=== PATIENT | male | born 1960 ===

== ENCOUNTER 2016-12-19 12:17 | Emergency (ER) | payer SELFPAY ==
[2016-12-19 12:17] VITALS: BMI 22.4
--- NOTE | 2016-12-19 13:30 | C.PDOC ---
History Of Present Illness Patient is a 55 year old male with a PMHx of HTN and DM, who presents to the ER with a complaint of leg swelling for the past 2 weeks. Patient denies fever or other complaints. Time Seen by Provider: 12/19/16 13:23 Chief Complaint (Nursing): Lower Extremity Problem/Injury History Per: Patient History/Exam Limitations: no limitations Onset/Duration Of Symptoms: Days (2 weeks) Current Symptoms Are (Timing): Still Present Recent travel outside of the [place]: No Past Medical History Reviewed: Historical Data, Nursing Documentation, Vital Signs Vital Signs: Last Vital Signs Temp 98.2 F 12/19/16 13:12 Pulse 64 12/19/16 13:12 Resp 20 12/19/16 13:12 BP 161/92 H 12/19/16 13:12 Pulse Ox 99 12/19/16 15:30 - Medical History PMH: Back Problems, Diabetes, HTN Surgical History: No Surg Hx - [facility] Procedures INFLUENZA VACCINATION (08/18/13) VACCINATION NEC (08/18/13) Family History: States: Unknown Family Hx - Social History Hx Tobacco Use: Yes Hx Alcohol Use: No Hx Substance Use: No - Immunization History Hx Tetanus Toxoid Vaccination: No Hx Influenza Vaccination: Yes Hx Pneumococcal Vaccination: No Review Of Systems Except As Marked, All Systems Reviewed And Found Negative. Constitutional: Negative for: Fever Gastrointestinal: Negative for: Nausea, Vomiting Musculoskeletal: Positive for: Other (Bilateral leg swelling) Physical Exam - Physical Exam Appears: Well, Non-toxic Skin: Normal Color, Warm, Dry Head: Atraumatic, Normacephalic Oral Mucosa: Moist Chest: Symmetrical, No Tenderness Cardiovascular: Rhythm Regular, No Murmur Respiratory: Normal Breath Sounds, No Rales, No Rhonchi, No Wheezing Gastrointestinal/Abdominal: Soft, No Tenderness Extremity: No Tenderness, Swelling (Legs, bilateral) Neurological/Psych: Oriented x3, Normal Speech, Normal Cognition ED Course And Treatment - Laboratory Results Result Diagrams: 12/19/16 14:04 12/19/16 14:04 ECG: Interpreted By Me, Viewed By Me ECG Rhythm: Sinus Bradycardia, R BBB Rate From EC O2 Sat by Pulse Oximetry: 99 (Room air) Pulse Ox Interpretation: Normal Medical Decision Making Medical Decision Making: r/o renal failure, chf, dvt Plan: * Blood work 300: dvt study neg as per tech. pt offered admission as new onset of chf. cxr shows mild vasc congestion as read by me. pt refuses, states wishes to go home. understands risks. signs AMA Disposition - Disposition Referrals: [facility] [Outside] [facility] [Outside] Barrie Live MD [Staff Provider] - Disposition: AGAINST MEDICAL ADVICE Disposition Time: 15:01 Condition: UNKNOWN Additional Instructions: please follow up in clinic and with specialist. return to er with worsening symptoms or concerns. Prescriptions: Furosemide [Lasix] 20 mg PO DAILY #7 tablet Instructions: Leg Edema (ED) - Clinical Impression Clinical Impression: CHF (congestive heart failure), Leg edema - Scribe Statement The provider has reviewed the documentation as recorded by the Scribe Toby Valdez All medical record entries made by the Scribe were at my direction and personally dictated by me. I have reviewed the chart and agree that the record accurately reflects my personal performance of the history, physical exam, medical decision making, and the department course for this patient. I have also personally directed, reviewed, and agree with the discharge instructions and disposition.
[2016-12-19 14:17] LABS: BASO % 0.5 % (0.0-2.0); EOS # 0.6 K/uL (0.0-0.7); EOS % 5.9 % (0.0-4.0); HEMATOCRIT 31.2 % (35.0-51.0); LYMPH # 1.5 K/uL (1.0-4.3); LYMPH % 15.7 % (20.0-40.0); MEAN CELL VOLUME 89.8 fL (80.0-94.0); MEAN CORPUSCULAR HEMOGLOBIN 30.4 pg (27.0-31.0); MEAN CORPUSCULAR HGB CONC 33.9 g/dL (33.0-37.0); MONO # 0.6 K/uL (0.0-0.8); MONO % 5.7 % (0.0-10.0); RED CELL DISTRIBUTION WIDTH 14.3 % (11.5-14.5); WHITE BLOOD COUNT 9.8 K/uL (4.8-10.8)
[2016-12-19 14:19] LABS: CHLORIDE 104 mmol/L (98-107); POTASSIUM 3.2 mmol/L (3.6-5.2); SODIUM 137 mmol/L (132-148)
[2016-12-19 14:21] LABS: BILIRUBIN,TOTAL < 0.1 mg/dL (0.2-1.3); CARBON DIOXIDE 28 mmol/L (22-30); GFR AFRICAN-AMERICAN > 60
[2016-12-19 14:22] LABS: ALB/GLOB RATIO 0.9 (1.0-2.1); ALKALINE PHOSPHATASE 65 U/L (38-126); ALT/SGPT 51 U/L (21-72); AST/SGOT 36 U/L (17-59); BLOOD UREA NITROGEN 15 mg/dL (9-20); GLUCOSE,RANDOM 125 mg/dL (75-110); TOTAL PROTEIN 5.9 g/dL (6.3-8.3)
[2016-12-19] MEDS ORDERED: Potassium Chloride 20 mEq ER Tab PO STA (14:22)
[2016-12-19 14:27] LABS: INR 0.9
[2016-12-19] MEDS ORDERED: Potassium Chloride 20 mEq ER Tab PO ONE (15:14)
[2016-12-19 15:48] VITALS: BP 170/82; PULSE 59; RESP 18; TEMP 97.7; O2SAT 100
--- NOTE | 2016-12-19 16:04 | RAD ---
HISTORY: swelling r/o chf COMPARISON: 10/08/2014 FINDINGS: LUNGS: Multiple scattered ill-defined areas of consolidation and or opacification throughout both lungs most prominent in the right upper to mid lung zone and left upper to mid lung zone. More focal consolidative areas seen at the lateral aspect of the right midlung zone and lateral aspect of the left upper to mid lung zone. Diffuse increased interstitial lung markings. This may represent underlying fibrotic changes with possible superimposed acute infectious and or inflammatory components. Clinical correlation. PLEURA: As above. CARDIOVASCULAR: Tortuous aorta. Mild cardiomegaly. OSSEOUS STRUCTURES: Degenerative changes in the spine and shoulders. VISUALIZED UPPER ABDOMEN: Normal. OTHER FINDINGS: None. IMPRESSION: Multiple scattered ill-defined areas of consolidation and or opacification throughout both lungs most prominent in the right upper to mid lung zone and left upper to mid lung zone. More focal consolidative areas seen at the lateral aspect of the right midlung zone and lateral aspect of the left upper to mid lung zone. Diffuse increased interstitial lung markings. This may represent underlying fibrotic changes with possible superimposed acute infectious and or inflammatory components. Clinical correlation.
--- NOTE | 2016-12-19 21:28 | VASCLAB ---
PROCEDURE: Lower Extremity Venous Duplex Exam. HISTORY: leg swelling r/o dvt PRIORS: None. TECHNIQUE: Bilateral common femoral, femoral, popliteal and posterior tibial, peroneal and great saphenous veins were evaluated. Flow was assessed with color Doppler, compressibility, assessment of phasic flow and augmentation response. Report prepared by RANJIT Langston, RVT FINDINGS: RIGHT: 1. Common Femoral Vein: 1.1. Compressibility - Fully compressible: Thrombus - None : Flow - Phasic: Augmentation -Normal: Reflux - None. 2. Femoral Vein: 2.1. Compressibility - Fully compressible: Thrombus - None : Flow - Phasic: Augmentation -Normal: Reflux - None. 3. Popliteal Vein: 3.1. Compressibility - Fully compressible: Thrombus - None : Flow - Phasic: Augmentation -Normal: Reflux - Severe. 4. Posterior Tibial Vein: 4.1. Compressibility - Fully compressible: Thrombus - None: Flow - Phasic: Augmentation -Normal: Reflux - None. 5. Peroneal Vein: 5.1. Compressibility - Fully compressible: Thrombus - None: Flow - Phasic: Augmentation -Normal: Reflux - None. 6. Great Saphenous Vein: 6.1. Compressibility - Fully compressible: Thrombus - None: Flow - Phasic: Augmentation - Normal: Reflux - Severe. LEFT: 1. Common Femoral Vein: 1.1. Compressibility - Fully compressible: Thrombus - None: Flow - Phasic: Augmentation -Normal: Reflux - None. 2. Femoral Vein: 2.1. Compressibility - Fully compressible: Thrombus - None: Flow - Phasic: Augmentation -Normal: Reflux - None. 3. Popliteal Vein: 3.1. Compressibility - Fully compressible: Thrombus - None : Flow - Phasic: Augmentation -Normal: Reflux - None. 4. Posterior Tibial Vein: 4.1. Compressibility - Fully compressible: Thrombus - None: Flow - Phasic: Augmentation -Normal: Reflux - None. 5. Peroneal Vein: 5.1. Compressibility - Fully compressible: Thrombus - None: Flow - Phasic: Augmentation -Normal: Reflux - None. 6. Great Saphenous Vein: 6.1. Compressibility - Fully compressible: Thrombus - None: Flow - Phasic: Augmentation - Normal: Reflux - Severe. OTHER FINDINGS: Right: Severe valvular incompetence of the right popliteal and greater saphenous veins. Soft tissue edema. Left: Severe valvular incompetence of the left greater saphenous vein. Soft tissue edema. IMPRESSION: Right: No evidence of deep or superficial vein thrombosis of the right lower extremity. Left: No evidence of deep or superficial vein thrombosis of the left lower extremity.
--- NOTE | 2016-12-20 10:19 | CARD ---
APPROVED REPORT EKG Measurement Heart [id number] DE 116P-4 [id number] <Conclusion> Sinus bradycardia Right bundle branch block Left anterior fascicular block Bifascicular block Abnormal ECG
== END 2016-12-19 15:47 | disposition left against medical advice (07) ==
LOC: C.ER 12:17
DX: I11.0 Hypertensive heart disease with heart failure (principal); R60.0 Localized edema; Z72.0 Tobacco use
CPT/HCPCS: 71010; 80053; 83880; 84484; 85025; 85610; 85730; 93005; 93970; 96374; 99285; J1940

== ENCOUNTER 2017-02-27 07:19 | Inpatient (IN) | payer SELFPAY ==
[2017-02-27 07:20] VITALS: BMI 22.4
--- NOTE | 2017-02-27 07:53 | C.PDOC ---
History Of Present Illness Patient is a 56 y/o M with DM, presenting with lower extremity swelling. He was seen in December for the same and was recommended for admission for new onset chf , but signed out AMA. Patient presents today with worsening pain and swelling and reports that he cannot ambulate due to the swelling. Denies chest pain or shortness of breath. Time Seen by Provider: 02/27/17 07:41 Chief Complaint (Nursing): Lower Extremity Problem/Injury Past Medical History Vital Signs: Last Vital Signs Temp 98.3 F 02/27/17 10:32 Pulse 61 02/27/17 12:40 Resp 20 02/27/17 12:40 BP 171/90 H 02/27/17 12:40 Pulse Ox 100 02/27/17 12:40 - Medical History PMH: Back Problems, Diabetes, HTN - [facility] Procedures INFLUENZA VACCINATION (08/18/13) VACCINATION NEC (08/18/13) Family History: States: Unknown Family Hx - Social History Hx Tobacco Use: Yes Hx Alcohol Use: No Hx Substance Use: No - Immunization History Hx Tetanus Toxoid Vaccination: No Hx Influenza Vaccination: Yes Hx Pneumococcal Vaccination: No Review Of Systems Except As Marked, All Systems Reviewed And Found Negative. Constitutional: Negative for: Fever, Chills Cardiovascular: Positive for: Edema. Negative for: Chest Pain, Palpitations, Orthopnea, Paroxysmal Noc. Dyspnea, Light Headedness Respiratory: Negative for: Cough, Shortness of Breath, SOB with Excertion, Wheezing Gastrointestinal: Negative for: Nausea, Vomiting, Abdominal Pain, Diarrhea, Constipation Genitourinary: Negative for: Dysuria Neurological: Negative for: Weakness Psych: Negative for: Anxiety Physical Exam - Physical Exam Appears: Well, Non-toxic, No Acute Distress Head: Atraumatic, Normacephalic Eye(s): bilateral: Normal Inspection, PERRL, EOMI Neck: Supple Chest: Symmetrical Cardiovascular: Rhythm Regular Respiratory: Normal Breath Sounds, No Rales, No Rhonchi, No Wheezing Gastrointestinal/Abdominal: Soft, No Tenderness, No Mass, No Distention Back: Normal Inspection, No CVA Tenderness Extremity: Normal ROM, Pedal Edema ED Course And Treatment - Laboratory Results Result Diagrams: 02/27/17 08:06 02/27/17 08:06 O2 Sat by Pulse Oximetry: 100 Medical Decision Making Medical Decision Making: chf vs renal vs liver dysfunction. r/o dvt EKG shows sinus bradycardia at 58bpm with RBBB and L anterior fasicular block, unchanged from prior on 12/19/16. Duplex negative for dvt b/l Cxray read as "Previously noted areas of nodular opacities, peribronchial thickening, cystic bronchiectasis and cavitary lesions in the upper and to a lesser degree lower lobes bilaterally are less well seen on this study as compared to high-resolution CT scan chest. . Rule out chronic inflammatory process/ fungal infection." Spoke to Dr. Bonilla and will transfer to tele observation for new onset chf and lower extremity edema. Lasix ordered. He is aware of abnormal xray result. Disposition - Disposition Disposition: HOSPITALIZED Disposition Time: 07:56 Condition: FAIR - Clinical Impression Clinical Impression: Lower extremity edema
[2017-02-27 08:25] LABS: BASO # 0.1 K/uL (0.0-0.2); BASO % 1.1 % (0.0-2.0); EOS # 0.7 K/uL (0.0-0.7); EOS % 6.9 % (0.0-4.0); HEMATOCRIT 31.7 % (35.0-51.0); LYMPH # 1.8 K/uL (1.0-4.3); LYMPH % 17.3 % (20.0-40.0); MEAN CELL VOLUME 89.2 fL (80.0-94.0); MEAN CORPUSCULAR HEMOGLOBIN 29.6 pg (27.0-31.0); MEAN CORPUSCULAR HGB CONC 33.2 g/dL (33.0-37.0); MEAN PLATELET VOLUME 9.1 fL (7.2-11.7); MONO # 0.5 K/uL (0.0-0.8); RED CELL DISTRIBUTION WIDTH 14.5 % (11.5-14.5); WHITE BLOOD COUNT 10.2 K/uL (4.8-10.8)
[2017-02-27 08:46] LABS: CHLORIDE 104 mmol/L (98-107); POTASSIUM 3.9 mmol/L (3.6-5.2); SODIUM 137 mmol/L (132-148)
[2017-02-27 08:48] LABS: BILIRUBIN,TOTAL 0.4 mg/dL (0.2-1.3); GFR AFRICAN-AMERICAN > 60
[2017-02-27 08:49] LABS: ALB/GLOB RATIO 0.8 (1.0-2.1); ALKALINE PHOSPHATASE 90 U/L (38-126); ALT/SGPT 44 U/L (21-72); AST/SGOT 27 U/L (17-59); BLOOD UREA NITROGEN 14 mg/dL (9-20); CALCIUM 7.7 mg/dl (8.6-10.4); CARBON DIOXIDE 24 mmol/L (22-30); GLUCOSE,RANDOM 266 mg/dL (75-110); TOTAL PROTEIN 5.6 g/dL (6.3-8.3)
[2017-02-27] MEDS ORDERED: Propofol 10 mg/ml 0 MG/0 ML VIAL ONE (09:11)
[2017-02-27] MEDS ORDERED: Piperacillin/Tazobact 3.375 gm 0 ML IVPB ONE (11:13)
--- NOTE | 2017-02-27 12:40 | RAD ---
HISTORY: leg swelling COMPARISON: Comparison made with chest radiograph and CT scan chest dated 12/29/2016 and 08 19 2013 respectively. FINDINGS: LUNGS: Previously noted areas of nodular opacities, peribronchial thickening, cystic bronchiectasis and cavitary lesions in the upper and to a lesser degree lower lobes bilaterally are less well seen on this study as compared to high-resolution CT scan chest. . Rule out chronic inflammatory process/ fungal infection. Is there history of immunocompromised state in this patient? . PLEURA: No significant pleural effusion identified, no pneumothorax apparent. CARDIOVASCULAR: Heart appears mildly enlarged. . . OSSEOUS STRUCTURES: No significant abnormalities. VISUALIZED UPPER ABDOMEN: Normal. OTHER FINDINGS: None. IMPRESSION: Previously noted areas of nodular opacities, peribronchial thickening, cystic bronchiectasis and cavitary lesions in the upper and to a lesser degree lower lobes bilaterally are less well seen on this study as compared to high-resolution CT scan chest. . Rule out chronic inflammatory process/ fungal infection. Is there history of immunocompromised state in this patient? These findings discussed with Dr. Mariscal at approximately 12:35 p.m. with written down and read back verification.
--- NOTE | 2017-02-27 13:25 | VASCLAB ---
PROCEDURE: Lower Extremity Venous Duplex Exam. HISTORY: lower extremity swelling, eval for dvt PRIORS: None. TECHNIQUE: Bilateral common femoral, femoral, popliteal and posterior tibial, peroneal and great saphenous veins were evaluated. Flow was assessed with color Doppler, compressibility, assessment of phasic flow and augmentation response. Report prepared by Toby Porter, RANJIT, RVT FINDINGS: RIGHT: 1. Common Femoral Vein: 1.1. Compressibility - Fully compressible: Thrombus - None : Flow - Phasic: Augmentation -Normal: Reflux - None. 2. Femoral Vein: 2.1. Compressibility - Fully compressible: Thrombus - None : Flow - Phasic: Augmentation -Normal: Reflux - None. 3. Popliteal Vein: 3.1. Compressibility - Fully compressible: Thrombus - None : Flow - Phasic: Augmentation -Normal: Reflux - Severe. 4. Posterior Tibial Vein: 4.1. Compressibility - Fully compressible: Thrombus - None: Flow - Phasic: Augmentation -Normal: Reflux - None. 5. Peroneal Vein: 5.1. Compressibility - Fully compressible: Thrombus - None: Flow - Phasic: Augmentation -Normal: Reflux - Severe. 6. Great Saphenous Vein: 6.1. Compressibility - Fully compressible: Thrombus - None: Flow - Phasic: Augmentation - Normal: Reflux - None. LEFT: 1. Common Femoral Vein: 1.1. Compressibility - Fully compressible: Thrombus - None: Flow - Phasic: Augmentation -Normal: Reflux - None. 2. Femoral Vein: 2.1. Compressibility - Fully compressible: Thrombus - None: Flow - Phasic: Augmentation -Normal: Reflux - None. 3. Popliteal Vein: 3.1. Compressibility - Fully compressible: Thrombus - None : Flow - Phasic: Augmentation -Normal: Reflux - None. 4. Posterior Tibial Vein: 4.1. Compressibility - Fully compressible: Thrombus - None: Flow - Phasic: Augmentation -Normal: Reflux - None. 5. Peroneal Vein: 5.1. Compressibility - Fully compressible: Thrombus - None: Flow - Phasic: Augmentation -Normal: Reflux - None. 6. Great Saphenous Vein: 6.1. Compressibility - Fully compressible: Thrombus - None: Flow - Phasic: Augmentation - Normal: Reflux - None. OTHER FINDINGS: Right: Severe valvular incompetence of the right popliteal vein. Left: Severe valvular incompetence of the left greater saphenous vein. IMPRESSION: Right: No evidence of deep or superficial vein thrombosis of the right lower extremity. Left: No evidence of deep or superficial vein thrombosis of the left lower extremity.
--- NOTE | 2017-02-27 13:43 | CP.PCM.HP ---
<Rayne FangEzequiel - Last Filed: 02/27/17 19:51> History of Present Illness - History of Present Illness History of Present Illness: CC- bilateral leg pain and swelling Patient is a 56 M with PMH of diabetes who presents to the emergency room for worsening bilateral leg pain. Patient has had about 3 months of leg swelling and one month of leg pain. Patient says in the past week he has not been able to go to work because his leg pain has been bothering him so much. Patient states the pain is worse with walking and walking up stairs. Patient describes the pain as a throbbing pain that is 7/10 at its worse and currently 3/10. Patient says the pain moves from his knee to his feet to the back of his legs. Patient also has weakness from his feet up to his hips and feels he has to use the handrails to help him get up stairs. Patient feels numbness in the soles of his feet and toes for 3-4 months. Pain is present but mild at rest. Patient also complains of hand numbness which he feels mostly at night and sometimes during the day which he describes as discomfort and tingling but not pain which has been happening for 3 years. Patient has been to doctors before for these complaints who told him it was caused by his diabetes. Patient does not check his blood sugars at home. Patient sleeps on two pillows and denies shortness of breath. Patient is able to sleep in any position without trouble breathing. Patient denies shortness of breath at rest or with walking, but admits to shortness of breath with exercise. Patient feels he can tolerate less exercise than he could before he was diagnosed with diabetes. Patient feels bloated and has a lot of flatulence, but is having normal bowel movement with no constipation or diarrhea. Patient denies headache, dizziness, changes in hearing , congestion, shortness of breath, chest pain, palpitations, fevers, or sweats. PMD: [facility] PMHx: Diabetes Psurg: none Famhx: none known to pateint Socialhx: tobacco: 5/6 cigarettes per day for 15 years alcohol: 6 beers per week drugs: none patient says he eats unhealthy and drinks one cup of coffee per day patient lives alone and works for a [employer] company Home Medications: Levamir 25 U daily Janumet 50 mg po BID Glimepiride 4 mg Daily Gabapentin 600 mg BID Present on Admission - Present on Admission Any Indicators Present on Admission: Yes History of DVT/PE: No History of Uncontrolled Diabetes: Yes Urinary Catheter: No Decubitus Ulcer Present: No Review of Systems - Constitutional Constitutional: Weakness. absent: Chills, Fatigue, Fever, Night Sweats - EENT Eyes: absent: Blurred Vision, Change in Vision Nose/Mouth/Throat: absent: Nasal Congestion, Sinus Pressure, Dry Mouth, Sore Throat Additional comments: patient has bilateral cataracts - Cardiovascular Cardiovascular: Claudication, Edema, Leg Edema, Pedal Edema. absent: Chest Pain at Rest, Leg Ulcers, Orthopnea, Palpitations, Paroxysmal Nocturnal Dyspnea - Respiratory Respiratory: absent: Cough, Wheezing, Stridor - Gastrointestinal Gastrointestinal: Bloating, Excessive Flatus. absent: Abdominal Pain, Constipation, Diarrhea, Loose Stools, Vomiting - Genitourinary Genitourinary: Nocturia. absent: Change in Urinary Stream, Urinary Incontinence Additional comments: wakes up to urinate 2 times per night - Musculoskeletal Musculoskeletal: Muscle Cramps, Muscle Weakness, Numbness, Tingling - Integumentary Integumentary: Dry Skin, Erythema - Neurological Neurological: Tingling. absent: Dizziness, Headaches, Loss of Vision - Psychiatric Psychiatric: Abnormal Sleep Pattern. absent: Confusion, Depression - Endocrine Endocrine: Palpitations. absent: Fatigue - Hematologic/Lymphatic Hematologic: absent: Easy Bleeding, Easy Bruising Past Patient History - Past Medical History & Family History Past Medical History?: Yes - Past Social History Smoking Status: Light Smoker < 10 Cigarettes Daily - CARDIAC Hx Hypertension: Yes - PULMONARY Hx Respiratory Disorders: No - NEUROLOGICAL Hx Neurological Disorder: No - HEENT Hx HEENT Problems: No - ENDOCRINE/METABOLIC Hx Diabetes Mellitus Type 1: Yes Other/Comment: per patient only medical history is DM - HEMATOLOGICAL/ONCOLOGICAL Hx Blood Disorders: No - INTEGUMENTARY Hx Dermatological Problems: No - MUSCULOSKELETAL/RHEUMATOLOGICAL Hx Falls: No - GASTROINTESTINAL Hx Gastrointestinal Disorders: No - GENITOURINARY/GYNECOLOGICAL Hx Genitourinary Disorders: No - PSYCHIATRIC Hx Substance Use: No - SURGICAL HISTORY Hx Surgeries: No - ANESTHESIA Hx Anesthesia: No Hx Anesthesia Reactions: No Meds Allergies/Adverse Reactions: Allergies Allergy/AdvReac Type Severity Reaction Status Date / Time No Known Allergies Allergy Verified 02/27/17 07:47 Physical Exam - Constitutional Appears: Well, Non-toxic, No Acute Distress - Head Exam Head Exam: ATRAUMATIC, NORMAL INSPECTION, NORMOCEPHALIC - Eye Exam Eye Exam: EOMI, Normal appearance, PERRL - ENT Exam ENT Exam: Mucous Membranes Moist, Normal Exam - Neck Exam Neck exam: Positive for: Full Rom - Respiratory Exam Respiratory Exam: Clear to Auscultation Bilateral, NORMAL BREATHING PATTERN. absent: Rales, Rhonchi, Wheezes, Respiratory Distress, Stridor - Cardiovascular Exam Cardiovascular Exam: REGULAR RHYTHM, JVD, RRR, +S1, +S2. absent: Rubs, Systolic Murmur Additional comments: positive hepatojugular reflex - GI/Abdominal Exam GI & Abdominal Exam: Normal Bowel Sounds, Soft. absent: Distended, Firm, Guarding, Tenderness - Extremities Exam Extremities exam: Positive for: pedal edema, tenderness - Back Exam Back exam: NORMAL INSPECTION. absent: rash noted - Neurological Exam Neurological exam: Alert, CN II-XII Intact, Oriented x3 - Psychiatric Exam Psychiatric exam: Normal Affect, Normal Mood - Skin Skin Exam: Erythema, Intact, Warm Additional comments: 2+ pitting edema erythematous lower extremity bilaterally b/l erythema of feet Results - Vital Signs Recent Vital Signs: Last Vital Signs Temp 98.3 F 02/27/17 10:32 Pulse 61 02/27/17 12:40 Resp 20 02/27/17 12:40 BP 171/90 H 02/27/17 12:40 Pulse Ox 100 02/27/17 12:49 - Labs Result Diagrams: 02/27/17 08:06 02/27/17 08:06 Assessment & Plan - Assessment and Plan (Free Text) Assessment: 1. Lower Extremity Edema secondary to CHF, peripheral vascular disease venous doppler negative f/u arterial doppler f/u echo f/u lipid panel ekg showed right bundle branch block - no change since EKG in 12/2016 cardiology consulted, Dr. Ho, help appreciated vascular surgery, Dr. Ying, help appreciated Lasix 40 mg IVP daily Coreg 3.125 mg PO BID Aspirin 81 mg PO daily Lisinopril 10 mg PO daily Crestor 2.5 mg PO HS Spironolactone 25 mg PO Daily 2. Lower Extremity Pain Tylenol 650 mg PO Q6 prn for moderate leg pain Gabapentin 600 mg PO BID 3. Uncontrolled Diabetes Mellitus continue home medications: Levemir 25 U daily Januvia 50 mg BID Metformin 500 mg PO BID Glimepiride 4 mg PO daily Accuchecks ISS (low) HgA1C 4. Uncontrolled Hypertension Lisinopril 10 mg PO daily Coreg 3.125 mg PO daily 5. Tobacco Use Disorder Nicotine patch 14 mg/ 24 hr smoking cessation discussed 6. Prophylactic Measures Pepcid 20 mg PO BID Heparin 5000 u sc q8h <Rubio Nava - Last Filed: 04/11/17 15:10> Results - Vital Signs Recent Vital Signs: Last Vital Signs Temp 98.0 F 03/09/17 07:10 Pulse 76 03/09/17 07:10 Resp 18 03/09/17 07:10 BP 133/70 03/09/17 09:34 Pulse Ox 100 03/09/17 07:10 - Labs Result Diagrams: 03/09/17 06:07 03/09/17 06:07 Attending/Attestation - Attestation I have personally seen and examined this patient.: Yes I have fully participated in the care of the patient.: Yes I have reviewed all pertinent clinical information: Yes Notes (Text): 1. Lower Extremity Edema secondary to CHF, peripheral vascular disease venous doppler negative 2. Lower Extremity Pain Tylenol 650 mg PO Q6 prn for moderate leg pain Gabapentin 600 mg PO BID 3. Uncontrolled Diabetes Mellitus continue home medications: Levemir 25 U daily Januvia 50 mg BID Metformin 500 mg PO BID Glimepiride 4 mg PO daily 4. Uncontrolled Hypertension Lisinopril 10 mg PO daily Coreg 3.125 mg PO daily
--- NOTE | 2017-02-27 15:52 | CP.PCM.CON ---
History of Present Illness - History of Present Illness History of Present Illness: Surgery: Dr. Ying CC: bilateral leg swelling Reason for consult: PVD HPI: Patient is a 56 y/o male, pmh of DM who presents complaining of bilateral leg pain and swelling for the past 2-3 months. Patient denies having problems with his heart or legs in the past. He states the pain is worsened w/ movement and walking and gets better with rest. He denies chest pain or shortness of breath. PMHx: Diabetes PShx: none Social: reports tobacco use, 6-7 cigarettes/day for 15 years, denies ETOH or drug abuse Review of Systems - Review of Systems All systems: reviewed and no additional remarkable complaints except Review of Systems: unless stated in HPI Past Patient History - Past Medical History & Family History Past Medical History?: Yes - Past Social History Smoking Status: Light Smoker < 10 Cigarettes Daily - CARDIAC Hx Hypertension: Yes - PULMONARY Hx Respiratory Disorders: No - NEUROLOGICAL Hx Neurological Disorder: No - HEENT Hx HEENT Problems: No - ENDOCRINE/METABOLIC Hx Diabetes Mellitus Type 1: Yes Other/Comment: per patient only medical history is DM - HEMATOLOGICAL/ONCOLOGICAL Hx Blood Disorders: No - INTEGUMENTARY Hx Dermatological Problems: No - MUSCULOSKELETAL/RHEUMATOLOGICAL Hx Falls: No - GASTROINTESTINAL Hx Gastrointestinal Disorders: No - GENITOURINARY/GYNECOLOGICAL Hx Genitourinary Disorders: No - PSYCHIATRIC Hx Substance Use: No - SURGICAL HISTORY Hx Surgeries: No - ANESTHESIA Hx Anesthesia: No Hx Anesthesia Reactions: No Meds Allergies/Adverse Reactions: Allergies Allergy/AdvReac Type Severity Reaction Status Date / Time No Known Allergies Allergy Verified 02/27/17 07:47 - Medications Medications: Current Medications Acetaminophen (Tylenol 325mg Tab) 650 mg PO Q6 PRN PRN Reason: Pain, moderate (4-7) Aspirin (Aspirin Chewable) 81 mg PO DAILY [facility] Carvedilol (Coreg) 3.125 mg PO BID [facility] Furosemide (Lasix) 40 mg IVP DAILY [facility] Glimepiride (Amaryl) 4 mg PO DAILY [facility] Insulin Detemir (Levemir) 25 unit SC DAILY [facility] Insulin Human Regular (Novolin R) 0 unit SC ACHS [facility] PRN Reason: Protocol Lisinopril (Zestril) 10 mg PO DAILY [facility] Metformin HCl (Glucophage) 500 mg PO BIDBS [facility] Nicotine (Nicoderm Cq) 1 patch TD DAILY [facility] Rosuvastatin Calcium (Crestor) 2.5 mg PO HS [facility] Sitagliptin Phosphate (Januvia) 50 mg PO DAILY [facility] Spironolactone (Aldactone) 25 mg PO DAILY [facility] Physical Exam - Constitutional Appears: Non-toxic, No Acute Distress - Head Exam Head Exam: ATRAUMATIC, NORMOCEPHALIC - Eye Exam Eye Exam: EOMI, Normal appearance - ENT Exam ENT Exam: Mucous Membranes Moist - Respiratory Exam Respiratory Exam: NORMAL BREATHING PATTERN. absent: Respiratory Distress - Cardiovascular Exam Cardiovascular Exam: REGULAR RHYTHM. absent: Tachycardia - Extremities Exam Extremities exam: Positive for: pedal edema, pedal pulses present. Negative for : calf tenderness Additional comments: some mild overlying chronic skin changes and 2+ edema extending from knee to foot. - Neurological Exam Neurological exam: Alert, Oriented x3 - Psychiatric Exam Psychiatric exam: Normal Affect, Normal Mood - Skin Skin Exam: Dry, Warm Results - Vital Signs Recent Vital Signs: Last Vital Signs Temp 97.4 F L 02/27/17 15:00 Pulse 60 02/27/17 15:00 Resp 20 02/27/17 15:00 BP 166/74 H 02/27/17 15:00 Pulse Ox 100 02/27/17 15:00 - Labs Result Diagrams: 02/27/17 08:06 02/27/17 08:06 Assessment & Plan - Assessment and Plan (Free Text) Assessment: 56 y/o male w/ leg swelling bilaterally Plan: -patient pulses are palpable -will order arterial duplex -check for DVT -most likely heart related considering BNP elevation -pending arterial duplex determines further recommendations -smoking cessation -physical therapy -leg elevation -d/w Dr. Terry Rothman PGY3
[2017-02-27] MEDS: (Novolin R) Insulin Human Regular 100 units/ml vial SC SCH ×2 (18:13→21:54)
[2017-02-27 21:10] LABS: CHOLESTEROL 190 mg/dL (0-199)
[2017-02-27] MEDS: Rosuvastatin Calcium 2.5 mg Tab PO SCH (21:53)
[2017-02-28 06:26] LABS: CHLORIDE 106 mmol/L (98-107)
[2017-02-28 06:27] LABS: POTASSIUM 3.5 mmol/L (3.6-5.2); SODIUM 137 mmol/L (132-148)
[2017-02-28 06:29] LABS: GFR AFRICAN-AMERICAN > 60
[2017-02-28 06:30] LABS: ALB/GLOB RATIO 0.8 (1.0-2.1); ALKALINE PHOSPHATASE 74 U/L (38-126); ALT/SGPT 42 U/L (21-72); AST/SGOT 25 U/L (17-59); BILIRUBIN,TOTAL 0.3 mg/dL (0.2-1.3); BLOOD UREA NITROGEN 13 mg/dL (9-20); CALCIUM 7.6 mg/dl (8.6-10.4); CARBON DIOXIDE 25 mmol/L (22-30); GLUCOSE,RANDOM 74 mg/dL (75-110)
[2017-02-28 06:31] LABS: MAGNESIUM 1.9 mg/dL (1.6-2.3)
[2017-02-28 06:48] LABS: BASO # 0.1 K/uL (0.0-0.2); BASO % 1.1 % (0.0-2.0); EOS # 0.6 K/uL (0.0-0.7); EOS % 6.8 % (0.0-4.0); HEMATOCRIT 29.7 % (35.0-51.0); LYMPH # 1.8 K/uL (1.0-4.3); LYMPH % 20.4 % (20.0-40.0); MEAN CELL VOLUME 88.6 fL (80.0-94.0); MEAN CORPUSCULAR HEMOGLOBIN 29.6 pg (27.0-31.0); MEAN CORPUSCULAR HGB CONC 33.4 g/dL (33.0-37.0); MEAN PLATELET VOLUME 8.8 fL (7.2-11.7); MONO # 0.4 K/uL (0.0-0.8); MONO % 4.8 % (0.0-10.0); RED CELL DISTRIBUTION WIDTH 14.3 % (11.5-14.5)
--- NOTE | 2017-02-28 08:04 | CP.PCM.CON ---
History of Present Illness - History of Present Illness History of Present Illness: patient seen/exmined. Full consult to follow. Patient will require echo to evaluate LV function Past Patient History - Past Medical History & Family History Past Medical History?: Yes - Past Social History Smoking Status: Light Smoker < 10 Cigarettes Daily - CARDIAC Hx Hypertension: Yes - PULMONARY Hx Respiratory Disorders: No - NEUROLOGICAL Hx Neurological Disorder: No - HEENT Hx HEENT Problems: No - ENDOCRINE/METABOLIC Hx Diabetes Mellitus Type 1: Yes Other/Comment: per patient only medical history is DM - HEMATOLOGICAL/ONCOLOGICAL Hx Blood Disorders: No - INTEGUMENTARY Hx Dermatological Problems: No - MUSCULOSKELETAL/RHEUMATOLOGICAL Hx Falls: No - GASTROINTESTINAL Hx Gastrointestinal Disorders: No - GENITOURINARY/GYNECOLOGICAL Hx Genitourinary Disorders: No - PSYCHIATRIC Hx Substance Use: No - SURGICAL HISTORY Hx Surgeries: No - ANESTHESIA Hx Anesthesia: No Hx Anesthesia Reactions: No Meds Allergies/Adverse Reactions: Allergies Allergy/AdvReac Type Severity Reaction Status Date / Time No Known Allergies Allergy Verified 02/27/17 07:47 - Medications Medications: Current Medications Acetaminophen (Tylenol 325mg Tab) 650 mg PO Q6 PRN PRN Reason: Pain, moderate (4-7) Aspirin (Aspirin Chewable) 81 mg PO DAILY [facility] Carvedilol (Coreg) 3.125 mg PO BID [facility] Last Admin: 02/27/17 18:12 Dose: 3.125 mg Famotidine (Pepcid) 20 mg PO BID [facility] Last Admin: 02/27/17 18:12 Dose: 20 mg Furosemide (Lasix) 40 mg IVP DAILY [facility] Gabapentin (Neurontin) 600 mg PO BID [facility] Last Admin: 02/27/17 18:12 Dose: 600 mg Glimepiride (Amaryl) 4 mg PO DAILY [facility] Heparin Sodium (Porcine) (Heparin) 5,000 units SC Q8 [facility] Last Admin: 02/28/17 05:35 Dose: 5,000 units Insulin Detemir (Levemir) 25 unit SC DAILY [facility] Insulin Human Regular (Novolin R) 0 unit SC ACHS [facility] PRN Reason: Protocol Last Admin: 02/27/17 21:54 Dose: Not Given Lisinopril (Zestril) 10 mg PO DAILY [facility] Metformin HCl (Glucophage) 500 mg PO BID [facility] Last Admin: 02/27/17 18:12 Dose: 500 mg Nicotine (Nicoderm Cq) 1 patch TD DAILY [facility] Potassium Chloride (K-Dur 20 Meq Er Tab) 20 meq PO DAILY [facility] Rosuvastatin Calcium (Crestor) 2.5 mg PO HS [facility] Last Admin: 02/27/17 21:53 Dose: 2.5 mg Sitagliptin Phosphate (Januvia) 50 mg PO DAILY [facility] Spironolactone (Aldactone) 25 mg PO DAILY [facility] Results - Vital Signs Recent Vital Signs: Last Vital Signs Temp 97.7 F 02/28/17 05:33 Pulse 57 L 02/28/17 05:33 Resp 20 02/28/17 05:33 BP 149/75 02/28/17 05:33 Pulse Ox 97 02/28/17 05:33 - Labs Result Diagrams: 02/28/17 06:06 02/28/17 06:06 Labs: Laboratory Results - last 24 hr 02/27/17 02/27/17 02/27/17 16:46 20:40 21:07 WBC RBC Hgb Hct MCV MCH MCHC RDW Plt Count MPV Neut % (Auto) Lymph % (Auto) [place] % (Auto) Eos % (Auto) Baso % (Auto) Neut # Lymph # [place] # Eos # Baso # Sodium Potassium Chloride Carbon Dioxide Anion Gap BUN Creatinine Est GFR ( Amer) Est GFR (Non-Af Amer) POC Glucose (mg/dL) 275 H 112 H Random Glucose Calcium Phosphorus Magnesium Total Bilirubin AST ALT Alkaline Phosphatase Total Protein Albumin Globulin Albumin/Globulin Ratio Triglycerides 174 H D Cholesterol 190 LDL Cholesterol Direct 118 HDL Cholesterol 31 02/28/17 02/28/17 02/28/17 06:06 06:06 06:22 WBC 9.0 RBC 3.35 L Hgb 9.9 L Hct 29.7 L MCV 88.6 MCH 29.6 MCHC 33.4 RDW 14.3 Plt Count 242 MPV 8.8 Neut % (Auto) 66.9 Lymph % (Auto) 20.4 [place] % (Auto) 4.8 Eos % (Auto) 6.8 H Baso % (Auto) 1.1 Neut # 6.0 Lymph # 1.8 [place] # 0.4 Eos # 0.6 Baso # 0.1 Sodium 137 Potassium 3.5 L Chloride 106 Carbon Dioxide 25 Anion Gap 10 BUN 13 Creatinine 1.3 Est GFR ( Amer) > 60 Est GFR (Non-Af Amer) 57 POC Glucose (mg/dL) 83 Random Glucose 74 L Calcium 7.6 L Phosphorus 4.0 Magnesium 1.9 Total Bilirubin 0.3 AST 25 ALT 42 Alkaline Phosphatase 74 Total Protein 5.0 L Albumin 2.2 L Globulin 2.9 Albumin/Globulin Ratio 0.8 L Triglycerides Cholesterol LDL Cholesterol Direct HDL Cholesterol
--- NOTE | 2017-02-28 08:05 | CP.PCM.CON ---
History of Present Illness - History of Present Illness History of Present Illness: I was asked to see patient due to edema. Patient is a 56 year old male with a PMH HTN, hypercholesterolemia who presents with edema. The patient states he was noted to have edema for the last few days. He denied chest pain or palpitiatons Review of Systems - Constitutional Constitutional: absent: As Per HPI, Anorexia, Chills, Daytime Sleepiness, Excessive Sweating, Fatigue, Fever, Frequent Falls, Headache, Increased Appetite , Lethargy, Malaise, Night Sweats, Snoring, Sleep Apnea, Weight Gain, Weight Loss, Weakness, Other - EENT Eyes: absent: As Per HPI, Blind Spots, Blurred Vision, Change in Vision, Decreased Night Vision, Diplopia, Discharge, Dry Eye, Exophthalmos, Floaters, Irritation, Itchy Eyes, Loss of Peripheral Vision, Pain, Photophobia, Requires Corrective Lenses, Sees Flashes, Spots in Vision, Tunnel Vision, Other Visual Disturbances, Loss of Vision, Other Ears: absent: As Per HPI, Decreased Hearing, Ear Discharge, Ear Pain, Tinnitus, Abnormal Hearing, Disequilibrium, Dizziness, Other Nose/Mouth/Throat: absent: As Per HPI, Epistaxis, Nasal Congestion, Nasal Discharge, Nasal Obstruction, Nasal Trauma, Nose Pain, Post Nasal Drip, Sinus Pain, Sinus Pressure, Bleeding Gums, Change in Voice, Dental Pain, Dry Mouth, Dysphagia, Halitosis, Hoarsness, Lip Swelling, Mouth Lesions, Mouth Pain, Odynophagia, Sore Throat, Throat Swelling, Tongue Swelling, Facial Pain, Neck Pain, Neck Mass, Other - Cardiovascular Cardiovascular: Pedal Edema - Respiratory Respiratory: absent: As Per HPI, Cough, Dyspnea, Hemoptysis, Dyspnea on Exertion , Wheezing, Snoring, Stridor, Pain on Inspiration, Chest Congestion, Excessive Mucous Production, Change in Mucous Color, Pain with Coughing, Other - Gastrointestinal Gastrointestinal: absent: As Per HPI, Abdominal Pain, Belching, Bloating, Change in Bowel Habits, Change in Stool Character, Coffee Ground Emesis, Constipation, Cramping, Diarrhea, Dyspepsia, Dysphagia, Early Satiety, Excessive Flatus, Fecal Incontinence, Heartburn, Hematemesis, Hematochezia, Loose Stools, Melena, Nausea, Odynophagia, Temesmus, Vomiting, Other - Musculoskeletal Musculoskeletal: absent: As Per HPI, Abnormal Gait, Arthralgias, Atrophy, Back Pain, Deformity, Joint Swelling, Limited Range of Motion, Loss of Height, Muscle Cramps, Muscle Weakness, Myalgias, Neck Pain, Numbness, Radiating Pain into Limb, Stiffness, Tingling, Other - Integumentary Integumentary: absent: As Per HPI, Acne, Alopecia, Bleeding Lesions, Change in Hair, Change in Nails, Change in Pigmentation, Changing Lesions, Dry Skin, Erythema, Furuncle, Hirsutism, Lesions, New Lesions, Non-Healing Lesions, Photosensitivity, Pruritus, Rash, Skin Pain, Skin Ulcer, Sores, Striae, Swelling , Unusual Bruising, Wounds, Jaundice, Other - Neurological Neurological: absent: As Per HPI, Abnormal Gait, Abnormal Hearing, Abnormal Movements, Abnormal Speech, Behavioral Changes, Burning Sensations, Confusion, Convulsions, Disequilibrium, Dizziness, Numbness, Focal Weakness, Frequent Falls , Headaches, Lack of Coordination, Loss of Vision, Memory Loss, Paresthesias, Radicular Pain, Restless Legs, Sensory Deficit, Syncope, Tingling, Tremor, Vertigo, Weakness, Other Visual Disturbances, Other - Psychiatric Psychiatric: absent: As Per HPI, Abnormal Sleep Pattern, Anhedonia, Anxiety, Auditory Hallucinations, Behavioral Changes, Change in Appetite, Change in Libido, Confusion, Depression, Difficulty Concentrating, Hallucinations, Homicidal Ideation, Hopelessness, Irritability, Memory Loss, Mood Swings, Panic Attacks, Paranoia, Suicidal Ideation, Visual Hallucinations, Tactile Hallucinations, Other - Endocrine Endocrine: absent: As Per HPI, Change in Body Appearance, Change in Libido, Cold Intolorance, Deepening of Voice, Excessive Sweating, Fatigue, Flushing, Heat Intolorance, Increase in Ring/Shoe/Hat Size, Palpitations, Polydipsia, Polyphagia, Polyuria, Other - Hematologic/Lymphatic Hematologic: absent: As Per HPI, Easy Bleeding, Easy Bruising, Lymphadenopathy, Other Past Patient History - Past Medical History & Family History Past Medical History?: Yes - Past Social History Smoking Status: Light Smoker < 10 Cigarettes Daily - CARDIAC Hx Hypertension: Yes - PULMONARY Hx Respiratory Disorders: No - NEUROLOGICAL Hx Neurological Disorder: No - HEENT Hx HEENT Problems: No - ENDOCRINE/METABOLIC Hx Diabetes Mellitus Type 1: Yes Other/Comment: per patient only medical history is DM - HEMATOLOGICAL/ONCOLOGICAL Hx Blood Disorders: No - INTEGUMENTARY Hx Dermatological Problems: No - MUSCULOSKELETAL/RHEUMATOLOGICAL Hx Falls: No - GASTROINTESTINAL Hx Gastrointestinal Disorders: No - GENITOURINARY/GYNECOLOGICAL Hx Genitourinary Disorders: No - PSYCHIATRIC Hx Substance Use: No - SURGICAL HISTORY Hx Surgeries: No - ANESTHESIA Hx Anesthesia: No Hx Anesthesia Reactions: No Meds Allergies/Adverse Reactions: Allergies Allergy/AdvReac Type Severity Reaction Status Date / Time No Known Allergies Allergy Verified 02/27/17 07:47 - Medications Medications: Current Medications Acetaminophen (Tylenol 325mg Tab) 650 mg PO Q6 PRN PRN Reason: Pain, moderate (4-7) Aspirin (Aspirin Chewable) 81 mg PO DAILY [facility] Carvedilol (Coreg) 3.125 mg PO BID [facility] Last Admin: 02/27/17 18:12 Dose: 3.125 mg Famotidine (Pepcid) 20 mg PO BID [facility] Last Admin: 02/27/17 18:12 Dose: 20 mg Furosemide (Lasix) 40 mg IVP DAILY [facility] Gabapentin (Neurontin) 600 mg PO BID [facility] Last Admin: 02/27/17 18:12 Dose: 600 mg Glimepiride (Amaryl) 4 mg PO DAILY [facility] Heparin Sodium (Porcine) (Heparin) 5,000 units SC Q8 [facility] Last Admin: 02/28/17 05:35 Dose: 5,000 units Insulin Detemir (Levemir) 25 unit SC DAILY [facility] Insulin Human Regular (Novolin R) 0 unit SC ACHS [facility] PRN Reason: Protocol Last Admin: 02/27/17 21:54 Dose: Not Given Lisinopril (Zestril) 10 mg PO DAILY [facility] Metformin HCl (Glucophage) 500 mg PO BID [facility] Last Admin: 02/27/17 18:12 Dose: 500 mg Nicotine (Nicoderm Cq) 1 patch TD DAILY [facility] Potassium Chloride (K-Dur 20 Meq Er Tab) 20 meq PO DAILY [facility] Rosuvastatin Calcium (Crestor) 2.5 mg PO HS [facility] Last Admin: 02/27/17 21:53 Dose: 2.5 mg Sitagliptin Phosphate (Januvia) 50 mg PO DAILY [facility] Spironolactone (Aldactone) 25 mg PO DAILY [facility] Physical Exam - Constitutional Appears: Non-toxic - Eye Exam Eye Exam: Normal appearance - ENT Exam ENT Exam: Mucous Membranes Moist - Neck Exam Neck exam: Positive for: Full Rom - Respiratory Exam Respiratory Exam: Decreased Breath Sounds - Cardiovascular Exam Cardiovascular Exam: REGULAR RHYTHM - GI/Abdominal Exam GI & Abdominal Exam: Normal Bowel Sounds - Rectal Exam Rectal Exam: Deferred - Extremities Exam Extremities exam: Positive for: pedal edema - Back Exam Back exam: NORMAL INSPECTION - Neurological Exam Neurological exam: Alert, Oriented x3 - Psychiatric Exam Psychiatric exam: Normal Affect - Skin Skin Exam: Normal Color Results - Vital Signs Recent Vital Signs: Last Vital Signs Temp 97.7 F 02/28/17 05:33 Pulse 57 L 02/28/17 05:33 Resp 20 02/28/17 05:33 BP 149/75 02/28/17 05:33 Pulse Ox 97 02/28/17 05:33 - Labs Result Diagrams: 03/02/17 08:25 03/02/17 08:25 Labs: Laboratory Results - last 24 hr 02/27/17 02/27/17 02/27/17 16:46 20:40 21:07 WBC RBC Hgb Hct MCV MCH MCHC RDW Plt Count MPV Neut % (Auto) Lymph % (Auto) [place] % (Auto) Eos % (Auto) Baso % (Auto) Neut # Lymph # [place] # Eos # Baso # Sodium Potassium Chloride Carbon Dioxide Anion Gap BUN Creatinine Est GFR ( Amer) Est GFR (Non-Af Amer) POC Glucose (mg/dL) 275 H 112 H Random Glucose Calcium Phosphorus Magnesium Total Bilirubin AST ALT Alkaline Phosphatase Total Protein Albumin Globulin Albumin/Globulin Ratio Triglycerides 174 H D Cholesterol 190 LDL Cholesterol Direct 118 HDL Cholesterol 31 02/28/17 02/28/17 02/28/17 06:06 06:06 06:22 WBC 9.0 RBC 3.35 L Hgb 9.9 L Hct 29.7 L MCV 88.6 MCH 29.6 MCHC 33.4 RDW 14.3 Plt Count 242 MPV 8.8 Neut % (Auto) 66.9 Lymph % (Auto) 20.4 [place] % (Auto) 4.8 Eos % (Auto) 6.8 H Baso % (Auto) 1.1 Neut # 6.0 Lymph # 1.8 [place] # 0.4 Eos # 0.6 Baso # 0.1 Sodium 137 Potassium 3.5 L Chloride 106 Carbon Dioxide 25 Anion Gap 10 BUN 13 Creatinine 1.3 Est GFR ( Amer) > 60 Est GFR (Non-Af Amer) 57 POC Glucose (mg/dL) 83 Random Glucose 74 L Calcium 7.6 L Phosphorus 4.0 Magnesium 1.9 Total Bilirubin 0.3 AST 25 ALT 42 Alkaline Phosphatase 74 Total Protein 5.0 L Albumin 2.2 L Globulin 2.9 Albumin/Globulin Ratio 0.8 L Triglycerides Cholesterol LDL Cholesterol Direct HDL Cholesterol - EKG Data EKG Interpreted by: Myself Assessment & Plan (1) Diastolic dysfunction Assessment and Plan: recommend echocardiogram to assess ventricular function . will also assess diastolic function. can continue diuresis. Status: Acute (2) HTN (hypertension) Assessment and Plan: blood pressure control Status: Acute (3) Lower extremity edema Assessment and Plan: check venous doppler Status: Acute
[2017-02-28] MEDS: (Novolin R) Insulin Human Regular 100 units/ml vial SC SCH ×4 (08:30→21:45)
--- NOTE | 2017-02-28 09:07 | CP.PCM.PN ---
Subjective - Date & Time of Evaluation Date of Evaluation: 02/28/17 Time of Evaluation: 09:03 - Subjective Subjective: Surgery: Dr. Ying Patient doing better today. Report decrease in amount of leg swelling today. Denies chest pain or SOB. Objective - Vital Signs/Intake and Output Vital Signs (last 24 hours): Temp Pulse Resp BP Pulse Ox 97.7 F 54 L 17 160/84 H 99 02/28/17 08:08 02/28/17 08:08 02/28/17 08:08 02/28/17 08:08 02/28/17 08:08 Intake and Output: 02/28/17 02/28/17 06:59 18:59 Intake Total 300 Balance 300 - Medications Medications: Current Medications Acetaminophen (Tylenol 325mg Tab) 650 mg PO Q6 PRN PRN Reason: Pain, moderate (4-7) Aspirin (Aspirin Chewable) 81 mg PO DAILY [facility] Carvedilol (Coreg) 3.125 mg PO BID [facility] Last Admin: 02/27/17 18:12 Dose: 3.125 mg Famotidine (Pepcid) 20 mg PO BID [facility] Last Admin: 02/27/17 18:12 Dose: 20 mg Furosemide (Lasix) 40 mg IVP DAILY [facility] Gabapentin (Neurontin) 600 mg PO BID [facility] Last Admin: 02/27/17 18:12 Dose: 600 mg Glimepiride (Amaryl) 4 mg PO DAILY [facility] Heparin Sodium (Porcine) (Heparin) 5,000 units SC Q8 [facility] Last Admin: 02/28/17 05:35 Dose: 5,000 units Insulin Detemir (Levemir) 25 unit SC DAILY [facility] Insulin Human Regular (Novolin R) 0 unit SC ACHS [facility] PRN Reason: Protocol Last Admin: 02/27/17 21:54 Dose: Not Given Lisinopril (Zestril) 10 mg PO DAILY [facility] Metformin HCl (Glucophage) 500 mg PO BID [facility] Last Admin: 02/27/17 18:12 Dose: 500 mg Nicotine (Nicoderm Cq) 1 patch TD DAILY [facility] Potassium Chloride (K-Dur 20 Meq Er Tab) 20 meq PO DAILY [facility] Rosuvastatin Calcium (Crestor) 2.5 mg PO HS [facility] Last Admin: 02/27/17 21:53 Dose: 2.5 mg Sitagliptin Phosphate (Januvia) 50 mg PO DAILY [facility] Spironolactone (Aldactone) 25 mg PO DAILY [facility] - Labs Labs: 02/28/17 06:06 02/28/17 06:06 - Constitutional Appears: Non-toxic, No Acute Distress - Head Exam Head Exam: ATRAUMATIC, NORMOCEPHALIC - Eye Exam Eye Exam: EOMI, Normal appearance - ENT Exam ENT Exam: Mucous Membranes Moist - Respiratory Exam Respiratory Exam: NORMAL BREATHING PATTERN. absent: Respiratory Distress - Cardiovascular Exam Cardiovascular Exam: REGULAR RHYTHM. absent: Tachycardia - Extremities Exam Additional comments: 1+ edema extremities bilaterally - Skin Skin Exam: Dry, Normal Color, Warm Assessment and Plan - Assessment and Plan (Free Text) Assessment: 56 y/o male w/ B/L leg swelling, improved Plan: -patient has palpable pulses -will f/u ABIs, arterial duplex -pending results determine further recs -most likely heart related, no acute surgical intervention at this time -recommend smoking cessation and exercise -further recs per Dr. Ying [facility] PGY3
[2017-02-28] MEDS: Potassium Chloride 20 mEq ER Tab PO SCH (09:40)
[2017-02-28] MEDS ORDERED: Insulin Detemir 100 units/ml Vial (Levemir) SC SCH (10:00)
--- NOTE | 2017-02-28 12:23 | CARD ---
APPROVED REPORT EXAM: Two-dimensional and M-mode echocardiogram with Doppler and color Doppler. Other Information Quality : GoodRhythm : Bradycardia INDICATION Peripheral Edema Congestive Heart Failure RISK FACTORS Diabetes M-Mode DIMENSIONS RVDd1.52 (2.1-3.2cm)Left Atrium (MM)3.07 (2.5-4.0cm) IVSd1.25 (0.7-1.1cm)Aortic Root3.37 (2.2-3.7cm) LVDd5.50 (4.0-5.6cm)Aortic Cusp Exc.2.13 (1.5-2.0cm) PWd1.00 (0.7-1.1cm)FS (%) 28 % LVDs3.98 (2.0-3.8cm)LVEF (%)53 (>50%) Aortic Valve AI P 1/2 [id number] Mitral Valve MV E Gydurckl42.5cm/sMV A Slrvmwpp97.9cm/sE/A ratio1.0 TDI E/Lateral E'0.0E/Medial E'0.0 Tricuspid Valve TR Peak [id number]/sTR Peak [id number] LEFT VENTRICLE The left ventricle is normal size. There is borderline concentric left ventricular hypertrophy. The left ventricular function is normal. The left ventricular ejection fraction is within the normal range. There is normal LV segmental wall motion. Tissue Doppler imaging reveals mild left ventricular diastolic dysfunction. No left ventricle thrombus noted on this study. There is no ventricular septal defect visualized. There is no left ventricular aneurysm. There is no mass noted in the left ventricle. RIGHT VENTRICLE The right ventricle is normal size. There is normal right ventricular wall thickness. The right ventricular systolic function is normal. ATRIA The left atrium size is normal. The right atrium size is normal. AORTIC VALVE The aortic valve is normal in structure. There is mild aortic regurgitation. There is no aortic valvular stenosis. There is no aortic valvular vegetation. MITRAL VALVE The mitral valve is normal in structure. There is no mitral valve stenosis. Mitral regurgitation is trace. TRICUSPID VALVE The tricuspid valve is normal in structure. There is no tricuspid valve regurgitation noted. PULMONIC VALVE The pulmonary valve is normal in structure. There is trace pulmonic valvular regurgitation. GREAT VESSELS The aortic root is normal in size. The ascending aorta is normal in size. The pulmonary artery is normal. The IVC is normal in size and collapses >50% with inspiration. PERICARDIAL EFFUSION There is no pericardial effusion. <Conclusion> There is borderline concentric left ventricular hypertrophy. Tissue Doppler imaging reveals mild left ventricular diastolic dysfunction. There is mild aortic regurgitation. LV EF IS 50%.
--- NOTE | 2017-02-28 13:04 | CARD ---
APPROVED REPORT EKG Measurement Heart [id number] <Conclusion> Sinus bradycardia Right bundle branch block Left anterior fascicular block Bifascicular block Abnormal ECG
--- NOTE | 2017-02-28 13:35 | CP.PCM.PN ---
<Rayne Fang - Last Filed: 02/28/17 19:59> Subjective - Date & Time of Evaluation Date of Evaluation: 02/28/17 Time of Evaluation: 07:00 - Subjective Subjective: PGY1- Medicine Note- Dr. Nava's Service Patient seen and examined at bedside and in no acute distress. Patient says his legs are hurting him a little less and the swelling has decreased. Patient complains of sore throat which started yesterday. He describes the pain as a burning and 5/10. He has a dry cough as well. Patient denies shortness of breath , chest pain abdominal pain, nausea, vomiting, constipation or diarrhea. Objective - Vital Signs/Intake and Output Vital Signs (last 24 hours): Temp Pulse Resp BP Pulse Ox 97.7 F 54 L 17 160/84 H 99 02/28/17 08:08 02/28/17 08:08 02/28/17 08:08 02/28/17 09:40 02/28/17 08:08 Intake and Output: 02/28/17 02/28/17 06:59 18:59 Intake Total 300 Balance 300 - Medications Medications: Current Medications Acetaminophen (Tylenol 325mg Tab) 650 mg PO Q6 PRN PRN Reason: Pain, moderate (4-7) Aspirin (Aspirin Chewable) 81 mg PO DAILY [facility] Last Admin: 02/28/17 09:40 Dose: 81 mg Carvedilol (Coreg) 3.125 mg PO BID [facility] Last Admin: 02/28/17 09:40 Dose: 3.125 mg Clotrimazole (Lotrimin 1%) 60 gm TOP BID [facility] Famotidine (Pepcid) 20 mg PO BID [facility] Last Admin: 02/28/17 10:41 Dose: 20 mg Furosemide (Lasix) 40 mg IVP DAILY [facility] Last Admin: 02/28/17 09:40 Dose: 40 mg Gabapentin (Neurontin) 600 mg PO BID [facility] Last Admin: 02/28/17 09:41 Dose: 600 mg Glimepiride (Amaryl) 4 mg PO DAILY [facility] Last Admin: 02/28/17 09:40 Dose: 4 mg Heparin Sodium (Porcine) (Heparin) 5,000 units SC Q8 [facility] Last Admin: 02/28/17 13:12 Dose: 5,000 units Insulin Detemir (Levemir) 25 unit SC DAILY [facility] Last Admin: 02/28/17 09:46 Dose: 25 unit Insulin Human Regular (Novolin R) 0 unit SC [facility] PRN Reason: Protocol Last Admin: 02/28/17 12:20 Dose: 2 unit Lisinopril (Zestril) 10 mg PO DAILY [facility] Last Admin: 02/28/17 09:41 Dose: 10 mg Metformin HCl (Glucophage) 500 mg PO BID [facility] Last Admin: 02/28/17 09:40 Dose: 500 mg Nicotine (Nicoderm Cq) 1 patch TD DAILY [facility] Last Admin: 02/28/17 09:41 Dose: 1 patch Potassium Chloride (K-Dur 20 Meq Er Tab) 20 meq PO DAILY [facility] Last Admin: 02/28/17 09:40 Dose: 20 meq Rosuvastatin Calcium (Crestor) 2.5 mg PO HS [facility] Last Admin: 02/27/17 21:53 Dose: 2.5 mg Sitagliptin Phosphate (Januvia) 50 mg PO DAILY [facility] Last Admin: 02/28/17 09:41 Dose: 50 mg Spironolactone (Aldactone) 25 mg PO DAILY [facility] Last Admin: 02/28/17 09:41 Dose: 25 mg - Labs Labs: 02/28/17 06:06 02/28/17 06:06 - Constitutional Appears: Well, Non-toxic, No Acute Distress - Head Exam Head Exam: ATRAUMATIC, NORMAL INSPECTION, NORMOCEPHALIC - Eye Exam Eye Exam: EOMI, Normal appearance, PERRL - ENT Exam ENT Exam: Mucous Membranes Moist, Normal Oropharynx - Neck Exam Neck Exam: Full ROM, Normal Inspection. absent: Lymphadenopathy - Respiratory Exam Respiratory Exam: Clear to Ausculation Bilateral, NORMAL BREATHING PATTERN. absent: Rales, Rhonchi, Wheezes, Respiratory Distress, Stridor - Cardiovascular Exam Cardiovascular Exam: REGULAR RHYTHM, RRR. absent: Gallop, Rubs, Murmur - GI/Abdominal Exam GI & Abdominal Exam: Soft, Normal Bowel Sounds. absent: Distended, Firm, Guarding, Rigid, Tenderness - Extremities Exam Extremities Exam: Normal Inspection, Pedal Edema Additional comments: decreasing pitting edema in legs bilaterally - Back Exam Back Exam: NORMAL INSPECTION. absent: rash noted - Neurological Exam Neurological Exam: Alert, Awake, Oriented x3 - Psychiatric Exam Psychiatric exam: Normal Affect, Normal Mood - Skin Skin Exam: Intact, Normal Color, Warm Assessment and Plan - Assessment and Plan (Free Text) Assessment: 1. Lower Extremity Edema secondary to CHF, peripheral vascular disease venous doppler negative arterial doppler- negative, ankle/brachial index 1.22 echo: borderline concentric left ventricular hypertrophy. Tissue doppler imaging reveals mild left ventricular diastolic dysfunction. Mild aortic regurg. LV EF 50% lipid panel: Triglycerides 174, Cholesterol 190, LDL 118, HDL 31 ekg showed right bundle branch block - no change since EKG in 12/2016 cardiology consulted, Dr. Ho, help appreciated vascular surgery, Dr. Ying, help appreciated Lasix 40 mg IVP daily Coreg 3.125 mg PO BID Aspirin 81 mg PO daily Lisinopril 10 mg PO daily Crestor 2.5 mg PO HS Spironolactone 25 mg PO Daily Clotrimazole cream BID 2. Respiratory Tract Infection Cxray 02/27: Previously noted areas of nodular opacities, peribronchial thickening, cystic bronchiectasis and cavitary lesions in the upper and to a lesser degree lower lobes bilaterally are less well seen on this study. Rule out chronic inflammatory process/ fungal infection. f/u rapid strep and strep culture zithromax 500 mg daily started on 02/28 ceftriaxone 1 g daily started on 02/28 robitussin PRN 3. Lower Extremity Pain Tylenol 650 mg PO Q6 prn for moderate leg pain Gabapentin 600 mg PO BID 4. Uncontrolled Diabetes Mellitus continue home medications: Levemir 25 U daily Januvia 50 mg BID Metformin 500 mg PO BID Glimepiride 4 mg PO daily Accuchecks ISS (low) HgA1C: 10.4 5. Uncontrolled Hypertension Lisinopril 10 mg PO daily Coreg 3.125 mg PO daily 6. Tobacco Use Disorder Nicotine patch 14 mg/ 24 hr smoking cessation discussed 7. Prophylactic Measures Pepcid 20 mg PO BID Heparin 5000 u sc q8h <Rubio Nava - Last Filed: 04/11/17 15:12> Objective - Vital Signs/Intake and Output Vital Signs (last 24 hours): Temp Pulse Resp BP Pulse Ox 98.0 F 76 18 133/70 100 03/09/17 07:10 03/09/17 07:10 03/09/17 07:10 03/09/17 09:34 03/09/17 07:10 - Labs Labs: 03/09/17 06:07 03/09/17 06:07 Attending/Attestation - Attestation I have personally seen and examined this patient.: Yes I have fully participated in the care of the patient.: Yes I have reviewed all pertinent clinical information, including history, physical exam and plan: Yes Notes (Text): 1. Lower Extremity Edema Diastolic acute on Chronic CHF 2. Respiratory Tract Infection suspected pneumonia 3. Lower Extremity Pain 4. Uncontrolled Diabetes Mellitus
[2017-02-28] MEDS ORDERED: guaiFENesin 100 mg/5 ml Syrup UD PO PRN (13:39)
[2017-02-28] MEDS: Azithromycin 500 MG in Sodium Chloride 0.9% 250 ML IVPB SCH (14:44)
[2017-02-28] MEDS: Clotrimazole 1% Cream(30 gm) TOP SCH (18:57)
[2017-02-28] MEDS: Rosuvastatin Calcium 2.5 mg Tab PO SCH (21:50)
[2017-03-01 07:13] LABS: BASO # 0.1 K/uL (0.0-0.2); BASO % 0.7 % (0.0-2.0); EOS # 0.4 K/uL (0.0-0.7); EOS % 3.1 % (0.0-4.0); HEMATOCRIT 30.6 % (35.0-51.0); LYMPH # 1.8 K/uL (1.0-4.3); LYMPH % 14.9 % (20.0-40.0); MEAN CELL VOLUME 88.1 fL (80.0-94.0); MEAN CORPUSCULAR HEMOGLOBIN 28.9 pg (27.0-31.0); MEAN CORPUSCULAR HGB CONC 32.8 g/dL (33.0-37.0); MEAN PLATELET VOLUME 9.4 fL (7.2-11.7); MONO # 0.7 K/uL (0.0-0.8); MONO % 5.8 % (0.0-10.0); RED CELL DISTRIBUTION WIDTH 14.2 % (11.5-14.5); WHITE BLOOD COUNT 12.2 K/uL (4.8-10.8)
[2017-03-01 07:14] LABS: CHLORIDE 104 mmol/L (98-107)
[2017-03-01 07:15] LABS: POTASSIUM 3.7 mmol/L (3.6-5.2); SODIUM 139 mmol/L (132-148)
[2017-03-01 07:17] LABS: ALB/GLOB RATIO 0.8 (1.0-2.1); ALKALINE PHOSPHATASE 82 U/L (38-126); AST/SGOT 26 U/L (17-59); BILIRUBIN,TOTAL 0.3 mg/dL (0.2-1.3); BLOOD UREA NITROGEN 14 mg/dL (9-20); CARBON DIOXIDE 27 mmol/L (22-30); GFR AFRICAN-AMERICAN > 60; TOTAL PROTEIN 5.4 g/dL (6.3-8.3)
[2017-03-01 07:18] LABS: ALT/SGPT 48 U/L (21-72); CALCIUM 7.7 mg/dl (8.6-10.4); PHOSPHOROUS 3.6 mg/dL (2.5-4.5)
[2017-03-01 07:47] LABS: GLUCOSE,RANDOM 36 mg/dL (75-110)
[2017-03-01] MEDS: (Novolin R) Insulin Human Regular 100 units/ml vial SC SCH ×4 (07:49→22:47)
[2017-03-01] MEDS: Potassium Chloride 20 mEq ER Tab PO SCH (09:34)
[2017-03-01] MEDS: Clotrimazole 1% Cream(30 gm) TOP SCH ×2 (09:36→18:06)
--- NOTE | 2017-03-01 09:50 | CP.PCM.PN ---
<Rayne Fang - Last Filed: 03/01/17 17:34> Subjective - Date & Time of Evaluation Date of Evaluation: 03/01/17 Time of Evaluation: 07:00 - Subjective Subjective: PGY1- Medicine Note- Dr. Peterson's Service Patient seen and examined an in no acute distress. Patient says he is still having some cough and throat pain. He has minimal yellow phlegm. Patient is happy with how much less swollen his legs are, but he still has some leg pain bilaterally. Patient had an episode of hypoglycemia this morning. Glucose was 36 , patient had juice and ate breakfast and glucose came up to 180. Patient requests cream for his legs which are dry bilaterally. Patient did not have a bowel movement yesterday, but does not feel constipated and does not want any medication to help him have a bowel movement. Patient denies shortness of breath , chest pain, abdominal pain, nausea, vomiting, diarrhea. Objective - Vital Signs/Intake and Output Vital Signs (last 24 hours): Temp Pulse Resp BP Pulse Ox 98.3 F 75 20 136/90 99 03/01/17 08:00 03/01/17 08:00 03/01/17 08:00 03/01/17 09:39 03/01/17 08:00 - Medications Medications: Current Medications Acetaminophen (Tylenol 325mg Tab) 650 mg PO Q6 PRN PRN Reason: Pain, moderate (4-7) Aspirin (Aspirin Chewable) 81 mg PO DAILY [facility] Last Admin: 03/01/17 09:36 Dose: 81 mg Carvedilol (Coreg) 3.125 mg PO BID [facility] Last Admin: 03/01/17 09:36 Dose: 3.125 mg Clotrimazole (Lotrimin 1%) 60 gm TOP BID [facility] Last Admin: 03/01/17 09:36 Dose: 1 applic Famotidine (Pepcid) 20 mg PO BID [facility] Last Admin: 03/01/17 09:36 Dose: 20 mg Furosemide (Lasix) 40 mg IVP DAILY [facility] Last Admin: 03/01/17 09:39 Dose: 40 mg Gabapentin (Neurontin) 600 mg PO BID [facility] Last Admin: 03/01/17 09:36 Dose: 600 mg Guaifenesin (Robitussin) 100 mg PO Q4H PRN PRN Reason: Cough Last Admin: 03/01/17 09:34 Dose: 100 mg Heparin Sodium (Porcine) (Heparin) 5,000 units SC Q8 [facility] Last Admin: 03/01/17 07:30 Dose: 5,000 units Azithromycin 500 mg/ Sodium (Chloride) 250 mls @ 250 mls/hr IVPB DAILY@1430 [facility] Last Admin: 02/28/17 14:44 Dose: 250 mls/hr Ceftriaxone Sodium 1 gm/ (Sodium Chloride) 100 mls @ 100 mls/hr IVPB DAILY@ 1630 [facility] Last Admin: 02/28/17 18:09 Dose: 100 mls/hr Insulin Detemir (Levemir) 10 unit SC Q12 [facility] Last Admin: 03/01/17 09:37 Dose: 10 unit Insulin Human Regular (Novolin R) 0 unit SC ACHS [facility] PRN Reason: Protocol Last Admin: 03/01/17 07:49 Dose: Not Given Lisinopril (Zestril) 10 mg PO DAILY [facility] Last Admin: 03/01/17 09:35 Dose: 10 mg Metformin HCl (Glucophage) 500 mg PO BID [facility] Last Admin: 03/01/17 09:35 Dose: 500 mg Nicotine (Nicoderm Cq) 1 patch TD DAILY [facility] Last Admin: 03/01/17 09:37 Dose: 1 patch Potassium Chloride (K-Dur 20 Meq Er Tab) 20 meq PO DAILY [facility] Last Admin: 03/01/17 09:34 Dose: 20 meq Rosuvastatin Calcium (Crestor) 2.5 mg PO HS [facility] Last Admin: 02/28/17 21:50 Dose: 2.5 mg Sitagliptin Phosphate (Januvia) 50 mg PO DAILY [facility] Last Admin: 03/01/17 09:36 Dose: 50 mg Spironolactone (Aldactone) 25 mg PO DAILY [facility] Last Admin: 03/01/17 09:35 Dose: 25 mg - Labs Labs: 03/01/17 06:39 03/01/17 06:39 - Constitutional Appears: Well, Non-toxic, No Acute Distress - Head Exam Head Exam: ATRAUMATIC, NORMAL INSPECTION, NORMOCEPHALIC - Eye Exam Eye Exam: EOMI, Normal appearance, PERRL - ENT Exam ENT Exam: Mucous Membranes Moist Additional comments: mildly erythematous oropharynx - Neck Exam Neck Exam: Full ROM, Normal Inspection - Respiratory Exam Respiratory Exam: Clear to Ausculation Bilateral, NORMAL BREATHING PATTERN. absent: Rhonchi, Wheezes, Stridor - Cardiovascular Exam Cardiovascular Exam: REGULAR RHYTHM, RRR - GI/Abdominal Exam GI & Abdominal Exam: Soft, Normal Bowel Sounds. absent: Distended, Firm, Guarding, Rigid, Tenderness - Extremities Exam Extremities Exam: Full ROM, Pedal Edema, Tenderness Additional comments: lower extremity edema significantly decreased - Back Exam Back Exam: NORMAL INSPECTION. absent: rash noted - Neurological Exam Neurological Exam: Alert, Awake, Oriented x3 - Psychiatric Exam Psychiatric exam: Normal Affect Assessment and Plan - Assessment and Plan (Free Text) Assessment: 1. Lower Extremity Edema secondary to CHF, peripheral vascular disease venous doppler negative arterial doppler- negative, ankle/brachial index 1.22 echo: borderline concentric left ventricular hypertrophy. Tissue doppler imaging reveals mild left ventricular diastolic dysfunction. Mild aortic regurg. LV EF 50% lipid panel: Triglycerides 174, Cholesterol 190, LDL 118, HDL 31 ekg showed right bundle branch block - no change since EKG in 12/2016 cardiology consulted, Dr. Ho, help appreciated vascular surgery, Dr. Ying, help appreciated Lasix 40 mg IVP daily Coreg 3.125 mg PO BID Aspirin 81 mg PO daily Lisinopril 10 mg PO daily Crestor 2.5 mg PO HS Spironolactone 25 mg PO Daily Clotrimazole cream BID 2. Respiratory Tract Infection Cxray 02/27: Previously noted areas of nodular opacities, peribronchial thickening, cystic bronchiectasis and cavitary lesions in the upper and to a lesser degree lower lobes bilaterally are less well seen on this study. Rule out chronic inflammatory process/ fungal infection. Group A Beta Strep culture (-) zithromax 500 mg daily started on 02/28 ceftriaxone 1 g daily started on 02/28 Phenergin with codeine f/u strep pneumoniae, m pneumoniae, legionella f/u chest xray 3. Lower Extremity Pain Tylenol 650 mg PO Q6 prn for moderate leg pain Gabapentin 600 mg PO BID 4. Uncontrolled Diabetes Mellitus Januvia 50 mg BID Metformin 1000 mg PO BID Accuchecks ISS (low) HgA1C: 10.4 levemir and glimepiride stopped on 03/01 5. Uncontrolled Hypertension Lisinopril 10 mg PO daily Coreg 3.125 mg PO daily 6. Tobacco Use Disorder Nicotine patch 14 mg/ 24 hr smoking cessation discussed 7. Prophylactic Measures Pepcid 20 mg PO BID Heparin 5000 u sc q8h <Joan Peterson V - Last Filed: 03/01/17 22:37> Objective - Vital Signs/Intake and Output Vital Signs (last 24 hours): Temp Pulse Resp BP Pulse Ox 97.3 F L 63 18 150/78 97 03/01/17 15:18 03/01/17 17:30 03/01/17 15:18 03/01/17 15:18 03/01/17 15:18 - Medications Medications: Current Medications Acetaminophen (Tylenol 325mg Tab) 650 mg PO Q6 PRN PRN Reason: Pain, moderate (4-7) Aspirin (Aspirin Chewable) 81 mg PO DAILY [facility] Last Admin: 03/01/17 09:36 Dose: 81 mg Carvedilol (Coreg) 3.125 mg PO BID [facility] Last Admin: 03/01/17 18:07 Dose: 3.125 mg Clotrimazole (Lotrimin 1%) 60 gm TOP BID [facility] Last Admin: 03/01/17 18:06 Dose: 1 applic Famotidine (Pepcid) 20 mg PO BID [facility] Last Admin: 03/01/17 18:05 Dose: 20 mg Furosemide (Lasix) 40 mg IVP DAILY [facility] Last Admin: 03/01/17 09:39 Dose: 40 mg Gabapentin (Neurontin) 600 mg PO BID [facility] Last Admin: 03/01/17 18:05 Dose: 600 mg Heparin Sodium (Porcine) (Heparin) 5,000 units SC Q8 [facility] Last Admin: 03/01/17 13:31 Dose: 5,000 units Azithromycin 500 mg/ Sodium (Chloride) 250 mls @ 250 mls/hr IVPB DAILY@1430 [facility] Last Admin: 03/01/17 13:31 Dose: 250 mls/hr Ceftriaxone Sodium 1 gm/ (Sodium Chloride) 100 mls @ 100 mls/hr IVPB DAILY@ 1630 [facility] Last Admin: 03/01/17 18:04 Dose: 100 mls/hr Insulin Human Regular (Novolin R) 0 unit SC ACHS [facility] PRN Reason: Protocol Last Admin: 03/01/17 18:03 Dose: 3 unit Lisinopril (Zestril) 10 mg PO DAILY [facility] Last Admin: 03/01/17 09:35 Dose: 10 mg [facility] Admin: 03/01/17 18:06 Dose: 1,000 mg Nicotine (Nicoderm Cq) 1 patch TD DAILY [facility] Last Admin: 03/01/17 09:37 Dose: 1 patch Potassium Chloride (K-Dur 20 Meq Er Tab) 20 meq PO DAILY [facility] Last Admin: 03/01/17 09:34 Dose: 20 meq Promethazine HCl/Codeine (Phenergan/Codeine Oral Syrup) 5 ml PO Q4 PRN PRN Reason: Cough Last Admin: 03/01/17 13:40 Dose: 5 ml Rosuvastatin Calcium (Crestor) 2.5 mg PO HS [facility] Last Admin: 02/28/17 21:50 Dose: 2.5 mg Sitagliptin Phosphate (Januvia) 50 mg PO DAILY [facility] Last Admin: 03/01/17 09:36 Dose: 50 mg Spironolactone (Aldactone) 25 mg PO DAILY [facility] Last Admin: 03/01/17 09:35 Dose: 25 mg Attending/Attestation - Attestation I have personally seen and examined this patient.: Yes I have fully participated in the care of the patient.: Yes I have reviewed all pertinent clinical information, including history, physical exam and plan: Yes Notes (Text): Patient seen, examined, and case discussed with day-time resident. Patient reporting lower extremity edema is much improved. patient reports irritation at the throat today. patient noted to have hypoglycemic 37 this morning improved upon juice. Patient' s sulfonylurea discontinued. Patient's medications in regards to diabetes were altered. Patient switched to carb consistent diet, food service manager referral placed. Patient's weight improved since admission; lost about 10lbs per EMR record. Assessment/Plan 1. Acute diastolic congestive heart failure * cardiology consulted, Dr. Ho, help appreciated * echo: borderline concentric left ventricular hypertrophy. Tissue doppler imaging reveals mild left ventricular diastolic dysfunction. Mild aortic regurg. LV EF 50% * Lipid panel: Triglycerides 174, Cholesterol 190, LDL 118, HDL 31 * ekg showed right bundle branch block - no change since EKG in 12/2016 * Lasix 40 mg IVP daily * Coreg 3.125 mg PO BID * Aspirin 81 mg PO daily * Lisinopril 10 mg PO daily * Crestor 2.5 mg PO HS * Spironolactone 25 mg PO Daily 2. Lower extremity edema * vascular surgery, Dr. Ying, help appreciated * venous doppler negative * arterial doppler- negative, ankle/brachial index 1.22 3. Respiratory Tract Infection * Cxray 02/27: Previously noted areas of nodular opacities, peribronchial thickening, cystic bronchiectasis and cavitary lesions in the upper and to a lesser degree lower lobes bilaterally are less well seen on this study. Rule out chronic inflammatory process/ fungal infection. * Chest xray 02/28: persistent ill defined consolidative and mass like opacities seen within right upper and mid lung zone * Group A Beta Strep culture (-) * zithromax 500 mg IV daily started on 02/28 * ceftriaxone 1 g IV daily started on 02/28 * Phenergan with codeine 5ml PO Q 4hour PRN cough * f/u strep pneumoniae, m pneumoniae, legionella 4. Lower Extremity Pain * Tylenol 650 mg PO Q6 prn for moderate leg pain * Gabapentin 600 mg PO BID 4. Uncontrolled Diabetes Mellitus * Januvia 50 mg BID * Increased Metformin 1000 mg PO BID * Accuchecks QAC and HS * ISS (low) * HgA1C: 10.4 * levemir and glimepiride stopped on 03/01 secondary to sugar: 34 this morning 5. Uncontrolled Hypertension * Lisinopril 10 mg PO daily * Coreg 3.125 mg PO daily * monitor vital signs * Lasix 40 mg IVP daily 6. Tobacco Use Disorder * Nicotine patch 14 mg/ 24 hr * smoking cessation discussed 7. Prophylactic Measures * Pepcid 20 mg PO BID * Heparin 5000 u sc q8h
[2017-03-01] MEDS ORDERED: Insulin Detemir 100 units/ml Vial (Levemir) SC SCH ×2 (10:00)
--- NOTE | 2017-03-01 12:02 | RAD ---
Chest x-ray single frontal view History: Cough. Increased white count. Comparison: 02/27/2017 Findings: Persistent ill-defined consolidative and masslike opacities seen within the right upper to mid lung zone as well as within the left upper to mid lung zone. This may represent underlying infectious versus inflammatory versus neoplastic versus post granulomatous changes. Clinical correlation. Correlation with chest CT may be helpful if clinically indicated. Additional scattered nodular densities throughout both lungs. Cardiomegaly. Degenerative changes in the spine and shoulders. Impression: Persistent ill-defined consolidative and masslike opacities seen within the right upper to mid lung zone as well as within the left upper to mid lung zone. This may represent underlying infectious versus inflammatory versus neoplastic versus post granulomatous changes. Clinical correlation. Correlation with chest CT may be helpful if clinically indicated. Additional scattered nodular densities throughout both lungs. Cardiomegaly.
[2017-03-01] MEDS: Azithromycin 500 MG in Sodium Chloride 0.9% 250 ML IVPB SCH (13:31)
[2017-03-01] MEDS: Promethazine/Cod 6.25mg-10mg/5ml Syr UD PO PRN ×2 (13:40→22:47)
--- NOTE | 2017-03-01 14:53 | VASCLAB ---
STUDY DESCRIPTION: HISTORY: peripheral arterial disease, leg edema PRIORS: None. TECHNIQUE: Pulse volume recording waveforms and segmental pressures of bilateral lower extremities at multiple levels were obtained. Ankle Brachial Indices (ABIs) were calculated. Report prepared by RANJIT Langston, RVT RIGHT LOWER EXTREMITY: * Brachial artery: Pressure - 179 mmHg. * High thigh: Pressure - 204 mmHg: Ratio - 1.14: PVR waveform - Pulsatile * Low thigh: Pressure - 202 mmHg: Ratio - 1.13 PVR waveform: Pulsatile * Calf: Pressure - 220 mmHg: Ratio - NC PVR waveform: Pulsatile * Posterior tibial Artery: Pressure - 219 mmHg: Ratio - 1.22 PVR waveform: Pulsatile * Dorsalis pedis Artery: Pressure - 218 mmHg: Ratio - 1.22 PVR waveform: Pulsatile * Great toe: Pressure - mmHg: Ratio - PVR waveform: Ankle brachial index (TRACY): 1.22 LEFT LOWER EXTREMITY: * Brachial artery: Pressure - 172 mmHg. * High thigh: Pressure - 206 mmHg: Ratio - 1.15: PVR waveform - Pulsatile * Low thigh: Pressure - 200 mmHg: Ratio - 1.12 PVR waveform: Pulsatile * Calf: Pressure - 220 mmHg: Ratio - NC PVR waveform: Pulsatile * Posterior tibial Artery: Pressure - 218 mmHg: Ratio - 1.22 PVR waveform: Pulsatile * Dorsalis pedis Artery: Pressure - 216 mmHg: Ratio - 1.21 PVR waveform: Pulsatile * Great toe: Pressure - mmHg: Ratio - PVR waveform: Ankle brachial index (TRACY): 1.22 OTHER FINDINGS: Right: Left: IMPRESSION: Right: There was no evidence of hemodynamically significant arterial insufficiency in the right lower extremity. Left: There was no evidence of hemodynamically significant arterial insufficiency in the left lower extremity.
[2017-03-01 17:02] LABS: H INFLUENZAE B DNR (NEGATIVE); N MENINGITIS ACY/W135 DNR (NEGATIVE); N MENINGITIS B/ECOLI K1 DNR (NEGATIVE)
--- NOTE | 2017-03-01 17:14 | CP.PCM.PN ---
Subjective - Date & Time of Evaluation Date of Evaluation: 03/01/17 Time of Evaluation: 17:15 - Subjective Subjective: Patient has no new complaints. Blood pressure is controlled. Objective - Vital Signs/Intake and Output Vital Signs (last 24 hours): Temp Pulse Resp BP Pulse Ox 97.3 F L 67 18 150/78 97 03/01/17 15:18 03/01/17 15:18 03/01/17 15:18 03/01/17 15:18 03/01/17 15:18 Intake and Output: 03/01/17 03/01/17 06:59 18:59 Intake Total 400 Balance 400 - Medications Medications: Current Medications Acetaminophen (Tylenol 325mg Tab) 650 mg PO Q6 PRN PRN Reason: Pain, moderate (4-7) Aspirin (Aspirin Chewable) 81 mg PO DAILY [facility] Last Admin: 03/01/17 09:36 Dose: 81 mg Carvedilol (Coreg) 3.125 mg PO BID [facility] Last Admin: 03/01/17 09:36 Dose: 3.125 mg Clotrimazole (Lotrimin 1%) 60 gm TOP BID [facility] Last Admin: 03/01/17 09:36 Dose: 1 applic Famotidine (Pepcid) 20 mg PO BID [facility] Last Admin: 03/01/17 09:36 Dose: 20 mg Furosemide (Lasix) 40 mg IVP DAILY [facility] Last Admin: 03/01/17 09:39 Dose: 40 mg Gabapentin (Neurontin) 600 mg PO BID [facility] Last Admin: 03/01/17 09:36 Dose: 600 mg Heparin Sodium (Porcine) (Heparin) 5,000 units SC Q8 [facility] Last Admin: 03/01/17 13:31 Dose: 5,000 units Azithromycin 500 mg/ Sodium (Chloride) 250 mls @ 250 mls/hr IVPB DAILY@1430 [facility] Last Admin: 03/01/17 13:31 Dose: 250 mls/hr Ceftriaxone Sodium 1 gm/ (Sodium Chloride) 100 mls @ 100 mls/hr IVPB DAILY@ 1630 [facility] Last Admin: 02/28/17 18:09 Dose: 100 mls/hr Insulin Human Regular (Novolin R) 0 unit SC ACHS [facility] PRN Reason: Protocol Last Admin: 03/01/17 12:25 Dose: 3 unit Lisinopril (Zestril) 10 mg PO DAILY [facility] Last Admin: 03/01/17 09:35 Dose: 10 mg Metformin HCl (Glucophage) 1,000 mg PO BIDCC [facility] Nicotine (Nicoderm Cq) 1 patch TD DAILY [facility] Last Admin: 03/01/17 09:37 Dose: 1 patch Potassium Chloride (K-Dur 20 Meq Er Tab) 20 meq PO DAILY [facility] Last Admin: 03/01/17 09:34 Dose: 20 meq Promethazine HCl/Codeine (Phenergan/Codeine Oral Syrup) 5 ml PO Q4 PRN PRN Reason: Cough Last Admin: 03/01/17 13:40 Dose: 5 ml Rosuvastatin Calcium (Crestor) 2.5 mg PO HS [facility] Last Admin: 02/28/17 21:50 Dose: 2.5 mg Sitagliptin Phosphate (Januvia) 50 mg PO DAILY [facility] Last Admin: 03/01/17 09:36 Dose: 50 mg Spironolactone (Aldactone) 25 mg PO DAILY [facility] Last Admin: 03/01/17 09:35 Dose: 25 mg - Labs Labs: 03/01/17 06:39 03/01/17 06:39 - Constitutional Appears: Non-toxic - Head Exam Head Exam: NORMAL INSPECTION - Eye Exam Eye Exam: Normal appearance - ENT Exam ENT Exam: Mucous Membranes Moist - Neck Exam Neck Exam: Full ROM - Respiratory Exam Respiratory Exam: NORMAL BREATHING PATTERN - Cardiovascular Exam Cardiovascular Exam: REGULAR RHYTHM - GI/Abdominal Exam GI & Abdominal Exam: Normal Bowel Sounds - Rectal Exam Rectal Exam: Deferred - Extremities Exam Extremities Exam: Pedal Edema - Back Exam Back Exam: NORMAL INSPECTION - Neurological Exam Neurological Exam: Alert - Psychiatric Exam Psychiatric exam: Normal Affect - Skin Skin Exam: Normal Color Assessment and Plan (1) HTN (hypertension) Assessment & Plan: will need continued therapy for blood pressure control. continue current medications. Status: Acute (2) Diastolic dysfunction Assessment & Plan: reviewed echocardiogram. Normal left ventriculr function with diastolic dysfunction. continue current medications. Status: Acute (3) Type II diabetes mellitus - poor control Assessment & Plan: risk factor. needs improved control Status: Acute
[2017-03-01] MEDS: Rosuvastatin Calcium 2.5 mg Tab PO SCH (22:46)
[2017-03-02 08:36] LABS: BASO # 0.1 K/uL (0.0-0.2); BASO % 0.8 % (0.0-2.0); EOS # 0.6 K/uL (0.0-0.7); HEMATOCRIT 31.2 % (35.0-51.0); LYMPH # 1.6 K/uL (1.0-4.3); LYMPH % 22.3 % (20.0-40.0); MEAN CORPUSCULAR HEMOGLOBIN 29.6 pg (27.0-31.0); MEAN CORPUSCULAR HGB CONC 33.2 g/dL (33.0-37.0); MEAN PLATELET VOLUME 9.3 fL (7.2-11.7); MONO # 0.7 K/uL (0.0-0.8); MONO % 9.5 % (0.0-10.0); RED CELL DISTRIBUTION WIDTH 14.2 % (11.5-14.5); WHITE BLOOD COUNT 7.1 K/uL (4.8-10.8)
[2017-03-02] MEDS: (Novolin R) Insulin Human Regular 100 units/ml vial SC SCH ×3 (08:36→16:46)
[2017-03-02] MEDS: Promethazine/Cod 6.25mg-10mg/5ml Syr UD PO PRN ×3 (08:41→22:30)
[2017-03-02 08:52] LABS: CHLORIDE 103 mmol/L (98-107); SODIUM 139 mmol/L (132-148)
[2017-03-02 08:53] LABS: POTASSIUM 4.6 mmol/L (3.6-5.2)
[2017-03-02 08:54] LABS: GFR AFRICAN-AMERICAN > 60
[2017-03-02 08:55] LABS: ALB/GLOB RATIO 0.9 (1.0-2.1); ALKALINE PHOSPHATASE 80 U/L (38-126); ALT/SGPT 51 U/L (21-72); AST/SGOT 33 U/L (17-59); BILIRUBIN,TOTAL 0.3 mg/dL (0.2-1.3); BLOOD UREA NITROGEN 19 mg/dL (9-20); CARBON DIOXIDE 28 mmol/L (22-30); GLUCOSE,RANDOM 146 mg/dL (75-110); PHOSPHOROUS 4.2 mg/dL (2.5-4.5); TOTAL PROTEIN 5.5 g/dL (6.3-8.3)
[2017-03-02 08:56] LABS: MAGNESIUM 2.2 mg/dL (1.6-2.3)
[2017-03-02] MEDS: Potassium Chloride 20 mEq ER Tab PO SCH (10:48)
--- NOTE | 2017-03-02 14:00 | CT ---
CT chest without IV contrast Indication: cough, crackles in lungs Technique: Contiguous axial images were obtained through the chest without intravenous contrast enhancement. Sagittal and coronal reconstructions were generated and reviewed. This CT exam was performed using 1 or more of the falling dose reduction techniques: Automated exposure control, adjustment of the MAA and/or kV according to patient size, and/or use of iterative reconstruction technique. Radiation dose (DLP): 215.93 MGy-cm. Comparison: Chest x-ray performed 03/01/17, CT chest without contrast performed 08/19/13 Findings: Visualized portions of the inferior thyroid gland appear unremarkable. The unenhanced mediastinal and hilar vascular structures appear grossly unremarkable. Cardiomegaly. Dense coronary artery calcifications. Evaluation for adenopathy is limited due to absence of IV contrast, in particular hilar adenopathy. No bulky mediastinal lymph nodes appreciated. Innumerable pulmonary nodules with mid to upper lobe predominance. Largest node resides within the right upper lobe measuring approximately 2.4 x 1.6 cm. No definite cavitary nodules appreciated at this time. Peribronchial thickening. Bronchiectasis. Patchy upper lobe infiltrates or atelectasis. No pleural effusion. No pneumothorax. Limited visualization of the noncontrast upper abdomen demonstrates coarse pancreatic calcifications; correlate for history of chronic pancreatitis. Partially imaged moderate to severe constipation. Mild bilateral adrenal gland hypertrophy. Partially imaged moderate to severe constipation. No acute osseous abnormality is detected. Impression: Innumerable pulmonary nodules with mid to upper lobe predominance. Largest node resides within the right upper lobe measuring approximately 2.4 x 1.6 cm. No definite cavitary nodules appreciated at this time. Peribronchial thickening. Bronchiectasis. Patchy upper lobe infiltrates or atelectasis. Correlate clinically for chronic inflammatory process or fungal infection. Underlying malignancy cannot be excluded. Correlate with relevant medical history and follow-up as indicated. Limited visualization of the noncontrast upper abdomen demonstrates coarse pancreatic calcifications; correlate for history of chronic pancreatitis. Partially imaged moderate to severe constipation. Mild bilateral adrenal gland hypertrophy. Additional findings as above.
[2017-03-02] MEDS: Clotrimazole 1% Cream(30 gm) TOP SCH ×2 (14:11→18:00)
[2017-03-02] MEDS: Azithromycin 500 MG in Sodium Chloride 0.9% 250 ML IVPB SCH (14:22)
--- NOTE | 2017-03-02 14:29 | CP.PCM.PN ---
<Rayne Fang - Last Filed: 03/02/17 15:35> Subjective - Date & Time of Evaluation Date of Evaluation: 03/02/17 Time of Evaluation: 07:30 - Subjective Subjective: PGY1- Medicine Note- Dr. Peterson's Service Patient seen and examined at bedside and in no acute distress. Patient feels his cough is getting worse and he is having more yellow phlegm with it. Patient still has throat pain. Patient says his leg pain is less but it still is bothering him. Patient denies shortness of breath, chest pain, palpitations, abdominal pain, nausea, vomiting, constipation or diarrhea. Objective - Vital Signs/Intake and Output Vital Signs (last 24 hours): Temp Pulse Resp BP Pulse Ox 98.3 F 51 L 19 168/83 H 99 03/02/17 08:11 03/02/17 08:11 03/02/17 08:11 03/02/17 10:48 03/02/17 08:11 - Medications Medications: Current Medications Acetaminophen (Tylenol 325mg Tab) 650 mg PO Q6 PRN PRN Reason: Pain, moderate (4-7) Aspirin (Aspirin Chewable) 81 mg PO DAILY [facility] Last Admin: 03/02/17 10:48 Dose: 81 mg Carvedilol (Coreg) 3.125 mg PO BID [facility] Last Admin: 03/02/17 10:48 Dose: 3.125 mg Clotrimazole (Lotrimin 1%) 0 gm TOP BID [facility] Last Admin: 03/02/17 14:11 Dose: 1 lot Famotidine (Pepcid) 20 mg PO BID [facility] Last Admin: 03/02/17 10:48 Dose: 20 mg Furosemide (Lasix) 40 mg IVP DAILY [facility] Last Admin: 03/02/17 10:48 Dose: 40 mg Gabapentin (Neurontin) 600 mg PO BID [facility] Last Admin: 03/02/17 10:48 Dose: 600 mg Heparin Sodium (Porcine) (Heparin) 5,000 units SC Q8 [facility] Last Admin: 03/02/17 13:07 Dose: 5,000 units Azithromycin 500 mg/ Sodium (Chloride) 250 mls @ 250 mls/hr IVPB DAILY@1430 [facility] Last Admin: 03/02/17 14:22 Dose: 250 mls/hr Ceftriaxone Sodium 1 gm/ (Sodium Chloride) 100 mls @ 100 mls/hr IVPB DAILY@ 1630 [facility] Last Admin: 03/01/17 18:04 Dose: 100 mls/hr Insulin Human Regular (Novolin R) 0 unit SC ACHS [facility] PRN Reason: Protocol Last Admin: 03/02/17 12:34 Dose: 4 unit Lisinopril (Zestril) 10 mg PO DAILY [facility] Last Admin: 03/02/17 10:48 Dose: 10 mg Metformin HCl (Glucophage) 1,000 mg PO BIDCC [facility] Last Admin: 03/02/17 08:36 Dose: 1,000 mg Nicotine (Nicoderm Cq) 1 patch TD DAILY [facility] Last Admin: 03/02/17 10:45 Dose: 1 patch Potassium Chloride (K-Dur 20 Meq Er Tab) 20 meq PO DAILY [facility] Last Admin: 03/02/17 10:48 Dose: 20 meq Promethazine HCl/Codeine (Phenergan/Codeine Oral Syrup) 5 ml PO Q4 PRN PRN Reason: Cough Last Admin: 03/02/17 08:41 Dose: 5 ml Rosuvastatin Calcium (Crestor) 2.5 mg PO HS [facility] Last Admin: 03/01/17 22:46 Dose: 2.5 mg Sitagliptin Phosphate (Januvia) 50 mg PO DAILY [facility] Last Admin: 03/02/17 10:48 Dose: 50 mg Spironolactone (Aldactone) 25 mg PO DAILY [facility] Last Admin: 03/02/17 10:48 Dose: 25 mg - Labs Labs: 03/02/17 08:25 03/02/17 08:25 - Constitutional Appears: Well, Non-toxic, No Acute Distress - Head Exam Head Exam: ATRAUMATIC, NORMAL INSPECTION, NORMOCEPHALIC - Eye Exam Eye Exam: EOMI, Normal appearance, PERRL - ENT Exam ENT Exam: Mucous Membranes Moist Additional comments: mildly erythematous oropharynx, no exudates - Neck Exam Neck Exam: Full ROM, Tenderness Additional comments: mild cervical lymph node tenderness - Respiratory Exam Respiratory Exam: Rhonchi, NORMAL BREATHING PATTERN. absent: Wheezes - Cardiovascular Exam Cardiovascular Exam: REGULAR RHYTHM, RRR. absent: Gallop, Rubs, Murmur - GI/Abdominal Exam GI & Abdominal Exam: Soft, Normal Bowel Sounds. absent: Distended, Firm, Guarding, Rigid, Tenderness - Extremities Exam Extremities Exam: Full ROM, Pedal Edema, Tenderness Additional comments: edema significantly decreased - Back Exam Back Exam: NORMAL INSPECTION. absent: rash noted - Neurological Exam Neurological Exam: Alert, Awake, Oriented x3 - Psychiatric Exam Psychiatric exam: Normal Affect, Normal Mood - Skin Skin Exam: Intact, Normal Color, Warm Additional comments: dry skin is flaking less on legs, mild edema b/l Assessment and Plan - Assessment and Plan (Free Text) Assessment: 1. Acute diastolic congestive heart failure * cardiology consulted, Dr. Ho, help appreciated * echo: borderline concentric left ventricular hypertrophy. Tissue doppler imaging reveals mild left ventricular diastolic dysfunction. Mild aortic regurg. LV EF 50% * Lipid panel: Triglycerides 174, Cholesterol 190, LDL 118, HDL 31 * ekg showed right bundle branch block - no change since EKG in 12/2016 * Lasix 40 mg IVP daily * Coreg 3.125 mg PO BID * Aspirin 81 mg PO daily * Lisinopril 10 mg PO daily * Crestor 2.5 mg PO HS * Spironolactone 25 mg PO Daily 2. Lower extremity edema * vascular surgery, Dr. Ying, help appreciated * venous doppler negative * arterial doppler- negative, ankle/brachial index 1.22 3. Respiratory Tract Infection * 03/02 CT chest: innumerable pulmonary nodules with mid to upper lobe predominance. Largest node resides within right upper lobe measuring approx 2.4 X 1.6cm. No Definite cavitary nodules appreciated at this time. Peribronchial thickening. Bronchiectasis. Patchy upper lobe infiltrates or atelectasis. Correlate clinically for chronic inflammatory process or fungal infection. * pulmonary consulted, Dr. Girard, help appreciated * Cxray 02/27: Previously noted areas of nodular opacities, peribronchial thickening, cystic bronchiectasis and cavitary lesions in the upper and to a lesser degree lower lobes bilaterally are less well seen on this study. Rule out chronic inflammatory process/ fungal infection. * Chest xray 02/28: persistent ill defined consolidative and mass like opacities seen within right upper and mid lung zone * Group A Beta Strep culture (-) * zithromax 500 mg IV daily started on 02/28 * ceftriaxone 1 g IV daily started on 02/28 * Phenergan with codeine 5ml PO Q 4hour PRN cough * strep pneumoniae: negative * f/u m pneumoniae, legionella 4. Lower Extremity Pain * Tylenol 650 mg PO Q6 prn for moderate leg pain * Gabapentin 600 mg PO BID 4. Uncontrolled Diabetes Mellitus * Januvia 50 mg BID * Increased Metformin 1000 mg PO BID * Accuchecks QAC and HS * ISS (low) * HgA1C: 10.4 * levemir and glimepiride stopped on 03/01 secondary to sugar: 34 this morning 5. Uncontrolled Hypertension * Lisinopril increased to 20 mg PO daily (03/02/17) * Coreg 3.125 mg PO daily * monitor vital signs * Lasix 40 mg IVP daily 6. Tobacco Use Disorder * Nicotine patch 14 mg/ 24 hr * smoking cessation discussed 7. Prophylactic Measures * Pepcid 20 mg PO BID * Heparin 5000 u sc q8h <Joan Peterson V - Last Filed: 03/03/17 00:20> Objective - Vital Signs/Intake and Output Vital Signs (last 24 hours): Temp Pulse Resp BP Pulse Ox 97.6 F 60 20 154/80 H 98 03/02/17 15:30 03/02/17 15:30 03/02/17 15:30 03/02/17 15:30 03/02/17 15:30 - Medications Medications: Current Medications Acetaminophen (Tylenol 325mg Tab) 650 mg PO Q6 PRN PRN Reason: Pain, moderate (4-7) Aspirin (Aspirin Chewable) 81 mg PO DAILY [facility] Last Admin: 03/02/17 10:48 Dose: 81 mg Carvedilol (Coreg) 3.125 mg PO BID [facility] Last Admin: 03/02/17 18:00 Dose: 3.125 mg Clotrimazole (Lotrimin 1%) 0 gm TOP BID [facility] Last Admin: 03/02/17 18:00 Dose: 1 lot Famotidine (Pepcid) 20 mg PO BID [facility] Last Admin: 03/02/17 18:00 Dose: 20 mg Furosemide (Lasix) 40 mg IVP DAILY [facility] Last Admin: 03/02/17 10:48 Dose: 40 mg Gabapentin (Neurontin) 600 mg PO BID [facility] Last Admin: 03/02/17 18:00 Dose: 600 mg Azithromycin 500 mg/ Sodium (Chloride) 250 mls @ 250 mls/hr IVPB DAILY@1430 [facility] Last Admin: 03/02/17 14:22 Dose: 250 mls/hr Ceftriaxone Sodium 1 gm/ (Sodium Chloride) 100 mls @ 100 mls/hr IVPB DAILY@ 1630 [facility] Last Admin: 03/02/17 18:00 Dose: 100 mls/hr Insulin Glargine (Lantus) 10 unit SC HS [facility] Insulin Human Regular (Novolin R) 0 unit SC ACHS [facility] PRN Reason: Protocol Last Admin: 03/02/17 16:46 Dose: 6 unit Lisinopril (Zestril) 20 mg PO DAILY [facility] Metformin HCl (Glucophage) 1,000 mg PO BIDCC [facility] Last Admin: 03/02/17 16:47 Dose: 1,000 mg Nicotine (Nicoderm Cq) 1 patch TD DAILY [facility] Last Admin: 03/02/17 10:45 Dose: 1 patch Polyethylene Glycol (Miralax) 17 gm PO DAILY [facility] Potassium Chloride (K-Dur 20 Meq Er Tab) 20 meq PO DAILY [facility] Last Admin: 03/02/17 10:48 Dose: 20 meq Promethazine HCl/Codeine (Phenergan/Codeine Oral Syrup) 5 ml PO Q4 PRN PRN Reason: Cough Last Admin: 03/02/17 22:30 Dose: 5 ml Rosuvastatin Calcium (Crestor) 2.5 mg PO HS [facility] Last Admin: 03/02/17 22:20 Dose: 2.5 mg Sitagliptin Phosphate (Januvia) 50 mg PO DAILY [facility] Last Admin: 03/02/17 10:48 Dose: 50 mg Spironolactone (Aldactone) 25 mg PO DAILY [facility] Last Admin: 03/02/17 10:48 Dose: 25 mg - Labs Labs: 03/02/17 08:25 03/02/17 08:25 Attending/Attestation - Attestation I have personally seen and examined this patient.: Yes I have fully participated in the care of the patient.: Yes I have reviewed all pertinent clinical information, including history, physical exam and plan: Yes Notes (Text): This is late computer entry for 03/02/17. Patient seen, examined, and case discussed with day-time resident. Patient's legs are visually improving. Discussed with cardiology, diastolic related. Patient's blood pressure uncontrolled later in the day; given additional dose of Lisinopril 10mg and to start 20mg Po daily tomorrow. Patient ordered for CT Chest today; given abnormal chest xray; and called for a pulmonary consult. Patient started on Levemir 10 units tonight; patient's sugar in AM in 300s. Assessment/Plan 1. Acute diastolic congestive heart failure * cardiology consulted, Dr. Ho, help appreciated * echo: borderline concentric left ventricular hypertrophy. Tissue doppler imaging reveals mild left ventricular diastolic dysfunction. Mild aortic regurg. LV EF 50% * Lipid panel: Triglycerides 174, Cholesterol 190, LDL 118, HDL 31 * ekg showed right bundle branch block - no change since EKG in 12/2016 * Lasix 40 mg IVP daily * Coreg 3.125 mg PO BID * Aspirin 81 mg PO daily * increase Lisinopril 20 mg PO daily * Crestor 2.5 mg PO HS * Spironolactone 25 mg PO Daily 2. Lower extremity edema * vascular surgery, Dr. Ying, help appreciated * venous doppler negative * arterial doppler- negative, ankle/brachial index 1.22 3. Respiratory Tract Infection * Cxray 02/27: Previously noted areas of nodular opacities, peribronchial thickening, cystic bronchiectasis and cavitary lesions in the upper and to a lesser degree lower lobes bilaterally are less well seen on this study. Rule out chronic inflammatory process/ fungal infection. * Chest xray 02/28: persistent ill defined consolidative and mass like opacities seen within right upper and mid lung zone * Group A Beta Strep culture (-) * zithromax 500 mg IV daily started on 02/28 * ceftriaxone 1 g IV daily started on 02/28 * Phenergan with codeine 5ml PO Q 4hour PRN cough * f/u strep pneumoniae, m pneumoniae, legionella 4. Lower Extremity Pain * Tylenol 650 mg PO Q6 prn for moderate leg pain * Gabapentin 600 mg PO BID 4. Uncontrolled Diabetes Mellitus * Januvia 50 mg BID * Increased Metformin 1000 mg PO BID * Accuchecks QAC and HS * ISS (low) * HgA1C: 10.4 * Start Lantus 10 units subqHS * glimepiride stopped on 03/01 secondary to sugar: 34 AM 5. Uncontrolled Hypertension * increase to Lisinopril 20 mg PO daily * Coreg 3.125 mg PO bid * monitor vital signs * Lasix 40 mg IVP daily 6. Tobacco Use Disorder * Nicotine patch 14 mg/ 24 hr * smoking cessation discussed 7. Prophylactic Measures * Pepcid 20 mg PO BID * Heparin 5000 u sc q8h
[2017-03-02 17:30] LABS: LEGIONELLA AG URINE NEGATIVE (NEGATIVE)
[2017-03-02] MEDS: Rosuvastatin Calcium 2.5 mg Tab PO SCH (22:20)
[2017-03-03 06:39] LABS: BASO # 0.1 K/uL (0.0-0.2); EOS # 0.7 K/uL (0.0-0.7); EOS % 9.8 % (0.0-4.0); HEMATOCRIT 28.6 % (35.0-51.0); LYMPH # 2.1 K/uL (1.0-4.3); LYMPH % 29.1 % (20.0-40.0); MEAN CELL VOLUME 88.9 fL (80.0-94.0); MEAN CORPUSCULAR HEMOGLOBIN 29.6 pg (27.0-31.0); MEAN CORPUSCULAR HGB CONC 33.3 g/dL (33.0-37.0); MONO # 0.6 K/uL (0.0-0.8); MONO % 7.8 % (0.0-10.0); WHITE BLOOD COUNT 7.2 K/uL (4.8-10.8)
--- NOTE | 2017-03-03 07:06 | CP.PCM.PN ---
<Adrien George - Last Filed: 03/03/17 16:11> Subjective - Date & Time of Evaluation Date of Evaluation: 03/03/17 Time of Evaluation: 07:06 - Subjective Subjective: PGY-[address] Peterson's service: Patient seen and examined at bedside today. Patient complains of leg pain with skin discoloration, right leg weakness and cough. Patient complains of bilateral 3/10 burning leg pain that extends from the knees to the feet. Exacerbating factor include touching the legs. Patient states current medical treatment is improving the pain. Patient complains of skin discoloration on bilateral lower extremities. He has noticed discoloration for two weeks and denies pruritis. Patient complains of intermodal customer service constant right lower extremity weakness extending from the right hip to his right foot. Experiences trouble walking up the stairs and denies falls, exacerbating and remitting factors. Complains of cough that began two days ago that productive with yellow phlegm. Patient states he was coughing through out the night and was unable to sleep well while laying flat. Complains of intermittent numbness at fingers and toes. Denies chest pain, shortness of breath, headache, dizziness, changes in vision and hearing, tinnitus, fever, chills, nausea, vomiting, diarrhea, constipation, dysuria. . Objective - Vital Signs/Intake and Output Vital Signs (last 24 hours): Temp Pulse Resp BP Pulse Ox 98.1 F 56 L 20 154/81 H 100 03/02/17 23:40 03/03/17 03:30 03/02/17 23:40 03/02/17 23:40 03/02/17 23:40 - Medications Medications: Current Medications Acetaminophen (Tylenol 325mg Tab) 650 mg PO Q6 PRN PRN Reason: Pain, moderate (4-7) Aspirin (Aspirin Chewable) 81 mg PO DAILY [facility] Last Admin: 03/02/17 10:48 Dose: 81 mg Carvedilol (Coreg) 3.125 mg PO BID [facility] Last Admin: 03/02/17 18:00 Dose: 3.125 mg Clotrimazole (Lotrimin 1%) 0 gm TOP BID [facility] Last Admin: 03/02/17 18:00 Dose: 1 lot Famotidine (Pepcid) 20 mg PO BID [facility] Last Admin: 07/20/17 18:00 Dose: 20 mg Furosemide (Lasix) 40 mg IVP DAILY [facility] Last Admin: 03/02/17 10:48 Dose: 40 mg Gabapentin (Neurontin) 600 mg PO BID [facility] Last Admin: 03/02/17 18:00 Dose: 600 mg Azithromycin 500 mg/ Sodium (Chloride) 250 mls @ 250 mls/hr IVPB DAILY@1430 [facility] Last Admin: 03/02/17 14:22 Dose: 250 mls/hr Ceftriaxone Sodium 1 gm/ (Sodium Chloride) 100 mls @ 100 mls/hr IVPB DAILY@ 1630 [facility] Last Admin: 03/02/17 18:00 Dose: 100 mls/hr Insulin Glargine (Lantus) 10 unit SC [facility] Last Admin: 03/03/17 00:00 Dose: Not Given Insulin Human Regular (Novolin R) 0 unit SC [facility] PRN Reason: Protocol Last Admin: 03/02/17 16:46 Dose: 6 unit Lisinopril (Zestril) 20 mg PO DAILY [facility] Last Admin: 03/02/17 16:47 Dose: 1,000 mg Nicotine (Nicoderm Cq) 1 patch TD DAILY [facility] Last Admin: 03/02/17 10:45 Dose: 1 patch Polyethylene Glycol (Miralax) 17 gm PO DAILY [facility] Potassium Chloride (K-Dur 20 Meq Er Tab) 20 meq PO DAILY [facility] Last Admin: 03/02/17 10:48 Dose: 20 meq Promethazine HCl/Codeine (Phenergan/Codeine Oral Syrup) 5 ml PO Q4 PRN PRN Reason: Cough Last Admin: 03/02/17 22:30 Dose: 5 ml Rosuvastatin Calcium (Crestor) 2.5 mg PO [facility] Last Admin: 03/02/17 22:20 Dose: 2.5 mg Sitagliptin Phosphate (Januvia) 50 mg PO DAILY [facility] Last Admin: 03/02/17 10:48 Dose: 50 mg Spironolactone (Aldactone) 25 mg PO DAILY [facility] Last Admin: 03/02/17 10:48 Dose: 25 mg - Labs Labs: 03/02/17 08:25 03/02/17 08:25 - Additional Findings Additional findings: - Constitutional Appears: Well, Non-toxic, No Acute Distress - Head Exam Head Exam: ATRAUMATIC, NORMAL INSPECTION, NORMOCEPHALIC - Eye Exam Eye Exam: EOMI, Normal appearance, PERRL - ENT Exam ENT Exam: Mucous Membranes Moist Additional comments: mildly erythematous oropharynx, no exudates - Neck Exam Neck Exam: Full ROM, Tenderness Additional comments: mild cervical lymph node tenderness - Respiratory Exam Respiratory Exam: Rhonchi, NORMAL BREATHING PATTERN. absent: Wheezes - Cardiovascular Exam Cardiovascular Exam: REGULAR RHYTHM, RRR. absent: Gallop, Rubs, Murmur - GI/Abdominal Exam GI & Abdominal Exam: Soft, Normal Bowel Sounds. absent: Distended, Firm, Guarding, Rigid, Tenderness - Extremities Exam Extremities Exam: Full ROM, Pedal Edema, Tenderness Additional comments: edema improved - Back Exam Back Exam: NORMAL INSPECTION. absent: rash noted - Neurological Exam Neurological Exam: Alert, Awake, Oriented x3 - Psychiatric Exam Psychiatric exam: Normal Affect, Normal Mood - Skin Skin Exam: Intact, Normal Color, Warm Additional comments: dry skin is flaking less on legs, mild edema b/l Assessment and Plan - Assessment and Plan (Free Text) Plan: 1. Acute diastolic congestive heart failure * cardiology consulted, Dr. Ho, help appreciated * echo: borderline concentric left ventricular hypertrophy. Tissue doppler imaging reveals mild left ventricular diastolic dysfunction. Mild aortic regurg. LV EF 50% * Lipid panel: Triglycerides 174, Cholesterol 190, LDL 118, HDL 31 * ekg showed right bundle branch block - no change since EKG in 12/2016 * Lisinopril increased to 20 mg PO daily * Lasix 40mg IV Daily * Coreg 3.125 mg PO BID * Aspirin 81 mg PO daily * Crestor 2.5 mg PO HS * Spironolactone 25 mg PO Daily 2. Lower extremity edema * vascular surgery, Dr. Ying, help appreciated * venous doppler negative * arterial doppler- negative, ankle/brachial index 1.22 3. Respiratory Tract Infection * 03/02 CT chest: innumerable pulmonary nodules with mid to upper lobe predominance. Largest node resides within right upper lobe measuring approx 2.4 X 1.6cm. No Definite cavitary nodules appreciated at this time. Peribronchial thickening. Bronchiectasis. Patchy upper lobe infiltrates or atelectasis. Correlate clinically for chronic inflammatory process or fungal infection. * pulmonary consulted, Dr. Girard, help appreciated * Cxray 02/27: Previously noted areas of nodular opacities, peribronchial thickening, cystic bronchiectasis and cavitary lesions in the upper and to a lesser degree lower lobes bilaterally are less well seen on this study. Rule out chronic inflammatory process/ fungal infection. * Chest xray 02/28: persistent ill defined consolidative and mass like opacities seen within right upper and mid lung zone * Group A Beta Strep culture (-) * zithromax 500 mg IV daily started on 02/28 * ceftriaxone 1 g IV daily started on 02/28 * Phenergan with codeine 5ml PO Q 4hour PRN cough * strep pneumoniae, Mycoplasma pneumoniae, legionella: all negative 4. Lower Extremity Pain * Tylenol 650 mg PO Q6 prn for moderate leg pain * Gabapentin 600 mg PO BID 5. Uncontrolled Diabetes Mellitus * Sugars improving since regimen change yesterday 03/02 * Januvia 50 mg BID * Lantus 10 unit SC HS * Novolin Sliding scale * Increased Metformin 1000 mg PO BID * Accuchecks QAC and HS * ISS (low) * HgA1C: 10.4 6. Uncontrolled Hypertension * Lisinopril increased to 20 mg PO daily (03/02/17) * Coreg 3.125 mg PO daily * Lasix 40mg IV Daily * Start HCTZ 12.5 mg PO Daily * Start hydralazine 10mg IV Q6H PRN for SBP > 160 7. Tobacco Use Disorder * Nicotine patch 14 mg/ 24 hr * smoking cessation discussed 8. Constipation Miralax 17gm PO daily 9. Prophylactic Measures * Pepcid 20 mg PO BID * Heparin 5000 u sc q8h Discussed with Dr. Nicholas George PGY-1 <Joan Peterson V - Last Filed: 03/05/17 10:41> Objective - Vital Signs/Intake and Output Vital Signs (last 24 hours): Temp Pulse Resp BP Pulse Ox 98.2 F 61 20 161/70 H 99 03/05/17 09:00 03/05/17 09:00 03/05/17 09:00 03/05/17 09:41 03/05/17 09:00 Intake and Output: 03/05/17 03/05/17 06:59 18:59 Intake Total 240 Balance 240 - Medications Medications: Current Medications Acetaminophen (Tylenol 325mg Tab) 650 mg PO Q6 PRN PRN Reason: Pain, moderate (4-7) Aspirin (Aspirin Chewable) 81 mg PO DAILY [facility] Last Admin: 03/05/17 09:39 Dose: 81 mg Carvedilol (Coreg) 3.125 mg PO BID [facility] Last Admin: 03/05/17 09:39 Dose: 3.125 mg Clotrimazole (Lotrimin 1%) 0 gm TOP BID [facility] Last Admin: 03/05/17 09:40 Dose: 1 lot Famotidine (Pepcid) 20 mg PO BID [facility] Last Admin: 03/05/17 09:39 Dose: 20 mg Furosemide (Lasix) 40 mg IVP DAILY [facility] Last Admin: 03/05/17 09:41 Dose: 40 mg Gabapentin (Neurontin) 600 mg PO BID [facility] Last Admin: 03/05/17 09:39 Dose: 600 mg Azithromycin 500 mg/ Sodium (Chloride) 250 mls @ 250 mls/hr IVPB DAILY@1430 [facility] Last Admin: 03/04/17 13:59 Dose: 250 mls/hr Ceftriaxone Sodium 1 gm/ (Sodium Chloride) 100 mls @ 100 mls/hr IVPB DAILY@ 1630 [facility] Last Admin: 03/04/17 17:30 Dose: 100 mls/hr Insulin Glargine (Lantus) 20 unit SC [facility] Insulin Human Regular (Novolin R) 0 unit SC [facility] PRN Reason: Protocol Last Admin: 03/05/17 08:30 Dose: 1 unit Lisinopril (Zestril) 20 mg PO DAILY [facility] Last Admin: 03/05/17 09:39 Dose: 20 mg Metformin HCl (Glucophage) 1,000 mg PO BIDCC [facility] Last Admin: 03/05/17 08:30 Dose: 1,000 mg Nicotine (Nicoderm Cq) 1 patch TD DAILY [facility] Last Admin: 03/05/17 09:39 Dose: 1 patch Promethazine HCl/Codeine (Phenergan/Codeine Oral Syrup) 5 ml PO Q4 PRN PRN Reason: Cough Last Admin: 03/05/17 09:39 Dose: 5 ml Rosuvastatin Calcium (Crestor) 2.5 mg PO HS [facility] Last Admin: 03/04/17 21:49 Dose: 2.5 mg Sitagliptin Phosphate (Januvia) 50 mg PO DAILY [facility] Last Admin: 03/05/17 09:39 Dose: 50 mg - Labs Labs: 03/05/17 07:40 03/05/17 07:40 Attending/Attestation - Attestation Notes (Text): This is late computer entry for 03/03/17. Patient seen, examined, and case discussed with day-time resident. Patient's legs are visually improving. Patient's blood pressure uncontrolled start on HCTZ and hydralazine PRN for SBP> 160. Ordered for pulm consult-->Awaiting recommendations Patient ordered for CT Chest today; given abnormal chest xray; and called for a pulmonary consult. Assessment/Plan 1. Acute diastolic congestive heart failure * cardiology consulted, Dr. Ho, help appreciated * echo: borderline concentric left ventricular hypertrophy. Tissue doppler imaging reveals mild left ventricular diastolic dysfunction. Mild aortic regurg. LV EF 50% * Lipid panel: Triglycerides 174, Cholesterol 190, LDL 118, HDL 31 * ekg showed right bundle branch block - no change since EKG in 12/2016 * Lasix 40 mg IVP daily * Coreg 3.125 mg PO BID * Aspirin 81 mg PO daily * Lisinopril 20 mg PO daily * Crestor 2.5 mg PO HS * Spironolactone 25 mg PO Daily 2. Lower extremity edema * vascular surgery, Dr. Ying, help appreciated * venous doppler negative * arterial doppler- negative, ankle/brachial index 1.22 3. Cavitary Lesions and Bronchiectasis * Pulmonary (Dr. Fuller)--f/u recommendations * Cxray 02/27: Previously noted areas of nodular opacities, peribronchial thickening, cystic bronchiectasis and cavitary lesions in the upper and to a lesser degree lower lobes bilaterally are less well seen on this study. Rule out chronic inflammatory process/ fungal infection. * Chest xray 02/28: persistent ill defined consolidative and mass like opacities seen within right upper and mid lung zone * Group A Beta Strep culture (-) * zithromax 500 mg IV daily started on 02/28 * ceftriaxone 1 g IV daily started on 02/28 * Phenergan with codeine 5ml PO Q 4hour PRN cough * strep pneumoniae, m pneumoniae, legionella: negative 4. Lower Extremity Pain * Tylenol 650 mg PO Q6 prn for moderate leg pain * Gabapentin 600 mg PO BID 4. Uncontrolled Diabetes Mellitus * Januvia 50 mg BID * Increased Metformin 1000 mg PO BID * Accuchecks QAC and HS * ISS (low) * HgA1C: 10.4 * Start Lantus 10 units subqHS 5. Uncontrolled Hypertension * increase to Lisinopril 20 mg PO daily * Coreg 3.125 mg PO bid * monitor vital signs * Lasix 40 mg IVP daily * Start HCTZ today 6. Tobacco Use Disorder * Nicotine patch 14 mg/ 24 hr * smoking cessation discussed 7. Prophylactic Measures * Pepcid 20 mg PO BID * Heparin 5000 u sc q8h
[2017-03-03 07:20] LABS: POTASSIUM 5.3 mmol/L (3.6-5.2)
[2017-03-03 07:23] LABS: ALB/GLOB RATIO 0.8 (1.0-2.1); BILIRUBIN,TOTAL 0.3 mg/dL (0.2-1.3); TOTAL PROTEIN 5.1 g/dL (6.3-8.3)
[2017-03-03 07:24] LABS: CALCIUM 7.7 mg/dl (8.6-10.4); MAGNESIUM 1.9 mg/dL (1.6-2.3); PHOSPHOROUS 4.6 mg/dL (2.5-4.5)
[2017-03-03] MEDS: (Novolin R) Insulin Human Regular 100 units/ml vial SC SCH ×4 (08:14→22:04)
[2017-03-03] MEDS: Clotrimazole 1% Cream(30 gm) TOP SCH ×2 (09:09→18:00)
[2017-03-03] MEDS: Promethazine/Cod 6.25mg-10mg/5ml Syr UD PO PRN ×3 (09:09→22:11)
[2017-03-03] MEDS: Potassium Chloride 20 mEq ER Tab PO SCH (09:10)
[2017-03-03] MEDS: POLYETHYLENE GLYCOL 3350 17 GM/Dose PACKET PO SCH (09:11)
[2017-03-03] MEDS: Azithromycin 500 MG in Sodium Chloride 0.9% 250 ML IVPB SCH (14:04)
[2017-03-03] MEDS: (Lantus) Insulin Glargine, Recombinant SC SCH ×2 (22:04)
[2017-03-03] MEDS: Rosuvastatin Calcium 2.5 mg Tab PO SCH (22:04)
[2017-03-03] MEDS ORDERED: (Lantus) Insulin Glargine, Recombinant SC SCH (22:07)
--- NOTE | 2017-03-04 00:30 | CP.PCM.PN ---
Addendum entered and electronically signed by Adrien George DO 03/04/17 18:49: Nursing called reporting Hep C positive result -EMR shows positive result in 2013. Pt refusing treatment at this time. Addendum entered and electronically signed by Rayne Fang 03/04/17 04:06 : HCTZ and Aldactone discontinued on 03/04 Lantus increased from 10 to 15 units f/u Urinalysis f/u total protein Original Note: <Rayne Fang - Last Filed: 03/04/17 00:27> Subjective - Date & Time of Evaluation Date of Evaluation: 03/04/17 Time of Evaluation: 07:00 - Subjective Subjective: PGY1-Medicine Note-Dr. George Service Patient seen and examined at bedside and is in no acute distress. Patient still has some leg pain and edema but he feels it is getting better. He still complains of a cough with phlegm. Patient says the phlegm is getting more clear but sometimes is still yellow. He says his throat pain is much improved. Patient denies headache, shortness of breath, chest pain, abdominal pain, nausea , vomiting, constipation, or diarrhea. Objective - Vital Signs/Intake and Output Vital Signs (last 24 hours): Temp Pulse Resp BP Pulse Ox 97.4 F L 64 20 152/80 H 96 03/04/17 00:22 03/04/17 00:22 03/04/17 00:22 03/04/17 00:22 03/04/17 00:22 Intake and Output: 03/03/17 03/04/17 18:59 06:59 Intake Total 500 800 Balance 500 800 - Medications Medications: Current Medications Acetaminophen (Tylenol 325mg Tab) 650 mg PO Q6 PRN PRN Reason: Pain, moderate (4-7) Aspirin (Aspirin Chewable) 81 mg PO DAILY [facility] Last Admin: 03/03/17 09:10 Dose: 81 mg Carvedilol (Coreg) 3.125 mg PO BID [facility] Last Admin: 03/03/17 17:59 Dose: 3.125 mg Clotrimazole (Lotrimin 1%) 0 gm TOP BID [facility] Last Admin: 03/03/17 18:00 Dose: 1 lot Famotidine (Pepcid) 20 mg PO BID [facility] Last Admin: 03/03/17 17:46 Dose: 20 mg Furosemide (Lasix) 40 mg IVP DAILY [facility] Last Admin: 03/03/17 09:13 Dose: 40 mg Gabapentin (Neurontin) 600 mg PO BID [facility] Last Admin: 03/03/17 17:46 Dose: 600 mg Azithromycin 500 mg/ Sodium (Chloride) 250 mls @ 250 mls/hr IVPB DAILY@1430 [facility] Last Admin: 03/03/17 14:04 Dose: 250 mls/hr Ceftriaxone Sodium 1 gm/ (Sodium Chloride) 100 mls @ 100 mls/hr IVPB DAILY@ 1630 [facility] Last Admin: 03/03/17 17:30 Dose: 100 mls/hr Insulin Glargine (Lantus) 15 unit SC [facility] Insulin Human Regular (Novolin R) 0 unit SC [facility] PRN Reason: Protocol Last Admin: 03/03/17 22:04 Dose: Not Given Lisinopril (Zestril) 20 mg PO DAILY [facility] Last Admin: 03/03/17 09:11 Dose: 20 mg [facility] Last Admin: 03/03/17 17:46 Dose: 1,000 mg Nicotine (Nicoderm Cq) 1 patch TD DAILY [facility] Last Admin: 03/03/17 09:13 Dose: 1 patch Polyethylene Glycol (Miralax) 17 gm PO DAILY [facility] Last Admin: 03/03/17 09:11 Dose: Not Given Promethazine HCl/Codeine (Phenergan/Codeine Oral Syrup) 5 ml PO Q4 PRN PRN Reason: Cough Last Admin: 03/03/17 22:11 Dose: 5 ml Rosuvastatin Calcium (Crestor) 2.5 mg PO [facility] Last Admin: 03/03/17 22:04 Dose: 2.5 mg Sitagliptin Phosphate (Januvia) 50 mg PO DAILY [facility] Last Admin: 03/03/17 09:11 Dose: 50 mg - Labs Labs: 03/03/17 06:29 03/03/17 06:29 - Constitutional Appears: Well, Non-toxic - Head Exam Head Exam: ATRAUMATIC, NORMAL INSPECTION, NORMOCEPHALIC - Eye Exam Eye Exam: EOMI, Normal appearance, PERRL - ENT Exam ENT Exam: Mucous Membranes Moist, Normal Exam - Neck Exam Neck Exam: Full ROM, Normal Inspection. absent: Lymphadenopathy - Respiratory Exam Respiratory Exam: Rhonchi, NORMAL BREATHING PATTERN - Cardiovascular Exam Cardiovascular Exam: REGULAR RHYTHM, +S1, +S2. absent: Murmur - GI/Abdominal Exam GI & Abdominal Exam: Soft, Normal Bowel Sounds. absent: Tenderness - Extremities Exam Extremities Exam: Full ROM, Normal Capillary Refill, Normal Inspection, Pedal Edema. absent: Joint Swelling Additional comments: decreasing le edema - Back Exam Back Exam: NORMAL INSPECTION. absent: rash noted - Neurological Exam Neurological Exam: Alert, Awake, Oriented x3 - Psychiatric Exam Psychiatric exam: Normal Affect, Normal Mood - Skin Skin Exam: Intact, Normal Color, Warm Additional comments: decreased dry skin, decreased lower extremity edema Assessment and Plan - Assessment and Plan (Free Text) Assessment: 1. Acute diastolic congestive heart failure * cardiology consulted, Dr. Ho, help appreciated * echo: borderline concentric left ventricular hypertrophy. Tissue doppler imaging reveals mild left ventricular diastolic dysfunction. Mild aortic regurg. LV EF 50% * Lipid panel: Triglycerides 174, Cholesterol 190, LDL 118, HDL 31 * ekg showed right bundle branch block - no change since EKG in 12/2016 * Lisinopril increased to 20 mg PO daily * Lasix 40mg IV Daily * Coreg 3.125 mg PO BID * Aspirin 81 mg PO daily * Crestor 2.5 mg PO HS * Spironolactone 25 mg PO Daily 2. Lower extremity edema * vascular surgery, Dr. Ying, help appreciated * venous doppler negative * arterial doppler- negative, ankle/brachial index 1.22 3. Respiratory Tract Infection * 03/02 CT chest: innumerable pulmonary nodules with mid to upper lobe predominance. Largest node resides within right upper lobe measuring approx 2.4 X 1.6cm. No Definite cavitary nodules appreciated at this time. Peribronchial thickening. Bronchiectasis. Patchy upper lobe infiltrates or atelectasis. Correlate clinically for chronic inflammatory process or fungal infection. * pulmonary consulted, Dr. Girard, help appreciated * Cxray 02/27: Previously noted areas of nodular opacities, peribronchial thickening, cystic bronchiectasis and cavitary lesions in the upper and to a lesser degree lower lobes bilaterally are less well seen on this study. Rule out chronic inflammatory process/ fungal infection. * Chest xray 02/28: persistent ill defined consolidative and mass like opacities seen within right upper and mid lung zone * Group A Beta Strep culture (-) * zithromax 500 mg IV daily started on 02/28 * ceftriaxone 1 g IV daily started on 02/28 * Phenergan with codeine 5ml PO Q 4hour PRN cough * strep pneumoniae, Mycoplasma pneumoniae, legionella: all negative 4. Lower Extremity Pain * Tylenol 650 mg PO Q6 prn for moderate leg pain * Gabapentin 600 mg PO BID 5. Uncontrolled Diabetes Mellitus * Sugars improving since regimen change yesterday 03/02 * Januvia 50 mg BID * Lantus 10 unit SC HS * Novolin Sliding scale * Increased Metformin 1000 mg PO BID * Accuchecks QAC and HS * ISS (low) * HgA1C: 10.4 6. Uncontrolled Hypertension * Lisinopril increased to 20 mg PO daily (03/02/17) * Coreg 3.125 mg PO daily * Lasix 40mg IV Daily * Start HCTZ 12.5 mg PO Daily * Start hydralazine 10mg IV Q6H PRN for SBP > 160 7. Tobacco Use Disorder * Nicotine patch 14 mg/ 24 hr * smoking cessation discussed 8. Constipation Miralax 17gm PO daily 9. Prophylactic Measures * Pepcid 20 mg PO BID * Heparin 5000 u sc q8h <Cody Kenyon P - Last Filed: 03/04/17 11:26> Objective - Vital Signs/Intake and Output Vital Signs (last 24 hours): Temp Pulse Resp BP Pulse Ox 98.2 F 58 L 20 169/78 H 98 03/04/17 07:00 03/04/17 07:00 03/04/17 07:00 03/04/17 09:05 03/04/17 07:00 Intake and Output: 03/04/17 03/04/17 06:59 18:59 Intake Total 800 Balance 800 - Medications Medications: Current Medications Acetaminophen (Tylenol 325mg Tab) 650 mg PO Q6 PRN PRN Reason: Pain, moderate (4-7) Aspirin (Aspirin Chewable) 81 mg PO DAILY [facility] Last Admin: 03/04/17 09:05 Dose: 81 mg Carvedilol (Coreg) 3.125 mg PO BID [facility] Last Admin: 03/04/17 09:06 Dose: 3.125 mg Clotrimazole (Lotrimin 1%) 0 gm TOP BID [facility] Last Admin: 03/04/17 09:06 Dose: 1 lot Famotidine (Pepcid) 20 mg PO BID [facility] Last Admin: 03/04/17 09:06 Dose: 20 mg Furosemide (Lasix) 40 mg IVP DAILY [facility] Last Admin: 03/04/17 09:05 Dose: 40 mg Gabapentin (Neurontin) 600 mg PO BID [facility] Last Admin: 03/04/17 09:05 Dose: 600 mg Azithromycin 500 mg/ Sodium (Chloride) 250 mls @ 250 mls/hr IVPB DAILY@1430 [facility] Last Admin: 03/03/17 14:04 Dose: 250 mls/hr Ceftriaxone Sodium 1 gm/ (Sodium Chloride) 100 mls @ 100 mls/hr IVPB DAILY@ 1630 [facility] Last Admin: 03/03/17 17:30 Dose: 100 mls/hr Insulin Glargine (Lantus) 15 unit SC [facility] Insulin Human Regular (Novolin R) 0 unit SC [facility] PRN Reason: Protocol Last Admin: 03/04/17 08:30 Dose: 2 unit Lisinopril (Zestril) 20 mg PO DAILY [facility] Last Admin: 03/04/17 09:05 Dose: 20 mg Metformin [facility] ([facility]) [facility] Last Admin: 03/04/17 08:34 Dose: 1,000 mg Nicotine (Nicoderm Cq) 1 patch TD DAILY [facility] Last Admin: 03/04/17 09:05 Dose: 1 patch Polyethylene Glycol (Miralax) 17 gm PO DAILY [facility] Last Admin: 03/04/17 09:56 Dose: Not Given Promethazine HCl/Codeine (Phenergan/Codeine Oral Syrup) 5 ml PO Q4 PRN PRN Reason: Cough Last Admin: 03/04/17 09:05 Dose: 5 ml Rosuvastatin Calcium (Crestor) 2.5 mg PO [facility] Last Admin: 03/03/17 22:04 Dose: 2.5 mg Sitagliptin Phosphate (Januvia) 50 mg PO DAILY [facility] Last Admin: 03/04/17 09:06 Dose: 50 mg - Labs Labs: 03/04/17 06:57 03/04/17 06:57 Attending/Attestation - Attestation I have personally seen and examined this patient.: Yes I have fully participated in the care of the patient.: Yes I have reviewed all pertinent clinical information, including history, physical exam and plan: Yes Notes (Text): 03/04/17 11:17 Agreed with resident except as below * Patient's leg edema has improved significantly, low albumin, noticed ordered spot protein and creatinine ratio suggested 10g/d of proteinuria, edema restricted mainly to lower legs. * chest ct shows multiple nodular areas, which could be the cause of his some sob, currently not sob on at rest, on empiric abx * Diastolic dysfunction HF ef of 50% clinically stable. * HTN * type 2 dm * Worsening renal function on tripple diursis with hyperkalemia Plan * Continue lasix, hold spirnolactone, hctz, continue acei for now * w/u for nephrotic range proteinuria hepatitis, esr, CRP, presley, complement levels, lipid panel, pt/ptt, nephrology consult * Will discuss about broncoscopy for nodular lung disease with pulmonary * See orders for detail.
[2017-03-04 02:01] LABS: RBC URINE 4 /hpf (0-3); URINE BILIRUBIN NEGATIVE (NEGATIVE); URINE BLOOD 1+ (NEGATIVE); URINE COLOR Yellow (YELLOW); URINE GLUCOSE (UA) 2+ mg/dL (Normal); URINE HYALINE CAST 0-2 /lpf (0-2); URINE KETONE NEGATIVE (NEGATIVE); URINE LEUKOCYTE ESTERASE NEG Leu/uL (Negative); URINE PROTEIN 3+ mg/dL (NEGATIVE); URINE UROBILINOGEN NORMAL mg/dL (0.2-1.0); WBC URINE 1 /hpf (0-5)
[2017-03-04 02:25] LABS: CREATININE, RANDOM URINE 62.3 mg/dL
[2017-03-04 07:16] LABS: BASO % 0.6 % (0.0-2.0); EOS # 0.6 K/uL (0.0-0.7); EOS % 8.9 % (0.0-4.0); HEMATOCRIT 30.2 % (35.0-51.0); LYMPH # 1.7 K/uL (1.0-4.3); LYMPH % 23.8 % (20.0-40.0); MEAN CELL VOLUME 88.2 fL (80.0-94.0); MEAN CORPUSCULAR HEMOGLOBIN 29.4 pg (27.0-31.0); MEAN CORPUSCULAR HGB CONC 33.3 g/dL (33.0-37.0); MEAN PLATELET VOLUME 9.2 fL (7.2-11.7); MONO # 0.4 K/uL (0.0-0.8); MONO % 6.2 % (0.0-10.0); RED CELL DISTRIBUTION WIDTH 13.7 % (11.5-14.5); WHITE BLOOD COUNT 7.1 K/uL (4.8-10.8)
[2017-03-04 07:28] LABS: ALB/GLOB RATIO 0.8 (1.0-2.1); ALKALINE PHOSPHATASE 83 U/L (38-126); ALT/SGPT 44 U/L (21-72); AST/SGOT 25 U/L (17-59); BILIRUBIN,TOTAL 0.4 mg/dL (0.2-1.3); BLOOD UREA NITROGEN 21 mg/dL (9-20); CALCIUM 7.9 mg/dl (8.6-10.4); CARBON DIOXIDE 28 mmol/L (22-30); CHLORIDE 101 mmol/L (98-107); GFR AFRICAN-AMERICAN > 60; GLUCOSE,RANDOM 211 mg/dL (75-110); MAGNESIUM 2.1 mg/dL (1.6-2.3); PHOSPHOROUS 4.4 mg/dL (2.5-4.5); POTASSIUM 4.6 mmol/L (3.6-5.2); SODIUM 135 mmol/L (132-148); TOTAL PROTEIN 5.5 g/dL (6.3-8.3)
[2017-03-04] MEDS: (Novolin R) Insulin Human Regular 100 units/ml vial SC SCH ×5 (08:30→21:51)
[2017-03-04] MEDS: Promethazine/Cod 6.25mg-10mg/5ml Syr UD PO PRN ×3 (09:05→21:56)
[2017-03-04] MEDS: Clotrimazole 1% Cream(30 gm) TOP SCH ×2 (09:06→17:31)
[2017-03-04] MEDS: POLYETHYLENE GLYCOL 3350 17 GM/Dose PACKET PO SCH (09:56)
[2017-03-04] MEDS: Azithromycin 500 MG in Sodium Chloride 0.9% 250 ML IVPB SCH (13:59)
[2017-03-04 14:13] LABS: THYROID STIMULATING HORMONE 4.46 mIU/L (0.46-4.68)
[2017-03-04] MEDS: Rosuvastatin Calcium 2.5 mg Tab PO SCH (21:49)
--- NOTE | 2017-03-05 02:33 | CP.PCM.PN ---
<Rayne Fang - Last Filed: 03/05/17 02:41> Subjective - Date & Time of Evaluation Date of Evaluation: 03/05/17 Time of Evaluation: 07:00 - Subjective Subjective: PGY1-Medicine Note-Dr. George Service Patient seen and examined at bedside and is in no acute distress. Patient still has some leg pain and edema but he feels it is getting better. Patient has been using cream on his legs which is helping the dryness. Patient says his cough is improving. He says his throat pain is much improved. Patient denies headache, shortness of breath, chest pain, abdominal pain, nausea, vomiting, constipation , or diarrhea. Objective - Vital Signs/Intake and Output Vital Signs (last 24 hours): Temp Pulse Resp BP Pulse Ox 97.3 F L 64 20 152/79 H 97 03/04/17 23:35 03/05/17 00:00 03/04/17 23:35 03/04/17 23:35 03/04/17 23:35 Intake and Output: 03/04/17 03/05/17 18:59 06:59 Intake Total 875 Output Total 600 Balance 275 - Medications Medications: Current Medications Acetaminophen (Tylenol 325mg Tab) 650 mg PO Q6 PRN PRN Reason: Pain, moderate (4-7) Aspirin (Aspirin Chewable) 81 mg PO DAILY [facility] Last Admin: 03/04/17 09:05 Dose: 81 mg Carvedilol (Coreg) 3.125 mg PO BID [facility] Last Admin: 03/04/17 17:31 Dose: 3.125 mg Clotrimazole (Lotrimin 1%) 0 gm TOP BID [facility] Last Admin: 03/04/17 17:31 Dose: 1 lot Famotidine (Pepcid) 20 mg PO BID [facility] Last Admin: 03/04/17 17:31 Dose: 20 mg Furosemide (Lasix) 40 mg IVP DAILY [facility] Last Admin: 03/04/17 09:05 Dose: 40 mg Gabapentin (Neurontin) 600 mg PO BID [facility] Last Admin: 03/04/17 17:31 Dose: 600 mg Azithromycin 500 mg/ Sodium (Chloride) 250 mls @ 250 mls/hr IVPB DAILY@1430 [facility] Last Admin: 03/04/17 13:59 Dose: 250 mls/hr Ceftriaxone Sodium 1 gm/ (Sodium Chloride) 100 mls @ 100 mls/hr IVPB DAILY@ 1630 [facility] Last Admin: 03/04/17 17:30 Dose: 100 mls/hr Insulin Glargine (Lantus) 15 unit SC HS [facility] Last Admin: 03/04/17 21:48 Dose: 15 unit Insulin Human Regular (Novolin R) 0 unit SC ACHS [facility] PRN Reason: Protocol Last Admin: 03/04/17 21:51 Dose: 3 unit Lisinopril (Zestril) 20 mg PO DAILY [facility] Last Admin: 03/04/17 09:05 Dose: 20 mg Metformin HCl (Glucophage) 1,000 mg PO BIDCC [facility] Last Admin: 03/04/17 17:31 Dose: 1,000 mg Nicotine (Nicoderm Cq) 1 patch TD DAILY [facility] Last Admin: 03/04/17 09:05 Dose: 1 patch Polyethylene Glycol (Miralax) 17 gm PO DAILY [facility] Last Admin: 03/04/17 09:56 Dose: Not Given Promethazine HCl/Codeine (Phenergan/Codeine Oral Syrup) 5 ml PO Q4 PRN PRN Reason: Cough Last Admin: 03/04/17 21:56 Dose: 5 ml Rosuvastatin Calcium (Crestor) 2.5 mg PO [facility] Last Admin: 03/04/17 21:49 Dose: 2.5 mg Sitagliptin Phosphate (Januvia) 50 mg PO DAILY [facility] Last Admin: 03/04/17 09:06 Dose: 50 mg - Labs Labs: 03/04/17 06:57 03/04/17 06:57 - Constitutional Appears: Well, Non-toxic, No Acute Distress - Head Exam Head Exam: ATRAUMATIC, NORMAL INSPECTION, NORMOCEPHALIC - Eye Exam Eye Exam: EOMI, Normal appearance, PERRL - ENT Exam ENT Exam: Mucous Membranes Moist, Normal Exam - Neck Exam Neck Exam: Full ROM, Normal Inspection. absent: Lymphadenopathy - Respiratory Exam Respiratory Exam: Clear to Ausculation Bilateral, NORMAL BREATHING PATTERN - Cardiovascular Exam Cardiovascular Exam: REGULAR RHYTHM, RRR - GI/Abdominal Exam GI & Abdominal Exam: Soft, Normal Bowel Sounds. absent: Tenderness - Extremities Exam Extremities Exam: Full ROM, Normal Capillary Refill, Pedal Edema. absent: Joint Swelling Additional comments: mild edema b/l LE some erythema and dryness b/l LE - Back Exam Back Exam: NORMAL INSPECTION. absent: rash noted - Neurological Exam Neurological Exam: Alert, Awake, Oriented x3 - Psychiatric Exam Psychiatric exam: Normal Affect, Normal Mood - Skin Skin Exam: Intact, Warm Additional comments: mild edema b/l LE some erythema and dryness b/l LE Assessment and Plan - Assessment and Plan (Free Text) Assessment: 1. Acute diastolic congestive heart failure * cardiology consulted, Dr. Ho, help appreciated * echo: borderline concentric left ventricular hypertrophy. Tissue doppler imaging reveals mild left ventricular diastolic dysfunction. Mild aortic regurg. LV EF 50% * Lipid panel: Triglycerides 174, Cholesterol 190, LDL 118, HDL 31 * ekg showed right bundle branch block - no change since EKG in 12/2016 * Lisinopril increased to 20 mg PO daily * Lasix 40mg IV Daily * Coreg 3.125 mg PO BID * Aspirin 81 mg PO daily * Crestor 2.5 mg PO HS 2. Lower extremity edema * vascular surgery, Dr. Ying, help appreciated * venous doppler negative * arterial doppler- negative, ankle/brachial index 1.22 3. Respiratory Tract Infection * 03/02 CT chest: innumerable pulmonary nodules with mid to upper lobe predominance. Largest node resides within right upper lobe measuring approx 2.4 X 1.6cm. No Definite cavitary nodules appreciated at this time. Peribronchial thickening. Bronchiectasis. Patchy upper lobe infiltrates or atelectasis. Correlate clinically for chronic inflammatory process or fungal infection. * pulmonary consulted, Dr. Girard, help appreciated * Cxray 02/27: Previously noted areas of nodular opacities, peribronchial thickening, cystic bronchiectasis and cavitary lesions in the upper and to a lesser degree lower lobes bilaterally are less well seen on this study. Rule out chronic inflammatory process/ fungal infection. * Chest xray 02/28: persistent ill defined consolidative and mass like opacities seen within right upper and mid lung zone * Group A Beta Strep culture (-) * zithromax 500 mg IV daily started on 02/28 * ceftriaxone 1 g IV daily started on 02/28 * Phenergan with codeine 5ml PO Q 4hour PRN cough * strep pneumoniae, Mycoplasma pneumoniae, legionella: all negative * f/u YEIMI, CRP, total compliment * urine eosinophils 4. Lower Extremity Pain * Tylenol 650 mg PO Q6 prn for moderate leg pain * Gabapentin 600 mg PO BID 5. Uncontrolled Diabetes Mellitus * Sugars improving since regimen change yesterday 03/02 * Januvia 50 mg BID * Lantus 20 unit SC HS (increased 03/05) * Novolin Sliding scale * Increased Metformin 1000 mg PO BID * Accuchecks QAC and HS * ISS (low) * HgA1C: 10.4 6. Uncontrolled Hypertension * Lisinopril increased to 20 mg PO daily (03/02/17) * Coreg 3.125 mg PO daily * Lasix 40mg IV Daily * Start hydralazine 10mg IV Q6H PRN for SBP > 160 7. Tobacco Use Disorder * Nicotine patch 14 mg/ 24 hr * smoking cessation discussed 8. Constipation Miralax 17gm PO daily 9. Proteinuria Urine random total protein: 614 Nephro consult, Dr. Lopez, help appreciated 10. Hep C patient would like to discuss options for treatment 11. Prophylactic Measures * Pepcid 20 mg PO BID * Heparin 5000 u sc q8h <Joan Peterson V - Last Filed: 03/05/17 10:48> Objective - Vital Signs/Intake and Output Vital Signs (last 24 hours): Temp Pulse Resp BP Pulse Ox 98.2 F 61 20 161/70 H 99 03/05/17 09:00 03/05/17 09:00 03/05/17 09:00 03/05/17 09:41 03/05/17 09:00 Intake and Output: 03/05/17 03/05/17 06:59 18:59 Intake Total 240 Balance 240 - Medications Medications: Current Medications Acetaminophen (Tylenol 325mg Tab) 650 mg PO Q6 PRN PRN Reason: Pain, moderate (4-7) Aspirin (Aspirin Chewable) 81 mg PO DAILY [facility] Last Admin: 03/05/17 09:39 Dose: 81 mg Carvedilol (Coreg) 3.125 mg PO BID [facility] Last Admin: 03/05/17 09:39 Dose: 3.125 mg Clotrimazole (Lotrimin 1%) 0 gm TOP BID [facility] Last Admin: 03/05/17 09:40 Dose: 1 lot Famotidine (Pepcid) 20 mg PO BID [facility] Last Admin: 03/05/17 09:39 Dose: 20 mg Furosemide (Lasix) 40 mg IVP DAILY [facility] Last Admin: 03/05/17 09:41 Dose: 40 mg Gabapentin (Neurontin) 600 mg PO BID [facility] Last Admin: 03/05/17 09:39 Dose: 600 mg Azithromycin 500 mg/ Sodium (Chloride) 250 mls @ 250 mls/hr IVPB DAILY@1430 [facility] Last Admin: 03/04/17 13:59 Dose: 250 mls/hr Ceftriaxone Sodium 1 gm/ (Sodium Chloride) 100 mls @ 100 mls/hr IVPB DAILY@ 1630 [facility] Last Admin: 03/04/17 17:30 Dose: 100 mls/hr Insulin Glargine (Lantus) 20 unit SC [facility] Insulin Human Regular (Novolin R) 0 unit SC ACHS [facility] PRN Reason: Protocol Last Admin: 03/05/17 08:30 Dose: 1 unit Lisinopril (Zestril) 20 mg PO DAILY [facility] Last Admin: 03/05/17 09:39 Dose: 20 mg Metformin HCl (Glucophage) 1,000 mg PO BIDCC [facility] Last Admin: 03/05/17 08:30 Dose: 1,000 mg Nicotine (Nicoderm Cq) 1 patch TD DAILY [facility] Last Admin: 03/05/17 09:39 Dose: 1 patch Promethazine HCl/Codeine (Phenergan/Codeine Oral Syrup) 5 ml PO Q4 PRN PRN Reason: Cough Last Admin: 03/05/17 09:39 Dose: 5 ml Rosuvastatin Calcium (Crestor) 2.5 mg PO HS [facility] Last Admin: 03/04/17 21:49 Dose: 2.5 mg Sitagliptin Phosphate (Januvia) 50 mg PO DAILY [facility] Last Admin: 03/05/17 09:39 Dose: 50 mg - Labs Labs: 03/05/17 07:40 03/05/17 07:40 Attending/Attestation - Attestation I have personally seen and examined this patient.: Yes I have fully participated in the care of the patient.: Yes I have reviewed all pertinent clinical information, including history, physical exam and plan: Yes Notes (Text): Patient seen, examined, and case discussed with day-time resident. Patient's legs mildly edematous compared to prior visits. Patient is undergoing 24 hour urine collection seen at bedside. Awaiting nephrology and pulmonary recommendations Morning sugar better controlled with Lantus 20 units daily. Patient is hepatitis C positive; had refused treatment in the past. Patient is amenable to treatment options. Patient is ordered for abdominal US to check the liver given hepatitis C. GI acquisition lead (Dr. Rojas)--f/u recommendations Assessment/Plan 1. Acute diastolic congestive heart failure * cardiology consulted, Dr. Ho, help appreciated * echo: borderline concentric left ventricular hypertrophy. Tissue doppler imaging reveals mild left ventricular diastolic dysfunction. Mild aortic regurg. LV EF 50% * Lipid panel: Triglycerides 174, Cholesterol 190, LDL 118, HDL 31 * ekg showed right bundle branch block - no change since EKG in 12/2016 * Lasix 40 mg IVP daily * Coreg 3.125 mg PO BID * Aspirin 81 mg PO daily * Lisinopril 20 mg PO daily * Crestor 2.5 mg PO HS * Spironolactone 25 mg PO Daily 2. Lower extremity edema * vascular surgery, Dr. Ying, help appreciated * venous doppler negative * arterial doppler- negative, ankle/brachial index 1.22 3. Cavitary Lesions and Bronchiectasis * Pulmonary (Dr. Fuller)--f/u recommendations * Cxray 02/27: Previously noted areas of nodular opacities, peribronchial thickening, cystic bronchiectasis and cavitary lesions in the upper and to a lesser degree lower lobes bilaterally are less well seen on this study. Rule out chronic inflammatory process/ fungal infection. * Chest xray 02/28: persistent ill defined consolidative and mass like opacities seen within right upper and mid lung zone * Group A Beta Strep culture (-) * zithromax 500 mg IV daily started on 02/28/17 * ceftriaxone 1 g IV daily started on 02/28/17 * Phenergan with codeine 5ml PO Q 4hour PRN cough * strep pneumoniae, m pneumoniae, legionella: negative 4. Lower Extremity Pain * Tylenol 650 mg PO Q6 prn for moderate leg pain * Gabapentin 600 mg PO BID 5. Uncontrolled Diabetes Mellitus * Januvia 50 mg BID * Metformin 1000 mg PO BID * Accuchecks QAC and HS * ISS (low) * HgA1C: 10.4 * Lantus 20 units subqHS 5. Uncontrolled Hypertension * Lisinopril 20 mg PO daily * Coreg 3.125 mg PO bid * monitor vital signs * Lasix 40 mg IVP daily * d/c hctz secondary to proteinuria 6. Tobacco Use Disorder * Nicotine patch 14 mg/ 24 hr * smoking cessation discussed 7. Proteinuria * Nephrology (Dr. Lopez) on case * Patient in 24 hours urine collection * Held HCTZ; currently on wilber-inhibitor and loop diuretic 8. Hepatitis C Positive Serology * Abdominal US ordered * GI acquisition lead ()-->f/u * Patient amenable to treatment and would like to go over options * HIV ordered 9. Prophylactic Measures * Pepcid 20 mg PO BID * Heparin 5000 u sc q8h
[2017-03-05] MEDS ORDERED: (Lantus) Insulin Glargine, Recombinant SC SCH (02:41)
[2017-03-05 08:04] LABS: POTASSIUM 4.8 mmol/L (3.6-5.2)
[2017-03-05 08:05] LABS: BASO # 0.1 K/uL (0.0-0.2); BASO % 0.8 % (0.0-2.0); EOS # 0.6 K/uL (0.0-0.7); EOS % 8.8 % (0.0-4.0); HEMATOCRIT 28.1 % (35.0-51.0); LYMPH # 1.8 K/uL (1.0-4.3); LYMPH % 26.9 % (20.0-40.0); MEAN CELL VOLUME 88.6 fL (80.0-94.0); MEAN CORPUSCULAR HEMOGLOBIN 29.3 pg (27.0-31.0); MEAN PLATELET VOLUME 9.3 fL (7.2-11.7); MONO # 0.5 K/uL (0.0-0.8); RED CELL DISTRIBUTION WIDTH 13.9 % (11.5-14.5); WHITE BLOOD COUNT 6.7 K/uL (4.8-10.8)
[2017-03-05 08:07] LABS: ALB/GLOB RATIO 0.8 (1.0-2.1); BILIRUBIN,TOTAL 0.2 mg/dL (0.2-1.3); CALCIUM 7.9 mg/dl (8.6-10.4); TOTAL PROTEIN 5.2 g/dL (6.3-8.3)
[2017-03-05] MEDS: (Novolin R) Insulin Human Regular 100 units/ml vial SC SCH ×4 (08:30→21:22)
[2017-03-05] MEDS: Promethazine/Cod 6.25mg-10mg/5ml Syr UD PO PRN ×2 (09:39→21:50)
[2017-03-05] MEDS: Clotrimazole 1% Cream(30 gm) TOP SCH ×2 (09:40→18:50)
[2017-03-05] MEDS: POLYETHYLENE GLYCOL 3350 17 GM/Dose PACKET PO SCH (09:47)
[2017-03-05] MEDS: Azithromycin 500 MG in Sodium Chloride 0.9% 250 ML IVPB SCH (14:10)
--- NOTE | 2017-03-05 14:51 | CP.PCM.CON ---
History of Present Illness - History of Present Illness History of Present Illness: Patient is a 56 y/o male, pmh of DM for 8 yrs, no known history of retinoapthy , who was admitted for leg swelling. he was initially treated fo rheart failure with lasix, aldactone and lisinopril, hovever on ECHO - EF 50 % with some diastolic dysfunction. had 24 hr urine collection- showed 10 gm proteinuria for which renal consult requested. Pts cr 1.0 on admission, however after being put on lasix, and jose carlos I, has gone up to 1.4-1.6 mg/dL. Aldactone was stopped. also on work up, found to have serology positive for hepatitis C denies any SOB, NO CP, no fevers, chills, dysuria, no nausea or vomiting , no headaches, no dizziness PMHx: Diabetes, HTN PShx: none Social: reports tobacco use, 6-7 cigarettes/day for 15 years, denies ETOH or drug abuse Family - no family history of kidney disease Review of Systems - Review of Systems Review of Systems: as per HPI, other that that 10 point ROS negative Past Patient History - Past Medical History & Family History Past Medical History?: Yes - Past Social History Smoking Status: Light Smoker < 10 Cigarettes Daily - CARDIAC Hx Hypertension: Yes - PULMONARY Hx Respiratory Disorders: No - NEUROLOGICAL Hx Neurological Disorder: No - HEENT Hx HEENT Problems: No - ENDOCRINE/METABOLIC Hx Diabetes Mellitus Type 1: Yes Other/Comment: per patient only medical history is DM - HEMATOLOGICAL/ONCOLOGICAL Hx Blood Disorders: No - INTEGUMENTARY Hx Dermatological Problems: No - MUSCULOSKELETAL/RHEUMATOLOGICAL Hx Falls: No - GASTROINTESTINAL Hx Gastrointestinal Disorders: No - GENITOURINARY/GYNECOLOGICAL Hx Genitourinary Disorders: No - PSYCHIATRIC Hx Substance Use: No - SURGICAL HISTORY Hx Surgeries: No - ANESTHESIA Hx Anesthesia: No Hx Anesthesia Reactions: No Meds Allergies/Adverse Reactions: Allergies Allergy/AdvReac Type Severity Reaction Status Date / Time No Known Allergies Allergy Verified 02/27/17 07:47 - Medications Medications: Current Medications Acetaminophen (Tylenol 325mg Tab) 650 mg PO Q6 PRN PRN Reason: Pain, moderate (4-7) Aspirin (Aspirin Chewable) 81 mg PO DAILY [facility] Last Admin: 03/05/17 09:39 Dose: 81 mg Carvedilol (Coreg) 3.125 mg PO BID [facility] Last Admin: 03/05/17 09:39 Dose: 3.125 mg Clotrimazole (Lotrimin 1%) 0 gm TOP BID [facility] Last Admin: 03/05/17 09:40 Dose: 1 lot Famotidine (Pepcid) 20 mg PO BID [facility] Last Admin: 03/05/17 09:39 Dose: 20 mg Furosemide (Lasix) 40 mg IVP DAILY [facility] Last Admin: 03/05/17 09:41 Dose: 40 mg Gabapentin (Neurontin) 600 mg PO BID [facility] Last Admin: 03/05/17 09:39 Dose: 600 mg Azithromycin 500 mg/ Sodium (Chloride) 250 mls @ 250 mls/hr IVPB DAILY@1430 [facility] Last Admin: 03/05/17 14:10 Dose: 250 mls/hr Ceftriaxone Sodium 1 gm/ (Sodium Chloride) 100 mls @ 100 mls/hr IVPB DAILY@ 1630 [facility] Last Admin: 03/04/17 17:30 Dose: 100 mls/hr Insulin Glargine (Lantus) 20 unit SC [facility] Insulin Human Regular (Novolin R) 0 unit SC [facility] PRN Reason: Protocol Last Admin: 03/05/17 11:57 Dose: Not Given Lisinopril (Zestril) 20 mg PO DAILY [facility] Last Admin: 03/05/17 09:39 Dose: 20 mg [facility] Last Admin: 03/05/17 08:30 Dose: 1,000 mg Nicotine (Nicoderm Cq) 1 patch TD DAILY [facility] Last Admin: 03/05/17 09:39 Dose: 1 patch Promethazine HCl/Codeine (Phenergan/Codeine Oral Syrup) 5 ml PO Q4 PRN PRN Reason: Cough Last Admin: 03/05/17 09:39 Dose: 5 ml Rosuvastatin Calcium (Crestor) 2.5 mg PO [facility] Last Admin: 03/04/17 21:49 Dose: 2.5 mg Sitagliptin Phosphate (Januvia) 50 mg PO DAILY [facility] Last Admin: 03/05/17 09:39 Dose: 50 mg Physical Exam - Constitutional Appears: Well, Non-toxic - Head Exam Head Exam: ATRAUMATIC, NORMOCEPHALIC - Eye Exam Eye Exam: EOMI, PERRL - ENT Exam ENT Exam: Mucous Membranes Moist - Neck Exam Neck exam: Negative for: Lymphadenopathy - Respiratory Exam Respiratory Exam: Clear to Auscultation Bilateral. absent: Rhonchi, Wheezes - Cardiovascular Exam Cardiovascular Exam: REGULAR RHYTHM, +S1, +S2 - GI/Abdominal Exam GI & Abdominal Exam: Normal Bowel Sounds, Soft. absent: Tenderness - Extremities Exam Extremities exam: Positive for: full ROM, pedal edema Additional comments: 1-2 + edema - Neurological Exam Neurological exam: Alert, Oriented x3 - Psychiatric Exam Psychiatric exam: Normal Affect, Normal Mood - Skin Skin Exam: Dry, Warm Results - Vital Signs Recent Vital Signs: Last Vital Signs Temp 98.2 F 03/05/17 09:00 Pulse 67 03/05/17 12:08 Resp 20 03/05/17 09:00 BP 161/70 H 03/05/17 09:41 Pulse Ox 99 03/05/17 09:00 - Labs Result Diagrams: 03/05/17 07:40 03/05/17 07:40 Labs: Laboratory Results - last 24 hr 03/04/17 03/04/17 03/04/17 13:25 16:55 21:09 WBC RBC Hgb Hct MCV MCH MCHC RDW Plt Count MPV Neut % (Auto) Lymph % (Auto) Schleicher % (Auto) Eos % (Auto) Baso % (Auto) Neut # Lymph # Schleicher # Eos # Baso # Sodium Potassium Chloride Carbon Dioxide Anion Gap BUN Creatinine Est GFR ( Amer) Est GFR (Non-Af Amer) POC Glucose (mg/dL) 329 H 425 H* Random Glucose Calcium Phosphorus Magnesium Total Bilirubin AST ALT Alkaline Phosphatase Total Protein Albumin Globulin Albumin/Globulin Ratio Urine Collection Time Urine Total Volume Ur Protein 24 Hr Calc Hepatitis C Antibody Reactive H 03/05/17 03/05/17 03/05/17 02:10 06:32 07:40 WBC 6.7 RBC 3.17 L Hgb 9.3 L Hct 28.1 L MCV 88.6 MCH 29.3 MCHC 33.0 RDW 13.9 Plt Count 228 MPV 9.3 Neut % (Auto) 56.5 Lymph % (Auto) 26.9 Schleicher % (Auto) 7.0 Eos % (Auto) 8.8 H Baso % (Auto) 0.8 Neut # 3.8 Lymph # 1.8 Schleicher # 0.5 Eos # 0.6 Baso # 0.1 Sodium Potassium Chloride Carbon Dioxide Anion Gap BUN Creatinine Est GFR ( Amer) Est GFR (Non-Af Amer) POC Glucose (mg/dL) 257 H 153 H Random Glucose Calcium Phosphorus Magnesium Total Bilirubin AST ALT Alkaline Phosphatase Total Protein Albumin Globulin Albumin/Globulin Ratio Urine Collection Time Urine Total Volume Ur Protein 24 Hr Calc Hepatitis C Antibody 03/05/17 03/05/17 03/05/17 07:40 11:54 12:05 WBC RBC Hgb Hct MCV MCH MCHC RDW Plt Count MPV Neut % (Auto) Lymph % (Auto) Schleicher % (Auto) Eos % (Auto) Baso % (Auto) Neut # Lymph # Schleicher # Eos # Baso # Sodium 139 Potassium 4.8 Chloride 103 Carbon Dioxide 28 Anion Gap 13 BUN 23 H Creatinine 1.6 H Est GFR ( Amer) 54 Est GFR (Non-Af Amer) 45 POC Glucose (mg/dL) 193 H Random Glucose 132 H Calcium 7.9 L Phosphorus 5.0 H Magnesium 2.0 Total Bilirubin 0.2 AST 24 ALT 44 Alkaline Phosphatase 72 Total Protein 5.2 L Albumin 2.3 L Globulin 2.9 Albumin/Globulin Ratio 0.8 L Urine Collection Time 24 Urine Total Volume 3200 Ur Protein 24 Hr Calc 59710.0 H Hepatitis C Antibody Assessment & Plan (1) Acute renal failure Status: Acute (2) Nephrotic range proteinuria Status: Acute (3) HTN (hypertension) Status: Acute (4) Lower extremity edema Status: Acute (5) Diabetic neuropathy Status: Acute (6) Type II diabetes mellitus - poor control Status: Acute - Assessment and Plan (Free Text) Plan: EJ- secondary to diuretics and use of JOSE CARLOS I rec to hold lisinopril while actively diuresing check serologies- YEIMI,ANCA<,complements, check for Hep C ab quantitative proteinuira- likely secondary to Diabetic nephropathy, but differential also includes GN ( membranous/ MPGN) renal USG further recs based on the results of above test ordered will followup
--- NOTE | 2017-03-05 16:39 | US ---
HISTORY: Positive hepatitis-C COMPARISON: Comparison made with prior abdominal ultrasound dated 03/21/14. TECHNIQUE: Sonographic evaluation of the abdomen. FINDINGS: LIVER: Measures approximately 14 cm in CC dimension. Liver demonstrates smooth contour however increased echotexture. This could be due to fatty infiltration however other infiltrative hepatocellular disease process not excluded. No obvious hepatic mass or collection. No evidence of abdominal ascites. GALLBLADDER: Unremarkable. No gallstones. No sonographic Turpin sign COMMON BILE DUCT: Measures approximately 2.9 mm mm. No stones. No dilatation. PANCREAS: Pancreas is poorly visualized due to body habitus and bowel gas. RIGHT KIDNEY: Measures approximately 11.8 x 6.1 x 6.1 Cmcm. Kidneys exhibit echogenic parenchyma consistent with medical renal disease. Clinical correlation recommended. . 6 mm nonobstructing calculus upper pole right kidney. There are at least 2 renal cysts, one measuring 2.65 and the other measuring approximately 3 cm in greatest dimension. LEFT KIDNEY: Measures approximately 11.2 x 5.2 x 5.0 cmcm. Left kidney exhibits echogenic parenchyma consistent with medical renal disease. No evidence of shadowing calculi or hydronephrosis. SPLEEN: Normal in size and contour. No mass. AORTA: No aneurysmal dilatation. IVC: Unremarkable. OTHER FINDINGS: None. IMPRESSION: Liver exhibits increased echotexture suggesting distinct fatty infiltration however other infiltrative hepatocellular disease process not excluded. Echogenic kidneys consistent with medical renal disease. Small nonobstructing 6 mm calculus upper pole right kidney and another 4 mm calcification midpole left kidney. There are least 2 right renal cysts.
[2017-03-05] MEDS: Rosuvastatin Calcium 2.5 mg Tab PO SCH (21:50)
[2017-03-05] MEDS: (Lantus) Insulin Glargine, Recombinant SC SCH (21:50)
[2017-03-06 07:45] LABS: POTASSIUM 4.6 mmol/L (3.6-5.2)
[2017-03-06 07:47] LABS: ALB/GLOB RATIO 0.8 (1.0-2.1); BILIRUBIN,TOTAL 0.3 mg/dL (0.2-1.3); TOTAL PROTEIN 5.1 g/dL (6.3-8.3)
[2017-03-06 07:48] LABS: CALCIUM 7.5 mg/dl (8.6-10.4); MAGNESIUM 1.9 mg/dL (1.6-2.3)
[2017-03-06 07:52] LABS: BASO # 0.1 K/uL (0.0-0.2); BASO % 0.8 % (0.0-2.0); EOS # 0.7 K/uL (0.0-0.7); EOS % 9.9 % (0.0-4.0); HEMATOCRIT 28.8 % (35.0-51.0); LYMPH # 1.8 K/uL (1.0-4.3); LYMPH % 27.5 % (20.0-40.0); MEAN CELL VOLUME 88.8 fL (80.0-94.0); MEAN CORPUSCULAR HEMOGLOBIN 29.5 pg (27.0-31.0); MEAN CORPUSCULAR HGB CONC 33.2 g/dL (33.0-37.0); MEAN PLATELET VOLUME 9.2 fL (7.2-11.7); MONO # 0.5 K/uL (0.0-0.8); MONO % 7.2 % (0.0-10.0); NRBC % 0.1 % (0.0-2.0); RED CELL DISTRIBUTION WIDTH 13.9 % (11.5-14.5); WHITE BLOOD COUNT 6.7 K/uL (4.8-10.8)
--- NOTE | 2017-03-06 08:12 | CP.PCM.CON ---
History of Present Illness - History of Present Illness History of Present Illness: admitted for leg pain and swelling and found to have abn cxr; mild cough, scanty sputum, no sob, no fever, no sweats, appetite ok CT [facility] works in [employer] smoker < 1 ppd x 15 yrs Review of Systems - Cardiovascular Cardiovascular: Pedal Edema - Respiratory Respiratory: Cough Past Patient History - Past Medical History & Family History Past Medical History?: Yes - Past Social History Smoking Status: Light Smoker < 10 Cigarettes Daily - CARDIAC Hx Hypertension: Yes - PULMONARY Hx Respiratory Disorders: No - NEUROLOGICAL Hx Neurological Disorder: No - HEENT Hx HEENT Problems: No - ENDOCRINE/METABOLIC Hx Diabetes Mellitus Type 1: Yes Other/Comment: per patient only medical history is DM - HEMATOLOGICAL/ONCOLOGICAL Hx Blood Disorders: No - INTEGUMENTARY Hx Dermatological Problems: No - MUSCULOSKELETAL/RHEUMATOLOGICAL Hx Falls: No - GASTROINTESTINAL Hx Gastrointestinal Disorders: No - GENITOURINARY/GYNECOLOGICAL Hx Genitourinary Disorders: No - PSYCHIATRIC Hx Substance Use: No - SURGICAL HISTORY Hx Surgeries: No - ANESTHESIA Hx Anesthesia: No Hx Anesthesia Reactions: No Meds Allergies/Adverse Reactions: Allergies Allergy/AdvReac Type Severity Reaction Status Date / Time No Known Allergies Allergy Verified 02/27/17 07:47 - Medications Medications: Current Medications Acetaminophen (Tylenol 325mg Tab) 650 mg PO Q6 PRN PRN Reason: Pain, moderate (4-7) Aspirin (Aspirin Chewable) 81 mg PO DAILY [facility] Last Admin: 03/05/17 09:39 Dose: 81 mg Carvedilol (Coreg) 3.125 mg PO BID [facility] Last Admin: 03/05/17 17:28 Dose: 3.125 mg Clotrimazole (Lotrimin 1%) 0 gm TOP BID [facility] Last Admin: 03/05/17 18:50 Dose: 1 lot Famotidine (Pepcid) 20 mg PO BID [facility] Last Admin: 03/05/17 17:28 Dose: 20 mg Furosemide (Lasix) 40 mg IVP DAILY [facility] Last Admin: 03/05/17 09:41 Dose: 40 mg Gabapentin (Neurontin) 600 mg PO BID [facility] Last Admin: 03/05/17 17:28 Dose: 600 mg Azithromycin 500 mg/ Sodium (Chloride) 250 mls @ 250 mls/hr IVPB DAILY@1430 [facility] Last Admin: 03/05/17 14:10 Dose: 250 mls/hr Ceftriaxone Sodium 1 gm/ (Sodium Chloride) 100 mls @ 100 mls/hr IVPB DAILY@ 1630 [facility] Last Admin: 03/05/17 17:28 Dose: 100 mls/hr Insulin Glargine (Lantus) 20 unit SC [facility] Last Admin: 03/05/17 21:50 Dose: 20 units Insulin Human Regular (Novolin R) 0 unit SC [facility] PRN Reason: Protocol Last Admin: 03/05/17 21:22 Dose: Not Given Metformin HCl (Glucophage) 1,000 mg PO BIDCC [facility] Last Admin: 03/05/17 17:28 Dose: 1,000 mg Nicotine (Nicoderm Cq) 1 patch TD DAILY [facility] Last Admin: 03/05/17 09:39 Dose: 1 patch Promethazine HCl/Codeine (Phenergan/Codeine Oral Syrup) 5 ml PO Q4 PRN PRN Reason: Cough Last Admin: 03/05/17 21:50 Dose: 5 ml Rosuvastatin Calcium (Crestor) 2.5 mg PO [facility] Last Admin: 03/05/17 21:50 Dose: 2.5 mg Sitagliptin Phosphate (Januvia) 50 mg PO DAILY [facility] Last Admin: 03/05/17 09:39 Dose: 50 mg Physical Exam - Constitutional Appears: No Acute Distress - Head Exam Head Exam: ATRAUMATIC, NORMOCEPHALIC - Eye Exam Eye Exam: Normal appearance - ENT Exam ENT Exam: Mucous Membranes Moist - Respiratory Exam Respiratory Exam: Decreased Breath Sounds - Cardiovascular Exam Cardiovascular Exam: +S1, +S2 - GI/Abdominal Exam GI & Abdominal Exam: Normal Bowel Sounds - Rectal Exam Rectal Exam: Deferred - Neurological Exam Neurological exam: Alert, Oriented x3 - Psychiatric Exam Psychiatric exam: Normal Affect, Normal Mood - Skin Skin Exam: Intact Results - Vital Signs Recent Vital Signs: Last Vital Signs Temp 98.4 F 03/06/17 07:20 Pulse 60 03/06/17 07:20 Resp 18 03/06/17 07:20 BP 160/82 H 03/06/17 07:20 Pulse Ox 95 03/06/17 07:20 - Labs Result Diagrams: 03/06/17 07:03 03/06/17 07:03 Labs: Laboratory Results - last 24 hr 0703/05/17 03/05/17 07:40 07:40 11:54 WBC 6.7 RBC 3.17 L Hgb 9.3 L Hct 28.1 L MCV 88.6 MCH 29.3 MCHC 33.0 RDW 13.9 Plt Count 228 MPV 9.3 Neut % (Auto) 56.5 Lymph % (Auto) 26.9 [place] % (Auto) 7.0 Eos % (Auto) 8.8 H Baso % (Auto) 0.8 Neut # 3.8 Lymph # 1.8 [place] # 0.5 Eos # 0.6 Baso # 0.1 Sodium 139 Potassium 4.8 Chloride 103 Carbon Dioxide 28 Anion Gap 13 BUN 23 H Creatinine 1.6 H Est GFR ( Amer) 54 Est GFR (Non-Af Amer) 45 POC Glucose (mg/dL) Random Glucose 132 H Calcium 7.9 L Phosphorus 5.0 H Magnesium 2.0 Total Bilirubin 0.2 AST 24 ALT 44 Alkaline Phosphatase 72 Total Protein 5.2 L Albumin 2.3 L Globulin 2.9 Albumin/Globulin Ratio 0.8 L Urine Collection Time 24 Urine Total Volume 3200 Ur Protein 24 Hr Calc 86787.0 H 03/05/17 03/05/17 03/05/17 12:05 16:39 21:15 WBC RBC Hgb Hct MCV MCH MCHC RDW Plt Count MPV Neut % (Auto) Lymph % (Auto) [place] % (Auto) Eos % (Auto) Baso % (Auto) Neut # Lymph # [place] # Eos # Baso # Sodium Potassium Chloride Carbon Dioxide Anion Gap BUN Creatinine Est GFR ( Amer) Est GFR (Non-Af Amer) POC Glucose (mg/dL) 193 H 325 H 334 H Random Glucose Calcium Phosphorus Magnesium Total Bilirubin AST ALT Alkaline Phosphatase Total Protein Albumin Globulin Albumin/Globulin Ratio Urine Collection Time Urine Total Volume Ur Protein 24 Hr Calc 03/06/17 03/06/17 03/06/17 06:50 07:03 07:03 WBC 6.7 RBC 3.24 L Hgb 9.5 L Hct 28.8 L MCV 88.8 MCH 29.5 MCHC 33.2 RDW 13.9 Plt Count 227 MPV 9.2 Neut % (Auto) 54.6 Lymph % (Auto) 27.5 [place] % (Auto) 7.2 Eos % (Auto) 9.9 H Baso % (Auto) 0.8 Neut # 3.6 Lymph # 1.8 [place] # 0.5 Eos # 0.7 Baso # 0.1 Sodium 139 Potassium 4.6 Chloride 103 Carbon Dioxide 28 Anion Gap 13 BUN 21 H Creatinine 1.6 H Est GFR ( Amer) 54 Est GFR (Non-Af Amer) 45 POC Glucose (mg/dL) 200 H Random Glucose 186 H Calcium 7.5 L Phosphorus Magnesium 1.9 Total Bilirubin 0.3 AST 24 ALT 45 Alkaline Phosphatase 68 Total Protein 5.1 L Albumin 2.3 L Globulin 2.8 Albumin/Globulin Ratio 0.8 L Urine Collection Time Urine Total Volume Ur Protein 24 Hr Calc Assessment & Plan (1) Bronchiectasis Status: Acute Comment: due to old infection which pt does not remember. agree with sputums x3 for [employer]. quant gold for tb. denies family h/o tb (2) COPD (chronic obstructive pulmonary disease) Status: Acute Comment: smoking cessation. nebs
[2017-03-06] MEDS: (Novolin R) Insulin Human Regular 100 units/ml vial SC SCH ×5 (08:30→21:14)
[2017-03-06] MEDS: Clotrimazole 1% Cream(30 gm) TOP SCH ×2 (09:48→17:25)
--- NOTE | 2017-03-06 12:50 | CP.PCM.PN ---
Subjective - Date & Time of Evaluation Date of Evaluation: 03/06/17 Time of Evaluation: 12:47 - Subjective Subjective: LEs less swollen spills nephrotic range proteinuria- likely from DM; possib ly from hep C renal US- shows echogenic kidneys feels ok not dyspneic no c/o n, v, CP, f, c, diarrhea Objective - Vital Signs/Intake and Output Vital Signs (last 24 hours): Temp Pulse Resp BP Pulse Ox 98.4 F 60 18 160/82 H 95 03/06/17 07:20 03/06/17 07:20 03/06/17 07:20 03/06/17 09:33 03/06/17 07:20 Intake and Output: 03/06/17 03/06/17 06:59 18:59 Intake Total 750 Balance 750 - Medications Medications: Current Medications Acetaminophen (Tylenol 325mg Tab) 650 mg PO Q6 PRN PRN Reason: Pain, moderate (4-7) Albuterol/Ipratropium (Duoneb 3 Mg/0.5 Mg (3 Ml) Ud) 3 ml INH RQ6 [facility] Amlodipine Besylate (Norvasc) 5 mg PO DAILY [facility] Aspirin (Aspirin Chewable) 81 mg PO DAILY [facility] Last Admin: 03/06/17 09:34 Dose: 81 mg Carvedilol (Coreg) 3.125 mg PO BID [facility] Last Admin: 03/06/17 09:34 Dose: 3.125 mg Clotrimazole (Lotrimin 1%) 0 gm TOP BID [facility] Last Admin: 03/06/17 09:48 Dose: 1 lot Famotidine (Pepcid) 20 mg PO BID [facility] Last Admin: 03/06/17 09:34 Dose: 20 mg Furosemide (Lasix) 40 mg IVP DAILY [facility] Last Admin: 03/06/17 09:33 Dose: 40 mg Gabapentin (Neurontin) 600 mg PO BID [facility] Last Admin: 03/06/17 09:34 Dose: 600 mg Azithromycin 500 mg/ Sodium (Chloride) 250 mls @ 250 mls/hr IVPB DAILY@1430 [facility] Last Admin: 03/05/17 14:10 Dose: 250 mls/hr Ceftriaxone Sodium 1 gm/ (Sodium Chloride) 100 mls @ 100 mls/hr IVPB DAILY@ 1630 [facility] Last Admin: 03/05/17 17:28 Dose: 100 mls/hr Insulin Glargine (Lantus) 20 unit SC HS [facility] Last Admin: 03/05/17 21:50 Dose: 20 units Insulin Human Regular (Novolin R) 0 unit SC ACHS [facility] PRN Reason: Protocol Last Admin: 03/06/17 08:30 Dose: 2 unit Metformin HCl (Glucophage) 1,000 mg PO BIDCC [facility] Last Admin: 03/06/17 08:30 Dose: 1,000 mg Nicotine (Nicoderm Cq) 1 patch TD DAILY [facility] Last Admin: 03/06/17 09:34 Dose: 1 patch Promethazine HCl/Codeine (Phenergan/Codeine Oral Syrup) 5 ml PO Q4 PRN PRN Reason: Cough Last Admin: 03/05/17 21:50 Dose: 5 ml Rosuvastatin Calcium (Crestor) 2.5 mg PO HS [facility] Last Admin: 03/05/17 21:50 Dose: 2.5 mg Sitagliptin Phosphate (Januvia) 50 mg PO DAILY [facility] Last Admin: 03/06/17 09:47 Dose: 50 mg - Labs Labs: 03/06/17 07:03 03/06/17 07:03 - Constitutional Appears: No Acute Distress, Chronically Ill - Head Exam Head Exam: ATRAUMATIC, NORMAL INSPECTION - Eye Exam Eye Exam: EOMI, Normal appearance - Neck Exam Neck Exam: Normal Inspection. absent: Tenderness - Respiratory Exam Respiratory Exam: Clear to Ausculation Bilateral, NORMAL BREATHING PATTERN - Cardiovascular Exam Cardiovascular Exam: REGULAR RHYTHM, +S1 - GI/Abdominal Exam GI & Abdominal Exam: Soft. absent: Tenderness - Extremities Exam Extremities Exam: Pedal Edema. absent: Tenderness - Neurological Exam Neurological Exam: Alert, CN II-XII Intact - Skin Skin Exam: Dry, Warm Assessment and Plan - Assessment and Plan (Free Text) Plan: EJ diabetic nephropathy hep C + nephrotic syndrome Plan: change to po lasix Start ARBs
[2017-03-06] MEDS: Azithromycin 500 MG in Sodium Chloride 0.9% 250 ML IVPB SCH (14:45)
--- NOTE | 2017-03-06 15:36 | CP.PCM.PN ---
<Joan Peterson V - Last Filed: 03/06/17 17:22> Objective - Vital Signs/Intake and Output Vital Signs (last 24 hours): Temp Pulse Resp BP Pulse Ox 98 F 55 L 20 152/75 H 98 03/06/17 16:14 03/06/17 16:14 03/06/17 16:14 03/06/17 16:14 03/06/17 16:14 Intake and Output: 03/06/17 03/06/17 06:59 18:59 Intake Total 750 Balance 750 - Medications Medications: Current Medications Acetaminophen (Tylenol 325mg Tab) 650 mg PO Q6 PRN PRN Reason: Pain, moderate (4-7) Albuterol/Ipratropium (Duoneb 3 Mg/0.5 Mg (3 Ml) Ud) 3 ml INH RQ6 [facility] Amlodipine Besylate (Norvasc) 5 mg PO DAILY [facility] Last Admin: 03/06/17 13:09 Dose: 5 mg Aspirin (Aspirin Chewable) 81 mg PO DAILY [facility] Last Admin: 03/06/17 09:34 Dose: 81 mg Carvedilol (Coreg) 3.125 mg PO BID [facility] Last Admin: 03/06/17 17:18 Dose: 3.125 mg Clotrimazole (Lotrimin 1%) 0 gm TOP BID [facility] Last Admin: 03/06/17 09:48 Dose: 1 lot Famotidine (Pepcid) 20 mg PO BID [facility] Last Admin: 03/06/17 17:18 Dose: 20 mg Furosemide (Lasix) 20 mg PO DAILY [facility] Gabapentin (Neurontin) 600 mg PO BID [facility] Last Admin: 03/06/17 17:18 Dose: 600 mg Azithromycin 500 mg/ Sodium (Chloride) 250 mls @ 250 mls/hr IVPB DAILY@1430 [facility] Last Admin: 03/05/17 14:10 Dose: 250 mls/hr Ceftriaxone Sodium 1 gm/ (Sodium Chloride) 100 mls @ 100 mls/hr IVPB DAILY@ 1630 [facility] Last Admin: 03/06/17 17:18 Dose: 100 mls/hr Insulin Glargine (Lantus) 20 unit SC HS [facility] Last Admin: 03/05/17 21:50 Dose: 20 units Insulin Human Regular (Novolin R) 0 unit SC ACHS [facility] PRN Reason: Protocol Last Admin: 03/06/17 17:19 Dose: 3 unit Losartan Potassium (Cozaar) 50 mg PO DAILY [facility] Metformin HCl (Glucophage) 1,000 mg PO BIDCC [facility] Last Admin: 03/06/17 17:18 Dose: 1,000 mg Nicotine (Nicoderm Cq) 1 patch TD DAILY [facility] Last Admin: 03/06/17 09:34 Dose: 1 patch Promethazine HCl/Codeine (Phenergan/Codeine Oral Syrup) 5 ml PO Q4 PRN PRN Reason: Cough Last Admin: 03/05/17 21:50 Dose: 5 ml Rosuvastatin Calcium (Crestor) 2.5 mg PO HS [facility] Last Admin: 03/05/17 21:50 Dose: 2.5 mg Sitagliptin Phosphate (Januvia) 50 mg PO DAILY [facility] Last Admin: 03/06/17 09:47 Dose: 50 mg - Labs Labs: 03/06/17 07:03 03/06/17 07:03 Attending/Attestation - Attestation I have personally seen and examined this patient.: Yes I have fully participated in the care of the patient.: Yes I have reviewed all pertinent clinical information, including history, physical exam and plan: Yes Notes (Text): Patient seen, examined, and case discussed with day-time resident. Patient seen at bedside. patient denies fever, denies chills, denies chest pain , denies shortness of breathe, denies abdominal pain, denies diarrhea, denies constipation, denies BRBPR, denies cough. Medical student able to retrieve further history for the patient, patient was diagnosed with tuberculosis however unclear if latent vs active tb, when he was hospitalized at [facility] some time ago, he was supposed to f/u in the clinic but did not and be on medications but unclear if for latent or not. Infectious disease consulted in light of this new information. Patient is placed on droplet precaution. Patient has sample at bedside for AFB smear Assessment/Plan 1. Cavitary Lesions and Bronchiectasis * Pulmonary (Dr. Fuller) help appreciated * Cxray 02/27: Previously noted areas of nodular opacities, peribronchial thickening, cystic bronchiectasis and cavitary lesions in the upper and to a lesser degree lower lobes bilaterally are less well seen on this study. Rule out chronic inflammatory process/ fungal infection. * Chest xray 02/28: persistent ill defined consolidative and mass like opacities seen within right upper and mid lung zone * Group A Beta Strep culture (-) * zithromax 500 mg IV daily started on 02/28/17 * ceftriaxone 1 g IV daily started on 02/28/17 * Phenergan with codeine 5ml PO Q 4hour PRN cough * strep pneumoniae, m pneumoniae, legionella: negative * On airborne isolation * AFB Smears X3, quantaferon pending * Infectious disease (Dr. Chen) on board-->help appreciated 2. Acute diastolic congestive heart failure * cardiology consulted, Dr. Ho, help appreciated * echo: borderline concentric left ventricular hypertrophy. Tissue doppler imaging reveals mild left ventricular diastolic dysfunction. Mild aortic regurg. LV EF 50% * Lipid panel: Triglycerides 174, Cholesterol 190, LDL 118, HDL 31 * ekg showed right bundle branch block - no change since EKG in 12/2016 * Lasix 20mg PO daily * Losartan 50mg PO daily * Coreg 3.125 mg PO BID * Aspirin 81 mg PO daily * Crestor 2.5 mg PO HS * Spironolactone 25 mg PO Daily 3. Lower extremity edema * vascular surgery, Dr. Ying, help appreciated * venous doppler negative * arterial doppler- negative, ankle/brachial index 1.22 4. Lower Extremity Pain * Tylenol 650 mg PO Q6 prn for moderate leg pain * Gabapentin 600 mg PO BID 5. Uncontrolled Diabetes Mellitus * Januvia 50 mg BID * Metformin 1000 mg PO BID * Accuchecks QAC and HS * ISS (low) * HgA1C: 10.4 * Lantus 20 units subqHS * Losartan 50mg Po daily 5. Uncontrolled Hypertension * Losartan 50mg Po daily * Coreg 3.125 mg PO bid * monitor vital signs * Lasix 20mg PO daily * May consider Norvasc if blood pressure remains uncontrolled * d/c hctz secondary to proteinuria 6. Tobacco Use Disorder * Nicotine patch 14 mg/ 24 hr * smoking cessation discussed previously 7. Proteinuria * Nephrology (Dr. Lopez) on case * Patient in 24 hours urine collection * Held HCTZ; d/c wilber-inhibitor and on PO oop diuretic * Per nephrology, patient started on Losartan 50mg Po daily 8. Hepatitis C Positive Serology * Abdominal US (03/05/17): liver exhibits increased echotexture suggesting distinct fatty infiltration, other infiltrative hepatocellular disease process not excluded. echogenic kidneys consistent with medical renal disease. 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 Prophylactic Measures * Pepcid 20 mg PO BID * Heparin 5000 u sc q8h <Rayne Fang - Last Filed: 03/06/17 18:11> Subjective - Date & Time of Evaluation Date of Evaluation: 03/06/17 Time of Evaluation: 07:00 - Subjective Subjective: PGY1- Medicine Note- Dr. Peterson's Service Patient seen and examined at bedside and in no acute distress. Patient says his cough was getting better but now it is bothering him more. He has minimal white and clear phlegm. Patient denies fevers, chills, shortness of breath, chest pain , abdominal pain, nausea, vomiting, constipation or diarrhea. Objective - Vital Signs/Intake and Output Vital Signs (last 24 hours): Temp Pulse Resp BP Pulse Ox 98.4 F 60 18 160/82 H 95 03/06/17 07:20 03/06/17 08:00 03/06/17 07:20 03/06/17 09:33 03/06/17 07:20 Intake and Output: 03/06/17 03/06/17 06:59 18:59 Intake Total 750 Balance 750 - Medications Medications: Current Medications Acetaminophen (Tylenol 325mg Tab) 650 mg PO Q6 PRN PRN Reason: Pain, moderate (4-7) Albuterol/Ipratropium (Duoneb 3 Mg/0.5 Mg (3 Ml) Ud) 3 ml INH RQ6 [facility] Amlodipine Besylate (Norvasc) 5 mg PO DAILY [facility] Last Admin: 03/06/17 13:09 Dose: 5 mg Aspirin (Aspirin Chewable) 81 mg PO DAILY [facility] Last Admin: 03/06/17 09:34 Dose: 81 mg Carvedilol (Coreg) 3.125 mg PO BID [facility] Last Admin: 03/06/17 09:34 Dose: 3.125 mg Clotrimazole (Lotrimin 1%) 0 gm TOP BID [facility] Last Admin: 03/06/17 09:48 Dose: 1 lot Famotidine (Pepcid) 20 mg PO BID [facility] Last Admin: 03/06/17 09:34 Dose: 20 mg Furosemide (Lasix) 20 mg PO DAILY [facility] Gabapentin (Neurontin) 600 mg PO BID [facility] Last Admin: 03/06/17 09:34 Dose: 600 mg Azithromycin 500 mg/ Sodium (Chloride) 250 mls @ 250 mls/hr IVPB DAILY@1430 [facility] Last Admin: 03/05/17 14:10 Dose: 250 mls/hr Ceftriaxone Sodium 1 gm/ (Sodium Chloride) 100 mls @ 100 mls/hr IVPB DAILY@ 1630 [facility] Last Admin: 03/05/17 17:28 Dose: 100 mls/hr Insulin Glargine (Lantus) 20 unit SC [facility] Last Admin: 03/05/17 21:50 Dose: 20 units Insulin Human Regular (Novolin R) 0 unit SC [facility] PRN Reason: Protocol Last Admin: 03/06/17 13:09 Dose: 4 unit Losartan Potassium (Cozaar) 50 mg PO DAILY [facility] Metformin HCl (Glucophage) 1,000 mg PO BIDCC [facility] Last Admin: 03/06/17 08:30 Dose: 1,000 mg Nicotine (Nicoderm Cq) 1 patch TD DAILY [facility] Last Admin: 03/06/17 09:34 Dose: 1 patch Promethazine HCl/Codeine (Phenergan/Codeine Oral Syrup) 5 ml PO Q4 PRN PRN Reason: Cough Last Admin: 03/05/17 21:50 Dose: 5 ml Rosuvastatin Calcium (Crestor) 2.5 mg PO [facility] Last Admin: 03/05/17 21:50 Dose: 2.5 mg Sitagliptin Phosphate (Januvia) 50 mg PO DAILY [facility] Last Admin: 03/06/17 09:47 Dose: 50 mg - Labs Labs: 03/06/17 07:03 03/06/17 07:03 - Constitutional Appears: Well, Non-toxic, No Acute Distress - Head Exam Head Exam: ATRAUMATIC, NORMAL INSPECTION, NORMOCEPHALIC - Eye Exam Eye Exam: EOMI, Normal appearance, PERRL - ENT Exam ENT Exam: Mucous Membranes Moist, Normal Exam - Neck Exam Neck Exam: Full ROM, Normal Inspection. absent: Lymphadenopathy - Respiratory Exam Respiratory Exam: Clear to Ausculation Bilateral, NORMAL BREATHING PATTERN - Cardiovascular Exam Cardiovascular Exam: REGULAR RHYTHM, RRR, +S1, +S2. absent: Gallop, Rubs, Murmur - GI/Abdominal Exam GI & Abdominal Exam: Soft, Normal Bowel Sounds. absent: Guarding, Rigid, Tenderness - Extremities Exam Extremities Exam: Full ROM, Normal Inspection - Back Exam Back Exam: NORMAL INSPECTION - Neurological Exam Neurological Exam: Alert, Awake, Oriented x3 Assessment and Plan - Assessment and Plan (Free Text) Assessment: 1. Acute diastolic congestive heart failure * cardiology consulted, Dr. Ho, help appreciated * echo: borderline concentric left ventricular hypertrophy. Tissue doppler imaging reveals mild left ventricular diastolic dysfunction. Mild aortic regurg. LV EF 50% * Lipid panel: Triglycerides 174, Cholesterol 190, LDL 118, HDL 31 * ekg showed right bundle branch block - no change since EKG in 12/2016 * Lisinopril increased to 20 mg PO daily * Lasix 40mg IV Daily * Coreg 3.125 mg PO BID * Aspirin 81 mg PO daily * Crestor 2.5 mg PO HS 2. Lower extremity edema * vascular surgery, Dr. Ying, help appreciated * venous doppler negative * arterial doppler- negative, ankle/brachial index 1.22 3. Respiratory Tract Infection * possible TB, patient on airborne precautions * F/u quantiferon * patient has history of TB 3-4 years ago that [place] [facility] [place] followed up with as an outpatient, treated for tb but compliance unclear * 03/02 CT chest: innumerable pulmonary nodules with mid to upper lobe predominance. Largest node resides within right upper lobe measuring approx 2.4 X 1.6cm. No Definite cavitary nodules appreciated at this time. Peribronchial thickening. Bronchiectasis. Patchy upper lobe infiltrates or atelectasis. Correlate clinically for chronic inflammatory process or fungal infection. * pulmonary consulted, Dr. Girard, help appreciated * Cxray 02/27: Previously noted areas of nodular opacities, peribronchial thickening, cystic bronchiectasis and cavitary lesions in the upper and to a lesser degree lower lobes bilaterally are less well seen on this study. Rule out chronic inflammatory process/ fungal infection. * Chest xray 02/28: persistent ill defined consolidative and mass like opacities seen within right upper and mid lung zone * Group A Beta Strep culture (-) * zithromax 500 mg IV daily started on 02/28 * ceftriaxone 1 g IV daily started on 02/28 * Phenergan with codeine 5ml PO Q 4hour PRN cough * strep pneumoniae, Mycoplasma pneumoniae, legionella: all negative * YEIMI (-) * CRP: 7.92 (03/04) * total compliment, C3/C4: WNL 4. Lower Extremity Pain * Tylenol 650 mg PO Q6 prn for moderate leg pain * Gabapentin 600 mg PO BID 5. Uncontrolled Diabetes Mellitus * Sugars improving since regimen change yesterday 03/02 * Januvia 50 mg BID * Lantus 20 unit SC HS (increased 03/05) * Novolin Sliding scale * Increased Metformin 1000 mg PO BID * Accuchecks QAC and HS * ISS (low) * HgA1C: 10.4 6. Uncontrolled Hypertension * Lisinopril stopped as per Dr. Rocco Loco * Norvasc 5 mg daily added (03/06) * Coreg 3.125 mg PO daily * Lasix 40mg IV Daily * Start hydralazine 10mg IV Q6H PRN for SBP > 160 7. Tobacco Use Disorder * Nicotine patch 14 mg/ 24 hr * smoking cessation discussed 8. Constipation Miralax 17gm PO daily 9. Proteinuria Urine random total protein: 614 Nephro consult, Dr. Lopez, help appreciated Dr. Luke suggests proteinuria likely secondary to DM or Hep C. Dr. Rocco Loco recommends stopping Lisinopril Norvasc 5 mg daily added on 03/06/17 10. Hep C patient to follow up with GI as an outpatient f/u HIV 11. Prophylactic Measures * Pepcid 20 mg PO BID * Heparin 5000 u sc q8h
[2017-03-06] MEDS: Albuterol-Ipratrop 3 mg / 0.5 (3 ml) UD INH SCH (19:40)
[2017-03-06] MEDS: (Lantus) Insulin Glargine, Recombinant SC SCH (21:23)
[2017-03-06] MEDS: Promethazine/Cod 6.25mg-10mg/5ml Syr UD PO PRN (21:24)
[2017-03-06] MEDS: Rosuvastatin Calcium 2.5 mg Tab PO SCH (21:24)
[2017-03-07] MEDS: Albuterol-Ipratrop 3 mg / 0.5 (3 ml) UD INH SCH ×4 (01:30→20:38)
[2017-03-07 07:11] LABS: BASO # 0.1 K/uL (0.0-0.2); BASO % 1.2 % (0.0-2.0); EOS # 0.8 K/uL (0.0-0.7); EOS % 9.7 % (0.0-4.0); HEMATOCRIT 31.9 % (35.0-51.0); LYMPH % 24.1 % (20.0-40.0); MEAN CELL VOLUME 88.4 fL (80.0-94.0); MEAN CORPUSCULAR HGB CONC 32.9 g/dL (33.0-37.0); MEAN PLATELET VOLUME 8.6 fL (7.2-11.7); MONO # 0.5 K/uL (0.0-0.8); MONO % 5.6 % (0.0-10.0); RED CELL DISTRIBUTION WIDTH 13.5 % (11.5-14.5); WHITE BLOOD COUNT 8.2 K/uL (4.8-10.8)
[2017-03-07 07:40] LABS: POTASSIUM 4.6 mmol/L (3.6-5.2)
[2017-03-07 07:43] LABS: CALCIUM 7.8 mg/dl (8.6-10.4)
[2017-03-07] MEDS: (Novolin R) Insulin Human Regular 100 units/ml vial SC SCH ×4 (08:39→21:54)
[2017-03-07] MEDS: Clotrimazole 1% Cream(30 gm) TOP SCH ×2 (09:32→21:53)
--- NOTE | 2017-03-07 10:12 | CP.PCM.PN ---
Subjective - Date & Time of Evaluation Date of Evaluation: 03/07/17 Time of Evaluation: 10:10 - Subjective Subjective: started on arb slight rise in creatinine noted pt feels well. denies any sob n/v/d/rash/fevers/chills reports good uop Objective - Vital Signs/Intake and Output Vital Signs (last 24 hours): Temp Pulse Resp BP Pulse Ox 98.2 F 89 18 167/68 H 100 03/07/17 07:10 03/07/17 07:10 03/07/17 07:10 03/07/17 09:32 03/07/17 07:10 Intake and Output: 03/07/17 03/07/17 06:59 18:59 Intake Total 120 Balance 120 - Medications Medications: Current Medications Acetaminophen (Tylenol 325mg Tab) 650 mg PO Q6 PRN PRN Reason: Pain, moderate (4-7) Albuterol/Ipratropium (Duoneb 3 Mg/0.5 Mg (3 Ml) Ud) 3 ml INH RQ6 [facility] Last Admin: 03/07/17 07:58 Dose: 3 ml Amlodipine Besylate (Norvasc) 5 mg PO DAILY [facility] Last Admin: 03/07/17 09:33 Dose: 5 mg Aspirin (Aspirin Chewable) 81 mg PO DAILY [facility] Last Admin: 03/07/17 09:33 Dose: 81 mg Carvedilol (Coreg) 3.125 mg PO BID [facility] Last Admin: 03/07/17 09:33 Dose: 3.125 mg Clotrimazole (Lotrimin 1%) 0 gm TOP BID [facility] Last Admin: 03/07/17 09:32 Dose: 1 lot Famotidine (Pepcid) 20 mg PO BID [facility] Last Admin: 03/07/17 09:31 Dose: 20 mg Furosemide (Lasix) 20 mg PO DAILY [facility] Last Admin: 03/07/17 09:32 Dose: 20 mg Gabapentin (Neurontin) 600 mg PO BID [facility] Last Admin: 03/07/17 09:31 Dose: 600 mg Azithromycin 500 mg/ Sodium (Chloride) 250 mls @ 250 mls/hr IVPB DAILY@1430 [facility] Last Admin: 03/06/17 14:45 Dose: 250 mls/hr Ceftriaxone Sodium 1 gm/ (Sodium Chloride) 100 mls @ 100 mls/hr IVPB DAILY@ 1630 [facility] Last Admin: 03/06/17 17:18 Dose: 100 mls/hr Insulin Glargine (Lantus) 20 unit SC HS [facility] Last Admin: 03/06/17 21:23 Dose: 20 units Insulin Human Regular (Novolin R) 0 unit SC ACHS [facility] PRN Reason: Protocol Last Admin: 03/07/17 08:39 Dose: 2 unit Losartan Potassium (Cozaar) 50 mg PO DAILY [facility] Last Admin: 03/07/17 09:31 Dose: 50 mg Metformin HCl (Glucophage) 1,000 mg PO BIDCC [facility] Last Admin: 03/07/17 08:39 Dose: 1,000 mg Nicotine (Nicoderm Cq) 1 patch TD DAILY [facility] Last Admin: 03/07/17 09:33 Dose: 1 patch Promethazine HCl/Codeine (Phenergan/Codeine Oral Syrup) 5 ml PO Q4 PRN PRN Reason: Cough Last Admin: 03/06/17 21:24 Dose: 5 ml Rosuvastatin Calcium (Crestor) 2.5 mg PO HS [facility] Last Admin: 03/06/17 21:24 Dose: 2.5 mg Sitagliptin Phosphate (Januvia) 50 mg PO DAILY [facility] Last Admin: 03/07/17 09:33 Dose: 50 mg - Labs Labs: 03/07/17 07:06 03/07/17 07:06 - Constitutional Appears: Non-toxic, No Acute Distress, Chronically Ill - Head Exam Head Exam: NORMAL INSPECTION - Eye Exam Eye Exam: Normal appearance - ENT Exam ENT Exam: Mucous Membranes Moist - Neck Exam Neck Exam: Normal Inspection - Respiratory Exam Respiratory Exam: Clear to Ausculation Bilateral, NORMAL BREATHING PATTERN - GI/Abdominal Exam GI & Abdominal Exam: Distended, Soft - Extremities Exam Extremities Exam: Normal Inspection, Pedal Edema - Neurological Exam Neurological Exam: Alert, Oriented x3 - Skin Skin Exam: Intact Assessment and Plan (1) Hepatitis C Status: Acute (2) Acute renal failure Status: Acute (3) Bronchiectasis Status: Acute (4) HTN (hypertension) Status: Acute (5) Lower extremity edema Status: Acute (6) Nephrotic range proteinuria Status: Acute (7) CHF (congestive heart failure) Status: Acute - Assessment and Plan (Free Text) Assessment: EJ diabetic nephropathy hep C + nephrotic syndrome Plan: maintain lasix and ARB, rise in creatinine expected. monitor cautiously. hep c viral load / genotyping. Treatment per GI.
[2017-03-07] MEDS: Promethazine/Cod 6.25mg-10mg/5ml Syr UD PO PRN ×2 (10:20→21:53)
--- NOTE | 2017-03-07 11:08 | CP.PCM.PN ---
<Rayne Fang - Last Filed: 03/07/17 18:02> Subjective - Date & Time of Evaluation Date of Evaluation: 03/07/17 Time of Evaluation: 07:45 - Subjective Subjective: PGY1- Medicine Note- Dr. Nava's Service Patient seen and examined at bedside in no acute distress. Patient says his cough is getting better and his leg pain is decreasing. Patient is worried about not being able to afford Hepatits C medications. Patient denies headache, shortness of breath, chest pain, abdominal pain, nausea, vomiting, constipation , diarrhea. Objective - Vital Signs/Intake and Output Vital Signs (last 24 hours): Temp Pulse Resp BP Pulse Ox 98.2 F 71 18 167/68 H 100 03/07/17 07:10 03/07/17 08:00 03/07/17 07:10 03/07/17 09:32 03/07/17 07:10 Intake and Output: 03/07/17 03/07/17 06:59 18:59 Intake Total 120 Balance 120 - Medications Medications: Current Medications Acetaminophen (Tylenol 325mg Tab) 650 mg PO Q6 PRN PRN Reason: Pain, moderate (4-7) Albuterol/Ipratropium (Duoneb 3 Mg/0.5 Mg (3 Ml) Ud) 3 ml INH RQ6 [facility] Last Admin: 03/07/17 07:58 Dose: 3 ml Amlodipine Besylate (Norvasc) 5 mg PO DAILY [facility] Last Admin: 03/07/17 09:33 Dose: 5 mg Aspirin (Aspirin Chewable) 81 mg PO DAILY [facility] Last Admin: 03/07/17 09:33 Dose: 81 mg Carvedilol (Coreg) 3.125 mg PO BID [facility] Last Admin: 03/07/17 09:33 Dose: 3.125 mg Clotrimazole (Lotrimin 1%) 0 gm TOP BID [facility] Last Admin: 03/07/17 09:32 Dose: 1 lot Famotidine (Pepcid) 20 mg PO BID [facility] Last Admin: 03/07/17 09:31 Dose: 20 mg Furosemide (Lasix) 20 mg PO DAILY [facility] Last Admin: 03/07/17 09:32 Dose: 20 mg Gabapentin (Neurontin) 600 mg PO BID [facility] Last Admin: 03/07/17 09:31 Dose: 600 mg Azithromycin 500 mg/ Sodium (Chloride) 250 mls @ 250 mls/hr IVPB DAILY@1430 [facility] Last Admin: 03/06/17 14:45 Dose: 250 mls/hr Ceftriaxone Sodium 1 gm/ (Sodium Chloride) 100 mls @ 100 mls/hr IVPB DAILY@ 1630 [facility] Last Admin: 03/06/17 17:18 Dose: 100 mls/hr Insulin Glargine (Lantus) 20 unit SC [facility] Last Admin: 03/06/17 21:23 Dose: 20 units Insulin Human Regular (Novolin R) 0 unit SC [facility] PRN Reason: Protocol Last Admin: 03/07/17 08:39 Dose: 2 unit Losartan Potassium (Cozaar) 50 mg PO DAILY [facility] Last Admin: 03/07/17 09:31 Dose: 50 mg [facility] Admin: 03/07/17 08:39 Dose: 1,000 mg Nicotine (Nicoderm Cq) 1 patch TD DAILY [facility] Last Admin: 03/07/17 09:33 Dose: 1 patch Promethazine HCl/Codeine (Phenergan/Codeine Oral Syrup) 5 ml PO Q4 PRN PRN Reason: Cough Last Admin: 03/07/17 10:20 Dose: 5 ml Rosuvastatin Calcium (Crestor) 2.5 mg PO [facility] Last Admin: 03/06/17 21:24 Dose: 2.5 mg Sitagliptin Phosphate (Januvia) 50 mg PO DAILY [facility] Last Admin: 03/07/17 09:33 Dose: 50 mg - Labs Labs: 03/07/17 07:06 03/07/17 07:06 - Constitutional Appears: Non-toxic, No Acute Distress - Head Exam Head Exam: ATRAUMATIC, NORMAL INSPECTION, NORMOCEPHALIC - Eye Exam Eye Exam: EOMI, Normal appearance, PERRL - ENT Exam ENT Exam: Mucous Membranes Moist, Normal Exam - Neck Exam Neck Exam: Full ROM, Normal Inspection. absent: Lymphadenopathy - Respiratory Exam Respiratory Exam: Wheezes, NORMAL BREATHING PATTERN Additional comments: mild lower lobe wheezing on expiration - Cardiovascular Exam Cardiovascular Exam: REGULAR RHYTHM, RRR. absent: Gallop, Rubs, Murmur - GI/Abdominal Exam GI & Abdominal Exam: Soft, Normal Bowel Sounds. absent: Distended, Firm, Guarding, Rigid - Extremities Exam Extremities Exam: Full ROM, Normal Inspection, Tenderness Additional comments: mild pedal edema skin less flaking and erythematous on anterior shins leg tenderness decreasing - Back Exam Back Exam: NORMAL INSPECTION. absent: rash noted - Neurological Exam Neurological Exam: Alert, Awake, Oriented x3 - Psychiatric Exam Psychiatric exam: Normal Affect, Normal Mood - Skin Skin Exam: Intact, Normal Color, Warm Additional comments: erythematous anterior shins with some dryness and scaling of skin Assessment and Plan - Assessment and Plan (Free Text) Assessment: 1. Cavitary Lesions and Bronchiectasis * Pulmonary (Dr. Fuller) help appreciated * patient has history of TB 3-4 years ago that was treated at [facility], but never followed up with as an outpatient, treated for tb but compliance unclear * Cxray 02/27: Previously noted areas of nodular opacities, peribronchial thickening, cystic bronchiectasis and cavitary lesions in the upper and to a lesser degree lower lobes bilaterally are less well seen on this study. Rule out chronic inflammatory process/ fungal infection. * Chest xray 02/28: persistent ill defined consolidative and mass like opacities seen within right upper and mid lung zone * Group A Beta Strep culture (-) * zithromax 500 mg IV daily started on 02/28/17 * ceftriaxone 1 g IV daily started on 02/28/17 * Phenergan with codeine 5ml PO Q 4hour PRN cough * strep pneumoniae, m pneumoniae, legionella: negative * On airborne isolation * quantiferon pending * f/u AFB * 03/06 AFB (-) * Infectious disease (Dr. Chen) on board-->help appreciated 2. Acute diastolic congestive heart failure * cardiology consulted, Dr. Ho, help appreciated * echo: borderline concentric left ventricular hypertrophy. Tissue doppler imaging reveals mild left ventricular diastolic dysfunction. Mild aortic regurg. LV EF 50% * Lipid panel: Triglycerides 174, Cholesterol 190, LDL 118, HDL 31 * ekg showed right bundle branch block - no change since EKG in 12/2016 * Lasix 20mg PO daily * Losartan 50mg PO daily * Coreg 3.125 mg PO BID * Aspirin 81 mg PO daily * Crestor 2.5 mg PO HS * Spironolactone 25 mg PO Daily 3. Lower extremity edema * vascular surgery, Dr. Ying, help appreciated * venous doppler negative * arterial doppler- negative, ankle/brachial index 1.22 4. Lower Extremity Pain * Tylenol 650 mg PO Q6 prn for moderate leg pain * Gabapentin 600 mg PO BID 5. Uncontrolled Diabetes Mellitus * Januvia 50 mg BID * Metformin 1000 mg PO BID * Accuchecks QAC and HS * ISS (low) * HgA1C: 10.4 * Lantus 20 units subqHS * Losartan 50mg Po daily 5. Uncontrolled Hypertension * Losartan 50mg Po daily * Coreg 3.125 mg PO bid * monitor vital signs * Lasix 20mg PO daily * Norvasc 5mg PO daily * d/c hctz secondary to proteinuria 6. Tobacco Use Disorder * Nicotine patch 14 mg/ 24 hr * smoking cessation discussed previously 7. Nephrotic syndrome * Nephrology (Dr. Lopez) on case * secondary to DM * 24 hours urine protein: [id number] * Lasix switched to PO * Per nephrology, patient started on Losartan 50mg Po daily * monitor creatinine (expected to rise) 8. Hepatitis C Positive Serology * Abdominal US (03/05/17): liver exhibits increased echotexture suggesting distinct fatty infiltration, other infiltrative hepatocellular disease process not excluded. echogenic kidneys consistent with medical renal disease. small nonobstructing 6mm calculus upper pole right kidney and another 4mm calcification midpole left kidney, least 2 right renal cysts * GI field professional ()-->f/u as outpatient * Patient amenable to treatment and would like to go over options * HIV : negative 9. Prophylactic Measures * Pepcid 20 mg PO BID * Heparin 5000 u sc q8h <Rubio Nava - Last Filed: 04/11/17 15:12> Objective - Vital Signs/Intake and Output Vital Signs (last 24 hours): Temp Pulse Resp BP Pulse Ox 98.0 F 76 18 133/70 100 03/09/17 07:10 03/09/17 07:10 03/09/17 07:10 03/09/17 09:34 03/09/17 07:10 - Labs Labs: 03/09/17 06:07 03/09/17 06:07 Attending/Attestation - Attestation I have personally seen and examined this patient.: Yes I have fully participated in the care of the patient.: Yes I have reviewed all pertinent clinical information, including history, physical exam and plan: Yes Notes (Text): 1. Lower Extremity Edema Diastolic acute on Chronic CHF 2. Respiratory Tract Infection suspected pneumonia 3. Lower Extremity Pain 4. Uncontrolled Diabetes Mellitus
--- NOTE | 2017-03-07 11:59 | CP.PCM.CON ---
History of Present Illness - History of Present Illness History of Present Illness: admitted for leg pain and swelling and found to have abn cxr; mild cough, scanty sputum, no sob, no fever, no sweats, appetite ok CT [facility] [employer] < 1 ppd x 15 yrs await sputum AFB cont isolation iv antibiotic rx- concern for pseudomonas- would obtain sputum Review of Systems - Constitutional Constitutional: As Per HPI - EENT Eyes: absent: As Per HPI, Blind Spots, Blurred Vision, Change in Vision, Decreased Night Vision, Diplopia, Discharge, Dry Eye, Exophthalmos, Floaters, Irritation, Itchy Eyes, Loss of Peripheral Vision, Pain, Photophobia, Requires Corrective Lenses, Sees Flashes, Spots in Vision, Tunnel Vision, Other Visual Disturbances, Loss of Vision, Other Ears: absent: As Per HPI, Decreased Hearing, Ear Discharge, Ear Pain, Tinnitus, Abnormal Hearing, Disequilibrium, Dizziness, Other Nose/Mouth/Throat: absent: As Per HPI, Epistaxis, Nasal Congestion, Nasal Discharge, Nasal Obstruction, Nasal Trauma, Nose Pain, Post Nasal Drip, Sinus Pain, Sinus Pressure, Bleeding Gums, Change in Voice, Dental Pain, Dry Mouth, Dysphagia, Halitosis, Hoarsness, Lip Swelling, Mouth Lesions, Mouth Pain, Odynophagia, Sore Throat, Throat Swelling, Tongue Swelling, Facial Pain, Neck Pain, Neck Mass, Other - Cardiovascular Cardiovascular: absent: As Per HPI, Acrocyanosis, Chest Pain, Chest Pain at Rest , Chest Pain with Activity, Claudication, Diaphoresis, Dyspnea, Dyspnea on Exertion, Edema, Irregular Heart Rhythm, Pain Radiating to Arm/Neck/Jaw, Leg Edema, Leg Ulcers, Lightheadedness, Orthopnea, Palpitations, Paroxysmal Nocturnal Dyspnea, Pedal Edema, Radiating Pain, Rapid Heart Rate, Slow Heart Rate, Syncope, Other - Respiratory Respiratory: Cough - Gastrointestinal Gastrointestinal: absent: As Per HPI, Abdominal Pain, Belching, Bloating, Change in Bowel Habits, Change in Stool Character, Coffee Ground Emesis, Constipation, Cramping, Diarrhea, Dyspepsia, Dysphagia, Early Satiety, Excessive Flatus, Fecal Incontinence, Heartburn, Hematemesis, Hematochezia, Loose Stools, Melena, Nausea, Odynophagia, Temesmus, Vomiting, Other - Genitourinary Genitourinary: absent: As Per HPI, Change in Urinary Stream, Difficulty Urinating, Dysuria, Flank Pain, Hematuria, Pyuria, Nocturia, Urinary Incontinence, Urinary Frequency, Urinary Hesitance, Urinary Urgency, Voiding Freq/Small Amts, Freq UTI, Hx Renal/Bladder Calculi, Hx /Renal Surgery, Bladder Distension, Other - Musculoskeletal Musculoskeletal: absent: As Per HPI, Abnormal Gait, Arthralgias, Atrophy, Back Pain, Deformity, Joint Swelling, Limited Range of Motion, Loss of Height, Muscle Cramps, Muscle Weakness, Myalgias, Neck Pain, Numbness, Radiating Pain into Limb, Stiffness, Tingling, Other - Integumentary Integumentary: absent: As Per HPI, Acne, Alopecia, Bleeding Lesions, Change in Hair, Change in Nails, Change in Pigmentation, Changing Lesions, Dry Skin, Erythema, Furuncle, Hirsutism, Lesions, New Lesions, Non-Healing Lesions, Photosensitivity, Pruritus, Rash, Skin Pain, Skin Ulcer, Sores, Striae, Swelling , Unusual Bruising, Wounds, Jaundice, Other - Neurological Neurological: absent: As Per HPI, Abnormal Gait, Abnormal Hearing, Abnormal Movements, Abnormal Speech, Behavioral Changes, Burning Sensations, Confusion, Convulsions, Disequilibrium, Dizziness, Numbness, Focal Weakness, Frequent Falls , Headaches, Lack of Coordination, Loss of Vision, Memory Loss, Paresthesias, Radicular Pain, Restless Legs, Sensory Deficit, Syncope, Tingling, Tremor, Vertigo, Weakness, Other Visual Disturbances, Other - Psychiatric Psychiatric: absent: As Per HPI, Abnormal Sleep Pattern, Anhedonia, Anxiety, Auditory Hallucinations, Behavioral Changes, Change in Appetite, Change in Libido, Confusion, Depression, Difficulty Concentrating, Hallucinations, Homicidal Ideation, Hopelessness, Irritability, Memory Loss, Mood Swings, Panic Attacks, Paranoia, Suicidal Ideation, Visual Hallucinations, Tactile Hallucinations, Other - Endocrine Endocrine: absent: As Per HPI, Change in Body Appearance, Change in Libido, Cold Intolorance, Deepening of Voice, Excessive Sweating, Fatigue, Flushing, Heat Intolorance, Increase in Ring/Shoe/Hat Size, Palpitations, Polydipsia, Polyphagia, Polyuria, Other - Hematologic/Lymphatic Hematologic: absent: As Per HPI, Easy Bleeding, Easy Bruising, Lymphadenopathy, Other Past Patient History - Past Medical History & Family History Past Medical History?: Yes - Past Social History Smoking Status: Light Smoker < 10 Cigarettes Daily - CARDIAC Hx Hypertension: Yes - PULMONARY Hx Respiratory Disorders: No - NEUROLOGICAL Hx Neurological Disorder: No - HEENT Hx HEENT Problems: No - ENDOCRINE/METABOLIC Hx Diabetes Mellitus Type 1: Yes Other/Comment: per patient only medical history is DM - HEMATOLOGICAL/ONCOLOGICAL Hx Blood Disorders: No - INTEGUMENTARY Hx Dermatological Problems: No - MUSCULOSKELETAL/RHEUMATOLOGICAL Hx Falls: No - GASTROINTESTINAL Hx Gastrointestinal Disorders: No - GENITOURINARY/GYNECOLOGICAL Hx Genitourinary Disorders: No - PSYCHIATRIC Hx Substance Use: No - SURGICAL HISTORY Hx Surgeries: No - ANESTHESIA Hx Anesthesia: No Hx Anesthesia Reactions: No Meds Allergies/Adverse Reactions: Allergies Allergy/AdvReac Type Severity Reaction Status Date / Time No Known Allergies Allergy Verified 02/27/17 07:47 - Medications Medications: Current Medications Acetaminophen (Tylenol 325mg Tab) 650 mg PO Q6 PRN PRN Reason: Pain, moderate (4-7) Albuterol/Ipratropium (Duoneb 3 Mg/0.5 Mg (3 Ml) Ud) 3 ml INH RQ6 [facility] Last Admin: 03/07/17 07:58 Dose: 3 ml Amlodipine Besylate (Norvasc) 5 mg PO DAILY [facility] Last Admin: 03/07/17 09:33 Dose: 5 mg Aspirin (Aspirin Chewable) 81 mg PO DAILY [facility] Last Admin: 03/07/17 09:33 Dose: 81 mg Carvedilol (Coreg) 3.125 mg PO BID [facility] Last Admin: 03/07/17 09:33 Dose: 3.125 mg Clotrimazole (Lotrimin 1%) 0 gm TOP BID [facility] Last Admin: 03/07/17 09:32 Dose: 1 lot Famotidine (Pepcid) 20 mg PO BID [facility] Last Admin: 03/07/17 09:31 Dose: 20 mg Furosemide (Lasix) 20 mg PO DAILY [facility] Last Admin: 03/07/17 09:32 Dose: 20 mg Gabapentin (Neurontin) 600 mg PO BID [facility] Last Admin: 03/07/17 09:31 Dose: 600 mg Azithromycin 500 mg/ Sodium (Chloride) 250 mls @ 250 mls/hr IVPB DAILY@1430 [facility] Last Admin: 03/06/17 14:45 Dose: 250 mls/hr Ceftriaxone Sodium 1 gm/ (Sodium Chloride) 100 mls @ 100 mls/hr IVPB DAILY@ 1630 [facility] Last Admin: 03/06/17 17:18 Dose: 100 mls/hr Insulin Glargine (Lantus) 20 unit SC HS [facility] Last Admin: 03/06/17 21:23 Dose: 20 units Insulin Human Regular (Novolin R) 0 unit SC [facility] PRN Reason: Protocol Last Admin: 03/07/17 08:39 Dose: 2 unit Losartan Potassium (Cozaar) 50 mg PO DAILY [facility] Last Admin: 03/07/17 09:31 Dose: 50 mg Metformin HCl (Glucophage) 1,000 mg PO BIDCC [facility] Last Admin: 03/07/17 08:39 Dose: 1,000 mg Nicotine (Nicoderm Cq) 1 patch TD DAILY [facility] Last Admin: 03/07/17 09:33 Dose: 1 patch Promethazine HCl/Codeine (Phenergan/Codeine Oral Syrup) 5 ml PO Q4 PRN PRN Reason: Cough Last Admin: 03/07/17 10:20 Dose: 5 ml Rosuvastatin Calcium (Crestor) 2.5 mg PO [facility] Last Admin: 03/06/17 21:24 Dose: 2.5 mg Sitagliptin Phosphate (Januvia) 50 mg PO DAILY [facility] Last Admin: 03/07/17 09:33 Dose: 50 mg Physical Exam - Constitutional Appears: Non-toxic, Chronically Ill - Head Exam Head Exam: NORMOCEPHALIC - Eye Exam Eye Exam: PERRL. absent: Scleral icterus - ENT Exam ENT Exam: Mucous Membranes Dry, Normal External Ear Exam - Neck Exam Neck exam: Negative for: Lymphadenopathy, Thyromegaly - Respiratory Exam Respiratory Exam: Decreased Breath Sounds, Rhonchi - Cardiovascular Exam Cardiovascular Exam: REGULAR RHYTHM, +S1, +S2 - GI/Abdominal Exam GI & Abdominal Exam: Diminished Bowel Sounds, Soft. absent: Tenderness - Exam Exam: NORMAL INSPECTION - Extremities Exam Extremities exam: Negative for: calf tenderness, pedal edema - Back Exam Back exam: absent: CVA tenderness (L), CVA tenderness (R) - Neurological Exam Neurological exam: Alert, CN II-XII Intact, Oriented x3, Reflexes Normal - Psychiatric Exam Psychiatric exam: Normal Mood - Skin Skin Exam: Dry Results - Vital Signs Recent Vital Signs: Last Vital Signs Temp 98.2 F 03/07/17 07:10 Pulse 71 03/07/17 08:00 Resp 18 03/07/17 07:10 BP 167/68 H 03/07/17 09:32 Pulse Ox 100 03/07/17 07:10 - Labs Result Diagrams: 03/08/17 07:53 03/08/17 07:53 Labs: Laboratory Results - last 24 hr 03/06/17 03/06/17 03/06/17 12:12 16:27 19:34 WBC RBC Hgb Hct MCV MCH MCHC RDW Plt Count MPV Neut % (Auto) Lymph % (Auto) Johnson % (Auto) Eos % (Auto) Baso % (Auto) Neut # Lymph # Johnson # Eos # Baso # Sodium Potassium Chloride Carbon Dioxide Anion Gap BUN Creatinine Est GFR ( Amer) Est GFR (Non-Af Amer) POC Glucose (mg/dL) 316 H 289 H Random Glucose Calcium HIV 1&2 Antibody Screen Negative 03/06/17 03/07/17 03/07/17 21:09 07:06 07:06 WBC 8.2 RBC 3.61 L Hgb 10.5 L Hct 31.9 L MCV 88.4 MCH 29.0 MCHC 32.9 L RDW 13.5 Plt Count 252 MPV 8.6 Neut % (Auto) 59.4 Lymph % (Auto) 24.1 Johnson % (Auto) 5.6 Eos % (Auto) 9.7 H Baso % (Auto) 1.2 Neut # 4.9 Lymph # 2.0 Johnson # 0.5 Eos # 0.8 H Baso # 0.1 Sodium 139 Potassium 4.6 Chloride 102 Carbon Dioxide 28 Anion Gap 14 BUN 23 H Creatinine 1.9 H Est GFR ( Amer) 44 Est GFR (Non-Af Amer) 37 POC Glucose (mg/dL) 246 H Random Glucose 207 H Calcium 7.8 L HIV 1&2 Antibody Screen 03/07/17 03/07/17 07:12 11:44 WBC RBC Hgb Hct MCV MCH MCHC RDW Plt Count MPV Neut % (Auto) Lymph % (Auto) Johnson % (Auto) Eos % (Auto) Baso % (Auto) Neut # Lymph # Johnson # Eos # Baso # Sodium Potassium Chloride Carbon Dioxide Anion Gap BUN Creatinine Est GFR ( Amer) Est GFR (Non-Af Amer) POC Glucose (mg/dL) 229 H 392 H Random Glucose Calcium HIV 1&2 Antibody Screen Assessment & Plan (1) Bronchiectasis Status: Acute (2) CKD stage 3 due to type 2 diabetes mellitus Status: Acute (3) COPD (chronic obstructive pulmonary disease) Status: Acute (4) HTN (hypertension) Status: Acute (5) Hepatitis C Status: Acute - Assessment and Plan (Free Text) Assessment: await cultures serologies check hep c viral load iv antibiotics
[2017-03-07] MEDS: Azithromycin 500 MG in Sodium Chloride 0.9% 250 ML IVPB SCH (16:35)
[2017-03-07] MEDS: (Lantus) Insulin Glargine, Recombinant SC SCH (21:53)
[2017-03-07] MEDS: Rosuvastatin Calcium 2.5 mg Tab PO SCH (21:53)
[2017-03-08] MEDS: Albuterol-Ipratrop 3 mg / 0.5 (3 ml) UD INH SCH ×4 (02:29→20:19)
[2017-03-08 08:00] LABS: BASO # 0.1 K/uL (0.0-0.2); BASO % 0.7 % (0.0-2.0); EOS # 1.1 K/uL (0.0-0.7); HEMATOCRIT 31.9 % (35.0-51.0); LYMPH # 2.4 K/uL (1.0-4.3); LYMPH % 21.5 % (20.0-40.0); MEAN CELL VOLUME 88.6 fL (80.0-94.0); MEAN CORPUSCULAR HEMOGLOBIN 29.2 pg (27.0-31.0); MEAN PLATELET VOLUME 8.4 fL (7.2-11.7); MONO # 0.7 K/uL (0.0-0.8); RED CELL DISTRIBUTION WIDTH 13.6 % (11.5-14.5); WHITE BLOOD COUNT 10.9 K/uL (4.8-10.8)
[2017-03-08 08:14] LABS: POTASSIUM 4.5 mmol/L (3.6-5.2)
[2017-03-08] MEDS: (Novolin R) Insulin Human Regular 100 units/ml vial SC SCH ×4 (08:40→22:00)
[2017-03-08] MEDS: Clotrimazole 1% Cream(30 gm) TOP SCH ×2 (10:53→17:34)
[2017-03-08] MEDS: Promethazine/Cod 6.25mg-10mg/5ml Syr UD PO PRN (10:57)
--- NOTE | 2017-03-08 13:08 | CP.PCM.PN ---
Subjective - Date & Time of Evaluation Date of Evaluation: 03/08/17 Time of Evaluation: 13:05 - Subjective Subjective: On respiratory isolation for cavitary pulmonary lesions Still very edematoum BP elevated Mod. dyspnea No dysuria, CPs, f, c, n, v, HAs Objective - Vital Signs/Intake and Output Vital Signs (last 24 hours): Temp Pulse Resp BP Pulse Ox 98.2 F 60 20 166/89 H 99 03/08/17 07:10 03/08/17 10:46 03/08/17 10:46 03/08/17 10:47 03/08/17 10:46 Intake and Output: 03/08/17 03/08/17 06:59 18:59 Intake Total 360 Balance 360 - Medications Medications: Current Medications Acetaminophen (Tylenol 325mg Tab) 650 mg PO Q6 PRN PRN Reason: Pain, moderate (4-7) Albuterol/Ipratropium (Duoneb 3 Mg/0.5 Mg (3 Ml) Ud) 3 ml INH RQ6 [facility] Last Admin: 03/08/17 07:52 Dose: 3 ml Amlodipine Besylate (Norvasc) 5 mg PO DAILY [facility] Last Admin: 03/08/17 10:47 Dose: 5 mg Aspirin (Aspirin Chewable) 81 mg PO DAILY [facility] Last Admin: 03/08/17 10:47 Dose: 81 mg Carvedilol (Coreg) 3.125 mg PO BID [facility] Last Admin: 03/08/17 10:47 Dose: 3.125 mg Clotrimazole (Lotrimin 1%) 0 gm TOP BID [facility] Last Admin: 03/08/17 10:53 Dose: 1 applic Famotidine (Pepcid) 20 mg PO BID [facility] Last Admin: 03/08/17 10:47 Dose: 20 mg Furosemide (Lasix) 20 mg PO DAILY [facility] Last Admin: 03/08/17 10:47 Dose: 20 mg Gabapentin (Neurontin) 600 mg PO BID [facility] Last Admin: 03/08/17 10:47 Dose: 600 mg Azithromycin 500 mg/ Sodium (Chloride) 250 mls @ 250 mls/hr IVPB DAILY@1430 [facility] Last Admin: 03/07/17 16:35 Dose: 250 mls/hr Ceftriaxone Sodium 1 gm/ (Sodium Chloride) 100 mls @ 100 mls/hr IVPB DAILY@ 1630 [facility] Last Admin: 03/07/17 18:13 Dose: 100 mls/hr Insulin Glargine (Lantus) 20 unit SC HS [facility] Last Admin: 03/07/17 21:53 Dose: 20 units Insulin Human Regular (Novolin R) 0 unit SC ACHS [facility] PRN Reason: Protocol Last Admin: 03/08/17 12:53 Dose: 4 unit Losartan Potassium (Cozaar) 50 mg PO DAILY [facility] Last Admin: 03/08/17 10:47 Dose: 50 mg Nicotine (Nicoderm Cq) 1 patch TD DAILY [facility] Last Admin: 03/08/17 10:48 Dose: 1 patch Promethazine HCl/Codeine (Phenergan/Codeine Oral Syrup) 5 ml PO Q4 PRN PRN Reason: Cough Last Admin: 03/08/17 10:57 Dose: 5 ml Rosuvastatin Calcium (Crestor) 2.5 mg PO HS [facility] Last Admin: 03/07/17 21:53 Dose: 2.5 mg Sitagliptin Phosphate (Januvia) 50 mg PO DAILY [facility] Last Admin: 03/08/17 10:48 Dose: Not Given - Labs Labs: 03/08/17 07:53 03/08/17 07:53 - Constitutional Appears: No Acute Distress, Chronically Ill - Head Exam Head Exam: ATRAUMATIC, NORMAL INSPECTION - Eye Exam Eye Exam: EOMI, Normal appearance - Neck Exam Neck Exam: Normal Inspection. absent: Tenderness - Respiratory Exam Respiratory Exam: Rhonchi, NORMAL BREATHING PATTERN - Cardiovascular Exam Cardiovascular Exam: REGULAR RHYTHM, +S1 - GI/Abdominal Exam GI & Abdominal Exam: Soft. absent: Tenderness - Extremities Exam Extremities Exam: Pedal Edema, Tenderness - Neurological Exam Neurological Exam: Alert, CN II-XII Intact - Skin Skin Exam: Dry, Warm Assessment and Plan (1) Type 2 diabetes mellitus with diabetic nephropathy Status: Acute (2) CKD stage 3 due to type 2 diabetes mellitus Status: Acute (3) Bronchiectasis Status: Acute (4) HTN (hypertension) Status: Acute (5) Hepatitis C Status: Acute (6) Lower extremity edema Status: Acute (7) Nephrotic range proteinuria Status: Acute - Assessment and Plan (Free Text) Plan: Increase losartan dose Increase lasix dose follow up labs
[2017-03-08] MEDS: Azithromycin 500 MG in Sodium Chloride 0.9% 250 ML IVPB SCH (14:42)
[2017-03-08] MEDS ORDERED: (Lantus) Insulin Glargine, Recombinant SC SCH (17:55)
--- NOTE | 2017-03-08 18:02 | CP.PCM.PN ---
<Rayne Fang - Last Filed: 03/08/17 17:59> Subjective - Date & Time of Evaluation Date of Evaluation: 03/08/17 Time of Evaluation: 07:00 - Subjective Subjective: PGY1- Medicine Note- Dr. Nava's Service Patient seen and examined at bedside and in no acute distress. Patient says cough is much better. Patient has minimal leg pain. Patient denies headache, shortness of breath, chest pain, abdominal pain, nausea, vomiting, constipation , diarrhea. Patient denies all other complaints. Objective - Vital Signs/Intake and Output Vital Signs (last 24 hours): Temp Pulse Resp BP Pulse Ox 98 F 58 L 20 145/78 98 03/08/17 15:20 03/08/17 15:20 03/08/17 15:20 03/08/17 15:20 03/08/17 15:20 Intake and Output: 03/08/17 03/08/17 06:59 18:59 Intake Total 360 500 Balance 360 500 - Medications Medications: Current Medications Acetaminophen (Tylenol 325mg Tab) 650 mg PO Q6 PRN PRN Reason: Pain, moderate (4-7) Albuterol/Ipratropium (Duoneb 3 Mg/0.5 Mg (3 Ml) Ud) 3 ml INH RQ6 [facility] Last Admin: 03/08/17 13:30 Dose: 3 ml Amlodipine Besylate (Norvasc) 5 mg PO DAILY [facility] Last Admin: 03/08/17 10:47 Dose: 5 mg Aspirin (Aspirin Chewable) 81 mg PO DAILY [facility] Last Admin: 03/08/17 10:47 Dose: 81 mg Carvedilol (Coreg) 3.125 mg PO BID [facility] Last Admin: 03/08/17 17:29 Dose: 3.125 mg Clotrimazole (Lotrimin 1%) 0 gm TOP BID [facility] Last Admin: 03/08/17 17:34 Dose: 1 applic Famotidine (Pepcid) 20 mg PO BID [facility] Last Admin: 03/08/17 17:32 Dose: 20 mg Furosemide (Lasix) 40 mg PO DAILY [facility] Gabapentin (Neurontin) 600 mg PO BID [facility] Last Admin: 03/08/17 17:29 Dose: 600 mg Azithromycin 500 mg/ Sodium (Chloride) 250 mls @ 250 mls/hr IVPB DAILY@1430 [facility] Last Admin: 03/08/17 14:42 Dose: 250 mls/hr Ceftriaxone Sodium 1 gm/ (Sodium Chloride) 100 mls @ 100 mls/hr IVPB DAILY@ 1630 [facility] Last Admin: 03/08/17 17:32 Dose: 100 mls/hr Insulin Aspart (Novolog) 4 unit SC BIDAC [facility] Insulin Aspart (Novolog) 3 unit SC DAILY [facility] Insulin Glargine (Lantus) 14 unit SC HS [facility] Insulin Human Regular (Novolin R) 0 unit SC ACHS [facility] PRN Reason: Protocol Last Admin: 03/08/17 17:31 Dose: 4 unit Isosorbide Mononitrate (Imdur) 30 mg PO HS [facility] Losartan Potassium (Cozaar) 100 mg PO DAILY [facility] Nicotine (Nicoderm Cq) 1 patch TD DAILY [facility] Last Admin: 03/08/17 10:48 Dose: 1 patch Promethazine HCl/Codeine (Phenergan/Codeine Oral Syrup) 5 ml PO Q4 PRN PRN Reason: Cough Last Admin: 03/08/17 10:57 Dose: 5 ml Rosuvastatin Calcium (Crestor) 2.5 mg PO HS [facility] Last Admin: 03/07/17 21:53 Dose: 2.5 mg Sitagliptin Phosphate (Januvia) 50 mg PO DAILY [facility] Last Admin: 03/08/17 10:48 Dose: Not Given - Labs Labs: 03/08/17 07:53 03/08/17 07:53 - Constitutional Appears: Well, Non-toxic, No Acute Distress - Head Exam Head Exam: ATRAUMATIC, NORMAL INSPECTION, NORMOCEPHALIC - Eye Exam Eye Exam: EOMI, Normal appearance, PERRL - ENT Exam ENT Exam: Mucous Membranes Moist, Normal Exam - Neck Exam Neck Exam: Full ROM, Normal Inspection. absent: Lymphadenopathy - Respiratory Exam Respiratory Exam: Clear to Ausculation Bilateral, NORMAL BREATHING PATTERN - Cardiovascular Exam Cardiovascular Exam: REGULAR RHYTHM, RRR. absent: Gallop, Rubs, Murmur - GI/Abdominal Exam GI & Abdominal Exam: Soft, Normal Bowel Sounds. absent: Distended, Firm, Guarding - Extremities Exam Extremities Exam: Full ROM, Normal Inspection, Pedal Edema Additional comments: mild edema bilaterally dry skin on bob decreasing erythema significantly decreased - Back Exam Back Exam: NORMAL INSPECTION. absent: rash noted - Neurological Exam Neurological Exam: Alert, Awake, Oriented x3 - Psychiatric Exam Psychiatric exam: Normal Affect, Normal Mood - Skin Skin Exam: Intact, Normal Color, Warm Additional comments: dry skin on bob decreasing erythema significantly decreased Assessment and Plan - Assessment and Plan (Free Text) Assessment: 1. Cavitary Lesions and Bronchiectasis * Pulmonary (Dr. Fuller) help appreciated * patient has history of TB 3-4 years ago that was treated at [facility], but never followed up with as an outpatient, treated for tb but compliance unclear * Cxray 02/27: Previously noted areas of nodular opacities, peribronchial thickening, cystic bronchiectasis and cavitary lesions in the upper and to a lesser degree lower lobes bilaterally are less well seen on this study. Rule out chronic inflammatory process/ fungal infection. * Chest xray 02/28: persistent ill defined consolidative and mass like opacities seen within right upper and mid lung zone * Group A Beta Strep culture (-) * zithromax 500 mg IV daily started on 02/28/17 * ceftriaxone 1 g IV daily started on 02/28/17 * Phenergan with codeine 5ml PO Q 4hour PRN cough * strep pneumoniae, m pneumoniae, legionella: negative * On airborne isolation * sputum culture 03/07: pending, gram stain: few polymorphonuclear wbcs, rare gram pos cocci in pairs, few epithelial cells * quantiferon pending * f/u AFB, need 3x negative * 03/06 AFB (-) * Infectious disease (Dr. Chen) on board-->help appreciated 2. Acute diastolic congestive heart failure * cardiology consulted, Dr. Ho, help appreciated * echo: borderline concentric left ventricular hypertrophy. Tissue doppler imaging reveals mild left ventricular diastolic dysfunction. Mild aortic regurg. LV EF 50% * Lipid panel: Triglycerides 174, Cholesterol 190, LDL 118, HDL 31 * ekg showed right bundle branch block - no change since EKG in 12/2016 * Lasix 20mg PO daily * Losartan 50mg PO daily * Coreg 3.125 mg PO BID * Aspirin 81 mg PO daily * Crestor 2.5 mg PO HS * Spironolactone 25 mg PO Daily 3. Lower extremity edema * vascular surgery, Dr. Ying, help appreciated * venous doppler negative * arterial doppler- negative, ankle/brachial index 1.22 4. Lower Extremity Pain * Tylenol 650 mg PO Q6 prn for moderate leg pain * Gabapentin 600 mg PO BID 5. Uncontrolled Diabetes Mellitus * Januvia 50 mg BID * Metformin 1000 mg PO BID d/c due to high creatinine * Accuchecks QAC and HS * ISS (low) * HgA1C: 10.4 * Lantus decreased to 14 units subqHS (from 20 u) * Novolog 4 units before breakfast and lunch, 3 units before dinner * Losartan 50mg Po daily 5. Uncontrolled Hypertension * Losartan 50mg Po daily * Coreg 3.125 mg PO bid * monitor vital signs * Lasix 20mg PO daily * Norvasc 5mg PO daily * Imdur 30 mg qhs added on 03/08 * d/c hctz secondary to proteinuria 6. Tobacco Use Disorder * Nicotine patch 14 mg/ 24 hr * smoking cessation discussed previously 7. Nephrotic syndrome * Nephrology (Dr. Lopez) on case * secondary to DM * 24 hours urine protein: 23887 * Lasix switched to PO * Per nephrology, patient started on Losartan 50mg Po daily * monitor creatinine (expected to rise) 8. Hepatitis C Positive Serology * Abdominal US (03/05/17): liver exhibits increased echotexture suggesting distinct fatty infiltration, other infiltrative hepatocellular disease process not excluded. echogenic kidneys consistent with medical renal disease. small nonobstructing 6mm calculus upper pole right kidney and another 4mm calcification midpole left kidney, least 2 right renal cysts * GI nurse monitoring ()-->f/u as outpatient * Patient amenable to treatment and would like to go over options * HIV : negative 9. Prophylactic Measures * Pepcid 20 mg PO BID * Heparin 5000 u sc q8h <Rubio Nava - Last Filed: 04/11/17 15:13> Objective - Vital Signs/Intake and Output Vital Signs (last 24 hours): Temp Pulse Resp BP Pulse Ox 98.0 F 76 18 133/70 100 03/09/17 07:10 03/09/17 07:10 03/09/17 07:10 03/09/17 09:34 03/09/17 07:10 - Labs Labs: 03/09/17 06:07 03/09/17 06:07 Attending/Attestation - Attestation I have personally seen and examined this patient.: Yes I have fully participated in the care of the patient.: Yes I have reviewed all pertinent clinical information, including history, physical exam and plan: Yes Notes (Text): 1. Cavitary Lesions and Bronchiectasis / suspected pneumonia 2. Acute diastolic congestive heart failure 3. Lower extremity edema 4. Lower Extremity Pain 5. DM-2 uncontrolled
--- NOTE | 2017-03-08 19:18 | CP.PCM.PN ---
Subjective - Date & Time of Evaluation Date of Evaluation: 03/08/17 Time of Evaluation: 09:00 - Subjective Subjective: rx in progress cont rx Objective - Vital Signs/Intake and Output Vital Signs (last 24 hours): Temp Pulse Resp BP Pulse Ox 98 F 58 L 20 145/78 98 03/08/17 15:20 03/08/17 15:20 03/08/17 15:20 03/08/17 15:20 03/08/17 15:20 Intake and Output: 03/08/17 03/09/17 18:59 06:59 Intake Total 500 Balance 500 - Medications Medications: Current Medications Acetaminophen (Tylenol 325mg Tab) 650 mg PO Q6 PRN PRN Reason: Pain, moderate (4-7) Albuterol/Ipratropium (Duoneb 3 Mg/0.5 Mg (3 Ml) Ud) 3 ml INH RQ6 [facility] Last Admin: 03/08/17 13:30 Dose: 3 ml Amlodipine Besylate (Norvasc) 5 mg PO DAILY [facility] Last Admin: 03/08/17 10:47 Dose: 5 mg Aspirin (Aspirin Chewable) 81 mg PO DAILY [facility] Last Admin: 03/08/17 10:47 Dose: 81 mg Carvedilol (Coreg) 3.125 mg PO BID [facility] Last Admin: 03/08/17 17:29 Dose: 3.125 mg Clotrimazole (Lotrimin 1%) 0 gm TOP BID [facility] Last Admin: 03/08/17 17:34 Dose: 1 applic Famotidine (Pepcid) 20 mg PO BID [facility] Last Admin: 03/08/17 17:32 Dose: 20 mg Furosemide (Lasix) 40 mg PO DAILY [facility] Gabapentin (Neurontin) 600 mg PO BID [facility] Last Admin: 03/08/17 17:29 Dose: 600 mg Azithromycin 500 mg/ Sodium (Chloride) 250 mls @ 250 mls/hr IVPB DAILY@1430 [facility] Last Admin: 03/08/17 14:42 Dose: 250 mls/hr Ceftriaxone Sodium 1 gm/ (Sodium Chloride) 100 mls @ 100 mls/hr IVPB DAILY@ 1630 [facility] Last Admin: 03/08/17 17:32 Dose: 100 mls/hr Insulin Aspart (Novolog) 4 unit SC BIDAC [facility] Insulin Aspart (Novolog) 3 unit SC ACS [facility] Insulin Glargine (Lantus) 14 unit SC HS [facility] Insulin Human Regular (Novolin R) 0 unit SC ACHS [facility] PRN Reason: Protocol Last Admin: 03/08/17 17:31 Dose: 4 unit Isosorbide Mononitrate (Imdur) 30 mg PO HS [facility] Losartan Potassium (Cozaar) 100 mg PO DAILY [facility] Nicotine (Nicoderm Cq) 1 patch TD DAILY [facility] Last Admin: 03/08/17 10:48 Dose: 1 patch Promethazine HCl/Codeine (Phenergan/Codeine Oral Syrup) 5 ml PO Q4 PRN PRN Reason: Cough Last Admin: 03/08/17 10:57 Dose: 5 ml Rosuvastatin Calcium (Crestor) 2.5 mg PO HS [facility] Last Admin: 03/07/17 21:53 Dose: 2.5 mg Sitagliptin Phosphate (Januvia) 50 mg PO DAILY [facility] Last Admin: 03/08/17 10:48 Dose: Not Given - Labs Labs: 03/08/17 07:53 03/08/17 07:53 - Constitutional Appears: Non-toxic, Chronically Ill - Head Exam Head Exam: NORMOCEPHALIC - Eye Exam Eye Exam: PERRL. absent: Scleral icterus - ENT Exam ENT Exam: Mucous Membranes Dry - Neck Exam Neck Exam: absent: Lymphadenopathy - Respiratory Exam Respiratory Exam: Decreased Breath Sounds - Cardiovascular Exam Cardiovascular Exam: REGULAR RHYTHM - GI/Abdominal Exam GI & Abdominal Exam: Distended, Soft. absent: Tenderness - Rectal Exam Rectal Exam: Deferred - Exam Exam: Uretheral Discharge Assessment and Plan (1) Bronchiectasis Status: Acute (2) CKD stage 3 due to type 2 diabetes mellitus Status: Acute (3) COPD (chronic obstructive pulmonary disease) Status: Acute (4) HTN (hypertension) Status: Acute (5) Hepatitis C Status: Acute
[2017-03-08] MEDS: Rosuvastatin Calcium 2.5 mg Tab PO SCH (23:20)
[2017-03-09] MEDS: Albuterol-Ipratrop 3 mg / 0.5 (3 ml) UD INH SCH ×2 (01:39→07:32)
[2017-03-09] MEDS ORDERED: (Novolog) Insulin Aspart, Recombinant 100 u/ml 10 ml vial SC STA (02:08)
[2017-03-09 06:06] LABS: HEPATITIS C VIRAL RNA QUAL Not detected
[2017-03-09 06:20] LABS: BASO # 0.1 K/uL (0.0-0.2); EOS # 0.9 K/uL (0.0-0.7); EOS % 9.6 % (0.0-4.0); HEMATOCRIT 26.3 % (35.0-51.0); LYMPH # 2.3 K/uL (1.0-4.3); LYMPH % 25.4 % (20.0-40.0); MEAN CELL VOLUME 87.7 fL (80.0-94.0); MEAN CORPUSCULAR HEMOGLOBIN 30.3 pg (27.0-31.0); MEAN CORPUSCULAR HGB CONC 34.5 g/dL (33.0-37.0); MEAN PLATELET VOLUME 8.7 fL (7.2-11.7); MONO # 0.6 K/uL (0.0-0.8); MONO % 6.9 % (0.0-10.0); RED CELL DISTRIBUTION WIDTH 13.7 % (11.5-14.5); WHITE BLOOD COUNT 8.9 K/uL (4.8-10.8)
[2017-03-09 06:29] LABS: CALCIUM 7.2 mg/dl (8.6-10.4); POTASSIUM 4.6 mmol/L (3.6-5.2)
[2017-03-09] MEDS ORDERED: (Novolog) Insulin Aspart, Recombinant 100 u/ml 10 ml vial SC SCH ×3 (07:30→16:30)
[2017-03-09] MEDS: (Novolog) Insulin Aspart, Recombinant 100 u/ml 10 ml vial SC SCH ×2 (08:17→13:07)
[2017-03-09 09:07] VITALS: PULSE 76; RESP 18; TEMP 98; O2SAT 100
--- NOTE | 2017-03-09 09:35 | CP.PCM.PN ---
Subjective - Date & Time of Evaluation Date of Evaluation: 03/09/17 Time of Evaluation: 09:32 - Subjective Subjective: Remains on pulm isolation Less dyspnea No fevers, chills, nausea, vomiting, diarrhea, HAs Renal function stable- creat at 1.5 BP better controlled Still with increased LE edema Objective - Vital Signs/Intake and Output Vital Signs (last 24 hours): Temp Pulse Resp BP Pulse Ox 98.0 F 76 18 119/57 L 100 03/09/17 07:10 03/09/17 07:10 03/09/17 07:10 03/09/17 07:10 03/09/17 07:10 Intake and Output: 03/09/17 03/09/17 06:59 18:59 Intake Total 120 Balance 120 - Medications Medications: Current Medications Acetaminophen (Tylenol 325mg Tab) 650 mg PO Q6 PRN PRN Reason: Pain, moderate (4-7) Albuterol/Ipratropium (Duoneb 3 Mg/0.5 Mg (3 Ml) Ud) 3 ml INH RQ6 [facility] Last Admin: 03/09/17 07:32 Dose: 3 ml Amlodipine Besylate (Norvasc) 5 mg PO DAILY [facility] Last Admin: 03/08/17 10:47 Dose: 5 mg Aspirin (Aspirin Chewable) 81 mg PO DAILY [facility] Last Admin: 03/08/17 10:47 Dose: 81 mg Carvedilol (Coreg) 3.125 mg PO BID [facility] Last Admin: 03/08/17 17:29 Dose: 3.125 mg Clotrimazole (Lotrimin 1%) 0 gm TOP BID [facility] Last Admin: 03/08/17 17:34 Dose: 1 applic Famotidine (Pepcid) 20 mg PO BID [facility] Last Admin: 03/08/17 17:32 Dose: 20 mg Furosemide (Lasix) 40 mg PO DAILY [facility] Gabapentin (Neurontin) 600 mg PO BID [facility] Last Admin: 03/08/17 17:29 Dose: 600 mg Azithromycin 500 mg/ Sodium (Chloride) 250 mls @ 250 mls/hr IVPB DAILY@1430 [facility] Last Admin: 03/08/17 14:42 Dose: 250 mls/hr Ceftriaxone Sodium 1 gm/ (Sodium Chloride) 100 mls @ 100 mls/hr IVPB DAILY@ 1630 [facility] Last Admin: 07/26/17 17:32 Dose: 100 mls/hr Insulin Aspart (Novolog) 4 unit SC BIDAC [facility] Last Admin: 03/09/17 08:17 Dose: 4 unit Insulin Aspart (Novolog) 3 unit SC ACS [facility] Insulin Aspart (Novolog) 0 unit SC ACHS [facility] PRN Reason: Protocol Last Admin: 03/09/17 08:17 Dose: 1 unit Insulin Glargine (Lantus) 14 unit SC HS [facility] Last Admin: 03/08/17 23:19 Dose: 14 u Isosorbide Mononitrate (Imdur) 30 mg PO HS [facility] Last Admin: 03/08/17 23:20 Dose: 30 mg Losartan Potassium (Cozaar) 100 mg PO DAILY [facility] Nicotine (Nicoderm Cq) 1 patch TD DAILY [facility] Last Admin: 03/08/17 10:48 Dose: 1 patch Promethazine HCl/Codeine (Phenergan/Codeine Oral Syrup) 5 ml PO Q4 PRN PRN Reason: Cough Last Admin: 03/08/17 10:57 Dose: 5 ml Rosuvastatin Calcium (Crestor) 2.5 mg PO HS [facility] Last Admin: 03/08/17 23:20 Dose: 2.5 mg Sitagliptin Phosphate (Januvia) 50 mg PO DAILY [facility] Last Admin: 03/08/17 10:48 Dose: Not Given - Labs Labs: 03/09/17 06:07 03/09/17 06:07 - Constitutional Appears: No Acute Distress, Chronically Ill - Head Exam Head Exam: ATRAUMATIC, NORMAL INSPECTION - Eye Exam Eye Exam: EOMI, Normal appearance - Neck Exam Neck Exam: Normal Inspection. absent: Tenderness - Respiratory Exam Respiratory Exam: Clear to Ausculation Bilateral, NORMAL BREATHING PATTERN - Cardiovascular Exam Cardiovascular Exam: REGULAR RHYTHM, +S1 - GI/Abdominal Exam GI & Abdominal Exam: Soft. absent: Tenderness - Extremities Exam Extremities Exam: Pedal Edema, Tenderness - Neurological Exam Neurological Exam: Alert, CN II-XII Intact - Skin Skin Exam: Dry, Warm Assessment and Plan (1) Type 2 diabetes mellitus with diabetic nephropathy Status: Acute (2) CKD stage 3 due to type 2 diabetes mellitus Status: Acute (3) Bronchiectasis Status: Acute (4) HTN (hypertension) Status: Acute (5) Hepatitis C Status: Acute (6) Lower extremity edema Status: Acute (7) Nephrotic range proteinuria Status: Acute - Assessment and Plan (Free Text) Plan: BP better controlled- continue same meds Monitor renal function On max ARB dose for proteinuria
[2017-03-09 09:37] VITALS: BP 133/70
[2017-03-09] MEDS: Clotrimazole 1% Cream(30 gm) TOP SCH (09:37)
--- NOTE | 2017-03-09 13:20 | PCM.HF ---
<Rosalie Esquivel - Last Filed: 03/09/17 13:20> Heart Failure Core Measure - Heart Failure Ejection Fraction: 40 % or Greater <Rayne Fang - Last Filed: 03/09/17 17:14> Heart Failure Core Measure - Heart Failure Ejection Fraction: 40 % or Greater Left Ventricular Function to be assessed after discharge: Yes JOSE CARLOS Inhibitor Prescribed: No Contraindication/Reason for not providing: ARBs given Beta-Willian Prescribed: Carvedilol Angiotensin II Receptor Willian Prescribed: Yes AnticoagulationTherapy for Atrial Fibrillation/Atrialflutter: No Contraindication/Reason for not providing: no atrial fib Aldosterone Antagonist Prescribed: No Contraindication/Reason for not providing: other medications given Hydralazine Nitrate Prescribed: No Contraindication/Reason for not providing: other medications given Implantable Cardioverter Defibrillator Therapy: No Contraindication/Reason for not providing: not needed Cardiac Resynchronization Therapy Prescribed: No Contraindication/Reason for not providing: not needed - Follow up Will be discharged to: Home Follow Up Date (must be within 7 days from discharge): 03/16/17 (patient to follow up in [facility] ) Follow Up Time: 09:00
--- NOTE | 2017-03-09 17:06 | CP.PCM.DIS ---
<LeoncioRayne L. - Last Filed: 03/09/17 17:02> Provider - Provider Date of Admission: 03/01/17 17:33 Attending physician: Puneet Bonilla MD Consults: Dr. Ho (cardio) Dr. Ying (surgery) Dr. Chen (ID) Dr. Lopez (nephrology) Dr. Girard (pulmonology) Time Spent in preparation of Discharge (in minutes): 45 Diagnosis - Discharge Diagnosis (1) Bronchiectasis Status: Acute (2) CHF (congestive heart failure) Status: Acute (3) HTN (hypertension) Status: Acute (4) Hepatitis C Status: Acute (5) Type II diabetes mellitus - poor control Status: Acute Hospital Course - Lab Results Lab Results: Micro Results 03/07/17 16:20 Sputum Gram Stain - Final 03/07/17 16:20 Sputum Sputum Culture - Final Yeast Species 03/06/17 09:49 Other: Please Indicate Mycobacterial Culture - Preliminary 03/06/17 15:00 Other: Please Indicate Mycobacterial Culture - Preliminary 03/06/17 08:41 Other: Please Indicate Mycobacterial Culture - Preliminary Most Recent Lab Values WBC 8.9 K/uL (4.8-10.8) 03/09/17 06:07 RBC 3.00 Mil/uL (4.40-5.90) L 03/09/17 06:07 Hgb 9.1 g/dL (12.0-18.0) L 03/09/17 06:07 Hct 26.3 % (35.0-51.0) L 03/09/17 06:07 MCV 87.7 fL (80.0-94.0) 03/09/17 06:07 MCH 30.3 pg (27.0-31.0) 03/09/17 06:07 MCHC 34.5 g/dL (33.0-37.0) 03/09/17 06:07 RDW 13.7 % (11.5-14.5) 03/09/17 06:07 Plt Count 239 K/uL (130-400) 03/09/17 06:07 MPV 8.7 fL (7.2-11.7) 03/09/17 06:07 Neut % (Auto) 57.1 % (50.0-75.0) 03/09/17 06:07 Lymph % (Auto) 25.4 % (20.0-40.0) 03/09/17 06:07 [place] % (Auto) 6.9 % (0.0-10.0) 03/09/17 06:07 Eos % (Auto) 9.6 % (0.0-4.0) H 03/09/17 06:07 Baso % (Auto) 1.0 % (0.0-2.0) 03/09/17 06:07 Neut # 5.1 K/uL (1.8-7.0) 03/09/17 06:07 Lymph # 2.3 K/uL (1.0-4.3) 03/09/17 06:07 [place] # 0.6 K/uL (0.0-0.8) 03/09/17 06:07 Eos # 0.9 K/uL (0.0-0.7) H 03/09/17 06:07 Baso # 0.1 K/uL (0.0-0.2) 03/09/17 06:07 Sodium 139 mmol/L (132-148) 03/09/17 06:07 Potassium 4.6 mmol/L (3.6-5.2) 03/09/17 06:07 Chloride 104 mmol/L (98-107) 03/09/17 06:07 Carbon Dioxide 26 mmol/L (22-30) 03/09/17 06:07 Anion Gap 13 (10-20) 03/09/17 06:07 BUN 30 mg/dL (9-20) H 03/09/17 06:07 Creatinine 1.5 MG/DL (0.8-1.5) 03/09/17 06:07 Est GFR ( Amer) 58 03/09/17 06:07 Est GFR (Non-Af Amer) 48 03/09/17 06:07 POC Glucose (mg/dL) 166 mg/dL (65-110) H 03/09/17 12:43 Random Glucose 169 mg/dL (75-110) H 03/09/17 06:07 Hemoglobin A1c 10.4 % (4.2-6.5) H 02/28/17 06:06 Calcium 7.2 mg/dl (8.6-10.4) L 03/09/17 06:07 Phosphorus 5.0 mg/dL (2.5-4.5) H 03/05/17 07:40 Magnesium 1.9 mg/dL (1.6-2.3) 03/06/17 07:03 Total Bilirubin 0.3 mg/dL (0.2-1.3) 03/06/17 07:03 AST 24 U/L (17-59) 03/06/17 07:03 ALT 45 U/L (21-72) 03/06/17 07:03 Alkaline Phosphatase 68 U/L (38-126) 03/06/17 07:03 Total Creatine Kinase 403 U/L (55-170) H 02/27/17 08:06 CK-MB (Mass) 6.02 ng/mL (0.0-3.38) H 02/27/17 08:06 Troponin I 0.0170 ng/mL (0.00-0.120) 02/27/17 08:06 C-React Prot High Sens 4.92 mg/L (1.00-3.00) H 03/04/17 13:25 NT-Pro-B Natriuret Pep 2420 pg/mL (0-900) H 02/27/17 08:06 Total Protein 5.1 g/dL (6.3-8.3) L 03/06/17 07:03 Albumin 2.3 g/dL (3.5-5.0) L 03/06/17 07:03 Globulin 2.8 gm/dL (2.2-3.9) 03/06/17 07:03 Albumin/Globulin Ratio 0.8 (1.0-2.1) L 03/06/17 07:03 Triglycerides 144 mg/dL (0-149) 03/04/17 13:25 Cholesterol 138 mg/dL (0-199) 03/04/17 13:25 LDL Cholesterol Direct 66 mg/dL (0-129) 03/04/17 13:25 HDL Cholesterol 40 mg/dL (30-70) 03/04/17 13:25 TSH 3rd Generation 4.46 mIU/L (0.46-4.68) 03/04/17 13:25 Urine Color Yellow (YELLOW) 03/04/17 01:43 Urine Clarity Clear (Clear) 03/04/17 01:43 Urine pH 5.0 (5.0-8.0) 03/04/17 01:43 Ur Specific [place] 1.013 (1.003-1.030) 03/04/17 01:43 Urine Protein 3+ mg/dL (NEGATIVE) H 03/04/17 01:43 Urine Glucose (UA) 2+ mg/dL (Normal) H 03/04/17 01:43 Urine Ketones Negative mg/dL (NEGATIVE) 03/04/17 01:43 Urine Blood 1+ (NEGATIVE) H 03/04/17 01:43 Urine Nitrate Negative (NEGATIVE) 03/04/17 01:43 Urine Bilirubin Negative (NEGATIVE) 03/04/17 01:43 Urine Urobilinogen Normal mg/dL (0.2-1.0) 03/04/17 01:43 Ur Leukocyte Esterase Neg [place]/uL (Negative) 03/04/17 01:43 Urine WBC (Auto) 1 /hpf (0-5) 03/04/17 01:43 Urine RBC (Auto) 4 /hpf (0-3) H 03/04/17 01:43 Hyaline Casts 0-2 /lpf (0-2) 03/04/17 01:43 Ur Random Creatinine 62.3 mg/dL 03/04/17 01:44 U Random Total Protein 614.0 mg/dL (0.0-12.0) H 03/04/17 01:44 Urine Collection Time 24 HRS 03/05/17 11:54 Urine Total Volume 3200 mL 03/05/17 11:54 Ur Protein 24 Hr Calc 15463.0 mg/24hr (42-225) H 03/05/17 11:54 YEIMI 6 Profile Negative (NEGATIVE) 03/06/17 07:03 Complement C3 90.0 mg/dL (88.0-165.0) 03/06/17 07:03 Complement C4 34.6 mg/dL (14.0-44.0) 03/06/17 07:03 Tot Complement (CH50) >60 U/mL (31-60) H 03/04/17 13:25 Hepatitis A IgM Ab Negative (NEGATIVE) 03/04/17 13:25 Hep Bs Antigen Negative (NEGATIVE) 03/04/17 13:25 Hep B Core IgM Ab Negative (NEGATIVE) 03/04/17 13:25 Hepatitis C Antibody Reactive (NEGATIVE) H 03/04/17 13:25 HCV RNA Qual (TMA) Not detected 03/06/17 07:03 HIV 1&2 Antibody Screen Negative (NEGATIVE) 03/06/17 19:34 H.influenzae Type B Ag Dnr (NEGATIVE) 03/01/17 10:33 Ur L.pneumophila Ag Negative (NEGATIVE) 03/02/17 16:56 Mycoplasma pneumon IgG 3.97 (<=0.90) H 03/01/17 14:14 Mycoplasma pneumon IgM Negative (NEGATIVE) 03/02/17 16:56 N.meningitidis ACY/W135 Dnr (NEGATIVE) 03/01/17 10:33 N.meningi B/E.coli K1 Ag Dnr (NEGATIVE) 03/01/17 10:33 Grp A Beta Strep Ag Negative (NEGATIVE) 02/28/17 13:37 Group B Strep Antigen Dnr (NEGATIVE) 03/01/17 10:33 S. pneumoniae Antigen Negative (NEGATIVE) 03/01/17 10:33 TB Test (QFT) Nil 0.04 IU/mL 03/07/17 07:06 TB Test Mitogen - Nil 6.72 IU/mL 03/07/17 07:06 TB Test TB - Nil 6.70 IU/mL 03/07/17 07:06 TB Test (QFT) Positive (Negative) H 03/07/17 07:06 - Hospital Course Hospital Course: "CC: "I had pain and pressure in my chest, and I have back pain that's different from ever before." HPI: 56 yo male with PMHx HTN, hyperlipidemia - presents to the ED c/o chest pain and L sided chest pressure since 4pm. The chest pain began while sitting at his desk in [employer], and describes it as throbbing, rated 4/10. He admits the chest pain was associated with feeling of pressure in the left chest. He denies radiation of chest pain, and nothing made it better or worse. Patient states that chest pain lasted for approximately 30 minutes, and resolved upon arrival to the ED (prior to administration of ASA). He admits to swelling of his lower extremities nightly for several months and SOB after going up 3 flights of stairs for the same time period. He denies orthopnea. Pt denies fever, chills, change in vision, dizziness, headache, SOB, abdominal pain, nausea, vomiting, LE pain, or any additional acute complaints. Patient also complains of intermittent mid-left back pain that has been present for several years, exacerbated by increased activity. Most recently, he walked over 30 blocks, and his back pain became worst at 8/10. Currently his back pain is 6/10. Extra strength tylenol has helped moderately." Patient admitted 02/27/17 for lower extremity edema and pain, uncontrolled hypertension and uncontrolled diabetes mellitus. Patient was found to have bilateral lower extremity edema secondary to acute diastolic congestive heart failure. 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 BNP [02/27] was 2420H. Echo on [02/27] found borderline concentric left ventricular hypertrophy. Tissue doppler imaging reveals mild left ventricular diastolic dysfunction with mild aortic regurgitation. LV EF was found to be 50% . EKG [02/27] found right bundle branch block which was unchanged when compared to EKG from 12/2016. Troponin [02/27] was found to be within normal limits. Lipid panel [02/27] found elevated Triglycerides at 174H, rest was within normal limits. Lower extremity ultrasound [02/27] found no evidence of deep or superficial vein thrombosis in right or left lower extremities. During hospital stay patient was treated for cavitary lesions and bronchiectasis. Infectious disease Dr. Chen and hr business partner Dr. Girard were consulted. CXR [02/27] found previously noted areas of nodular opacitis, peribronchial thickening, cystic bronchiectasis, cavitary lesions in upper and to a lesser degree lower lobes bilaterally are less well seen on this study as compared to high resolution CT scan chest. CXR suggested to rule out chronic inflammatory process/fungal infection. CXR [03/01 ] found persistent ill defined consolidative and mass like opacities seen within the right upper to mid lung zone as well as within the left upper to mid lung zone. This may represent an underlying infectious process versus inflammatory versus neoplastic versus post granulomatous changes. Chest CT without IV contrast [03/02] found innumerable pulmonary nodules with mid to upper lobe predominance. No definite cavitary nodules were found, there is peribronchial thickening, bronchiectasis, patchy upper lob infiltrates or atelectasis. Patient has a history of TB about 3-4 years ago where patient states he was hospitalized for 1 month at [facility], treated for TB. Compliance with medication and follow up is unclear. Patient was imprisoned for 1 month 10 years ago and does not remember receiving BCG vaccine. AFB x3 were found to be negative [03/06]. QTF [03/07] was positive. Sputum gram stain results found few polymorphonuclear wbcs, rare gram positive cocci in pairs, and a few epithelial cells. Strept pneumoniae, legionella, m. pneumonia were all negative. Hepatitis C [03/04] was found to be reactive. HIV negative [03/06]. Abdominal ultrasound [03/05] exhibits increased echo texture suggesting distinct fatty infiltration and cannot rule out other infiltrative hepatocellular diseases. Gastroenterology Dr. Rojas was consulted. Patient will follow up and is open to treatment options. 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 Nephrotic syndrome was secondary to diabetes mellitus. 24 hour [place]03[place] [address]. Patient's chronic diseases including hypertension, diabetes mellitus were monitored and treated. Patient counseled and treated for tobacco use disorder. Prophylactic measures were administered. Discharge Exam - Head Exam Head Exam: ATRAUMATIC, NORMAL INSPECTION - Eye Exam Eye Exam: EOMI, Normal appearance, PERRL - ENT Exam ENT Exam: Mucous Membranes Moist - Neck Exam Neck exam: Full Rom - Respiratory Exam Respiratory Exam: Clear to PA & Lateral, NORMAL BREATHING PATTERN - Cardiovascular Exam Cardiovascular Exam: REGULAR RHYTHM, RRR. absent: Gallop, Rubs, Systolic Murmur - GI/Abdominal Exam GI & Abdominal Exam: Normal Bowel Sounds, Unremarkable - Extremities Exam Extremities exam: full ROM, normal inspection - Back Exam Back exam: NORMAL INSPECTION - Neurological Exam Neurological exam: Alert, Oriented x3 - Psychiatric Exam Psychiatric exam: Normal Affect, Normal Mood - Skin Skin Exam: Intact, Normal Color, Warm Discharge Plan - Discharge Medications Prescriptions: amLODIPine [Norvasc] 5 mg PO DAILY #30 tab Aspirin [Aspirin Chewable] 81 mg PO DAILY #30 Carvedilol [Coreg] 3.125 mg PO BID #60 tab Clotrimazole 1% Cream [Lotrimin 1%] 30 gm TOP BID #1 Furosemide [Lasix] 40 mg PO DAILY #30 tab Gabapentin [Neurontin] 600 mg PO BID #60 tab Insulin Aspart, Recombinant [Novolog] 4 unit SC BIDAC #2 vial Insulin Aspart, Recombinant [Novolog] 3 unit SC ACS #1 vial Insulin Glargine, Recombina [Lantus] 14 unit SC HS #2 vial Isosorbide Mononitrate [Imdur] 30 mg PO HS #30 tab Losartan [Cozaar] 100 mg PO DAILY #30 tab metFORMIN [glucOPHAGE] 500 mg PO BID #60 tab Rosuvastatin Calcium 2.5 [Crestor] 2.5 mg PO HS #30 tab SITagliptin [Januvia] 50 mg PO DAILY #30 tab - Follow Up Plan Condition: FAIR Disposition: HOME/ ROUTINE Instructions: Heart Failure (DC), Tuberculosis (DC), Edema (DC) Additional Instructions: Patient stable for discharge as per Dr. Nava. Patient to follow up with the following: (within one week of discharge) 1. Dr. Rojas (GI) 2. [facility] 3. [facility] (call [phone], located at [address] [place] [address]) Patient to take the following medications: Amlodipine 5 mg PO daily Aspirin 81 mg po daily Carvedilol 3.125 mg po twice a day Furosemide 40 mg PO daily Gabapentin 600 mg PO twice a day Novolog 4 units before breakfast and lunch, 3 units before dinner Lantus 14 units at night Cozaar 100 mg PO daily Crestor 2.5 mg po at night Januvia 50 mg po daily Metformin 500 mg twice a day Patient to use Clotrimazole cream on the front of his legs daily Please return to emergency room immediately if symptoms return or worsen. Instructions given to patient who understood and agreed. Referrals: [facility] [Outside] Brayan Rojas MD [Staff Provider] - <Rubio Nava - Last Filed: 04/11/17 15:15> Provider - Provider Date of Admission: 03/01/17 17:33 Attending physician: Puneet Bonilla MD Hospital Course - Lab Results Lab Results: Micro Results 03/06/17 08:41 Other: Please Indicate Mycobacterial Culture - Preliminary 03/06/17 09:49 Other: Please Indicate Mycobacterial Culture - Preliminary 03/06/17 15:00 Other: Please Indicate Mycobacterial Culture - Preliminary 03/07/17 16:20 Sputum Gram Stain - Final 03/07/17 16:20 Sputum Sputum Culture - Final Yeast Species Most Recent Lab Values WBC 8.9 K/uL (4.8-10.8) 03/09/17 06:07 RBC 3.00 Mil/uL (4.40-5.90) L 03/09/17 06:07 Hgb 9.1 g/dL (12.0-18.0) L 03/09/17 06:07 Hct 26.3 % (35.0-51.0) L 03/09/17 06:07 MCV 87.7 fL (80.0-94.0) 03/09/17 06:07 MCH 30.3 pg (27.0-31.0) 03/09/17 06:07 MCHC 34.5 g/dL (33.0-37.0) 03/09/17 06:07 RDW 13.7 % (11.5-14.5) 03/09/17 06:07 Plt Count 239 K/uL (130-400) 03/09/17 06:07 MPV 8.7 fL (7.2-11.7) 03/09/17 06:07 Neut % (Auto) 57.1 % (50.0-75.0) 03/09/17 06:07 Lymph % (Auto) 25.4 % (20.0-40.0) 03/09/17 06:07 [place] % (Auto) 6.9 % (0.0-10.0) 03/09/17 06:07 Eos % (Auto) 9.6 % (0.0-4.0) H 03/09/17 06:07 Baso % (Auto) 1.0 % (0.0-2.0) 03/09/17 06:07 Neut # 5.1 K/uL (1.8-7.0) 03/09/17 06:07 Lymph # 2.3 K/uL (1.0-4.3) 03/09/17 06:07 [place] # 0.6 K/uL (0.0-0.8) 03/09/17 06:07 Eos # 0.9 K/uL (0.0-0.7) H 03/09/17 06:07 Baso # 0.1 K/uL (0.0-0.2) 03/09/17 06:07 Sodium 139 mmol/L (132-148) 03/09/17 06:07 Potassium 4.6 mmol/L (3.6-5.2) 03/09/17 06:07 Chloride 104 mmol/L (98-107) 03/09/17 06:07 Carbon Dioxide 26 mmol/L (22-30) 03/09/17 06:07 Anion Gap 13 (10-20) 03/09/17 06:07 BUN 30 mg/dL (9-20) H 03/09/17 06:07 Creatinine 1.5 MG/DL (0.8-1.5) 03/09/17 06:07 Est GFR ( Amer) 58 03/09/17 06:07 Est GFR (Non-Af Amer) 48 03/09/17 06:07 POC Glucose (mg/dL) 166 mg/dL (65-110) H 03/09/17 12:43 Random Glucose 169 mg/dL (75-110) H 03/09/17 06:07 Hemoglobin A1c 10.4 % (4.2-6.5) H 02/28/17 06:06 Calcium 7.2 mg/dl (8.6-10.4) L 03/09/17 06:07 Phosphorus 5.0 mg/dL (2.5-4.5) H 03/05/17 07:40 Magnesium 1.9 mg/dL (1.6-2.3) 03/06/17 07:03 Total Bilirubin 0.3 mg/dL (0.2-1.3) 03/06/17 07:03 AST 24 U/L (17-59) 03/06/17 07:03 ALT 45 U/L (21-72) 03/06/17 07:03 Alkaline Phosphatase 68 U/L (38-126) 03/06/17 07:03 Total Creatine Kinase 403 U/L (55-170) H 02/27/17 08:06 CK-MB (Mass) 6.02 ng/mL (0.0-3.38) H 02/27/17 08:06 Troponin I 0.0170 ng/mL (0.00-0.120) 02/27/17 08:06 C-React Prot High Sens 4.92 mg/L (1.00-3.00) H 03/04/17 13:25 NT-Pro-B Natriuret Pep 2420 pg/mL (0-900) H 02/27/17 08:06 Total Protein 5.1 g/dL (6.3-8.3) L 03/06/17 07:03 Albumin 2.3 g/dL (3.5-5.0) L 03/06/17 07:03 Globulin 2.8 gm/dL (2.2-3.9) 03/06/17 07:03 Albumin/Globulin Ratio 0.8 (1.0-2.1) L 03/06/17 07:03 Triglycerides 144 mg/dL (0-149) 03/04/17 13:25 Cholesterol 138 mg/dL (0-199) 03/04/17 13:25 LDL Cholesterol Direct 66 mg/dL (0-129) 03/04/17 13:25 HDL Cholesterol 40 mg/dL (30-70) 03/04/17 13:25 TSH 3rd Generation 4.46 mIU/L (0.46-4.68) 03/04/17 13:25 Urine Color Yellow (YELLOW) 03/04/17 01:43 Urine Clarity Clear (Clear) 03/04/17 01:43 Urine pH 5.0 (5.0-8.0) 03/04/17 01:43 Ur Specific [place] 1.013 (1.003-1.030) 03/04/17 01:43 Urine Protein 3+ mg/dL (NEGATIVE) H 03/04/17 01:43 Urine Glucose (UA) 2+ mg/dL (Normal) H 03/04/17 01:43 Urine Ketones Negative mg/dL (NEGATIVE) 03/04/17 01:43 Urine Blood 1+ (NEGATIVE) H 03/04/17 01:43 Urine Nitrate Negative (NEGATIVE) 03/04/17 01:43 Urine Bilirubin Negative (NEGATIVE) 03/04/17 01:43 Urine Urobilinogen Normal mg/dL (0.2-1.0) 03/04/17 01:43 Ur Leukocyte Esterase Neg [place]/uL (Negative) 03/04/17 01:43 Urine WBC (Auto) 1 /hpf (0-5) 03/04/17 01:43 Urine RBC (Auto) 4 /hpf (0-3) H 03/04/17 01:43 Hyaline Casts 0-2 /lpf (0-2) 03/04/17 01:43 Ur Random Creatinine 62.3 mg/dL 03/04/17 01:44 U Random Total Protein 614.0 mg/dL (0.0-12.0) H 03/04/17 01:44 Urine Collection Time 24 HRS 03/05/17 11:54 Urine Total Volume 3200 mL 03/05/17 11:54 Ur Protein 24 Hr Calc 45992.0 mg/24hr (42-225) H 03/05/17 11:54 YEIMI 6 Profile Negative (NEGATIVE) 03/06/17 07:03 Complement C3 90.0 mg/dL (88.0-165.0) 03/06/17 07:03 Complement C4 34.6 mg/dL (14.0-44.0) 03/06/17 07:03 Tot Complement (CH50) >60 U/mL (31-60) H 03/04/17 13:25 Hepatitis A IgM Ab Negative (NEGATIVE) 03/04/17 13:25 Hep Bs Antigen Negative (NEGATIVE) 03/04/17 13:25 Hep B Core IgM Ab Negative (NEGATIVE) 03/04/17 13:25 Hepatitis C Antibody Reactive (NEGATIVE) H 03/04/17 13:25 HCV RNA Qual (TMA) Not detected 03/06/17 07:03 HIV 1&2 Antibody Screen Negative (NEGATIVE) 03/06/17 19:34 H.influenzae Type B Ag Dnr (NEGATIVE) 03/01/17 10:33 Ur L.pneumophila Ag Negative (NEGATIVE) 03/02/17 16:56 Mycoplasma pneumon IgG 3.97 (<=0.90) H 03/01/17 14:14 Mycoplasma pneumon IgM Negative (NEGATIVE) 03/02/17 16:56 N.meningitidis ACY/W135 Dnr (NEGATIVE) 03/01/17 10:33 N.meningi B/E.coli K1 Ag Dnr (NEGATIVE) 03/01/17 10:33 Grp A Beta Strep Ag Negative (NEGATIVE) 02/28/17 13:37 Group B Strep Antigen Dnr (NEGATIVE) 03/01/17 10:33 S. pneumoniae Antigen Negative (NEGATIVE) 03/01/17 10:33 TB Test (QFT) Nil 0.04 IU/mL 03/07/17 07:06 TB Test Mitogen - Nil 6.72 IU/mL 03/07/17 07:06 TB Test TB - Nil 6.70 IU/mL 03/07/17 07:06 TB Test (QFT) Positive (Negative) H 03/07/17 07:06 Attending/Attestation - Attestation I have personally seen and examined this patient.: Yes I have fully participated in the care of the patient.: Yes I have reviewed all pertinent clinical information, including history, physical exam and plan: Yes Notes (Text): During hospital stay patient was treated for cavitary lesions and bronchiectasis. Infectious disease Dr. Chen and hr business partner Dr. Girard were consulted. CXR [02/27] found previously noted areas of nodular opacitis, peribronchial thickening, cystic bronchiectasis, cavitary lesions in upper and to a lesser degree lower lobes bilaterally are less well seen on this study as compared to high resolution CT scan chest. CXR suggested to rule out chronic inflammatory process/fungal infection. CXR [03/01 ] found persistent ill defined consolidative and mass like opacities seen within the right upper to mid lung zone as well as within the left upper to mid lung zone. This may represent an underlying infectious process versus inflammatory versus neoplastic versus post granulomatous changes. Chest CT without IV contrast [03/02] found innumerable pulmonary nodules with mid to upper lobe predominance. No definite cavitary nodules were found, there is peribronchial thickening, bronchiectasis, patchy upper lob infiltrates or atelectasis. Patient has a history of TB about 3-4 years ago where patient states he was hospitalized for 1 month at [facility], treated for TB. Compliance with medication and follow up is unclear. Patient was imprisoned for 1 month 10 years ago and does not remember receiving BCG vaccine. AFB x3 were found to be negative [03/06]. QTF [03/07] was positive. Sputum gram stain results found few polymorphonuclear wbcs, rare gram positive cocci in pairs, and a few epithelial cells. Strept pneumoniae, legionella, m. pneumonia were all negative. Hepatitis C [03/04] was found to be reactive. HIV negative [03/06]. Abdominal ultrasound [03/05] exhibits increased echo texture suggesting distinct fatty infiltration and cannot rule out other infiltrative hepatocellular diseases. Gastroenterology Dr. Rojas was consulted. Patient will follow up and is open to treatment options. 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 Nephrotic syndrome was secondary to diabetes mellitus. 24 hour [place]03/05[place] [address]. Patient's chronic diseases including hypertension, diabetes mellitus were monitored and treated. Patient counseled and treated for tobacco use disorder. Prophylactic measures were administered.
== END 2017-03-09 14:31 | disposition home or self-care (01) | DRG 544 ==
LOC: C.ER 07:19 → C.9E 09:43 → C.6T 13:50 → OBSVTOIN 03-01 17:33 → C.6T 03-05 18:49
PROVIDERS: ADMIT Internal Medicine; ATTEND Internal Medicine
DX: I13.0 Hypertensive heart and chronic kidney disease with heart failure and stage 1 through stage 4 chronic kidney disease, or unspecified chronic kidney disease (principal); I50.31 Acute diastolic (congestive) heart failure; J47.9 Bronchiectasis, uncomplicated; E10.21 Type 1 diabetes mellitus with diabetic nephropathy; E10.51 Type 1 diabetes mellitus with diabetic peripheral angiopathy without gangrene; N17.9 Acute kidney failure, unspecified; N18.3 Chronic kidney disease, stage 3 (moderate); B19.20 Unspecified viral hepatitis C without hepatic coma; E10.22 Type 1 diabetes mellitus with diabetic chronic kidney disease; E10.649 Type 1 diabetes mellitus with hypoglycemia without coma; E87.5 Hyperkalemia; I35.1 Nonrheumatic aortic (valve) insufficiency; J44.9 Chronic obstructive pulmonary disease, unspecified; N04.9 Nephrotic syndrome with unspecified morphologic changes; E10.65 Type 1 diabetes mellitus with hyperglycemia; E78.00 Pure hypercholesterolemia, unspecified; E78.5 Hyperlipidemia, unspecified; F17.210 Nicotine dependence, cigarettes, uncomplicated; I45.10 Unspecified right bundle-branch block; K21.9 Gastro-esophageal reflux disease without esophagitis; K59.00 Constipation, unspecified; Z79.4 Long term (current) use of insulin; Z79.82 Long term (current) use of aspirin; Z86.11 Personal history of tuberculosis

== ENCOUNTER 2017-04-18 10:16 | Emergency (ER) | payer SELFPAY ==
[2017-04-18 10:27] VITALS: BMI 24.9
[2017-04-18 10:28] VITALS: RESP 18; O2SAT 99
--- NOTE | 2017-04-18 11:14 | C.PDOC ---
History Of Present Illness 56 year old male, with a history of diabetes, presents to the ED with complaints of bilateral leg swelling and intermittent pain for two weeks. Patient notes formation of blisters to the lower extremities and "my legs feel heavy." He has been taking 40 mg daily of Lasix and his medication ran out few days ago. Patient sleeps on two pillows and denies shortness of breath. Patient denies shortness of breath at rest or with walking, but admits to shortness of breath with exercise or climbing stairs. Patient feels bloated and has a lot of flatulence, but is having normal bowel movement and occasionally notes mucus or yellow discoloration to stools. Time Seen by Provider: 04/18/17 10:49 Chief Complaint (Nursing): Lower Extremity Problem/Injury History Per: Patient History/Exam Limitations: no limitations Current Symptoms Are (Timing): Still Present Recent travel outside of the [place]: No Additional History Per: Prior Records Past Medical History Reviewed: Historical Data, Nursing Documentation, Vital Signs Vital Signs: Last Vital Signs Temp 97.7 F 04/18/17 13:08 Pulse 74 04/18/17 13:08 Resp 18 04/18/17 13:08 BP 172/86 H 04/18/17 13:08 Pulse Ox 99 04/18/17 13:08 - Medical History PMH: Back Problems, Diabetes, HTN - [facility] Procedures INFLUENZA VACCINATION (08/18/13) VACCINATION NEC (08/18/13) Family History: States: Unknown Family Hx - Social History Hx Tobacco Use: Yes Hx Alcohol Use: Yes (socially) Hx Substance Use: No - Immunization History Hx Tetanus Toxoid Vaccination: No Hx Influenza Vaccination: Yes Hx Pneumococcal Vaccination: No Review Of Systems Constitutional: Negative for: Fever, Chills Cardiovascular: Negative for: Chest Pain, Palpitations Respiratory: Positive for: SOB with Excertion. Negative for: Cough, Shortness of Breath Gastrointestinal: Positive for: Abdominal Pain (feels as though abdomen is " full of gas" ). Negative for: Nausea, Vomiting Genitourinary: Negative for: Dysuria Musculoskeletal: Positive for: Leg Pain. Negative for: Back Pain Neurological: Negative for: Headache, Dizziness Physical Exam - Physical Exam Appears: Non-toxic, No Acute Distress Skin: Warm, Dry, Other (mild erythema to bilateral lower extremities anterior tibial region. Few scattered blisters to bilateral lower extremities, no discharge ) Head: Atraumatic, Normacephalic Eye(s): bilateral: Normal Inspection Oral Mucosa: Moist Neck: Supple Chest: Symmetrical, No Deformity Cardiovascular: Rhythm Regular Respiratory: Normal Breath Sounds, No Rales, No Rhonchi, No Wheezing Gastrointestinal/Abdominal: Soft, No Tenderness, No Distention, No Guarding, No Rebound Extremity: Normal ROM, Pedal Edema (bilateral edema ), No Calf Tenderness, Capillary Refill (good capillary refill, less than two seconds ) Pulses: Left Dorsalis Pedis: Normal, Right Dorsalis Pedis: Normal Neurological/Psych: Oriented x3, Normal Speech, Normal Sensation Gait: Steady ED Course And Treatment - Laboratory Results Result Diagrams: 04/18/17 11:33 04/18/17 11:33 Lab Interpretation: No Acute Changes O2 Sat by Pulse Oximetry: 99 (room air ) Pulse Ox Interpretation: Normal Progress Note: UA and blood work were ordered. Patient was given lasix. Medical Decision Making Medical Decision Making: Impression: edema Prior records reviewed: Patient seen and admitted 02/27/17 for Leg edema Plan: * Labs * Lasix Progress: Labs reviewed shows elevated BNP, no leukocytosis. Patient remains well and denies any chest pain or SOB. Patient has poor insight as to his condition and why he has leg edema. I explained to patient at length regarding medications to control his CHF and DM. He seemed to understand and new Rx was given. Patient was given instructions to follow up in the clinic for further evaluation. Disposition Counseled Patient/Family Regarding: Diagnosis, Need For Followup, Rx Given - Disposition Referrals: [facility] [Outside] Disposition: HOME/ ROUTINE Disposition Time: 12:44 Condition: STABLE Additional Instructions: Por favor, siga en la clnica para ms evaluacin [place] medicamentos recetados Prescriptions: Bacitracin OINT 1 applic TOP DAILY #1 tube Cephalexin [cephalexin] 500 mg PO Q12 #14 cap Furosemide [Lasix] 40 mg PO DAILY #30 tab Instructions: Leg Edema (ED) Forms: [facility] (Scottish) Print Language: PORTUGUESE - POA Present On Arrival: None - Clinical Impression Clinical Impression: Diabetic complication, Leg edema - PA / [employer] / Resident Statement MD/DO has reviewed & agrees with the documentation as recorded. MD/DO has examined the patient and agrees with the treatment plan. - Scribe Statement The provider has reviewed the documentation as recorded by the Scribe Meenakshi Miller All medical record entries made by the Scribe were at my direction and personally dictated by me. I have reviewed the chart and agree that the record accurately reflects my personal performance of the history, physical exam, medical decision making, and the department course for this patient. I have also personally directed, reviewed, and agree with the discharge instructions and disposition.
[2017-04-18 11:29] LABS: RBC URINE 3 /hpf (0-3); URINE BACTERIA RARE (<OCC); URINE BILIRUBIN NEGATIVE (NEGATIVE); URINE BLOOD NEGATIVE (NEGATIVE); URINE COLOR Yellow (YELLOW); URINE GLUCOSE (UA) 2+ mg/dL (Normal); URINE KETONE NEGATIVE (NEGATIVE); URINE LEUKOCYTE ESTERASE NEG Leu/uL (Negative); URINE PROTEIN 3+ mg/dL (NEGATIVE); URINE UROBILINOGEN NORMAL mg/dL (0.2-1.0); WBC URINE 3 /hpf (0-5)
[2017-04-18 11:38] LABS: BASO # 0.1 K/uL (0.0-0.2); BASO % 0.8 % (0.0-2.0); EOS # 0.6 K/uL (0.0-0.7); EOS % 6.3 % (0.0-4.0); HEMATOCRIT 28.6 % (35.0-51.0); LYMPH # 1.5 K/uL (1.0-4.3); LYMPH % 15.2 % (20.0-40.0); MEAN CELL VOLUME 88.4 fL (80.0-94.0); MEAN CORPUSCULAR HEMOGLOBIN 29.3 pg (27.0-31.0); MEAN CORPUSCULAR HGB CONC 33.1 g/dL (33.0-37.0); MEAN PLATELET VOLUME 8.5 fL (7.2-11.7); MONO # 0.5 K/uL (0.0-0.8); MONO % 4.5 % (0.0-10.0); WHITE BLOOD COUNT 10.1 K/uL (4.8-10.8)
[2017-04-18 11:48] LABS: ALB/GLOB RATIO 0.7 (1.0-2.1); ALKALINE PHOSPHATASE 101 U/L (38-126); ALT/SGPT 63 U/L (21-72); AST/SGOT 42 U/L (17-59); BILIRUBIN,TOTAL 0.2 mg/dL (0.2-1.3); BLOOD UREA NITROGEN 17 mg/dL (9-20); CALCIUM 8.1 mg/dl (8.6-10.4); CARBON DIOXIDE 22 mmol/L (22-30); CHLORIDE 114 mmol/L (98-107); GFR AFRICAN-AMERICAN > 60; GLUCOSE,RANDOM 153 mg/dL (75-110); SODIUM 145 mmol/L (132-148); TOTAL PROTEIN 5.7 g/dL (6.3-8.3)
[2017-04-18 13:08] VITALS: BP 172/86; PULSE 74; TEMP 97.7
== END 2017-04-18 13:59 | disposition home or self-care (01) ==
LOC: C.ER 10:16
DX: R60.0 Localized edema (principal); E11.8 Type 2 diabetes mellitus with unspecified complications
CPT/HCPCS: 80053; 81001; 83880; 85025; 96374; 96376; 99285; J1940

== ENCOUNTER 2017-04-27 20:59 | Inpatient (IN) | payer SELFPAY ==
[2017-04-27 21:00] VITALS: BMI 24.9
--- NOTE | 2017-04-27 22:06 | C.PDOC ---
History Of Present Illness Patient present today complaining of worsening bilateral leg swelling, present for the past 5 months. Patient also reports he has scrotal and penile swelling since last night. He additionally states he fell yesterday and is now complaining of left leg pain - patient states he is able to ambulate without difficulty. He offers no other medical complaints. Time Seen by Provider: 04/27/17 21:59 Chief Complaint (Nursing): Male Genitourinary History Per: Patient History/Exam Limitations: no limitations Onset/Duration Of Symptoms: Days, Persistent Current Symptoms Are (Timing): Still Present Severity: Moderate Recent travel outside of the [place]: No Additional History Per: Patient Past Medical History Reviewed: Historical Data, Nursing Documentation, Vital Signs Vital Signs: Last Vital Signs Temp 98.5 F 04/28/17 01:58 Pulse 65 04/28/17 01:58 Resp 16 04/28/17 01:58 BP 181/91 H 04/28/17 01:58 Pulse Ox 98 04/28/17 01:58 - Medical History PMH: Back Problems, Diabetes, HTN, Peripheral Edema Surgical History: No Surg Hx - [facility] Procedures INFLUENZA VACCINATION (08/18/13) VACCINATION NEC (08/18/13) Family History: States: No Known Family Hx, Unknown Family Hx - Social History Hx Tobacco Use: Yes Hx Alcohol Use: Yes (socially) Hx Substance Use: No - Immunization History Hx Tetanus Toxoid Vaccination: Yes (2013) Hx Influenza Vaccination: Yes (2015) Hx Pneumococcal Vaccination: No Review Of Systems Constitutional: Negative for: Fever, Chills Eyes: Negative for: Redness ENT: Negative for: Throat Pain Cardiovascular: Negative for: Chest Pain Respiratory: Positive for: Shortness of Breath (mild) Genitourinary: Positive for: Other (large scrotal edema, penile edema) Musculoskeletal: Positive for: Leg Pain (left leg pain, bilateral leg swelling) Skin: Positive for: Lesions (both legs) Neurological: Negative for: Weakness Psych: Negative for: Anxiety Physical Exam - Physical Exam Appears: Non-toxic, No Acute Distress Skin: Warm, Dry, Other (poor vascular venous skin changes) Head: Normacephalic Eye(s): bilateral: Normal Inspection Oral Mucosa: Moist Neck: Supple Chest: Symmetrical Cardiovascular: Rhythm Regular Respiratory: No Rales, Rhonchi (ronchi at bases), No Wheezing Gastrointestinal/Abdominal: Bowel Sounds, Soft, Tenderness (diffuse tendernes to palpation), No Guarding, No Rebound, Other (tympanic to precussion) Back: No CVA Tenderness Male Genital: Testicular Swelling, No Inguinal Tenderness, Scrotal Swelling ( edematous and enlarged scrotum; edema to penile shaft as well), No Circumcised Extremity: Normal ROM, Pedal Edema (bilateral), Capillary Refill (< 2 seconds), No Deformity Extremity: Bilateral: Atraumatic Pulses: Left Dorsalis Pedis: Normal, Right Dorsalis Pedis: Normal Neurological/Psych: Oriented x3, Normal Speech, Normal Cognition Gait: Steady ED Course And Treatment - Laboratory Results Result Diagrams: 04/27/17 22:25 04/27/17 22:25 ECG: Interpreted By Me, Viewed By Me ECG Rhythm: Sinus Rhythm (70), R BBB, Nonspecific Changes (lahb) O2 Sat by Pulse Oximetry: 99 (RA) Pulse Ox Interpretation: Normal - Radiology CXR: Interpreted by Me, Viewed By Me CXR Interpretation: Yes: Cardiomegaly, Other (some vasc congestion, not much changed from 03/01). No: Infiltrates, Fracture - CT Scan/US CT ABD w/ Contrast Other Rad Studies (CT/US): Read By Radiologist CT/US Interpretation: EXAM: CT Abdomen and Pelvis With Intravenous Contrast. CLINICAL HISTORY: 56 years old, male; Pain; Abdominal pain; Flank; Left lower quadrant (llq); Additional info: Abd pain,. scrotal edema. TECHNIQUE: Axial computed tomography images of the abdomen and pelvis with intravenous contrast. All CT. scans at this facility use one or more dose reduction techniques, viz. : automated exposure control;. ma/kV adjustment per patient size (including targeted exams where dose is matched to indication; i.e. head); or iterative reconstruction technique. Coronal and sagittal reformatted images were created and reviewed. CONTRAST: 100 mL of [id number] administered intravenously. COMPARISON: No relevant prior studies available. FINDINGS: Limitations: Motion artifact - mild to moderate. Lower thorax: Mild atelectasis/scarring. Mild mosaic pattern of lung parenchyma, nonspecific. Few. scattered nodular airspace opacities, up to 2.4 cm in size. ABDOMEN: Liver: Unremarkable. No mass. Gallbladder and bile ducts: No calcified stones. No ductal dilation. Provided Clinical History: abd pain, scrotal edema. Pancreas: Multiple calcifications within pancreas. Mild prominence of pancreatic duct. Spleen: No splenomegaly. Adrenals: No mass. Kidneys and ureters: Few RIGHT renal cysts. Few too small to characterize lesions within kidneys. Few punctate calculi within kidneys. No hydronephrosis. Stomach and bowel: Moderate to large amount of stool within colon. No definite mural thickening. No obstruction. Appendix : Normal caliber. No inflammation. PELVIS: Bladder: Distended bladder. Reproductive: Mildly enlarged prostate. Diffuse scrotal edema and/or hydroceles. ABDOMEN and PELVIS: Intraperitoneal space: No significant fluid collection. No free air. Bones/joints: No acute fracture. Soft tissues: Mild to moderate diffuse stranding within subcutaneous tissues. Small LEFT inguinal. hernia containing fat. Vasculature: Mild atherosclerotic disease. No aneurysm. Lymph nodes: No pathologically enlarged lymph nodes. IMPRESSION: 1. Nodular air space opacities, indeterminate. Consider inflammatory, infectious , or neoplastic. etiologies. 2. Chronic pancreatitis. 3. Soft tissue edema. 4. Incidental/non-acute findings are described above. Progress Note: Labs, lasix 40 mg IVP, CXR ordered Disposition Discussed With DrzEequiel: Augie Herring Comment: accepted the pt on his service and took over the care at 2AM Doctor Will See Patient In The: ED Counseled Patient/Family Regarding: Studies Performed, Diagnosis - Disposition Disposition: HOSPITALIZED Disposition Time: 22:05 Condition: FAIR Forms: [facility] (Maltese) - POA Present On Arrival: Poor Glycemic Control - Clinical Impression Clinical Impression: Hyperglycemia, CHF (congestive heart failure), Bronchiectasis - Scribe Statement The provider has reviewed the documentation as recorded by the Hortencia Correa Provider Attestation: All medical record entries made by the Hortencia were at my direction and personally dictated by me. I have reviewed the chart and agree that the record accurately reflects my personal performance of the history, physical exam, medical decision making, and the department course for this patient. I have also personally directed, reviewed, and agree with the discharge instructions and disposition. Decision To Admit - Pt Status Changed To: Hospital Disposition Of: Inpatient - Admit Certification Admit to Inpatient:: After my assessment, the patient will require hospitalization for at least two midnights. This is because of the severity of symptoms shown, intensity of services needed, and/or the medical risk in this patient being treated as an outpatient. - InPatient: Physician Admission Certification: I certify that this patient requires 2 or more midnights of care for the following reason:: After my assessment, the patient will require hospitalization for at least two midnights. This is because of the severity of symptoms shown, intensity of services needed, and/or the medical risk in this patient being treated as an outpatient. - . Bed Request Type: Telemetry Admitting Physician: Augie Herring Patient Diagnosis: CHF (congestive heart failure), Leg edema, Bronchiectasis, Hyperglycemia
[2017-04-27 22:29] LABS: BASO # 0.1 K/uL (0.0-0.2); BASO % 0.6 % (0.0-2.0); EOS # 0.6 K/uL (0.0-0.7); EOS % 6.1 % (0.0-4.0); HEMATOCRIT 26.2 % (35.0-51.0); LYMPH # 1.5 K/uL (1.0-4.3); LYMPH % 16.1 % (20.0-40.0); MEAN CELL VOLUME 87.8 fL (80.0-94.0); MEAN CORPUSCULAR HEMOGLOBIN 29.5 pg (27.0-31.0); MEAN CORPUSCULAR HGB CONC 33.6 g/dL (33.0-37.0); MEAN PLATELET VOLUME 8.9 fL (7.2-11.7); MONO # 0.6 K/uL (0.0-0.8); MONO % 6.1 % (0.0-10.0); RED CELL DISTRIBUTION WIDTH 14.3 % (11.5-14.5); WHITE BLOOD COUNT 9.5 K/uL (4.8-10.8)
[2017-04-27 22:35] LABS: VENOUS BLOOD GAS BASE EXCESS -1.3 mmol/L (0.0-2.0); VENOUS BLOOD GAS PCO2 46 mmHg (40-60); VENOUS BLOOD PH 7.34 (7.32-7.43)
[2017-04-27 22:36] LABS: RBC URINE 6 /hpf (0-3); URINE BACTERIA RARE (<OCC); URINE BILIRUBIN NEGATIVE (NEGATIVE); URINE BLOOD 1+ (NEGATIVE); URINE COLOR Yellow (YELLOW); URINE GLUCOSE (UA) 3+ mg/dL (Normal); URINE KETONE NEGATIVE (NEGATIVE); URINE LEUKOCYTE ESTERASE NEG Leu/uL (Negative); URINE PROTEIN 3+ mg/dL (NEGATIVE); URINE UROBILINOGEN NORMAL mg/dL (0.2-1.0); WBC URINE 1 /hpf (0-5)
[2017-04-27 22:37] LABS: POTASSIUM 3.9 mmol/L (3.6-5.2)
[2017-04-27 22:39] LABS: ALB/GLOB RATIO 0.9 (1.0-2.1); BILIRUBIN,TOTAL 0.3 mg/dL (0.2-1.3); TOTAL PROTEIN 5.8 g/dL (6.3-8.3)
[2017-04-27 22:44] LABS: INR 0.9
[2017-04-27 22:56] LABS: TROPONIN I 0.036 ng/mL (0.00-0.120)
[2017-04-27 23:14] LABS: THYROID STIMULATING HORMONE 5.82 mIU/L (0.46-4.68)
[2017-04-27] MEDS ORDERED: Iohexol 350mg/ml 100 ML ONE (23:37)
--- NOTE | 2017-04-28 01:39 | CT ---
EXAM: CT Abdomen and Pelvis With Intravenous Contrast CLINICAL HISTORY: 56 years old, male; Pain; Abdominal pain; Flank; Left lower quadrant (llq); Additional info: Abd pain, scrotal edema TECHNIQUE: Axial computed tomography images of the abdomen and pelvis with intravenous contrast. All CT scans at this facility use one or more dose reduction techniques, viz.: automated exposure control; ma/kV adjustment per patient size (including targeted exams where dose is matched to indication; i.e. head); or iterative reconstruction technique. Coronal and sagittal reformatted images were created and reviewed. CONTRAST: 100 mL of [id number] administered intravenously. COMPARISON: No relevant prior studies available. FINDINGS: Limitations: Motion artifact - mild to moderate. Lower thorax: Mild atelectasis/scarring. Mild mosaic pattern of lung parenchyma, nonspecific. Few scattered nodular airspace opacities, up to 2.4 cm in size. ABDOMEN: Liver: Unremarkable. No mass. Gallbladder and bile ducts: No calcified stones. No ductal dilation. Pancreas: Multiple calcifications within pancreas. Mild prominence of pancreatic duct. Spleen: No splenomegaly. Adrenals: No mass. Kidneys and ureters: Few RIGHT renal cysts. Few too small to characterize lesions within kidneys. Few punctate calculi within kidneys. No hydronephrosis. Stomach and bowel: Moderate to large amount of stool within colon. No definite mural thickening. No obstruction. Appendix: Normal caliber. No inflammation. PELVIS: Bladder: Distended bladder. Reproductive: Mildly enlarged prostate. Diffuse scrotal edema and/or hydroceles. ABDOMEN and PELVIS: Intraperitoneal space: No significant fluid collection. No free air. Bones/joints: No acute fracture. Soft tissues: Mild to moderate diffuse stranding within subcutaneous tissues. Small LEFT inguinal hernia containing fat. Vasculature: Mild atherosclerotic disease. No aneurysm. Lymph nodes: No pathologically enlarged lymph nodes. IMPRESSION: 1. Nodular air space opacities, indeterminate. Consider inflammatory, infectious, or neoplastic etiologies. 2. Chronic pancreatitis. 3. Soft tissue edema. 4. Incidental/non-acute findings are described above.
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
[2017-04-28] MEDS: (Novolin R) Insulin Human Regular 100 units/ml vial SC SCH ×4 (09:20→22:06)
--- NOTE | 2017-04-28 09:49 | RAD ---
PROCEDURE: CHEST RADIOGRAPH, 1 VIEW HISTORY: SOB COMPARISON: Portable chest 02/28/2017. FINDINGS: LUNGS: Cardiac silhouette is it is appreciated bilaterally, left greater than right sides are potential limited underlying alveolitis in the midleft lung once again. The pattern is unchanged in the interval overall. PLEURA: No pneumothorax or pleural fluid seen. CARDIOVASCULAR: Cardiac silhouette appears stable there is no pulmonary vascular derangement identified. OSSEOUS STRUCTURES: No significant abnormalities. VISUALIZED UPPER ABDOMEN: Normal. OTHER FINDINGS: None. IMPRESSION: Stable chronic interstitial pulmonary changes bilaterally of though alveolitis not excluded at the mid left lung zone medially. No pleural effusion bilaterally.
[2017-04-28] MEDS ORDERED: Enoxaparin 40 mg Syringe SC SCH (10:00)
[2017-04-28 11:49] LABS: BASO # 0.1 K/uL (0.0-0.2); BASO % 0.7 % (0.0-2.0); EOS # 0.6 K/uL (0.0-0.7); EOS % 5.8 % (0.0-4.0); HEMATOCRIT 28.9 % (35.0-51.0); LYMPH # 1.5 K/uL (1.0-4.3); LYMPH % 13.6 % (20.0-40.0); MEAN CELL VOLUME 87.5 fL (80.0-94.0); MEAN CORPUSCULAR HEMOGLOBIN 29.5 pg (27.0-31.0); MEAN CORPUSCULAR HGB CONC 33.7 g/dL (33.0-37.0); MEAN PLATELET VOLUME 9.6 fL (7.2-11.7); MONO # 0.6 K/uL (0.0-0.8); MONO % 5.6 % (0.0-10.0); NRBC % 0.1 % (0.0-2.0); WHITE BLOOD COUNT 11.1 K/uL (4.8-10.8)
[2017-04-28 12:10] LABS: CHLORIDE 103 mmol/L (98-107); POTASSIUM 3.8 mmol/L (3.6-5.2); SODIUM 139 mmol/L (132-148)
[2017-04-28 12:12] LABS: AST/SGOT 32 U/L (17-59); BILIRUBIN,TOTAL 0.4 mg/dL (0.2-1.3); CARBON DIOXIDE 26 mmol/L (22-30); GFR AFRICAN-AMERICAN > 60
[2017-04-28 12:13] LABS: ALB/GLOB RATIO 0.8 (1.0-2.1); ALKALINE PHOSPHATASE 108 U/L (38-126); ALT/SGPT 49 U/L (21-72); BLOOD UREA NITROGEN 20 mg/dL (9-20); CALCIUM 7.9 mg/dl (8.6-10.4); GLUCOSE,RANDOM 250 mg/dL (75-110); TOTAL PROTEIN 6.4 g/dL (6.3-8.3)
[2017-04-28] MEDS: CLOBETASOL 0.05% TOP SCH ×2 (12:42→21:41)
[2017-04-28] MEDS ORDERED: Albumin Human 25% (12.5 gm/50 ml) IV ONE ×4 (12:48→14:00)
--- NOTE | 2017-04-28 17:03 | CP.PCM.PN ---
<Barrie Fenton - Last Filed: 04/28/17 17:23> Subjective - Date & Time of Evaluation Date of Evaluation: 04/28/17 Time of Evaluation: 17:00 - Subjective Subjective: PGY1 Note for Dr. Pabon HPI: Patient seen and examined at bedside. Complaining of rib pain. States his scrotum is swollen and his leg hurts. Denies CP, SOB, N/V/F/D. Objective - Vital Signs/Intake and Output Vital Signs (last 24 hours): Temp Pulse Resp BP Pulse Ox 97.5 F L 63 20 158/85 H 98 04/28/17 15:45 04/28/17 15:45 04/28/17 15:45 04/28/17 15:45 04/28/17 15:45 Intake and Output: 04/28/17 04/28/17 06:59 18:59 Intake Total 100 Balance 100 - Medications Medications: Current Medications Acetaminophen (Tylenol 325mg Tab) 650 mg PO Q6 PRN PRN Reason: Pain, Mild (1-3) Last Admin: 04/28/17 16:48 Dose: 650 mg Aspirin (Aspirin Chewable) 81 mg PO DAILY [facility] Last Admin: 04/28/17 09:19 Dose: 81 mg Clobetasol Propionate (Temovate) 0 gm TOP BID [facility] Last Admin: 04/28/17 12:42 Dose: Not Given Famotidine (Pepcid) 20 mg PO DAILY [facility] Last Admin: 04/28/17 09:19 Dose: 20 mg Furosemide (Lasix) 60 mg IVP DAILY [facility] Last Admin: 04/28/17 09:19 Dose: 60 mg Gabapentin (Neurontin) 600 mg PO BID [facility] Last Admin: 04/28/17 09:19 Dose: 600 mg Heparin Sodium (Porcine) (Heparin) 5,000 units SC Q12 [facility] Last Admin: 04/28/17 09:20 Dose: 5,000 units Insulin Human Regular (Novolin R) 0 unit SC ACHS [facility] PRN Reason: Protocol Last Admin: 04/28/17 16:41 Dose: 10 unit Lisinopril (Zestril) 5 mg PO DAILY [facility] Last Admin: 04/28/17 14:34 Dose: 5 mg Rosuvastatin Calcium (Crestor) 5 mg PO HS ELE - Labs Labs: 04/28/17 11:41 04/28/17 11:41 PT 10.0 SECONDS (9.7-12.2) 04/27/17 22:25 INR 0.9 04/27/17 22:25 APTT 30 SECONDS (21-34) 04/28/17 04:21 - Constitutional Appears: Well, Non-toxic, No Acute Distress - Head Exam Head Exam: ATRAUMATIC, NORMAL INSPECTION, NORMOCEPHALIC - Eye Exam Eye Exam: EOMI Pupil Exam: NORMAL ACCOMODATION - ENT Exam ENT Exam: Mucous Membranes Moist - Respiratory Exam Respiratory Exam: Clear to Ausculation Bilateral, NORMAL BREATHING PATTERN - Cardiovascular Exam Cardiovascular Exam: REGULAR RHYTHM - GI/Abdominal Exam GI & Abdominal Exam: Soft, Normal Bowel Sounds. absent: Distended, Tenderness - Extremities Exam Extremities Exam: Joint Swelling, Pedal Edema, Tenderness - Neurological Exam Neurological Exam: Alert, Awake, Oriented x3 - Psychiatric Exam Psychiatric exam: Normal Affect, Normal Mood - Skin Skin Exam: Dry, Intact, Normal Color, Warm Assessment and Plan - Assessment and Plan (Free Text) Assessment: Ascites * Lasix 40mg IV BID * 12.5 Albumin 2x, possibly more tomorrow CHF - Cardio consult - Dr. Tomlinson - Prior ECHO on 02/27/17 - EF ~ 50%, mild AR, Tissue doppler reveals mild LV diastolic dysfunction, borderline concentric LVH - EKG - 70bpm NSR, Left axis deviation, RBBB, Left Anterior Fascicular Block - no change from prior EKG 02/27/17 - CXR - Cardiomegaly, Some vascular congestion, no pleural effusion, no infiltrates - no obvious changes from prior CXR on 03/01/17 - awaiting official report - BNP 3670 - Trop - 0.036, 0.0540 f/u 3rd Trop @ 10:30 - CK-MB - 4.35 - CBC - hgb 8.8/hct 26.2, remaining unremarkable, will monitor - CMP - WNL - Started on - ASA 81mg PO daily - Lasix 40mg IV daily - Heparin 5,000u SC Q12H - Crestor 5 mg PO HS - Lisinopril 5mg - F/U BUN/Cr Rib Pain - CT abd/pelvis w/IV contrast - Nodular air space opacities, indeterminate. Consider inflammatory, infectious or neoplastic etiologies. - Chronic Pancreatitis - Soft tissue edema - Rib X-ray - no fracture HTN - Held home Lasix 40mg PO daily - Started Lasix 60mg IV daily - Strict I&O's - Carb Consistent Diet w/sodium 2g DM - Random Glucose of 385 on admission - HgA1c 9.8 - Held home insulin, Levemir 25u BID (pt states he does not always take his medications, did not know type of insulin he was taking) - Held home Janumet - Placed on Insulin Sliding Scale - moderate Prophylactic Care - Heparin 5,000u SC Q12H - Pepcid 20 mg PO daily <Santy Pabon H - Last Filed: 04/29/17 07:44> Objective - Vital Signs/Intake and Output Vital Signs (last 24 hours): Temp Pulse Resp BP Pulse Ox 98.7 F 63 20 160/86 H 98 04/28/17 23:22 04/29/17 02:04 04/28/17 23:22 04/28/17 23:22 04/28/17 23:22 - Medications Medications: Current Medications Acetaminophen (Tylenol 325mg Tab) 650 mg PO Q6 PRN PRN Reason: Pain, Mild (1-3) Last Admin: 04/28/17 16:48 Dose: 650 mg Aspirin (Aspirin Chewable) 81 mg PO DAILY [facility] Last Admin: 04/28/17 09:19 Dose: 81 mg Clobetasol Propionate (Temovate) 0 gm TOP BID [facility] Last Admin: 04/28/17 21:41 Dose: 1 applic Famotidine (Pepcid) 20 mg PO DAILY [facility] Last Admin: 04/28/17 09:19 Dose: 20 mg Furosemide (Lasix) 60 mg IVP DAILY [facility] Last Admin: 04/28/17 09:19 Dose: 60 mg Gabapentin (Neurontin) 600 mg PO BID [facility] Last Admin: 04/28/17 17:26 Dose: 600 mg Heparin Sodium (Porcine) (Heparin) 5,000 units SC Q12 [facility] Last Admin: 04/28/17 21:37 Dose: 5,000 units Insulin Human Regular (Novolin R) 0 unit SC ACHS [facility] PRN Reason: Protocol Last Admin: 04/28/17 22:06 Dose: Not Given Lisinopril (Zestril) 5 mg PO DAILY [facility] Last Admin: 04/28/17 14:34 Dose: 5 mg Rosuvastatin Calcium (Crestor) 5 mg PO HS [facility] Last Admin: 04/28/17 21:37 Dose: 5 mg - Labs Labs: 04/29/17 06:48 04/29/17 06:48 PT 10.0 SECONDS (9.7-12.2) 04/27/17 22:25 INR 0.9 04/27/17 22:25 APTT 30 SECONDS (21-34) 04/28/17 04:21 Attending/Attestation - Attestation I have personally seen and examined this patient.: Yes I have fully participated in the care of the patient.: Yes I have reviewed all pertinent clinical information, including history, physical exam and plan: Yes Notes (Text): 04/29/17 07:41 Medical Attending: Patient was seen and examined by me. Agree with the above note by the resident. The patient was able to ambulate slowly in the hallway. He was not in any acute distress however it did appear his slow gait was secondary to discomfort. On physical exam his scrotum as well as his thigh, knees, calf area, ankles all have some degree of edema. Per review of the patient's history and physical - he does have low albumin as well as likley CKD. A UA was done and it suggest also protien loss in the urine. He is on lasix. Will continue this, however will add a trial of several runs of albumin to be given. Due to the protein loss will add JOSE CARLOS-I as well. We explained via translation that he would not see overnight improvments however what we are doing should help. thank you Santy Pabon
--- NOTE | 2017-04-28 18:57 | CT ---
PROCEDURE: CT Chest without contrast HISTORY: pneumonia COMPARISON: None. TECHNIQUE: Contiguous axial images were obtained through the chest without intravenous contrast enhancement. Sagittal and coronal reconstructions were performed. Radiation dose (DLP): 249.88 mGy-cm. This CT exam was performed using one or more of the following dose reduction techniques: Automated exposure control, adjustment of the mA and/or kV according to patient size, and/or use of iterative reconstruction technique. FINDINGS: LUNGS: Multifocal alveolar infiltrates approximately symmetrical bilateral and with both upper lower lobe distributions. This is a very broad differential diagnosis including infectious inflammatory etiologies. Sarcoid can also assume this appearance as can other granulomatous type infections. Mild interstitial lung disease is also noted. . Neoplasm would be much less likely. MEDIASTINUM: Maximum diameter the ascending aorta 3.7 cm. Cardiomegaly. No evidence of acute, significant cardiovascular disease. Dilated main pulmonary artery 3.4 cm consistent with pulmonary arterial hypertension. No lymphadenopathy. PLEURA: No pleural fluid. No pneumothorax. BONES: No fracture. No destructive lesion. UPPER ABDOMEN: Findings suggestive of chronic pancreatitis. Findings better delineated on recent CT of the abdomen and pelvis: April 27, 2017. OTHER FINDINGS: None. IMPRESSION: Bilateral confluent masses. Broad differential diagnostic considerations. Most likely infectious/ inflammatory. Granulomatous disease, sarcoid should also be considered. Less likely considerations would be neoplasm. Additional benign and/or incidental findings described above.
[2017-04-29 07:07] LABS: BASO # 0.1 K/uL (0.0-0.2); BASO % 0.9 % (0.0-2.0); EOS # 0.8 K/uL (0.0-0.7); EOS % 8.7 % (0.0-4.0); HEMATOCRIT 25.4 % (35.0-51.0); LYMPH # 1.7 K/uL (1.0-4.3); LYMPH % 19.5 % (20.0-40.0); MEAN CELL VOLUME 87.2 fL (80.0-94.0); MEAN CORPUSCULAR HEMOGLOBIN 29.7 pg (27.0-31.0); MEAN PLATELET VOLUME 9.1 fL (7.2-11.7); MONO # 0.5 K/uL (0.0-0.8); RED CELL DISTRIBUTION WIDTH 14.1 % (11.5-14.5); WHITE BLOOD COUNT 8.7 K/uL (4.8-10.8)
--- NOTE | 2017-04-29 07:14 | CON ---
REASON FOR CONSULTATION: Congestive heart failure. HISTORY OF PRESENT ILLNESS: The patient is a 56-year-old male who has a history of longstanding diabetes mellitus, presented because of bilateral leg swelling as well as shortness of breath. The patient is unaware of any history of heart attack in the past. The patient is also experiencing penile and scrotal swelling. The patient denies any fever or chills. SOCIAL HISTORY: The patient is a smoker, but denies alcohol abuse. MEDICATIONS: Aspirin 81 mg once a day; Crestor 5 mg once a day; heparin 5000 units subcutaneous twice a day, 60 mg subcutaneously daily; gabapentin 600 mg twice a day; Pepcid 20 mg once a day; Zestril 5 mg once a day. REVIEW OF SYSTEMS: No nausea or vomiting. No fever or chills. PHYSICAL EXAMINATION GENERAL: The patient is a middle-aged male who does not appear to be in any distress. VITAL SIGNS: Blood pressure 158/85, heart rate 63, temperature 97.5 and respiration 20. HEENT: Pale conjunctivae. CHEST: Diminished breath sounds at the bases. HEART: S1 and S2 regular. ABDOMEN: Soft. EXTREMITIES: 2+ pitting edema and bilateral leg cellulitis. LABORATORY DATA: Hemoglobin and hematocrit 9.7 and 28.9; white count 11.1; platelet count 332,000. The SMA-7 is within normal limit except for glucose of 250. Two sets of troponins are negative. TSH level is elevated at 5.82. ProBNP is 3670. EKG revealed sinus rhythm with biventricular block, right bundle branch block with left anterior fascicular block. A recent echo performed in February of this year revealed borderline concentric LVH with ejection fraction estimated at 50%, mild mitral insufficiency and reduced compliance. ASSESSMENT: 1. Bilateral leg cellulitis. 2. Diastolic left ventricular dysfunction. 3. Rule out nephrotic syndrome. 4. Hypertension and diabetes mellitus. RECOMMENDATIONS: Continue current IV Lasix 40 mg once a day, subcutaneous heparin 5000 units twice a day, aspirin 81 mg once a day, Crestor 5 mg once a day, Zestril 5 mg daily. Obtain venous Doppler of lower extremities, 24 hours urinary protein and schedule chest CT scan without contrast. Anil Tomlinson MD
[2017-04-29 07:26] LABS: CHLORIDE 110 mmol/L (98-107); POTASSIUM 3.8 mmol/L (3.6-5.2); SODIUM 144 mmol/L (132-148)
[2017-04-29 07:28] LABS: GFR AFRICAN-AMERICAN > 60
[2017-04-29 07:29] LABS: ALB/GLOB RATIO 0.8 (1.0-2.1); ALKALINE PHOSPHATASE 87 U/L (38-126); ALT/SGPT 48 U/L (21-72); AST/SGOT 40 U/L (17-59); BILIRUBIN,TOTAL 0.3 mg/dL (0.2-1.3); BLOOD UREA NITROGEN 21 mg/dL (9-20); CARBON DIOXIDE 25 mmol/L (22-30); GLUCOSE,RANDOM 83 mg/dL (75-110); TOTAL PROTEIN 5.6 g/dL (6.3-8.3)
[2017-04-29 07:30] LABS: CALCIUM 7.8 mg/dl (8.6-10.4)
[2017-04-29] MEDS: (Novolin R) Insulin Human Regular 100 units/ml vial SC SCH ×4 (09:34→21:29)
--- NOTE | 2017-04-29 09:45 | CP.PCM.PN ---
Subjective - Date & Time of Evaluation Date of Evaluation: 04/29/17 Time of Evaluation: 09:20 - Subjective Subjective: Patient was seen and examined by me. The patient was actively ambulating in the hallway when I saw him. From my limited Azeri he was able to explain that the swelling in his scrotum as well as thigh, calf, ankle and foot have decreased from yesterday. As mentioned previously he has a history of liver cirrhosis as well as CKD - a UA suggested a lot of protein loss in the urine. He has a low albumin of 2.5 and this has probably contributed to the third spacing he was having and so we gave patient a trial of albumin yesterday to see if this would help with the lasix he was already getting. CT scan from yesterday returned and showed multiple infiltrates in the upper lobes. Per review of previous medical records. The patient had another recent CT scan of the lungs and there was a work up for these areas that included a work up for TB. Patient had 3 consequtive negative AFB stains and 3 negative cultures. He is currently not short of breath, denied coughing when I saw patient, denied chest pain, denied palpitations, denied abdominal pain, denied headache, denied dizzyness or weakness. He does report + ongoing swelling scrotum, thigh edema, ankle and foot edema - all these improved from before. Objective - Vital Signs/Intake and Output Vital Signs (last 24 hours): Temp Pulse Resp BP Pulse Ox 97.7 F 61 20 163/82 H 96 04/29/17 08:04 04/29/17 08:04 04/29/17 08:04 04/29/17 08:04 04/29/17 08:04 Intake and Output: 04/29/17 04/29/17 06:59 18:59 Intake Total 120 Output Total 260 Balance -140 - Medications Medications: Current Medications Acetaminophen (Tylenol 325mg Tab) 650 mg PO Q6 PRN PRN Reason: Pain, Mild (1-3) Last Admin: 04/28/17 16:48 Dose: 650 mg Aspirin (Aspirin Chewable) 81 mg PO DAILY [facility] Last Admin: 04/28/17 09:19 Dose: 81 mg Clobetasol Propionate (Temovate) 0 gm TOP BID [facility] Last Admin: 04/28/17 21:41 Dose: 1 applic Famotidine (Pepcid) 20 mg PO DAILY [facility] Last Admin: 04/28/17 09:19 Dose: 20 mg Furosemide (Lasix) 60 mg IVP DAILY [facility] Last Admin: 04/28/17 09:19 Dose: 60 mg Gabapentin (Neurontin) 600 mg PO BID [facility] Last Admin: 04/28/17 17:26 Dose: 600 mg Heparin Sodium (Porcine) (Heparin) 5,000 units SC Q12 [facility] Last Admin: 04/28/17 21:37 Dose: 5,000 units Insulin Human Regular (Novolin R) 0 unit SC ACHS [facility] PRN Reason: Protocol Last Admin: 04/29/17 09:34 Dose: Not Given Lisinopril (Zestril) 5 mg PO DAILY [facility] Last Admin: 04/28/17 14:34 Dose: 5 mg Rosuvastatin Calcium (Crestor) 5 mg PO HS [facility] Last Admin: 04/28/17 21:37 Dose: 5 mg - Labs Labs: 04/29/17 06:48 04/29/17 06:48 PT 10.0 SECONDS (9.7-12.2) 04/27/17 22:25 INR 0.9 04/27/17 22:25 APTT 30 SECONDS (21-34) 04/28/17 04:21 - Constitutional Appears: No Acute Distress, Unkempt, Chronically Ill - Head Exam Head Exam: NORMAL INSPECTION - Eye Exam Eye Exam: EOMI, Normal appearance - Respiratory Exam Respiratory Exam: Clear to Ausculation Bilateral, NORMAL BREATHING PATTERN - Cardiovascular Exam Cardiovascular Exam: REGULAR RHYTHM - GI/Abdominal Exam GI & Abdominal Exam: Soft, Normal Bowel Sounds. absent: Distended, Firm, Guarding, Rigid, Tenderness - Extremities Exam Extremities Exam: Pedal Edema Additional comments: Thigh edema, ankle edema. There is minmal scrotal edema as well - Neurological Exam Neurological Exam: Alert, Awake, Oriented x3 Neuro motor strength exam: Left Upper Extremity: 5, Right Upper Extremity: 5, Left Lower Extremity: 5, Right Lower Extremity: 5 - Psychiatric Exam Psychiatric exam: Normal Affect, Normal Mood - Skin Skin Exam: Normal Color, Warm Assessment and Plan - Assessment and Plan (Free Text) Assessment: Ascites, lower extremity edema and swelling - likely related to low albumin and protein loss in urine. * 04/29: Currently on Lasix 60 QD. Today add aldactone daily. Will give more albumin today. CHF 04/29: add Coreg today. Patient is already on JOSE CARLOS-I and Statin. - Cardio consult - Dr. Tomlinson - Prior ECHO on 02/27/17 - EF ~ 50%, mild AR, Tissue doppler reveals mild LV diastolic dysfunction, borderline concentric LVH - EKG - 70bpm NSR, Left axis deviation, RBBB, Left Anterior Fascicular Block - no change from prior EKG 02/27/17 - CXR - Cardiomegaly, Some vascular congestion, no pleural effusion, no infiltrates - no obvious changes from prior CXR on 03/01/17 - awaiting official report - BNP 3670 - Trop - 0.036, 0.0540 f/u 3rd Trop @ 10:30 - CK-MB - 4.35 - CBC - hgb 8.8/hct 26.2, remaining unremarkable, will monitor - CMP - WNL - Started on - ASA 81mg PO daily - Lasix 40mg IV daily - Heparin 5,000u SC Q12H - Crestor 5 mg PO HS - Lisinopril 5mg - F/U BUN/Cr Bilateral upper lobe infiltrates 04/29: Per review of recent medical records he had a work up for potential TB and this was negative AFB stains and AFB cultures three times. - CT abd/pelvis w/IV contrast - Nodular air space opacities, indeterminate. Consider inflammatory, infectious or neoplastic etiologies. - Chronic Pancreatitis - Soft tissue edema - Rib X-ray - no fracture HTN 04/29: Adding Coreg BID today. On JOSE CARLOS-I - Started Lasix 60mg IV daily - Strict I&O's - Carb Consistent Diet w/sodium 2g DM - Random Glucose of 385 on admission - HgA1c 9.8 - Held home insulin, Levemir 25u BID (pt states he does not always take his medications, did not know type of insulin he was taking) - Held home Janumet - Placed on Insulin Sliding Scale - moderate Prophylactic Care - Heparin 5,000u SC Q12H - Pepcid 20 mg PO daily
[2017-04-29] MEDS: CLOBETASOL 0.05% TOP SCH ×2 (09:55→17:23)
[2017-04-29] MEDS ORDERED: Albumin Human 25% (12.5 gm/50 ml) IV ONE ×2 (10:10→15:00)
[2017-04-29] MEDS: Ciprofloxacin 400mg/200ml D5W 400 MG/200 ML BAG IVPB SCH ×2 (12:44→23:14)
--- NOTE | 2017-04-29 15:01 | PN ---
DATE: SUBJECTIVE: The patient denies any chest pain. He is mildly short of breath. He is still experiencing bilateral leg swelling and pain. PHYSICAL EXAMINATION: VITAL SIGNS: Blood pressure 168/82, heart rate 61, temperature 97.7, respiration 20. HEENT: Pale conjunctivae. CHEST: Bilateral scattered rhonchi. HEART: S1 and S2, regular. EXTREMITIES: 2+ pitting edema with evidence of bilateral leg cellulitis. LABORATORY DATA: Hemoglobin and hematocrit 8.6 and 25.4, white count and platelet count are within normal limits. The SMA-7 is within normal limit except for chloride of 110 and BUN of 21. Chest CT scan without contrast revealed bilateral confluent masses. Though differential diagnosis include infectious/inflammatory. Granulomatous disease. Sarcoid should also be considered. Less likely neoplasm. ASSESSMENT: 1. Bilateral leg cellulitis. 2. Hypoalbuminemia and bilateral leg edema as well as scrotal edema. 3. Rule out nephrotic syndrome. 4. Uncontrolled diabetes mellitus. RECOMMENDATIONS: Patient did receive albumin. Continue aspirin 81 mg once a day, Coreg 3.125 mg twice a day, Crestor 5 mg once a day, subcutaneous heparin 5000 units twice a day, Lasix 60 mg intravenously daily, Zestril 5 mg once a day. Venous Doppler of lower extremities is pending. Anil Tomlinson MD
[2017-04-29 17:20] LABS: CHOLESTEROL 153 mg/dL (0-199)
[2017-04-29] MEDS ORDERED: (Novolog) Insulin Aspart, Recombinant 100 u/ml 10 ml vial SC ONE (21:18)
[2017-04-30] MEDS ORDERED: Influenza Virus Vaccine 45 mcg/0.5 ml Syr IM ONE (08:05)
[2017-04-30 08:24] LABS: BASO # 0.1 K/uL (0.0-0.2); BASO % 0.8 % (0.0-2.0); EOS # 0.7 K/uL (0.0-0.7); EOS % 7.3 % (0.0-4.0); HEMATOCRIT 25.6 % (35.0-51.0); LYMPH # 1.5 K/uL (1.0-4.3); LYMPH % 16.9 % (20.0-40.0); MEAN CELL VOLUME 87.1 fL (80.0-94.0); MEAN CORPUSCULAR HEMOGLOBIN 29.3 pg (27.0-31.0); MEAN CORPUSCULAR HGB CONC 33.6 g/dL (33.0-37.0); MEAN PLATELET VOLUME 9.4 fL (7.2-11.7); MONO # 0.5 K/uL (0.0-0.8); MONO % 5.1 % (0.0-10.0); WHITE BLOOD COUNT 9.1 K/uL (4.8-10.8)
[2017-04-30 08:41] LABS: POTASSIUM 4.2 mmol/L (3.6-5.2)
[2017-04-30 08:43] LABS: ALB/GLOB RATIO 0.9 (1.0-2.1); BILIRUBIN,TOTAL 0.4 mg/dL (0.2-1.3); CALCIUM 7.8 mg/dl (8.6-10.4); TOTAL PROTEIN 5.6 g/dL (6.3-8.3)
[2017-04-30] MEDS: (Novolin R) Insulin Human Regular 100 units/ml vial SC SCH ×4 (09:39→21:48)
[2017-04-30] MEDS: CLOBETASOL 0.05% TOP SCH ×2 (09:41→17:49)
--- NOTE | 2017-04-30 10:24 | CARD ---
APPROVED REPORT EKG Measurement Heart [id number] <Conclusion> Normal sinus rhythm Right bundle branch block Left anterior fascicular block Bifascicular block Abnormal ECG
[2017-04-30] MEDS ORDERED: Tramadol 25 mg PO PRN (13:16)
[2017-04-30] MEDS: Ciprofloxacin 400mg/200ml D5W 400 MG/200 ML BAG IVPB SCH ×2 (13:17→21:50)
--- NOTE | 2017-04-30 14:28 | CP.PCM.PN ---
Subjective - Date & Time of Evaluation Date of Evaluation: 04/30/17 Time of Evaluation: 07:00 - Subjective Subjective: PGY1- Medicine note- Dr. Nava's Service Patient seen and examined at bedside and in no acute distress. Patient says swelling is decreasing in his scrotum and lower extremities. Patient still having some left sided rib pain. Patient denies shortness of breath, chest pain , abdominal pain, nausea, vomiting, constipation, or diarrhea. Objective - Vital Signs/Intake and Output Vital Signs (last 24 hours): Temp Pulse Resp BP Pulse Ox 97.7 F 55 L 20 169/84 H 97 04/30/17 08:05 04/30/17 13:14 04/30/17 08:05 04/30/17 13:14 04/30/17 08:05 Intake and Output: 04/30/17 04/30/17 06:59 18:59 Intake Total 200 300 Output Total 1100 Balance 200 -800 - Medications Medications: Current Medications Acetaminophen (Tylenol 325mg Tab) 650 mg PO Q6 PRN PRN Reason: Pain, Mild (1-3) Last Admin: 04/28/17 16:48 Dose: 650 mg Aspirin (Aspirin Chewable) 81 mg PO DAILY [facility] Last Admin: 04/30/17 09:39 Dose: 81 mg Carvedilol (Coreg) 3.125 mg PO BID [facility] Last Admin: 04/30/17 09:40 Dose: 3.125 mg Clobetasol Propionate (Temovate) 0 gm TOP BID [facility] Last Admin: 04/30/17 09:41 Dose: 1 applic Famotidine (Pepcid) 20 mg PO DAILY [facility] Last Admin: 04/30/17 09:39 Dose: 20 mg Furosemide (Lasix) 60 mg IVP DAILY [facility] Last Admin: 04/30/17 09:40 Dose: 60 mg Furosemide (Lasix) 40 mg IVP DAILY@1800 [facility] Gabapentin (Neurontin) 600 mg PO BID [facility] Last Admin: 04/30/17 09:39 Dose: 600 mg Heparin Sodium (Porcine) (Heparin) 5,000 units SC Q12 [facility] Last Admin: 04/30/17 09:39 Dose: 5,000 units Hydralazine HCl (Apresoline) 25 mg PO QID [facility] Last Admin: 04/30/17 13:17 Dose: 25 mg Ciprofloxacin (Cipro 400mg/200ml Dsw) 400 mg in 200 mls @ 133.333 mls/hr IVPB Q12H [facility] Last Admin: 04/30/17 13:17 Dose: 133.333 mls/hr Insulin Human Regular (Novolin R) 0 unit SC ACHS [facility] PRN Reason: Protocol Last Admin: 04/30/17 13:16 Dose: 12 unit Isosorbide Mononitrate (Imdur) 30 mg PO DAILY [facility] Last Admin: 04/30/17 13:16 Dose: 30 mg Lisinopril (Zestril) 5 mg PO DAILY [facility] Last Admin: 04/30/17 09:39 Dose: 5 mg Mupirocin (Bactroban Ointment) 0 gm TOP BID [facility] Rosuvastatin Calcium (Crestor) 5 mg PO HS [facility] Last Admin: 04/29/17 21:23 Dose: 5 mg Tramadol HCl (Ultram) 25 mg PO Q6H PRN PRN Reason: Pain, moderate (4-7) - Labs Labs: 04/30/17 08:15 04/30/17 08:15 PT 10.0 SECONDS (9.7-12.2) 04/27/17 22:25 INR 0.9 04/27/17 22:25 APTT 30 SECONDS (21-34) 04/28/17 04:21 - Constitutional Appears: Non-toxic, No Acute Distress - Head Exam Head Exam: ATRAUMATIC, NORMAL INSPECTION, NORMOCEPHALIC - Eye Exam Eye Exam: EOMI, Normal appearance - ENT Exam ENT Exam: Mucous Membranes Moist - Neck Exam Neck Exam: Full ROM. absent: Tenderness - Respiratory Exam Respiratory Exam: Clear to Ausculation Bilateral, NORMAL BREATHING PATTERN. absent: Rales, Rhonchi, Wheezes, Respiratory Distress, Stridor - Cardiovascular Exam Cardiovascular Exam: REGULAR RHYTHM, RRR. absent: Gallop, Rubs, Murmur - GI/Abdominal Exam GI & Abdominal Exam: Soft, Normal Bowel Sounds Additional comments: left sided rib pain - Extremities Exam Extremities Exam: Full ROM, Pedal Edema, Tenderness Additional comments: b/l pedal edema and erythema - Neurological Exam Neurological Exam: Alert, Awake, Oriented x3 - Psychiatric Exam Psychiatric exam: Normal Affect, Normal Mood - Skin Skin Exam: Dry, Erythema, Intact, Warm Assessment and Plan - Assessment and Plan (Free Text) Assessment: Lower Extremity and Scrotal Edema likely secondary to nephrotic syndrome Nephrology consulted, Dr. Luke, help appreciated CHF 04/30: Lasix increased to 60 mg in am and 40 mg pm 04/29: add Coreg today. Patient is already on JOSE CARLOS-I and Statin. - Cardio consult - Dr. Tomlinson - Prior ECHO on 02/27/17 - EF ~ 50%, mild AR, Tissue doppler reveals mild LV diastolic dysfunction, borderline concentric LVH - EKG - 70bpm NSR, Left axis deviation, RBBB, Left Anterior Fascicular Block - no change from prior EKG 02/27/17 - CXR - Cardiomegaly, Some vascular congestion, no pleural effusion, no infiltrates - no obvious changes from prior CXR on 03/01/17 - awaiting official report - BNP 3670 - Trop x 3 (-) - CK-MB - 4.35 - CBC - hgb 8.8/hct 26.2, remaining unremarkable, will monitor - CMP - WNL - Started on - ASA 81mg PO daily - Lasix 40mg IV daily - Heparin 5,000u SC Q12H - Crestor 5 mg PO HS - Lisinopril 5mg - F/U BUN/Cr Bilateral upper lobe infiltrates 04/29: Per review of recent medical records he had a work up for potential TB and this was negative AFB stains and AFB cultures three times. - CT abd/pelvis w/IV contrast - Nodular air space opacities, indeterminate. Consider inflammatory, infectious or neoplastic etiologies. - Chronic Pancreatitis - Soft tissue edema Left Rib pain - Rib X-ray - no fracture - Tramadol 25 mg po q6h prn HTN 04/30: Added Hydralazine 25mg po QID and Imdur 30 mg po daily 04/29: Added Coreg 3.125 BID today. On JOSE CARLOS-I- Lisinopril 5 mg daily - - Strict I&O's - Carb Consistent Diet w/sodium 2g DM - Random Glucose of 385 on admission - HgA1c 9.8 - Held home insulin, Levemir 25u BID (pt states he does not always take his medications, did not know type of insulin he was taking) - Held home Janumet - Placed on Insulin Sliding Scale - moderate -Lantus 10 u daily started on 04/30 Prophylactic Care - Heparin 5,000u SC Q12H - Pepcid 20 mg PO daily
--- NOTE | 2017-04-30 16:53 | CP.PCM.CON ---
History of Present Illness - History of Present Illness History of Present Illness: patient seen and examined consult dictated Probable chf,diabetic nephropathy with nephrotic syndrome review old records re evaluation renal disease baseline creatine can not r/o contrast nephropathy Diuretics as needed await cardiology evaluation avoid nephrotoxins for now hold lisinopril Past Patient History - Past Medical History & Family History Past Medical History?: Yes - Past Social History Smoking Status: Current Some Days Smoker - CARDIAC Hx Hypertension: Yes - PULMONARY Hx Respiratory Disorders: No - NEUROLOGICAL Hx Neurological Disorder: No - HEENT Hx HEENT Problems: No - ENDOCRINE/METABOLIC Hx Diabetes Mellitus Type 1: Yes - HEMATOLOGICAL/ONCOLOGICAL Hx Blood Disorders: No - INTEGUMENTARY Hx Dermatological Problems: No - MUSCULOSKELETAL/RHEUMATOLOGICAL Hx Falls: Yes - GASTROINTESTINAL Hx Gastrointestinal Disorders: No - GENITOURINARY/GYNECOLOGICAL Hx Genitourinary Disorders: No - PSYCHIATRIC Hx Substance Use: No - SURGICAL HISTORY Hx Surgeries: No - ANESTHESIA Hx Anesthesia: No Hx Anesthesia Reactions: No Meds Allergies/Adverse Reactions: Allergies Allergy/AdvReac Type Severity Reaction Status Date / Time No Known Allergies Allergy Verified 04/18/17 10:22 - Medications Medications: Current Medications Acetaminophen (Tylenol 325mg Tab) 650 mg PO Q6 PRN PRN Reason: Pain, Mild (1-3) Last Admin: 04/28/17 16:48 Dose: 650 mg Aspirin (Aspirin Chewable) 81 mg PO DAILY [facility] Last Admin: 04/30/17 09:39 Dose: 81 mg Carvedilol (Coreg) 3.125 mg PO BID [facility] Last Admin: 04/30/17 09:40 Dose: 3.125 mg Clobetasol Propionate (Temovate) 0 gm TOP BID [facility] Last Admin: 04/30/17 09:41 Dose: 1 applic Famotidine (Pepcid) 20 mg PO DAILY [facility] Last Admin: 04/30/17 09:39 Dose: 20 mg Furosemide (Lasix) 60 mg IVP DAILY [facility] Last Admin: 04/30/17 09:40 Dose: 60 mg Furosemide (Lasix) 40 mg IVP DAILY@1800 [facility] Gabapentin (Neurontin) 600 mg PO BID [facility] Last Admin: 04/30/17 09:39 Dose: 600 mg Heparin Sodium (Porcine) (Heparin) 5,000 units SC Q12 [facility] Last Admin: 04/30/17 09:39 Dose: 5,000 units Hydralazine HCl (Apresoline) 25 mg PO QID [facility] Last Admin: 04/30/17 13:17 Dose: 25 mg Ciprofloxacin (Cipro 400mg/200ml Dsw) 400 mg in 200 mls @ 133.333 mls/hr IVPB Q12H [facility] Last Admin: 04/30/17 13:17 Dose: 133.333 mls/hr Insulin Human Regular (Novolin R) 0 unit SC ACHS [facility] PRN Reason: Protocol Last Admin: 04/30/17 16:30 Dose: 10 unit Isosorbide Mononitrate (Imdur) 30 mg PO DAILY [facility] Last Admin: 04/30/17 13:16 Dose: 30 mg Lisinopril (Zestril) 5 mg PO DAILY [facility] Last Admin: 04/30/17 09:39 Dose: 5 mg Mupirocin (Bactroban Ointment) 0 gm TOP BID [facility] Rosuvastatin Calcium (Crestor) 5 mg PO HS [facility] Last Admin: 04/29/17 21:23 Dose: 5 mg Tramadol HCl (Ultram) 25 mg PO Q6H PRN PRN Reason: Pain, moderate (4-7) Results - Vital Signs Recent Vital Signs: Last Vital Signs Temp 97.7 F 04/30/17 08:05 Pulse 55 L 04/30/17 13:14 Resp 20 04/30/17 08:05 BP 169/84 H 04/30/17 13:14 Pulse Ox 97 04/30/17 08:05 - Labs Result Diagrams: 04/30/17 08:15 04/30/17 08:15 Labs: Laboratory Results - last 24 hr 04/29/17 04/29/17 04/30/17 06:48 20:57 01:50 WBC RBC Hgb Hct MCV MCH MCHC RDW Plt Count MPV Neut % (Auto) Lymph % (Auto) Smyth % (Auto) Eos % (Auto) Baso % (Auto) Neut # Lymph # Smyth # Eos # Baso # Sodium Potassium Chloride Carbon Dioxide Anion Gap BUN Creatinine Est GFR ( Amer) Est GFR (Non-Af Amer) POC Glucose (mg/dL) 408 H* 313 H Random Glucose Calcium Total Bilirubin AST ALT Alkaline Phosphatase Total Protein Albumin Globulin Albumin/Globulin Ratio Triglycerides 87 D Cholesterol 153 LDL Cholesterol Direct 101 HDL Cholesterol 39 Lipase < 10 L 04/30/17 04/30/17 04/30/17 06:07 08:15 08:15 WBC 9.1 RBC 2.94 L Hgb 8.6 L Hct 25.6 L MCV 87.1 MCH 29.3 MCHC 33.6 RDW 14.0 Plt Count 297 MPV 9.4 Neut % (Auto) 69.9 Lymph % (Auto) 16.9 L Smyth % (Auto) 5.1 Eos % (Auto) 7.3 H Baso % (Auto) 0.8 Neut # 6.3 Lymph # 1.5 Smyth # 0.5 Eos # 0.7 Baso # 0.1 Sodium 139 Potassium 4.2 Chloride 106 Carbon Dioxide 24 Anion Gap 13 BUN 23 H Creatinine 1.7 H Est GFR ( Amer) 50 Est GFR (Non-Af Amer) 42 POC Glucose (mg/dL) 266 H Random Glucose 179 H Calcium 7.8 L Total Bilirubin 0.4 AST 34 ALT 56 Alkaline Phosphatase 101 Total Protein 5.6 L Albumin 2.7 L Globulin 2.9 Albumin/Globulin Ratio 0.9 L Triglycerides Cholesterol LDL Cholesterol Direct HDL Cholesterol Lipase 04/30/17 04/30/17 11:24 16:15 WBC RBC Hgb Hct MCV MCH MCHC RDW Plt Count MPV Neut % (Auto) Lymph % (Auto) Smyth % (Auto) Eos % (Auto) Baso % (Auto) Neut # Lymph # Smyth # Eos # Baso # Sodium Potassium Chloride Carbon Dioxide Anion Gap BUN Creatinine Est GFR ( Amer) Est GFR (Non-Af Amer) POC Glucose (mg/dL) 447 H* > 500 H* Random Glucose Calcium Total Bilirubin AST ALT Alkaline Phosphatase Total Protein Albumin Globulin Albumin/Globulin Ratio Triglycerides Cholesterol LDL Cholesterol Direct HDL Cholesterol Lipase
--- NOTE | 2017-04-30 18:30 | PN ---
DATE: SUBJECTIVE: The patient still experiencing leg swelling. He denies any chest pain at this time. PHYSICAL EXAMINATION VITAL SIGNS: Blood pressure 169/84, heart rate 55, temperature 97.7, respirations 20. HEENT: Pale conjunctiva. CHEST: Scattered bilateral rhonchi. HEART: S1 and S2, regular. EXTREMITIES: 2+ pitting. LABORATORY DATA: Hemoglobin and hematocrit 8.6 and 25.6, white count and platelet count are within normal limits. Today's BUN and creatinine 23 and 1.7. Glucose 179. ASSESSMENT: 1. Consider bilateral pneumonia. 2. Rule out pulmonary sarcoidosis. 3. Diastolic heart failure. 4. . 5. Rule out nephrotic syndrome. RECOMMENDATIONS: Continue hydralazine 25 mg daily, aspirin 81 mg once a day, IV Cipro 400 mg q.12 hours, Coreg 3.125 mg twice a day, Crestor 5 mg once a day, subcutaneous heparin 5000 units twice a day, and Lasix 60 mg intravenously daily. Awaiting 24 hours protein collection. Anil Tomlinson MD
[2017-04-30] MEDS: (Lantus) Insulin Glargine, Recombinant SC SCH (21:49)
[2017-05-01] MEDS: (Novolin R) Insulin Human Regular 100 units/ml vial SC SCH ×5 (02:06→21:24)
[2017-05-01 07:15] LABS: BASO # 0.1 K/uL (0.0-0.2); BASO % 0.9 % (0.0-2.0); EOS # 0.6 K/uL (0.0-0.7); EOS % 7.7 % (0.0-4.0); HEMATOCRIT 24.3 % (35.0-51.0); LYMPH # 1.5 K/uL (1.0-4.3); LYMPH % 18.1 % (20.0-40.0); MEAN CORPUSCULAR HEMOGLOBIN 29.4 pg (27.0-31.0); MEAN CORPUSCULAR HGB CONC 33.8 g/dL (33.0-37.0); MEAN PLATELET VOLUME 9.3 fL (7.2-11.7); MONO # 0.6 K/uL (0.0-0.8); RED CELL DISTRIBUTION WIDTH 14.1 % (11.5-14.5); WHITE BLOOD COUNT 8.1 K/uL (4.8-10.8)
[2017-05-01 07:53] LABS: POTASSIUM 3.9 mmol/L (3.6-5.2)
[2017-05-01 07:55] LABS: ALB/GLOB RATIO 0.9 (1.0-2.1); BILIRUBIN,TOTAL 0.3 mg/dL (0.2-1.3); TOTAL PROTEIN 5.6 g/dL (6.3-8.3)
[2017-05-01 07:56] LABS: CALCIUM 7.6 mg/dl (8.6-10.4)
--- NOTE | 2017-05-01 10:04 | CP.PCM.PN ---
Subjective - Date & Time of Evaluation Date of Evaluation: 05/01/17 Time of Evaluation: 10:04 Objective - Vital Signs/Intake and Output Vital Signs (last 24 hours): Temp Pulse Resp BP Pulse Ox 97.4 F L 58 L 20 176/82 H 96 05/01/17 08:00 05/01/17 08:00 05/01/17 08:00 05/01/17 08:00 05/01/17 08:00 Intake and Output: 05/01/17 05/01/17 06:59 18:59 Intake Total 200 Output Total 460 Balance -260 - Medications Medications: Current Medications Acetaminophen (Tylenol 325mg Tab) 650 mg PO Q6 PRN PRN Reason: Pain, Mild (1-3) Last Admin: 04/28/17 16:48 Dose: 650 mg Aspirin (Aspirin Chewable) 81 mg PO DAILY [facility] Last Admin: 04/30/17 09:39 Dose: 81 mg Carvedilol (Coreg) 3.125 mg PO BID [facility] Last Admin: 04/30/17 17:48 Dose: 3.125 mg Clobetasol Propionate (Temovate) 0 gm TOP BID [facility] Last Admin: 04/30/17 17:49 Dose: 1 applic Famotidine (Pepcid) 20 mg PO DAILY [facility] Last Admin: 04/30/17 09:39 Dose: 20 mg Furosemide (Lasix) 60 mg IVP DAILY [facility] Last Admin: 04/30/17 09:40 Dose: 60 mg Furosemide (Lasix) 40 mg IVP DAILY@1800 [facility] Last Admin: 04/30/17 17:48 Dose: 40 mg Gabapentin (Neurontin) 600 mg PO BID [facility] Last Admin: 04/30/17 17:48 Dose: 600 mg Hydralazine HCl (Apresoline) 25 mg PO QID [facility] Last Admin: 04/30/17 21:47 Dose: 25 mg Ciprofloxacin (Cipro 400mg/200ml Dsw) 400 mg in 200 mls @ 133.333 mls/hr IVPB Q12H [facility] Last Admin: 04/30/17 21:50 Dose: 133.333 mls/hr Insulin Glargine (Lantus) 10 unit SC HS [facility] Last Admin: 04/30/17 21:49 Dose: 10 u Insulin Human Regular (Novolin R) 0 unit SC ACHS [facility] PRN Reason: Protocol Last Admin: 05/01/17 02:06 Dose: 4 unit Isosorbide Mononitrate (Imdur) 30 mg PO DAILY [facility] Last Admin: 04/30/17 13:16 Dose: 30 mg Mupirocin (Bactroban Ointment) 0 gm TOP BID [facility] Last Admin: 04/30/17 22:00 Dose: 1 applic Rosuvastatin Calcium (Crestor) 5 mg PO HS [facility] Last Admin: 04/30/17 21:47 Dose: 5 mg Tramadol HCl (Ultram) 25 mg PO Q6H PRN PRN Reason: Pain, moderate (4-7) - Labs Labs: 05/01/17 07:05 05/01/17 07:05 PT 10.0 SECONDS (9.7-12.2) 04/27/17 22:25 INR 0.9 04/27/17 22:25 APTT 30 SECONDS (21-34) 04/28/17 04:21 Assessment and Plan - Assessment and Plan (Free Text) Assessment: Lower Extremity and Scrotal Edema likely secondary to nephrotic syndrome Nephrology consulted, Dr. Luke, help appreciated CHF 04/30: Lasix increased to 60 mg in am and 40 mg pm 04/29: add Coreg today. Patient is already on JOSE CARLOS-I and Statin. - Cardio consult - Dr. Tomlinson - Prior ECHO on 02/27/17 - EF ~ 50%, mild AR, Tissue doppler reveals mild LV diastolic dysfunction, borderline concentric LVH - EKG - 70bpm NSR, Left axis deviation, RBBB, Left Anterior Fascicular Block - no change from prior EKG 02/27/17 - CXR - Cardiomegaly, Some vascular congestion, no pleural effusion, no infiltrates - no obvious changes from prior CXR on 03/01/17 - awaiting official report - BNP 3670 - Trop x 3 (-) - CK-MB - 4.35 - CBC - hgb 8.8/hct 26.2, remaining unremarkable, will monitor - CMP - WNL - Started on - ASA 81mg PO daily - Lasix 40mg IV daily - Heparin 5,000u SC Q12H - Crestor 5 mg PO HS - Lisinopril 5mg - F/U BUN/Cr Bilateral upper lobe infiltrates 04/29: Per review of recent medical records he had a work up for potential TB and this was negative AFB stains and AFB cultures three times. - CT abd/pelvis w/IV contrast - Nodular air space opacities, indeterminate. Consider inflammatory, infectious or neoplastic etiologies. - Chronic Pancreatitis - Soft tissue edema Left Rib pain - Rib X-ray - no fracture - Tramadol 25 mg po q6h prn HTN 04/30: Added Hydralazine 25mg po QID and Imdur 30 mg po daily 04/29: Added Coreg 3.125 BID today. On JOSE CARLOS-I- Lisinopril 5 mg daily - - Strict I&O's - Carb Consistent Diet w/sodium 2g DM - Random Glucose of 385 on admission - HgA1c 9.8 - Held home insulin, Levemir 25u BID (pt states he does not always take his medications, did not know type of insulin he was taking) - Held home Janumet - Placed on Insulin Sliding Scale - moderate -Lantus 10 u daily started on 04/30 Prophylactic Care - Heparin 5,000u SC Q12H - Pepcid 20 mg PO daily
[2017-05-01] MEDS: Ciprofloxacin 400mg/200ml D5W 400 MG/200 ML BAG IVPB SCH ×2 (10:10→22:02)
--- NOTE | 2017-05-01 10:11 | CON ---
DATE: HISTORY OF PRESENT ILLNESS: Mr. Donovan Mahan is a 56-year-old male who is being seen for renal failure and possible proteinuria. Mr. Mahan has a 8-9 history of diabetes, hypertension for the last 2 years, who presents to the emergency room with increasing swelling in his leg, scrotum, and shortness of breath. His family was here 3-4 months ago at which time they told him that his kidneys are failing and that he had protein in his urine. He was treated for apparent congestive heart failure, was discharged, but the symptoms progressed. He subsequently came to the emergency room and was admitted. His white count was 9100, hemoglobin 8.6, hematocrit 25.6, platelet count 297,000. His glucose was 447. His calcium was 7.8, total bilirubin 0.4, AST of 34, ALT of 56, alkaline phosphatase of 101, total protein 5.6, albumin 2.7, globulin 2.9, 0.9. CAT scan of the chest without IV contrast showed bilateral confluent masses, which were most likely infectious/inflammatory, granulomatous disease, sarcoidosis be considered. On 04/27/2017, he had a CAT scan with contrast, which showed nodular air-space opacities, which were indeterminate, chronic pancreatitis, soft tissue edema. PAST MEDICAL HISTORY: He denies myocardial infarction, stroke, neuropathy. He was told he had peripheral vascular disease, although, he has had no surgery or amputations. ALLERGIES: HE HAS NO ALLERGIES. He has been admitted to [facility]. MEDICATIONS: Include aspirin, Coreg, Pepcid, Lasix, Neurontin, insulin, Imdur, lisinopril, Cipro, and Crestor. SOCIAL HISTORY: He continues to smoke less than half a pack of cigarettes per day. He denies alcohol or drug abuse. He does not take anti-inflammatory agents. FAMILY HISTORY: He does not know his family history. REVIEW OF SYSTEMS: Please see the above. He denies chest pain, cough, or hemoptysis. There was no abdominal pain, nausea, vomiting, or diarrhea and he has no urinary symptoms. PHYSICAL EXAMINATION GENERAL: He was awake and alert and in no acute distress. VITAL SIGNS: His temperature was 97.7, his pulse was 64, his blood pressure was 169/84. There was jugular venous distention from below at the 30 degrees. LUNGS: Revealed coarse sounds, prolonged inspiration and expiration, diminished sounds at the bases with occasional coarse rales. HEART: Rhythm was regular. ABDOMEN: Soft and nontender. There was no definite hepatomegaly or palpable bladder. EXTREMITIES: There was no CVA tenderness or presacral edema and he had 1 to 2+ leg edema. There were no gross or motor deficits. IMPRESSION: Insulin dependent diabetes, hypertension associated with diabetes, congestive heart failure, cardiomyopathy, and probable diabetic nephropathy with nephrotic syndrome. RECOMMENDATIONS: To review all records regarding evaluation and previous admission at [facility]. Diuretics as needed. Urine for protein and creatinine. Await cardiology evaluation. Serial chemistries and history regarding baseline creatinine. Thank you for your kind referral. We will continue to follow with you. Sincerely, Barrie Barone MD
[2017-05-01] MEDS: CLOBETASOL 0.05% TOP SCH ×2 (10:13→21:26)
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
[2017-05-01] MEDS ORDERED: Lidocaine 2% Jelly (Uro-Jet) TOP ONE (13:17)
[2017-05-01] MEDS ORDERED: Lidocaine 2% Jelly (30 ml) TOP ONE ×2 (13:30→13:45)
--- NOTE | 2017-05-01 13:52 | CP.PCM.PN ---
Subjective - Date & Time of Evaluation Date of Evaluation: 05/01/17 Time of Evaluation: 13:49 - Subjective Subjective: Less dyspnea Creat sl worse at 2 Will quantify proteinuria Objective - Vital Signs/Intake and Output Vital Signs (last 24 hours): Temp Pulse Resp BP Pulse Ox 97.4 F L 55 L 20 147/78 96 05/01/17 08:00 05/01/17 13:47 05/01/17 08:00 05/01/17 13:47 05/01/17 08:00 Intake and Output: 05/01/17 05/01/17 06:59 18:59 Intake Total 200 Output Total 460 Balance -260 - Medications Medications: Current Medications Acetaminophen (Tylenol 325mg Tab) 650 mg PO Q6 PRN PRN Reason: Pain, Mild (1-3) Last Admin: 04/28/17 16:48 Dose: 650 mg Aspirin (Aspirin Chewable) 81 mg PO DAILY [facility] Last Admin: 05/01/17 10:11 Dose: 81 mg Carvedilol (Coreg) 6.25 mg PO BID [facility] Clobetasol Propionate (Temovate) 0 gm TOP BID [facility] Last Admin: 05/01/17 10:13 Dose: 1 applic Famotidine (Pepcid) 20 mg PO DAILY [facility] Last Admin: 05/01/17 10:12 Dose: 20 mg Gabapentin (Neurontin) 600 mg PO BID [facility] Last Admin: 05/01/17 10:13 Dose: 600 mg Hydralazine HCl (Apresoline) 25 mg PO QID [facility] Last Admin: 05/01/17 10:13 Dose: 25 mg Ciprofloxacin (Cipro 400mg/200ml Dsw) 400 mg in 200 mls @ 133.333 mls/hr IVPB Q12H [facility] Last Admin: 05/01/17 10:10 Dose: 133.333 mls/hr Insulin Glargine (Lantus) 10 unit SC HS [facility] Last Admin: 04/30/17 21:49 Dose: 10 u Insulin Human Regular (Novolin R) 0 unit SC ACHS [facility] PRN Reason: Protocol Last Admin: 05/01/17 10:10 Dose: 8 unit Isosorbide Mononitrate (Imdur) 30 mg PO DAILY [facility] Last Admin: 05/01/17 10:11 Dose: 30 mg Lisinopril (Zestril) 5 mg PO DAILY [facility] Mupirocin (Bactroban Ointment) 0 gm TOP BID [facility] Last Admin: 05/01/17 10:11 Dose: 1 applic Rosuvastatin Calcium (Crestor) 5 mg PO HS [facility] Last Admin: 04/30/17 21:47 Dose: 5 mg Tramadol HCl (Ultram) 25 mg PO Q6H PRN PRN Reason: Pain, moderate (4-7) - Labs Labs: 05/01/17 07:05 05/01/17 07:05 PT 10.0 SECONDS (9.7-12.2) 04/27/17 22:25 INR 0.9 04/27/17 22:25 APTT 30 SECONDS (21-34) 04/28/17 04:21 - Constitutional Appears: No Acute Distress, Chronically Ill - Head Exam Head Exam: ATRAUMATIC, NORMAL INSPECTION - Eye Exam Eye Exam: EOMI, Normal appearance - Neck Exam Neck Exam: Normal Inspection. absent: Tenderness - Respiratory Exam Respiratory Exam: Clear to Ausculation Bilateral, NORMAL BREATHING PATTERN - Cardiovascular Exam Cardiovascular Exam: REGULAR RHYTHM, +S1 - GI/Abdominal Exam GI & Abdominal Exam: Soft. absent: Tenderness - Extremities Exam Extremities Exam: Normal Inspection, Pedal Edema - Neurological Exam Neurological Exam: Awake, CN II-XII Intact - Skin Skin Exam: Dry, Warm Assessment and Plan (1) Lower extremity edema Status: Acute (2) CKD stage 3 due to type 2 diabetes mellitus Status: Acute (3) HTN (hypertension) Status: Acute (4) Type 2 diabetes mellitus with diabetic nephropathy Status: Acute - Assessment and Plan (Free Text) Plan: quantify protein excretion Increase BP meds
[2017-05-01] MEDS ORDERED: Pneumococcal 23-Valent Vaccine IM ONE (15:45)
--- NOTE | 2017-05-01 16:03 | PN ---
DATE: SUBJECTIVE: The patient is still experiencing bilateral leg pain. He denies any shortness of breath or chest pain. PHYSICAL EXAMINATION VITAL SIGNS: Blood pressure 176/82, heart rate 58, temperature 97.4, respirations 20. HEENT: Pale conjunctivae. CHEST: Clear. HEART: S1 and S2 regular. EXTREMITIES: 2+ pitting edema. LABORATORY DATA: Today's BUN and creatinine are 27 and 2.0, which is significant in elevation compared to the admitting BUN and creatinine, which were normal. The most recent blood sugar is more than 500. Hemoglobin and hematocrit 8.2 and 24.3. White count and platelet count are within normal limits. A 24 hours urinary protein result has not been posted yet. ASSESSMENT: 1. Consider bilateral pneumonia. 2. Rule out bilateral leg cellulitis. 3. Uncontrolled diabetes mellitus. 4. Hypoalbuminemia. 5. Acute renal failure. RECOMMENDATIONS: Continue hydralazine 25 mg q.i.d., aspirin 81 mg once a day, IV Cipro 400 mg intravenously q. 12 hours. Discontinue Lasix in view of worsening renal insufficiency. Venous Doppler lower extremity official report is still pending. Anil Tomlinson MD
[2017-05-01] MEDS: (Lantus) Insulin Glargine, Recombinant SC SCH (21:25)
[2017-05-01 23:32] VITALS: PULSE 57
[2017-05-02 05:35] LABS: CREATININE, URINE 0.43 g/L
[2017-05-02 07:27] LABS: BASO # 0.1 K/uL (0.0-0.2); BASO % 0.7 % (0.0-2.0); EOS # 0.6 K/uL (0.0-0.7); HEMATOCRIT 23.9 % (35.0-51.0); LYMPH # 1.6 K/uL (1.0-4.3); LYMPH % 19.3 % (20.0-40.0); MEAN CELL VOLUME 87.5 fL (80.0-94.0); MEAN CORPUSCULAR HEMOGLOBIN 29.6 pg (27.0-31.0); MEAN CORPUSCULAR HGB CONC 33.8 g/dL (33.0-37.0); MEAN PLATELET VOLUME 9.6 fL (7.2-11.7); MONO # 0.6 K/uL (0.0-0.8); NRBC % 0.1 % (0.0-2.0); WHITE BLOOD COUNT 8.1 K/uL (4.8-10.8)
[2017-05-02 07:33] LABS: POTASSIUM 4.1 mmol/L (3.6-5.2)
[2017-05-02 07:35] LABS: ALB/GLOB RATIO 0.9 (1.0-2.1); BILIRUBIN,TOTAL 0.3 mg/dL (0.2-1.3); TOTAL PROTEIN 5.5 g/dL (6.3-8.3)
[2017-05-02 07:36] LABS: CALCIUM 7.5 mg/dl (8.6-10.4); PHOSPHOROUS 5.3 mg/dL (2.5-4.5)
[2017-05-02 08:42] VITALS: BP 148/81; RESP 18; TEMP 97.8; O2SAT 97
[2017-05-02] MEDS: (Novolin R) Insulin Human Regular 100 units/ml vial SC SCH (09:15)
--- NOTE | 2017-05-02 10:25 | CP.PCM.PN ---
Subjective - Date & Time of Evaluation Date of Evaluation: 05/02/17 Time of Evaluation: 10:24 - Subjective Subjective: seen and examined rising creatinine noted ct abd/pelvis - no hydronephrosis but distended bladder pt being discharged at this time Objective - Vital Signs/Intake and Output Vital Signs (last 24 hours): Temp Pulse Resp BP Pulse Ox 97.8 F 57 L 18 148/81 97 05/02/17 07:15 05/02/17 07:15 05/02/17 07:15 05/02/17 07:15 05/02/17 07:15 Intake and Output: 05/02/17 05/02/17 06:59 18:59 Intake Total 300 200 Balance 300 200 - Medications Medications: Current Medications Acetaminophen (Tylenol 325mg Tab) 650 mg PO Q6 PRN PRN Reason: Pain, Mild (1-3) Last Admin: 04/28/17 16:48 Dose: 650 mg Amlodipine Besylate (Norvasc) 5 mg PO DAILY [facility] Aspirin (Aspirin Chewable) 81 mg PO DAILY [facility] Last Admin: 05/01/17 10:11 Dose: 81 mg Carvedilol (Coreg) 6.25 mg PO BID [facility] Last Admin: 05/01/17 21:26 Dose: 6.25 mg Clobetasol Propionate (Temovate) 0 gm TOP BID [facility] Last Admin: 05/01/17 21:26 Dose: 1 applic Famotidine (Pepcid) 20 mg PO DAILY [facility] Last Admin: 05/01/17 10:12 Dose: 20 mg Gabapentin (Neurontin) 600 mg PO BID [facility] Last Admin: 05/01/17 17:58 Dose: 600 mg Hydralazine HCl (Apresoline) 25 mg PO QID [facility] Last Admin: 05/01/17 21:25 Dose: 25 mg Ciprofloxacin (Cipro 400mg/200ml Dsw) 400 mg in 200 mls @ 133.333 mls/hr IVPB Q12H [facility] Last Admin: 05/01/17 22:02 Dose: 133.333 mls/hr Insulin Glargine (Lantus) 10 unit SC HS [facility] Last Admin: 05/01/17 21:25 Dose: 10 u Insulin Human Regular (Novolin R) 0 unit SC ACHS [facility] PRN Reason: Protocol Last Admin: 05/01/17 21:24 Dose: 3 unit Isosorbide Mononitrate (Imdur) 30 mg PO DAILY [facility] Last Admin: 05/01/17 10:11 Dose: 30 mg Mupirocin (Bactroban Ointment) 0 gm TOP BID [facility] Last Admin: 05/01/17 17:58 Dose: 1 applic Rosuvastatin Calcium (Crestor) 5 mg PO HS [facility] Last Admin: 05/01/17 21:25 Dose: 5 mg Tramadol HCl (Ultram) 25 mg PO Q6H PRN PRN Reason: Pain, moderate (4-7) - Labs Labs: 05/02/17 07:09 05/02/17 07:09 PT 10.0 SECONDS (9.7-12.2) 04/27/17 22:25 INR 0.9 04/27/17 22:25 APTT 30 SECONDS (21-34) 04/28/17 04:21 - Constitutional Appears: Non-toxic, No Acute Distress - Head Exam Head Exam: NORMAL INSPECTION - Eye Exam Eye Exam: Normal appearance - ENT Exam ENT Exam: Mucous Membranes Moist, Normal Exam - Neck Exam Neck Exam: Normal Inspection - Respiratory Exam Respiratory Exam: Clear to Ausculation Bilateral, NORMAL BREATHING PATTERN - Cardiovascular Exam Cardiovascular Exam: REGULAR RHYTHM - GI/Abdominal Exam GI & Abdominal Exam: Distended, Soft - Extremities Exam Extremities Exam: Normal Inspection Assessment and Plan (1) CHF (congestive heart failure) Status: Acute (2) Hyperglycemia Status: Acute (3) Lower extremity edema Status: Acute (4) Acute renal failure Status: Acute (5) CKD stage 3 due to type 2 diabetes mellitus Status: Acute - Assessment and Plan (Free Text) Assessment: worsening regina - hold lisinopril please follow up with pmd in a week w/ labs - if discharged today. creatinine seems to have improved to 2.2 mg/dl needs strict sugar control.
[2017-05-02] MEDS: CLOBETASOL 0.05% TOP SCH (11:36)
[2017-05-02 15:10] LABS: GAMMA GLOBULIN 16.1 Relative %
--- NOTE | 2017-05-03 08:20 | PCM.HF ---
Heart Failure Core Measure - Heart Failure Ejection Fraction: 40 % or Greater JOSE CARLOS Inhibitor Prescribed: Yes Beta-Willian Prescribed: Carvedilol Angiotensin II Receptor Willian Prescribed: No Contraindication/Reason for not providing: on JOSE CARLOS AnticoagulationTherapy for Atrial Fibrillation/Atrialflutter: No Contraindication/Reason for not providing: no hx of a fib Aldosterone Antagonist Prescribed: No Contraindication/Reason for not providing: ef>50 / Hydralazine Nitrate Prescribed: Yes Implantable Cardioverter Defibrillator Therapy: No Contraindication/Reason for not providing: ef>50 Cardiac Resynchronization Therapy Prescribed: No Contraindication/Reason for not providing: ef>50 - Follow up Will be discharged to: Home Follow Up Date (must be within 7 days from discharge): 05/05/17 Follow Up Time: 09:00
[2017-05-03 23:52] LABS: HB E AG Nonreactive (Nonreactive)
== END 2017-05-02 14:25 | disposition home or self-care (01) | DRG 544 ==
LOC: C.ER 20:59 → C.9E 04-28 02:04 → C.5S 04-28 03:52
PROVIDERS: ADMIT Family Medicine; ATTEND Family Medicine
DX: I13.0 Hypertensive heart and chronic kidney disease with heart failure and stage 1 through stage 4 chronic kidney disease, or unspecified chronic kidney disease (principal); I50.33 Acute on chronic diastolic (congestive) heart failure; J18.9 Pneumonia, unspecified organism; R18.8 Other ascites; E11.21 Type 2 diabetes mellitus with diabetic nephropathy; N17.9 Acute kidney failure, unspecified; I42.9 Cardiomyopathy, unspecified; E11.65 Type 2 diabetes mellitus with hyperglycemia; L03.115 Cellulitis of right lower limb; N18.3 Chronic kidney disease, stage 3 (moderate); K74.60 Unspecified cirrhosis of liver; L03.116 Cellulitis of left lower limb; E11.22 Type 2 diabetes mellitus with diabetic chronic kidney disease; N48.89 Other specified disorders of penis; K86.1 Other chronic pancreatitis; Z79.4 Long term (current) use of insulin; J47.9 Bronchiectasis, uncomplicated; F17.210 Nicotine dependence, cigarettes, uncomplicated; I44.4 Left anterior fascicular block; N50.89 Other specified disorders of the male genital organs

== ENCOUNTER 2017-05-16 14:54 | Emergency (ER) | payer OTHER ==
[2017-05-16 15:16] VITALS: BMI 22.6
[2017-05-16 15:20] VITALS: PULSE 68; RESP 18; TEMP 98.1
[2017-05-16] MEDS ORDERED: Tetracaine 0.5% Ophth (OR ONLY) OS ONE (16:17)
[2017-05-16] MEDS ORDERED: Fluorescein 1 mg Ophthalmic Strip OS ONE (16:18)
--- NOTE | 2017-05-16 16:19 | C.PDOC ---
History Of Present Illness 56 y/o male presents to ED with complaints of redness, swelling and pressure to right eyes since yesterday. Patient state he started feeling onset discomfort to right eye last night and this morning woke with swelling to eyelid and redness. Patient denies trauma, prior history of similar episodes, fever, chills or any other complaints at this time. Time Seen by Provider: 05/16/17 15:22 Chief Complaint (Nursing): Eye Problem History Per: Patient History/Exam Limitations: no limitations Onset/Duration Of Symptoms: Days Current Symptoms Are (Timing): Still Present Quality: Pressure Past Medical History Reviewed: Historical Data, Nursing Documentation, Vital Signs Vital Signs: Last Vital Signs Temp 98.1 F 05/16/17 15:18 Pulse 68 05/16/17 18:26 Resp 18 05/16/17 18:26 BP 164/79 H 05/16/17 18:26 Pulse Ox 99 05/16/17 20:22 - Medical History PMH: Back Problems, Diabetes, HTN, Peripheral Edema Surgical History: No Surg Hx - [facility] Procedures INFLUENZA VACCINATION (08/18/13) VACCINATION NEC (08/18/13) Family History: States: No Known Family Hx - Social History Hx Tobacco Use: Yes Hx Alcohol Use: Yes Hx Substance Use: No - Immunization History Hx Tetanus Toxoid Vaccination: Yes (2013) Hx Influenza Vaccination: Yes (2015) Hx Pneumococcal Vaccination: No Review Of Systems Constitutional: Negative for: Fever, Chills Eyes: Positive for: Pain, Conjunctivae Inflammation, Eyelid Inflammation, Redness. Negative for: Vision Change Cardiovascular: Negative for: Chest Pain Respiratory: Negative for: Cough, Shortness of Breath Gastrointestinal: Negative for: Nausea, Vomiting Skin: Negative for: Rash Neurological: Negative for: Weakness, Numbness Physical Exam - Physical Exam Additional Physical Exam Comments: Constitutional: No acute distress. WDWN. Head: Normocephalic. Atraumatic. Eyes: PERRL. Conjuctival injection to right eye. Redness and swelling to right eye ENT: Moist mucous membranes. Neck: Supple. Cardiovascular: Regular rate and rhythm. Chest: No tenderness. Respiratory: Clear to auscultation bilaterally. GI: Soft. Nontender. Nondistended. Normoactive bowel sounds. No rebound. No guarding. Back: No CVA and no mid-line tenderness. Musculoskeletal: No tenderness or swelling of extremities. Skin: No rash. Neurologic: Alert, no focal deficit. ED Course And Treatment O2 Sat by Pulse Oximetry: 99 (RA) Pulse Ox Interpretation: Normal Medical Decision Making Medical Decision Making: discussed with xander Mayfield 17, 2 mm corneal abrasion seen at 5 pm s/p use of xander pen. recommends antibiotic drops aand f/u in office tomorrow 8 am - 6 pm. Disposition Discussed With Dr.: Torito Ashton Doctor Will See Patient In The: Office Counseled Patient/Family Regarding: Studies Performed, Diagnosis, Need For Followup, Rx Given - Disposition Referrals: Torito Ashton MD [Staff Provider] - Disposition: HOME/ ROUTINE Disposition Time: 17:41 Condition: STABLE Additional Instructions: Ponga jagjit gota en el ephraim derecho cada 4 horas. Maana, la oficina est abierta de 8 am a 6 pm. Prescriptions: Ofloxacin [Ocuflox] 1 drop OS Q4 #5 ml Instructions: Corneal Abrasion (ED) Forms: Gen Discharge Inst Mozambican, [employer] (Mozambican) Print Language: TUVALUAN - Clinical Impression Clinical Impression: Corneal abrasion - PA / SHIFT FOREMAN / Resident Statement MD/DO has reviewed & agrees with the documentation as recorded. - Scribe Statement The provider has reviewed the documentation as recorded by the Scribe Wilver Fink All medical record entries made by the Scribe were at my direction and personally dictated by me. I have reviewed the chart and agree that the record accurately reflects my personal performance of the history, physical exam, medical decision making, and the department course for this patient. I have also personally directed, reviewed, and agree with the discharge instructions and disposition.
[2017-05-16] MEDS ORDERED: Fluorescein 1 mg Ophthalmic Strip ONE (16:21)
[2017-05-16] MEDS ORDERED: Tetracaine 0.5% Ophth (OR ONLY) ONE (16:21)
[2017-05-16 18:27] VITALS: BP 164/79
[2017-05-16 20:21] VITALS: O2SAT 99
== END 2017-05-16 18:27 | disposition home or self-care (01) ==
LOC: C.ER 14:54
DX: S05.01XA Injury of conjunctiva and corneal abrasion without foreign body, right eye, initial encounter (principal); X58.XXXA Exposure to other specified factors, initial encounter

== ENCOUNTER 2017-06-21 11:45 | Inpatient (IN) | payer OTHER ==
[2017-06-21 11:54] VITALS: BMI 29.0
--- NOTE | 2017-06-21 12:25 | C.PDOC ---
History Of Present Illness 56 y/o male with a hx of CHF, diabetes, and HTN, c/o bilateral leg swelling, scrotal swelling, and SOB for the last week. Patient was recently admitted for the same symptoms. Patient denies fever, chills, nausea, or vomiting. No chest pain or palpitations. Time Seen by Provider: 06/21/17 12:03 Chief Complaint (Nursing): Male Genitourinary History Per: Patient History/Exam Limitations: no limitations Onset/Duration Of Symptoms: Days Current Symptoms Are (Timing): Still Present Severity: Mild Additional History Per: Patient Past Medical History Reviewed: Historical Data, Nursing Documentation, Vital Signs Vital Signs: Last Vital Signs Temp 97.8 F 06/21/17 15:09 Pulse 66 06/21/17 15:09 Resp 16 06/21/17 15:09 BP 163/85 H 06/21/17 15:09 Pulse Ox 100 06/21/17 15:30 - Medical History PMH: Back Problems, Diabetes, HTN, Peripheral Edema - [facility] Procedures INFLUENZA VACCINATION (08/18/13) VACCINATION NEC (08/18/13) Family History: States: Unknown Family Hx - Social History Hx Tobacco Use: Yes Hx Alcohol Use: No Hx Substance Use: No - Immunization History Hx Tetanus Toxoid Vaccination: Yes (2013) Hx Influenza Vaccination: No Hx Pneumococcal Vaccination: Yes Review Of Systems Except As Marked, All Systems Reviewed And Found Negative. Constitutional: Negative for: Fever, Chills Cardiovascular: Negative for: Chest Pain Respiratory: Positive for: Shortness of Breath Gastrointestinal: Negative for: Nausea, Vomiting Genitourinary: Positive for: Other (scrotal swelling) Musculoskeletal: Positive for: Leg Pain (Bilateral leg swelling) Physical Exam - Physical Exam Appears: Non-toxic, No Acute Distress Skin: Warm, Dry Head: Atraumatic, Normacephalic Chest: Symmetrical Cardiovascular: Rhythm Regular, No Murmur Respiratory: Rales (Rales at the bases), No Rhonchi, No Wheezing Gastrointestinal/Abdominal: Soft, No Tenderness Back: No CVA Tenderness Male Genital: No Testicular Tenderness, Scrotal Swelling Extremity: Pedal Edema (+4 pitting edema) Neurological/Psych: Oriented x3 ED Course And Treatment - Laboratory Results Result Diagrams: 06/21/17 12:35 06/21/17 12:35 ECG: Interpreted By Me, Viewed By Me ECG Rhythm: Sinus Rhythm Interpretation Of ECG: RBBB Rate From EC O2 Sat by Pulse Oximetry: 100 (RA) Pulse Ox Interpretation: Normal Medical Decision Making Medical Decision Making: ro chf - labs imaging pending Plans: * UA testicular * Blood labs * UA * IV fluids * EKG * CXR noted bnp, lasix given. h/h baseline. stable for tele. dr peterson accept.s . pt with diffuse anasarca, swollen testicles, difficulty voiding, needs iv diuresis Disposition - Disposition Disposition: HOSPITALIZED Disposition Time: 13:53 Condition: FAIR - Clinical Impression Clinical Impression: CHF (congestive heart failure) - Scribe Statement The provider has reviewed the documentation as recorded by the Scribe Leno bhatt All medical record entries made by the Scribe were at my direction and personally dictated by me. I have reviewed the chart and agree that the record accurately reflects my personal performance of the history, physical exam, medical decision making, and the department course for this patient. I have also personally directed, reviewed, and agree with the discharge instructions and disposition. Decision To Admit - Pt Status Changed To: Hospital Disposition Of: Inpatient - Admit Certification Admit to Inpatient:: After my assessment, the patient will require hospitalization for at least two midnights. This is because of the severity of symptoms shown, intensity of services needed, and/or the medical risk in this patient being treated as an outpatient. - InPatient: Physician Admission Certification: I certify that this patient requires 2 or more midnights of care for the following reason:: pt with anasarca, with scotal swelling, difficulty voiding - . Bed Request Type: Telemetry Admitting Physician: Joan Peterson Patient Diagnosis: CHF (congestive heart failure)
[2017-06-21 12:38] LABS: BASO # 0.1 K/uL (0.0-0.2); EOS # 0.7 K/uL (0.0-0.7); EOS % 6.4 % (0.0-4.0); HEMATOCRIT 29.1 % (35.0-51.0); LYMPH % 19.5 % (20.0-40.0); MEAN CELL VOLUME 88.1 fL (80.0-94.0); MEAN CORPUSCULAR HEMOGLOBIN 29.1 pg (27.0-31.0); MEAN PLATELET VOLUME 8.5 fL (7.2-11.7); MONO # 0.5 K/uL (0.0-0.8); MONO % 4.5 % (0.0-10.0); RED CELL DISTRIBUTION WIDTH 14.8 % (11.5-14.5); WHITE BLOOD COUNT 10.4 K/uL (4.8-10.8)
[2017-06-21 12:45] LABS: INR 0.9
--- NOTE | 2017-06-21 12:53 | RAD ---
HISTORY: chest pain COMPARISON: Chest x-ray performed 04/27/17 and 03/01/17 TECHNIQUE: Chest, one view. FINDINGS: LUNGS: Persistent ill-defined consolidative and masslike opacities re-identified within the right upper to mid lung zone as well as within the left upper to mid lung zone. This may represent underlying infectious etiologies versus inflammatory etiologies versus granulomatous changes versus neoplasm. Additional scattered nodular densities throughout both lungs. Please note that chest x-ray has limited sensitivity for the detection of pulmonary masses. PLEURA: No significant pleural effusion identified. No definite pneumothorax . CARDIOVASCULAR: Mild cardiomegaly. OSSEOUS STRUCTURES: Degenerative changes. VISUALIZED UPPER ABDOMEN: Unremarkable. OTHER FINDINGS: None. IMPRESSION: Persistent ill-defined consolidative and masslike opacities re-identified within the right upper to mid lung zone as well as within the left upper to mid lung zone. This may represent underlying infectious etiologies versus inflammatory etiologies versus granulomatous changes versus neoplasm. Additional scattered nodular densities throughout both lungs. Mild cardiomegaly.
[2017-06-21 13:02] LABS: CHLORIDE 109 mmol/L (98-107); POTASSIUM 3.8 mmol/L (3.6-5.2); SODIUM 136 mmol/L (132-148)
[2017-06-21 13:04] LABS: BILIRUBIN,TOTAL 0.5 mg/dL (0.2-1.3); GFR AFRICAN-AMERICAN > 60
[2017-06-21 13:05] LABS: ALB/GLOB RATIO 0.9 (1.0-2.1); ALKALINE PHOSPHATASE 78 U/L (38-126); ALT/SGPT 49 U/L (21-72); AST/SGOT 39 U/L (17-59); BLOOD UREA NITROGEN 18 mg/dL (9-20); CARBON DIOXIDE 23 mmol/L (22-30); GLUCOSE,RANDOM 58 mg/dL (75-110); TOTAL PROTEIN 5.6 g/dL (6.3-8.3)
[2017-06-21 13:06] LABS: CALCIUM 7.5 mg/dl (8.6-10.4)
--- NOTE | 2017-06-21 13:48 | US ---
HISTORY: testicular swelling TECHNIQUE: Realtime sonography through the scrotum with color and doppler flow. COMPARISON: None Available. FINDINGS: RIGHT TESTICLE: Measures 3.6 x 2.7 x 2.8 cm. Homogeneous echotexture. Blood flow is demonstrated. RIGHT EPIDIDYMIS: Measures approximately 1.7 x 1.2 x 2.0 cm LEFT TESTICLE: Measures 2.7 x 2.5 x 3.0 cm. Homogeneous echotexture. Blood flow is demonstrated. LEFT EPIDIDYMIS: Measures approximately 1.8 x 1.2 x 1.9 cm. HYDROCELE: Small bilateral hydroceles. VARICOCELE: None. OTHER FINDINGS: Bilateral scrotal edema. IMPRESSION: Small bilateral hydroceles. Bilateral scrotal edema.
--- NOTE | 2017-06-21 14:45 | CP.PCM.HP ---
<Belem Humphreys - Last Filed: 06/21/17 15:36> History of Present Illness - History of Present Illness History of Present Illness: CC: "My legs have been swollen for one week" HPI: Patient is a Sami speaking 56 year old male with PMHx of CHF, COPD, nephrotic syndrome, DM type 2, diabetic neuropathy and Hepatitis C presenting with swollen legs and scrotum and SOB x 2 weeks. Patient says he has had these same symptoms twice this past year for which has been admitted. Patient says this time is not as bad but he does not want it to get worse. Patient reports "water" leaking out of legs intermittently. Patient says he uses 1 pillow at night and can walk 2 blocks without getting short of breath. Patient says neither of these have changed in number in the past few months. Patient reports waking up from SOB frequently over the pas week and feeling better when he sits up. Of note, patient ran out of Lasix 2 days ago. He says he only takes it when he feels he needs it. Patient denies fever, chills, chest pain, cough, abdominal pain, nausea, vomiting, diarrhea, constipation. PMD: Dr. Howard PMHx: as above PSH: none Famhx: none known to patient Social: tobacco: 7 cigarettes per day for 43 years, former heavy drinker (last drink 1 year ago), denies illicit drug use Present on Admission - Present on Admission Any Indicators Present on Admission: No Review of Systems - Constitutional Constitutional: absent: Chills, Fever - EENT Ears: absent: Dizziness Nose/Mouth/Throat: absent: Sore Throat - Cardiovascular Cardiovascular: Dyspnea, Dyspnea on Exertion, Leg Edema, Paroxysmal Nocturnal Dyspnea. absent: Chest Pain, Pain Radiating to Arm/Neck/Jaw, Palpitations - Respiratory Respiratory: Dyspnea. absent: Cough, Wheezing - Gastrointestinal Gastrointestinal: absent: Abdominal Pain, Constipation, Diarrhea, Nausea, Vomiting - Genitourinary Genitourinary: absent: Dysuria - Reproductive: Male Reproductive:Male: Other (scrotal swelling) - Musculoskeletal Musculoskeletal: absent: Muscle Weakness - Integumentary Integumentary: Rash (erythematous legs) - Neurological Neurological: absent: Dizziness, Headaches - Psychiatric Psychiatric: absent: Anxiety - Endocrine Endocrine: absent: Fatigue, Palpitations - Hematologic/Lymphatic Hematologic: absent: Easy Bleeding, Easy Bruising Past Patient History - Past Medical History & Family History Past Medical History?: Yes Past Family History: Reviewed and not pertinent - Past Social History Smoking Status: Light Smoker < 10 Cigarettes Daily Alcohol: None (former heavy drinker; quit 1 year ago) Drugs: Denies - CARDIAC Hx Hypertension: Yes Hx Peripheral Edema: Yes - PULMONARY Hx Respiratory Disorders: No - NEUROLOGICAL Hx Neurological Disorder: No - HEENT Hx HEENT Problems: No - ENDOCRINE/METABOLIC Hx Endocrine Disorders: Yes Hx Diabetes Mellitus Type 2: Yes - HEMATOLOGICAL/ONCOLOGICAL Hx Blood Disorders: No - INTEGUMENTARY Hx Dermatological Problems: No - MUSCULOSKELETAL/RHEUMATOLOGICAL Hx Musculoskeletal Disorders: Yes - GASTROINTESTINAL Hx Gastrointestinal Disorders: No - GENITOURINARY/GYNECOLOGICAL Hx Genitourinary Disorders: No - PSYCHIATRIC Hx Substance Use: No - SURGICAL HISTORY Hx Surgeries: No - ANESTHESIA Hx Anesthesia: No Hx Anesthesia Reactions: No Meds Allergies/Adverse Reactions: Allergies Allergy/AdvReac Type Severity Reaction Status Date / Time No Known Allergies Allergy Verified 06/21/17 11:52 Physical Exam - Constitutional Appears: Non-toxic, No Acute Distress - Head Exam Head Exam: NORMAL INSPECTION - Eye Exam Eye Exam: EOMI - ENT Exam ENT Exam: Mucous Membranes Moist - Respiratory Exam Respiratory Exam: Clear to Auscultation Bilateral, NORMAL BREATHING PATTERN. absent: Rales, Rhonchi, Wheezes - Cardiovascular Exam Cardiovascular Exam: REGULAR RHYTHM, JVD, +S1, +S2. absent: Gallop, Rubs, Systolic Murmur - GI/Abdominal Exam GI & Abdominal Exam: Normal Bowel Sounds, Soft. absent: Organomegaly, Tenderness Additional comments: + hepatojugular reflex - Exam Exam: Scrotal Swelling. absent: Testicular Tenderness - Extremities Exam Extremities exam: Positive for: calf tenderness, normal capillary refill, pedal edema (2+ pitting edema with erythema), tenderness - Neurological Exam Neurological exam: Alert, Oriented x3 - Psychiatric Exam Psychiatric exam: Normal Affect, Normal Mood - Skin Skin Exam: Normal Color, Warm Results - Vital Signs Recent Vital Signs: Last Vital Signs Temp 97 F L 06/21/17 11:54 Pulse 70 06/21/17 11:54 Resp 18 06/21/17 11:54 BP 170/92 H 06/21/17 11:54 Pulse Ox 100 06/21/17 13:54 - Labs Result Diagrams: 06/21/17 12:35 06/21/17 12:35 Labs: Laboratory Results - last 24 hr 06/21/17 06/21/17 06/21/17 12:35 12:35 12:35 WBC 10.4 RBC 3.30 L Hgb 9.6 L Hct 29.1 L MCV 88.1 MCH 29.1 MCHC 33.0 RDW 14.8 H Plt Count 323 MPV 8.5 Neut % (Auto) 68.6 Lymph % (Auto) 19.5 L Harris % (Auto) 4.5 Eos % (Auto) 6.4 H Baso % (Auto) 1.0 Neut # 7.2 H Lymph # 2.0 Harris # 0.5 Eos # 0.7 Baso # 0.1 PT 10.5 INR 0.9 APTT 32 Sodium 136 Potassium 3.8 Chloride 109 H Carbon Dioxide 23 Anion Gap 8 L BUN 18 Creatinine 1.3 Est GFR ( Amer) > 60 Est GFR (Non-Af Amer) 57 Random Glucose 58 L Calcium 7.5 L Total Bilirubin 0.5 AST 39 ALT 49 Alkaline Phosphatase 78 Troponin I 0.0170 NT-Pro-B Natriuret Pep 9170 H Total Protein 5.6 L Albumin 2.7 L Globulin 2.9 Albumin/Globulin Ratio 0.9 L Assessment & Plan - Assessment and Plan (Free Text) Assessment: CHF exacerbation BNP 9170 from 3670 on 04/30/17 CXR 06/21/17 - persistant ill-defined consolidative and mass-like opacities re- identified within right upper to mid lung zones as well as left upper to mid lung zones. Additional scattered nodular densities. Mild cardiomegaly (please see full report) ECHO 02/27/17 - LVEF 50%, borderline concenttric LVH, mild LV diastolic dysfunction, mild AR (please see full report) Troponin negative x 1 F/U ROMIs x2 F/U EKG F/U repeat ECHO Monitor daily weights Monitor Is and Os Fluid restriction to 1500ml Lasix 40mg IVP daily Lisinopril 5mg PO daily Coreg 6.25mg PO BID ASA 81mg PO daily Imdur 30mg PO daily Cardiology consult - Dr. Delgadillo - f/u recs Calf tenderness F/U b/l dopplers COPD Possible exacerbation Duonebs 3ml INH RQ6 ELE Solumedrol 20mg IVP Q12H Pulmonology consult - Dr. Maddox - f/u recs Testicular swelling Testicular US 06/21/17 - small bilateral hydroceles; bilateral scrotal edema ( please see full report) Urology consult - Dr. Bennie Kelsey - f/u recs History of HTN uncontrolled. patient not compliant with meds Continue home meds: Lisinopril 5mg PO daily Coreg 6.25mg PO BID Hydralazine 25mg PO QID Norvasc 5mg PO daily Nephrotic Syndrome F/U UA Albumin 2.7 BUN/Cr: 18/1.3 Nephrology consult - Dr. Luke - f/u recs Dietitian referral for low albumin - f/u recs DM II Holding Janumet 50/1000mg PO BID and glimeperide 4mg PO daily Levemir 25mg SC HS RISS Accuchecks F/u HgbA1C Diabetic neuropathy continue home med: Gabapentin 600mg PO QID Chronic Anemia Hgb 9.6 - baseline compared to last visits Monitor Hep C History Antibody positive on prior admission Hep C viral load indetectable on prior admission LFTs elevated History of positive QFT Positive on March 07, 2017 AFB negative x 3 March 06, 2017 Prophylaxis Protonix 40mg PO daily Heparin 5000U SC Q8 Discussed with Dr. Taylor Humphreys, , PGY3 <Ladi Vazquez - Last Filed: 06/21/17 17:27> Results - Vital Signs Recent Vital Signs: Last Vital Signs Temp 97.8 F 06/21/17 15:09 Pulse 66 06/21/17 15:09 Resp 16 06/21/17 15:09 BP 163/85 H 06/21/17 15:09 Pulse Ox 100 06/21/17 15:30 - Labs Result Diagrams: 06/21/17 12:35 06/21/17 12:35 Labs: Laboratory Results - last 24 hr 06/21/17 06/21/17 06/21/17 12:35 12:35 12:35 WBC 10.4 RBC 3.30 L Hgb 9.6 L Hct 29.1 L MCV 88.1 MCH 29.1 MCHC 33.0 RDW 14.8 H Plt Count 323 MPV 8.5 Neut % (Auto) 68.6 Lymph % (Auto) 19.5 L Harris % (Auto) 4.5 Eos % (Auto) 6.4 H Baso % (Auto) 1.0 Neut # 7.2 H Lymph # 2.0 Harris # 0.5 Eos # 0.7 Baso # 0.1 PT 10.5 INR 0.9 APTT 32 Sodium 136 Potassium 3.8 Chloride 109 H Carbon Dioxide 23 Anion Gap 8 L BUN 18 Creatinine 1.3 Est GFR ( Amer) > 60 Est GFR (Non-Af Amer) 57 POC Glucose (mg/dL) Random Glucose 58 L Calcium 7.5 L Total Bilirubin 0.5 AST 39 ALT 49 Alkaline Phosphatase 78 Troponin I 0.0170 NT-Pro-B Natriuret Pep 9170 H Total Protein 5.6 L Albumin 2.7 L Globulin 2.9 Albumin/Globulin Ratio 0.9 L Urine Color Urine Clarity Urine pH Ur Specific Jacob Urine Protein Urine Glucose (UA) Urine Ketones Urine Blood Urine Nitrate Urine Bilirubin Urine Urobilinogen Ur Leukocyte Esterase Urine WBC (Auto) Urine RBC (Auto) Ur Squamous Epith Cells 06/21/17 06/21/17 15:10 17:05 WBC RBC Hgb Hct MCV MCH MCHC RDW Plt Count MPV Neut % (Auto) Lymph % (Auto) Harris % (Auto) Eos % (Auto) Baso % (Auto) Neut # Lymph # Harris # Eos # Baso # PT INR APTT Sodium Potassium Chloride Carbon Dioxide Anion Gap BUN Creatinine Est GFR ( Amer) Est GFR (Non-Af Amer) POC Glucose (mg/dL) 117 H Random Glucose Calcium Total Bilirubin AST ALT Alkaline Phosphatase Troponin I NT-Pro-B Natriuret Pep Total Protein Albumin Globulin Albumin/Globulin Ratio Urine Color Straw Urine Clarity Clear Urine pH 5.0 Ur Specific Jacob 1.009 Urine Protein 3+ H Urine Glucose (UA) 1+ H Urine Ketones Negative Urine Blood Trace H Urine Nitrate Negative Urine Bilirubin Negative Urine Urobilinogen Normal Ur Leukocyte Esterase Neg Urine WBC (Auto) 1 Urine RBC (Auto) 2 Ur Squamous Epith Cells < 1 Attending/Attestation - Attestation I have personally seen and examined this patient.: Yes I have fully participated in the care of the patient.: Yes I have reviewed all pertinent clinical information: Yes Notes (Text): This is a 56years old male with history of CHF (diastolic dysfunction EF 50%), copd,proteinuria,HTN,DM,hep c and h/o bronchiectasis came to ER for scrotal edema and leg edema . 1.CHF exacerbation elevated BNP 2.leg edema 3.DM 4.Proteinuria/nephrotic range 5.Scotal edema 6.Hepatitis C 7.Chronic renal disease Patient was seen and examined case discussed with the resident I agree with the documentation of the resident's assessment and plan
[2017-06-21 15:23] LABS: RBC URINE 2 /hpf (0-3); URINE BILIRUBIN NEGATIVE (NEGATIVE); URINE COLOR Straw (YELLOW); URINE GLUCOSE (UA) 1+ mg/dL (Normal); URINE KETONE NEGATIVE (NEGATIVE); URINE LEUKOCYTE ESTERASE NEG Leu/uL (Negative); URINE PROTEIN 3+ mg/dL (NEGATIVE); URINE UROBILINOGEN NORMAL mg/dL (0.2-1.0); WBC URINE 1 /hpf (0-5)
[2017-06-21 15:33] LABS: URINE BLOOD TRACE (NEGATIVE)
[2017-06-21] MEDS: MethylPREDNISolone 40 mg Vial IVP SCH (16:49)
[2017-06-21] MEDS: Pantoprazole 40 mg EC Tab PO SCH (16:49)
[2017-06-21] MEDS: Ofloxacin 0.3% Ophth Soln OS SCH ×2 (16:49→21:00)
[2017-06-21] MEDS: (Novolin R) Insulin Human Regular 100 units/ml vial SC SCH ×2 (17:06→22:06)
[2017-06-21] MEDS: Insulin Detemir 100 units/ml Vial (Levemir) SC SCH (22:05)
[2017-06-21] MEDS: Albuterol-Ipratrop 3 mg / 0.5 (3 ml) UD INH SCH (22:17)
[2017-06-22] MEDS: Ofloxacin 0.3% Ophth Soln OS SCH ×4 (00:25→22:24)
[2017-06-22] MEDS: Albuterol-Ipratrop 3 mg / 0.5 (3 ml) UD INH SCH ×4 (01:39→19:39)
[2017-06-22] MEDS: MethylPREDNISolone 40 mg Vial IVP SCH (04:49)
[2017-06-22 07:09] LABS: BASO % 0.4 % (0.0-2.0); EOS % 0.3 % (0.0-4.0); HEMATOCRIT 26.8 % (35.0-51.0); LYMPH # 1.3 K/uL (1.0-4.3); LYMPH % 14.8 % (20.0-40.0); MEAN CELL VOLUME 86.7 fL (80.0-94.0); MEAN CORPUSCULAR HGB CONC 33.4 g/dL (33.0-37.0); MEAN PLATELET VOLUME 8.8 fL (7.2-11.7); MONO # 0.2 K/uL (0.0-0.8); MONO % 2.7 % (0.0-10.0); RED CELL DISTRIBUTION WIDTH 14.8 % (11.5-14.5)
[2017-06-22 07:36] LABS: CHLORIDE 109 mmol/L (98-107); SODIUM 136 mmol/L (132-148)
[2017-06-22 07:38] LABS: GFR AFRICAN-AMERICAN > 60
[2017-06-22 07:39] LABS: ALB/GLOB RATIO 0.9 (1.0-2.1); ALKALINE PHOSPHATASE 81 U/L (38-126); ALT/SGPT 39 U/L (21-72); AST/SGOT 38 U/L (17-59); BILIRUBIN,TOTAL 0.4 mg/dL (0.2-1.3); BLOOD UREA NITROGEN 20 mg/dL (9-20); CALCIUM 7.8 mg/dl (8.6-10.4); CARBON DIOXIDE 22 mmol/L (22-30); GLUCOSE,RANDOM 109 mg/dL (75-110); TOTAL PROTEIN 5.6 g/dL (6.3-8.3)
--- NOTE | 2017-06-22 07:42 | CP.PCM.PN ---
Subjective - Date & Time of Evaluation Date of Evaluation: 06/22/17 Time of Evaluation: 07:38 - Subjective Subjective: 61 year old hisp male admitted with CHF who was noted to have scrotal swelling US shows bilat small Hydroceles,and scrotal skinn edema. pt says it has improved since admissio, A dependent scrotal edema Bilat small hydroceles. Suggest Elevate scrotum as much as possible. treat chf no further gu therapy at this time. Low Objective - Vital Signs/Intake and Output Vital Signs (last 24 hours): Temp Pulse Resp BP Pulse Ox 97.8 F 71 20 146/77 99 06/21/17 23:10 06/21/17 23:10 06/21/17 23:10 06/21/17 23:10 06/21/17 23:10 Intake and Output: 06/22/17 06/22/17 06:59 18:59 Intake Total 480 Output Total 400 Balance 80 - Medications Medications: Current Medications Albuterol/Ipratropium (Duoneb 3 Mg/0.5 Mg (3 Ml) Ud) 3 ml INH RQ6 [facility] Last Admin: 06/22/17 07:10 Dose: 3 ml Amlodipine Besylate (Norvasc) 5 mg PO DAILY [facility] Last Admin: 06/21/17 16:49 Dose: 5 mg Carvedilol (Coreg) 6.25 mg PO BID [facility] Last Admin: 06/21/17 22:04 Dose: 6.25 mg Furosemide (Lasix) 40 mg IVP DAILY [facility] Heparin Sodium (Porcine) (Heparin) 5,000 units SC Q8 [facility] Last Admin: 06/22/17 05:39 Dose: 5,000 units Hydralazine HCl (Apresoline) 25 mg PO QID [facility] Last Admin: 06/21/17 22:04 Dose: 25 mg Insulin Detemir (Levemir) 25 unit SC HS [facility] Last Admin: 06/21/17 22:05 Dose: 25 unit Insulin Human Regular (Novolin R) 0 unit SC ACHS [facility] PRN Reason: Protocol Last Admin: 06/21/17 22:06 Dose: Not Given Isosorbide Mononitrate (Imdur Er) 30 mg PO DAILY [facility] Lisinopril (Zestril) 5 mg PO DAILY [facility] Last Admin: 06/21/17 16:49 Dose: 5 mg Methylprednisolone (Solu-Medrol) 20 mg IVP Q12H ELE Last Admin: 06/22/17 04:49 Dose: 20 mg Ofloxacin (Ocuflox Ophth 0.3%) 0 ml OS Q4 ELE Last Admin: 06/22/17 04:50 Dose: Not Given Pantoprazole Sodium (Protonix Ec Tab) 40 mg PO DAILY ELE Last Admin: 06/21/17 16:49 Dose: 40 mg Rosuvastatin Calcium (Crestor) 5 mg PO HS ELE Last Admin: 06/21/17 22:04 Dose: 5 mg - Labs Labs: 06/22/17 06:51 06/21/17 12:35 PT 10.5 SECONDS (9.7-12.2) 06/21/17 12:35 INR 0.9 06/21/17 12:35 APTT 32 SECONDS (21-34) 06/21/17 12:35
--- NOTE | 2017-06-22 10:20 | CP.PCM.CON ---
History of Present Illness - History of Present Illness History of Present Illness: CC: "My legs have been swollen for one week" HPI: Patient is a Jordanian speaking 56 year old male with PMHx of CHF, COPD, nephrotic syndrome, DM type 2, diabetic neuropathy and Hepatitis C presenting with swollen legs and scrotum and SOB x 2 weeks. Patient says he has had these same symptoms twice this past year for which has been admitted. Patient says this time is not as bad but he does not want it to get worse. Patient reports "water" leaking out of legs intermittently. Patient says he uses 1 pillow at night and can walk 2 blocks without getting short of breath. Patient says neither of these have changed in number in the past few months. Patient reports waking up from SOB frequently over the pas week and feeling better when he sits up. Of note, patient ran out of Lasix 2 days ago. He says he only takes it when he feels he needs it. Patient denies fever, chills, chest pain, cough, abdominal pain, nausea, vomiting, diarrhea, constipation. PMD: Dr. Howard PMHx: as above PSH: none Famhx: none known to patient Social: tobacco: 7 cigarettes per day for 43 years, former heavy drinker (last drink 1 year ago), denies illicit drug use No known diabetic nephropathy CXR - no definite CHF changes Review of Systems - Review of Systems Systems not reviewed;Unavailable: Language Barrier Past Patient History - Past Medical History & Family History Past Medical History?: Yes - Past Social History Smoking Status: Light Smoker < 10 Cigarettes Daily Chewing Tobacco Use: No Cigar Use: No Alcohol: None Drugs: Denies - CARDIAC Hx Cardiac Disorders: Yes Hx Congestive Heart Failure: Yes Hx Hypercholesterolemia: Yes Hx Hypertension: Yes Hx Peripheral Edema: Yes - PULMONARY Hx Respiratory Disorders: No - NEUROLOGICAL Hx Neurological Disorder: No - HEENT Hx HEENT Problems: No - RENAL Hx Chronic Kidney Disease: No - ENDOCRINE/METABOLIC Hx Endocrine Disorders: Yes Hx Diabetes Mellitus Type 2: Yes - HEMATOLOGICAL/ONCOLOGICAL Hx Blood Disorders: No - INTEGUMENTARY Hx Dermatological Problems: No - MUSCULOSKELETAL/RHEUMATOLOGICAL Hx Musculoskeletal Disorders: No Hx Falls: No - GASTROINTESTINAL Hx Gastrointestinal Disorders: No - GENITOURINARY/GYNECOLOGICAL Hx Genitourinary Disorders: No - PSYCHIATRIC Hx Substance Use: No - SURGICAL HISTORY Hx Surgeries: No - ANESTHESIA Hx Anesthesia: No Hx Anesthesia Reactions: No Hx Malignant Hyperthermia: No Has any member of the family had a problem w/ anesthesia?: No Meds Allergies/Adverse Reactions: Allergies Allergy/AdvReac Type Severity Reaction Status Date / Time No Known Allergies Allergy Verified 06/21/17 11:52 - Medications Medications: Current Medications Albuterol/Ipratropium (Duoneb 3 Mg/0.5 Mg (3 Ml) Ud) 3 ml INH RQ6 [facility] Last Admin: 06/22/17 07:10 Dose: 3 ml Amlodipine Besylate (Norvasc) 5 mg PO DAILY [facility] Last Admin: 06/21/17 16:49 Dose: 5 mg Carvedilol (Coreg) 6.25 mg PO BID [facility] Last Admin: 06/21/17 22:04 Dose: 6.25 mg Furosemide (Lasix) 40 mg IVP DAILY [facility] Heparin Sodium (Porcine) (Heparin) 5,000 units SC Q8 [facility] Last Admin: 06/22/17 05:39 Dose: 5,000 units Hydralazine HCl (Apresoline) 25 mg PO QID [facility] Last Admin: 06/21/17 22:04 Dose: 25 mg Insulin Detemir (Levemir) 25 unit SC [facility] Last Admin: 06/21/17 22:05 Dose: 25 unit Insulin Human Regular (Novolin R) 0 unit SC ACHS [facility] PRN Reason: Protocol Last Admin: 06/21/17 22:06 Dose: Not Given Isosorbide Mononitrate (Imdur Er) 30 mg PO DAILY [facility] Lisinopril (Zestril) 10 mg PO DAILY [facility] Ofloxacin (Ocuflox Ophth 0.3%) 0 ml OS Q4 [facility] Last Admin: 06/22/17 04:50 Dose: Not Given Pantoprazole Sodium (Protonix Ec Tab) 40 mg PO DAILY [facility] Last Admin: 06/21/17 16:49 Dose: 40 mg Prednisone (Prednisone Tab) 20 mg PO BID [facility] Rosuvastatin Calcium (Crestor) 5 mg PO HS [facility] Last Admin: 06/21/17 22:04 Dose: 5 mg Physical Exam - Constitutional Appears: Non-toxic, No Acute Distress, Chronically Ill - Head Exam Head Exam: ATRAUMATIC, NORMAL INSPECTION - Eye Exam Eye Exam: EOMI, Normal appearance - Neck Exam Neck exam: Positive for: Normal Inspection. Negative for: Tenderness - Respiratory Exam Respiratory Exam: Rhonchi, NORMAL BREATHING PATTERN - Cardiovascular Exam Cardiovascular Exam: REGULAR RHYTHM, +S1 - GI/Abdominal Exam GI & Abdominal Exam: Soft. absent: Tenderness - Exam Exam: Scrotal Swelling - Extremities Exam Extremities exam: Positive for: pedal edema. Negative for: tenderness - Neurological Exam Neurological exam: Alert, CN II-XII Intact - Skin Skin Exam: Dry, Warm Results - Vital Signs Recent Vital Signs: Last Vital Signs Temp 97.8 F 06/22/17 07:30 Pulse 62 06/22/17 08:37 Resp 18 06/22/17 07:30 BP 152/77 H 06/22/17 07:30 Pulse Ox 99 06/22/17 07:30 - Labs Result Diagrams: 06/22/17 06:51 06/22/17 06:51 Labs: Laboratory Results - last 24 hr 06/21/17 06/21/17 06/21/17 12:35 12:35 12:35 WBC 10.4 RBC 3.30 L Hgb 9.6 L Hct 29.1 L MCV 88.1 MCH 29.1 MCHC 33.0 RDW 14.8 H Plt Count 323 MPV 8.5 Neut % (Auto) 68.6 Lymph % (Auto) 19.5 L [place] % (Auto) 4.5 Eos % (Auto) 6.4 H Baso % (Auto) 1.0 Neut # 7.2 H Lymph # 2.0 [place] # 0.5 Eos # 0.7 Baso # 0.1 PT 10.5 INR 0.9 APTT 32 Sodium 136 Potassium 3.8 Chloride 109 H Carbon Dioxide 23 Anion Gap 8 L BUN 18 Creatinine 1.3 Est GFR ( Amer) > 60 Est GFR (Non-Af Amer) 57 POC Glucose (mg/dL) Random Glucose 58 L Hemoglobin A1c Calcium 7.5 L Total Bilirubin 0.5 AST 39 ALT 49 Alkaline Phosphatase 78 Total Creatine Kinase CK-MB (Mass) Troponin I 0.0170 Troponin I, Quant NT-Pro-B Natriuret Pep 9170 H Total Protein 5.6 L Albumin 2.7 L Globulin 2.9 Albumin/Globulin Ratio 0.9 L Urine Color Urine Clarity Urine pH Ur Specific [place] Urine Protein Urine Glucose (UA) Urine Ketones Urine Blood Urine Nitrate Urine Bilirubin Urine Urobilinogen Ur Leukocyte Esterase Urine WBC (Auto) Urine RBC (Auto) Ur Squamous Epith Cells 06/21/17 06/21/17 06/21/17 15:10 17:05 19:57 WBC RBC Hgb Hct MCV MCH MCHC RDW Plt Count MPV Neut % (Auto) Lymph % (Auto) [place] % (Auto) Eos % (Auto) Baso % (Auto) Neut # Lymph # [place] # Eos # Baso # PT INR APTT Sodium Potassium Chloride Carbon Dioxide Anion Gap BUN Creatinine Est GFR ( Amer) Est GFR (Non-Af Amer) POC Glucose (mg/dL) 117 H Random Glucose Hemoglobin A1c Calcium Total Bilirubin AST ALT Alkaline Phosphatase Total Creatine Kinase 968 H CK-MB (Mass) 10.4 H Troponin I Troponin I, Quant 0.0180 NT-Pro-B Natriuret Pep Total Protein Albumin Globulin Albumin/Globulin Ratio Urine Color Straw Urine Clarity Clear Urine pH 5.0 Ur Specific [place] 1.009 Urine Protein 3+ H Urine Glucose (UA) 1+ H Urine Ketones Negative Urine Blood Trace H Urine Nitrate Negative Urine Bilirubin Negative Urine Urobilinogen Normal Ur Leukocyte Esterase Neg Urine WBC (Auto) 1 Urine RBC (Auto) 2 Ur Squamous Epith Cells < 1 06/21/17 06/22/17 06/22/17 21:42 03:01 06:20 WBC RBC Hgb Hct MCV MCH MCHC RDW Plt Count MPV Neut % (Auto) Lymph % (Auto) [place] % (Auto) Eos % (Auto) Baso % (Auto) Neut # Lymph # [place] # Eos # Baso # PT INR APTT Sodium Potassium Chloride Carbon Dioxide Anion Gap BUN Creatinine Est GFR ( Amer) Est GFR (Non-Af Amer) POC Glucose (mg/dL) 196 H 121 H Random Glucose Hemoglobin A1c Calcium Total Bilirubin AST ALT Alkaline Phosphatase Total Creatine Kinase 678 H CK-MB (Mass) 7.47 H Troponin I Troponin I, Quant < 0.0120 NT-Pro-B Natriuret Pep Total Protein Albumin Globulin Albumin/Globulin Ratio Urine Color Urine Clarity Urine pH Ur Specific [place] Urine Protein Urine Glucose (UA) Urine Ketones Urine Blood Urine Nitrate Urine Bilirubin Urine Urobilinogen Ur Leukocyte Esterase Urine WBC (Auto) Urine RBC (Auto) Ur Squamous Epith Cells 06/22/17 06/22/17 06/22/17 06:51 06:51 06:51 WBC 9.0 RBC 3.09 L Hgb 8.9 L Hct 26.8 L MCV 86.7 MCH 29.0 MCHC 33.4 RDW 14.8 H Plt Count 311 MPV 8.8 Neut % (Auto) 81.8 H Lymph % (Auto) 14.8 L [place] % (Auto) 2.7 Eos % (Auto) 0.3 Baso % (Auto) 0.4 Neut # 7.4 H Lymph # 1.3 [place] # 0.2 Eos # 0.0 Baso # 0.0 PT INR APTT Sodium 136 Potassium 4.0 Chloride 109 H Carbon Dioxide 22 Anion Gap 9 L BUN 20 Creatinine 1.4 Est GFR ( Amer) > 60 Est GFR (Non-Af Amer) 52 POC Glucose (mg/dL) Random Glucose 109 Hemoglobin A1c 8.6 H Calcium 7.8 L Total Bilirubin 0.4 AST 38 ALT 39 Alkaline Phosphatase 81 Total Creatine Kinase CK-MB (Mass) Troponin I Troponin I, Quant NT-Pro-B Natriuret Pep Total Protein 5.6 L Albumin 2.7 L Globulin 2.9 Albumin/Globulin Ratio 0.9 L Urine Color Urine Clarity Urine pH Ur Specific [place] Urine Protein Urine Glucose (UA) Urine Ketones Urine Blood Urine Nitrate Urine Bilirubin Urine Urobilinogen Ur Leukocyte Esterase Urine WBC (Auto) Urine RBC (Auto) Ur Squamous Epith Cells Assessment & Plan (1) HTN (hypertension) Status: Acute (2) Hepatitis C Status: Acute (3) Type 2 diabetes mellitus with diabetic nephropathy Status: Acute - Assessment and Plan (Free Text) Assessment: Likely nephrotic syndrome Likely diabetic nephropathy Possible hep C related membranous nephropathy Cannot rule out malignancy related membranous nephropathy CXR does not appear to be CHF Plan: Evaluate for diabetic retinopathy Check other serologies 24 hr urine for protein excretion rate CT chest JOSE CARLOS I Diuretics foe edema control
[2017-06-22] MEDS: (Novolin R) Insulin Human Regular 100 units/ml vial SC SCH ×4 (10:26→21:36)
[2017-06-22] MEDS: Pantoprazole 40 mg EC Tab PO SCH (10:26)
--- NOTE | 2017-06-22 10:59 | CON ---
DATE: 06/22/2017 CHIEF COMPLAINT: Scrotal swelling. HISTORY OF PRESENT ILLNESS: Patient was admitted to the hospital with CHF, exacerbation of COPD, hypertension. He is a known diabetic. He was noted to have scrotal swelling. Scrotal ultrasound was done that showed some scrotal edema and bilateral small hydrocele. The patient states that the swelling in the scrotum has improved since he is in the hospital. He has no pain. REVIEW OF SYSTEMS: RESPIRATORY: Patient has history of shortness of breath, COPD. HEART: Patient has a history of CHF. He has no chest pain. He is experiencing no tachycardia. GI: Patient has no history of vomiting, nauseousness, or change in bowel habits. : Patient has noted slow progressive swelling in the scrotum which is parallel to the slow swelling in his lower extremities. INTEGUMENT: Patient noticed he has skin color change in the lower extremities. LABORATORY DATA: I reviewed laboratory data, especially the scrotal ultrasound reports and films. Based on my examination, patient appears to have small insignificant hydrocele, scrotal edema is secondary to CHF Suggest continuing treatment of CHF until it is maximally improved. Elevate scrotum where possible. There is no specific therapy for scrotal swelling due to CHF. Leopoldo Kelsey MD
--- NOTE | 2017-06-22 11:45 | CT ---
PROCEDURE: CT Chest without contrast HISTORY: rule out mass COMPARISON: Chest CT without contrast 04/28/2017. TECHNIQUE: Contiguous axial images were obtained through the chest without intravenous contrast enhancement. Sagittal and coronal reconstructions were performed. Radiation dose (DLP): 302.40 mGy-cm. This CT exam was performed using one or more of the following dose reduction techniques: Automated exposure control, adjustment of the mA and/or kV according to patient size, and/or use of iterative reconstruction technique. FINDINGS: LUNGS: Post central airways remain clear bilaterally, including the trachea, relatively prominent nodular infiltrates persist at the upper greater than lower lobes however there is significant improvement identified at the bilateral lower lobes including those subsegments inferior to the superior segments bilaterally. MEDIASTINUM: Mild mediastinal lymphadenopathy is stable including a left aorta pulmonary window lymph node measuring 2.2 by 1.8 cm. No gross hilar adenopathy however lack images contrast limits evaluation of the hilar anatomy bilaterally. Unremarkable thoracic aorta. Stable pulmonary artery hypertension pattern with transverse diameter measuring 3.3 cm. No thoracic aortic aneurysm. Normal sized heart. Main pulmonary artery unremarkable. No vascular congestion. PLEURA: Trace bilateral pleural effusions are now identified greater the left and right sides. No pericardial effusion. No pneumothorax. BONES: No fracture. No destructive lesion. UPPER ABDOMEN: Chronic pancreatitis pattern again suggested. OTHER FINDINGS: Anasarca pattern of ground-glass opacity throughout the fat both internal as well as extrinsic to the chest. This pattern persists into the visualized upper abdomen sections as well. IMPRESSION: 1. Persistent, stable nodular infiltrates affect the upper lobes predominantly at this time with interval improvement in the superior segment of bilateral lower lobes. Mild mediastinal lymphadenopathy again evident. Consider infectious or inflammatory process. Granulomatous disease is not considered high on the differential diagnosis list due to lack of more prominent lymphadenopathy but is clearly not excluded completely. 2. Trace bilateral pleural effusions identified in the interval. 3. Anasarca. 4. Other lesser findings as discussed above.
--- NOTE | 2017-06-22 12:21 | VASCLAB ---
PROCEDURE: Lower Extremity Venous Duplex Exam. HISTORY: Calf tenderness and erythema and swelling PRIORS: 05/01/2017, normal. TECHNIQUE: Bilateral common femoral, femoral, popliteal and posterior tibial, peroneal and great saphenous veins were evaluated. Flow was assessed with color Doppler, compressibility, assessment of phasic flow and augmentation response. Report prepared by Toby Porter, BS, RVT FINDINGS: RIGHT: 1. Common Femoral Vein: 1.1. Compressibility - Fully compressible: Thrombus - None : Flow - Phasic: Augmentation -Normal: Reflux - None. 2. Femoral Vein: 2.1. Compressibility - Fully compressible: Thrombus - None : Flow - Phasic: Augmentation -Normal: Reflux - None. 3. Popliteal Vein: 3.1. Compressibility - Fully compressible: Thrombus - None : Flow - Phasic: Augmentation -Normal: Reflux - Moderate. 3.04 seconds 4. Posterior Tibial Vein: 4.1. Compressibility - Fully compressible: Thrombus - None: Flow - Phasic: Augmentation -Normal: Reflux - None. 5. Peroneal Vein: 5.1. Compressibility - Fully compressible: Thrombus - None: Flow - Phasic: Augmentation -Normal: Reflux - None. 6. Great Saphenous Vein: 6.1. Compressibility - Fully compressible: Thrombus - None: Flow - Phasic: Augmentation - Normal: Reflux - None. LEFT: 1. Common Femoral Vein: 1.1. Compressibility - Fully compressible: Thrombus - None: Flow - Phasic: Augmentation -Normal: Reflux - None. 2. Femoral Vein: 2.1. Compressibility - Fully compressible: Thrombus - None: Flow - Phasic: Augmentation -Normal: Reflux - None. 3. Popliteal Vein: 3.1. Compressibility - Fully compressible: Thrombus - None : Flow - Phasic: Augmentation -Normal: Reflux - None. 4. Posterior Tibial Vein: 4.1. Compressibility - Fully compressible: Thrombus - None: Flow - Phasic: Augmentation -Normal: Reflux - None. 5. Peroneal Vein: 5.1. Compressibility - Fully compressible: Thrombus - None: Flow - Phasic: Augmentation -Normal: Reflux - None. 6. Great Saphenous Vein: 6.1. Compressibility - Fully compressible: Thrombus - None: Flow - Phasic: Augmentation - Normal: Reflux - Severe. >4.86 seconds OTHER FINDINGS: Right: None significant. Left: None significant. IMPRESSION: Right: No evidence of deep or superficial vein thrombosis of the right lower extremity. Valvular incompetence noted of the right popliteal vein. Left: No evidence of deep or superficial vein thrombosis of the left lower extremity. Valvular incompetence noted of the left great saphenous vein.
--- NOTE | 2017-06-22 12:43 | US ---
Renal ultrasound History: Proteinuria. Comparison: CT abdomen and pelvis dated 04/27/2017 Technique: Real-time sonography was performed through the kidneys. Findings: Right kidney: 11.9 x 6.7 x 7.2 centimeters. Mild increased echogenicity of the renal parenchymal cortex suggestive for medical renal disease. Lower pole hypoechoic cyst measuring 3.2 x 2.5 x 2.7 centimeters. Additional lower pole hypoechoic 2.2 x 2.1 x 2.4 centimeter cyst. Mild fullness of the right renal collecting system. In addition, punctate foci of increased echogenicity are noted at the level of the renal pelvi; for example on series 2, image 18 there is a 5 millimeter echogenic foci noted. This may represent calculi. Correlation with noncontrast CT scan may be helpful for further evaluation if clinically indicated. Visualized aorta is preserved. Left Kidney: 11.7 x 6.8 x 6.6 centimeters. Increased echogenicity of the renal parenchymal cortex suggestive for medical renal disease. Midpole hypoechoic complex cystic lesion measuring 2.1 x 1.8 x 2.4 centimeters containing somewhat thickened internal septation as well as peripheral echogenic foci suggestive for calcification. Mild fullness of the left renal collecting system. In addition, small echogenic foci noted within the left renal collecting system; for example in the midpole measuring up to 4 millimeters which may represent small calculi. Visualized urinary bladder is grossly preserved. Impression: 1. Increased echogenicity of the bilateral renal parenchymal cortices suggestive for medical renal disease. 2. Complex left renal cyst as described above. 3. Simple right renal cysts as described above. 4. Punctate echogenic foci in the renal pelvi bilaterally which may represent calculi. 5. Mild fullness of the bilateral renal collecting systems. Correlation with noncontrast CT scan may be helpful for further evaluation if clinically indicated.
--- NOTE | 2017-06-22 14:18 | CP.PCM.PN ---
<Raulito Peace R - Last Filed: 06/22/17 14:30> Subjective - Date & Time of Evaluation Date of Evaluation: 06/22/17 Time of Evaluation: 11:00 - Subjective Subjective: PGY-[address] Vazquez. No acute events overnight noted. Patient seen and examined at bedside this AM. Patient did not have any complaints. He said denied chest pain, shortness of breath, abdominal pain, nausea, vomiting, diarrhea, fever, chills. Objective - Vital Signs/Intake and Output Vital Signs (last 24 hours): Temp Pulse Resp BP Pulse Ox 97.8 F 62 18 163/82 H 99 06/22/17 07:30 06/22/17 08:37 06/22/17 07:30 06/22/17 10:26 06/22/17 07:30 Intake and Output: 06/22/17 06/22/17 06:59 18:59 Intake Total 480 Output Total 400 Balance 80 - Medications Medications: Current Medications Albuterol/Ipratropium (Duoneb 3 Mg/0.5 Mg (3 Ml) Ud) 3 ml INH RQ6 [facility] Last Admin: 06/22/17 13:36 Dose: 3 ml Amlodipine Besylate (Norvasc) 5 mg PO DAILY [facility] Last Admin: 06/22/17 10:26 Dose: 5 mg Carvedilol (Coreg) 6.25 mg PO BID [facility] Last Admin: 06/22/17 10:26 Dose: 6.25 mg Furosemide (Lasix) 40 mg IVP DAILY [facility] Last Admin: 06/22/17 10:26 Dose: 40 mg Heparin Sodium (Porcine) (Heparin) 5,000 units SC Q8 [facility] Last Admin: 06/22/17 13:42 Dose: 5,000 units Hydralazine HCl (Apresoline) 25 mg PO QID [facility] Last Admin: 06/22/17 13:41 Dose: 25 mg Insulin Detemir (Levemir) 25 unit SC HS [facility] Last Admin: 06/21/17 22:05 Dose: 25 unit Insulin Human Regular (Novolin R) 0 unit SC ACHS [facility] PRN Reason: Protocol Last Admin: 06/22/17 13:42 Dose: 1 unit Isosorbide Mononitrate (Imdur Er) 30 mg PO DAILY [facility] Last Admin: 06/22/17 10:26 Dose: 30 mg Lisinopril (Zestril) 10 mg PO DAILY [facility] Ofloxacin (Ocuflox Ophth 0.3%) 0 ml OS Q4 [facility] Last Admin: 06/22/17 10:27 Dose: Not Given Pantoprazole Sodium (Protonix Ec Tab) 40 mg PO DAILY [facility] Last Admin: 06/22/17 10:26 Dose: 40 mg Prednisone (Prednisone Tab) 20 mg PO BID [facility] Last Admin: 06/22/17 10:26 Dose: 20 mg Rosuvastatin Calcium (Crestor) 5 mg PO HS [facility] Last Admin: 06/21/17 22:04 Dose: 5 mg - Labs Labs: 06/22/17 06:51 06/22/17 06:51 PT 10.5 SECONDS (9.7-12.2) 06/21/17 12:35 INR 0.9 06/21/17 12:35 APTT 32 SECONDS (21-34) 06/21/17 12:35 - Additional Findings Additional findings: - Constitutional Appears: Non-toxic, No Acute Distress - Head Exam Head Exam: NORMAL INSPECTION - Eye Exam Eye Exam: EOMI - ENT Exam ENT Exam: Mucous Membranes Moist - Respiratory Exam Respiratory Exam: Clear to Auscultation Bilateral, NORMAL BREATHING PATTERN. absent: Rales, Rhonchi, Wheezes - Cardiovascular Exam Cardiovascular Exam: REGULAR RHYTHM, JVD, +S1, +S2. absent: Gallop, Rubs, Systolic Murmur - GI/Abdominal Exam GI & Abdominal Exam: Normal Bowel Sounds, Soft. absent: Organomegaly, Tenderness Additional comments: + hepatojugular reflex - Exam Exam: Scrotal Swelling. absent: Testicular Tenderness - Extremities Exam Extremities exam: Positive for: calf tenderness, normal capillary refill, pedal edema (2+ pitting edema with erythema), tenderness - Neurological Exam Neurological exam: Alert, Oriented x3 - Psychiatric Exam Psychiatric exam: Normal Affect, Normal Mood - Skin Skin Exam: Normal Color, Warm Additional comments: dermatomal rash with blister on left flank likely herpes zoster erythema and thickened hard skin in lower extremities bilaterally up to mid-bob Assessment and Plan - Assessment and Plan (Free Text) Assessment: CHF exacerbation Cardiology consult - Dr. Delgadillo BNP 06/21/17 [id number] from [id number] on 04/30/17 Troponin negative x 3 Chronically elevated CK-MB and Total Creatine Kinase EKG NSR F/U repeat ECHO Monitor daily weights Monitor Is and Os Fluid restriction to 1500ml Imaging: CT Chest 06/22: IMPRESSION: 1. Persistent, stable nodular infiltrates affect the upper lobes predominantly at this time with interval improvement in the superior segment of bilateral lower lobes. Mild mediastinal lymphadenopathy again evident. Consider infectious or inflammatory process. Granulomatous disease is not considered high on the differential diagnosis list due to lack of more prominent lymphadenopathy but is clearly not excluded completely. 2. Trace bilateral pleural effusions identified in the interval. 3. Anasarca. (see full report) CXR 06/21: Persistant ill-defined consolidative and mass-like opacities re- identified within right upper to mid lung zones as well as left upper to mid lung zones. Additional scattered nodular densities. Mild cardiomegaly (please see full report) ECHO 02/27/17 - LVEF 50%, borderline concenttric LVH, mild LV diastolic dysfunction, mild AR (please see full report) Meds: Lasix 40mg IVP daily Lisinopril 10mg PO daily Coreg 6.25mg PO BID Imdur 30mg PO daily Nephrotic Syndrome Nephrology consult - Dr. Luke Per Dr Luke: Likely nephrotic syndrome Likely diabetic nephropathy Possible hep C related membranous nephropathy Cannot rule out malignancy related membranous nephropathy CXR does not appear to be CHF F/U UA F/U total protein, 24 hour urine F/U lipid panel F/U ANCA scr w/mpo/pr3, w/reflx F/U Anti nuclear Ab Albumin on admission 2.7 BUN/Cr on admission: 18/1.3 Dietitian referral for low albumin Imaging: Renal Ultrasound 06/22/17: Impression: 1. Increased echogenicity of the bilateral renal parenchymal cortices suggestive for medical renal disease. 2. Complex left renal cyst as described above. 3. Simple right renal cysts as described above. 4. Punctate echogenic foci in the renal pelvi bilaterally which may represent calculi. 5. Mild fullness of the bilateral renal collecting systems. Correlation with noncontrast CT scan may be helpful for further evaluation if clinically indicated. Calf tenderness LE venous b/l dopplers 06/22/17: no evidence of deep or superficial vein thrombosis of right OR left lower extremity. Valvular incompetence noted of right popliteal vein. Valvular incompetence noted of left great saphenous vein. COPD Possible exacerbation Pulmonology consult - Dr. Varsha Villagran 3ml INH RQ6 [facility] Solumedrol 20mg IVP Q12H Testicular swelling Urology consult - Dr. Bennie Kelsey Per Dr Kelsey note: Treat CHF, no further therapy at this time Imaging: Testicular US 06/21/17 - small bilateral hydroceles; bilateral scrotal edema ( please see full report) History of HTN Uncontrolled, patient not compliant with meds Continue home med Lisinopril 5mg PO daily Continue home med Coreg 6.25mg PO BID Continue home med Hydralazine 25mg PO QID Continue home med Norvasc 5mg PO daily DM II Holding Janumet 50/1000mg PO BID and glimeperide 4mg PO daily RISS Accuchecks HgbA1C 06/22/17: 8.6 con't home med Levemir 25mg SC HS con't home med rosuvastatin 5mg PO HS Diabetic neuropathy continue home med Gabapentin 600mg PO QID Chronic Anemia Hgb 9.6 - baseline compared to last visits Monitor Hep C History F/U hep B surface Ag F/U hep B Ab Antibody positive on prior admission Hep C viral load indetectable on prior admission LFTs elevated History of positive QFT Positive on March 07, 2017 AFB negative x 3 March 06, 2017 Prophylaxis Protonix 40mg PO daily Heparin 5000U SC Q8 <Ladi Vazquez - Last Filed: 06/23/17 16:41> Objective - Vital Signs/Intake and Output Vital Signs (last 24 hours): Temp Pulse Resp BP Pulse Ox 97.5 F L 58 L 20 127/65 98 06/23/17 15:13 06/23/17 15:13 06/23/17 15:13 06/23/17 15:13 06/23/17 15:13 Intake and Output: 06/23/17 06/23/17 06:59 18:59 Output Total 250 Balance -250 - Medications Medications: Current Medications Albuterol/Ipratropium (Duoneb 3 Mg/0.5 Mg (3 Ml) Ud) 3 ml INH RQ6 [facility] Last Admin: 06/23/17 13:11 Dose: 3 ml Carvedilol (Coreg) 6.25 mg PO BID [facility] Last Admin: 06/23/17 09:05 Dose: 6.25 mg Furosemide (Lasix) 40 mg IVP DAILY [facility] Last Admin: 06/23/17 09:05 Dose: 40 mg Heparin Sodium (Porcine) (Heparin) 5,000 units SC Q8 [facility] Last Admin: 06/23/17 14:02 Dose: 5,000 units Hydralazine HCl (Apresoline) 25 mg PO QID [facility] Last Admin: 06/23/17 14:03 Dose: 25 mg Insulin Detemir (Levemir) 25 unit SC HS [facility] Last Admin: 06/22/17 21:36 Dose: 25 unit Insulin Detemir (Levemir) 10 unit SC ACB [facility] Insulin Human Regular (Novolin R) 0 unit SC ACHS [facility] PRN Reason: Protocol Last Admin: 06/23/17 12:35 Dose: 4 unit Isosorbide Mononitrate (Imdur Er) 30 mg PO DAILY [facility] Last Admin: 06/23/17 09:05 Dose: 30 mg Ofloxacin (Ocuflox Ophth 0.3%) 0 ml OS Q4 [facility] Last Admin: 06/23/17 09:06 Dose: 1 drop Pantoprazole Sodium (Protonix Ec Tab) 40 mg PO DAILY [facility] Last Admin: 06/23/17 09:05 Dose: 40 mg Rosuvastatin Calcium (Crestor) 5 mg PO HS [facility] Last Admin: 06/22/17 21:36 Dose: 5 mg - Labs Labs: 06/23/17 08:15 06/23/17 08:15 PT 10.5 SECONDS (9.7-12.2) 06/21/17 12:35 INR 0.9 06/21/17 12:35 APTT 32 SECONDS (21-34) 06/21/17 12:35 Attending/Attestation - Attestation I have personally seen and examined this patient.: Yes I have fully participated in the care of the patient.: Yes I have reviewed all pertinent clinical information, including history, physical exam and plan: Yes Notes (Text): Patient was seen and examined.His medical problem was explained in Croatian.All questions answered d/w nephrology about his proteinuria .Spoke to his pulmonary care. Plan discussed with the resident and the patient I agree with the documentation of the residents assessment and the plan continue lasix
[2017-06-22] MEDS: Insulin Detemir 100 units/ml Vial (Levemir) SC SCH (21:36)
[2017-06-23] MEDS: Ofloxacin 0.3% Ophth Soln OS SCH ×5 (00:11→21:56)
[2017-06-23] MEDS: Albuterol-Ipratrop 3 mg / 0.5 (3 ml) UD INH SCH ×4 (01:27→19:57)
[2017-06-23] MEDS ORDERED: (Novolin R) Insulin Human Regular 100 units/ml vial SC ONE (02:32)
--- NOTE | 2017-06-23 07:35 | CON ---
HISTORY OF PRESENT ILLNESS: A 56-year-old man with history of diabetes, admitted to the hospital with a chief complaint of swelling in lower extremity and scrotum. The patient has history of diabetes, insulin dependent, on insulin. The patient denies any lung disease, exudates, pulmonary fibrosis, possible mass. The patient is a smoker. The patient is to follow up in the clinic. etiology in the past. Denies asthma or TB. PHYSICAL EXAMINATION: GENERAL: The patient is awake, alert, and oriented. The face is quite swollen. VITAL SIGNS: Temperature 98, pulse 90. HEENT: Within normal limits otherwise. NECK: Supple. CHEST: Symmetric. HEART: Regular. ABDOMEN: Soft. EXTREMITIES: Bilateral leg edema. ASSESSMENT: The patient has diabetes, his blood sugars are acceptable, chronic lung disease, rule out infection. At this point, he has CT of the chest, . Karthik Maddox MD
[2017-06-23 08:29] LABS: BASO % 0.2 % (0.0-2.0); HEMATOCRIT 25.3 % (35.0-51.0); LYMPH % 6.8 % (20.0-40.0); MEAN CELL VOLUME 87.2 fL (80.0-94.0); MEAN CORPUSCULAR HEMOGLOBIN 28.5 pg (27.0-31.0); MEAN CORPUSCULAR HGB CONC 32.7 g/dL (33.0-37.0); MEAN PLATELET VOLUME 9.3 fL (7.2-11.7); MONO # 0.6 K/uL (0.0-0.8); MONO % 4.1 % (0.0-10.0); PLATELET COUNT 299 K/uL (130-400); RED CELL DISTRIBUTION WIDTH 14.7 % (11.5-14.5)
[2017-06-23 08:32] LABS: WHITE BLOOD COUNT 15.4 K/uL (4.8-10.8)
[2017-06-23 08:45] LABS: CHLORIDE 108 mmol/L (98-107); POTASSIUM 3.9 mmol/L (3.6-5.2); SODIUM 137 mmol/L (132-148)
[2017-06-23 08:47] LABS: AST/SGOT 29 U/L (17-59); BILIRUBIN,TOTAL 0.4 mg/dL (0.2-1.3); CARBON DIOXIDE 19 mmol/L (22-30); CHOLESTEROL 163 mg/dL (0-199); GFR AFRICAN-AMERICAN 44; TOTAL PROTEIN 5.5 g/dL (6.3-8.3)
[2017-06-23 08:48] LABS: ALKALINE PHOSPHATASE 76 U/L (38-126); ALT/SGPT 46 U/L (21-72); BLOOD UREA NITROGEN 26 mg/dL (9-20); CALCIUM 7.9 mg/dl (8.6-10.4); GLUCOSE,RANDOM 161 mg/dL (75-110)
[2017-06-23] MEDS: Pantoprazole 40 mg EC Tab PO SCH (09:05)
[2017-06-23] MEDS: (Novolin R) Insulin Human Regular 100 units/ml vial SC SCH ×4 (09:06→22:04)
[2017-06-23 09:25] LABS: NEUTROPHIL 89 % (50-75); TOTAL CELLS COUNTED 100
--- NOTE | 2017-06-23 09:37 | CP.PCM.CON ---
History of Present Illness - History of Present Illness History of Present Illness: CC: leg edema HPI : Patient is a [place] speaking 56 year old male with PMHx of CHF, COPD, nephrotic syndrome, DM type 2, diabetic neuropathy and Hepatitis C presenting with swollen legs and scrotum and SOB x 2 weeks. Patient says he has had these same symptoms twice this past year for which has been admitted. Patient says this time is not as bad but he does not want it to get worse. Patient reports "water" leaking out of legs intermittently. Patient says he uses 1 pillow at night and can walk 2 blocks without getting short of breath. Patient says neither of these have changed in number in the past few months. Patient reports waking up from SOB frequently over the pas week and feeling better when he sits up. Of note, patient ran out of Lasix 2 days ago. He says he only takes it when he feels he needs it. Patient denies fever, chills, chest pain, cough, abdominal pain, nausea, vomiting, diarrhea, constipation. Past Patient History - Past Medical History & Family History Past Medical History?: Yes - Past Social History Smoking Status: Light Smoker < 10 Cigarettes Daily Chewing Tobacco Use: No Cigar Use: No Alcohol: None Drugs: Denies - CARDIAC Hx Cardiac Disorders: Yes Hx Congestive Heart Failure: Yes Hx Hypercholesterolemia: Yes Hx Hypertension: Yes Hx Peripheral Edema: Yes - PULMONARY Hx Respiratory Disorders: No - NEUROLOGICAL Hx Neurological Disorder: No - HEENT Hx HEENT Problems: No - RENAL Hx Chronic Kidney Disease: No - ENDOCRINE/METABOLIC Hx Endocrine Disorders: Yes Hx Diabetes Mellitus Type 2: Yes - HEMATOLOGICAL/ONCOLOGICAL Hx Blood Disorders: No - INTEGUMENTARY Hx Dermatological Problems: No - MUSCULOSKELETAL/RHEUMATOLOGICAL Hx Musculoskeletal Disorders: No Hx Falls: No - GASTROINTESTINAL Hx Gastrointestinal Disorders: No - GENITOURINARY/GYNECOLOGICAL Hx Genitourinary Disorders: No - PSYCHIATRIC Hx Substance Use: No - SURGICAL HISTORY Hx Surgeries: No - ANESTHESIA Hx Anesthesia: No Hx Anesthesia Reactions: No Hx Malignant Hyperthermia: No Has any member of the family had a problem w/ anesthesia?: No Meds Allergies/Adverse Reactions: Allergies Allergy/AdvReac Type Severity Reaction Status Date / Time No Known Allergies Allergy Verified 06/21/17 11:52 - Medications Medications: Current Medications Albuterol/Ipratropium (Duoneb 3 Mg/0.5 Mg (3 Ml) Ud) 3 ml INH RQ6 [facility] Last Admin: 06/23/17 07:20 Dose: 3 ml Amlodipine Besylate (Norvasc) 5 mg PO DAILY [facility] Last Admin: 06/23/17 09:05 Dose: 5 mg Carvedilol (Coreg) 6.25 mg PO BID [facility] Last Admin: 06/23/17 09:05 Dose: 6.25 mg Furosemide (Lasix) 40 mg IVP DAILY [facility] Last Admin: 06/23/17 09:05 Dose: 40 mg Heparin Sodium (Porcine) (Heparin) 5,000 units SC Q8 [facility] Last Admin: 06/23/17 05:57 Dose: 5,000 units Hydralazine HCl (Apresoline) 25 mg PO QID [facility] Last Admin: 06/23/17 09:05 Dose: 25 mg Insulin Detemir (Levemir) 25 unit SC [facility] Last Admin: 06/22/17 21:36 Dose: 25 unit Insulin Human Regular (Novolin R) 0 unit SC [facility] PRN Reason: Protocol Last Admin: 06/23/17 09:06 Dose: 3 unit Isosorbide Mononitrate (Imdur Er) 30 mg PO DAILY [facility] Last Admin: 06/23/17 09:05 Dose: 30 mg Lisinopril (Zestril) 10 mg PO DAILY [facility] Last Admin: 06/23/17 09:04 Dose: 10 mg Ofloxacin (Ocuflox Ophth 0.3%) 0 ml OS Q4 [facility] Last Admin: 06/23/17 09:06 Dose: 1 drop Pantoprazole Sodium (Protonix Ec Tab) 40 mg PO DAILY [facility] Last Admin: 06/23/17 09:05 Dose: 40 mg Prednisone (Prednisone Tab) 20 mg PO BID [facility] Last Admin: 06/23/17 09:05 Dose: 20 mg Rosuvastatin Calcium (Crestor) 5 mg PO HS [facility] Last Admin: 06/22/17 21:36 Dose: 5 mg Physical Exam - Constitutional Appears: Non-toxic - Head Exam Head Exam: NORMAL INSPECTION - Eye Exam Eye Exam: absent: Scleral icterus - Neck Exam Neck exam: Positive for: Full Rom - Respiratory Exam Respiratory Exam: NORMAL BREATHING PATTERN - Cardiovascular Exam Cardiovascular Exam: REGULAR RHYTHM - Exam Exam: Scrotal Swelling - Extremities Exam Extremities exam: Positive for: pedal edema - Neurological Exam Neurological exam: Alert, CN II-XII Intact Results - Vital Signs Recent Vital Signs: Last Vital Signs Temp 98.1 F 06/23/17 07:30 Pulse 61 06/23/17 07:30 Resp 18 06/23/17 07:30 BP 152/80 H 06/23/17 09:05 Pulse Ox 98 06/23/17 07:30 - Labs Result Diagrams: 06/25/17 08:14 06/25/17 08:14 Labs: Laboratory Results - last 24 hr 06/22/17 06/22/17 06/22/17 11:54 16:17 21:29 WBC RBC Hgb Hct MCV MCH MCHC RDW Plt Count MPV Neut % (Auto) Lymph % (Auto) [place] % (Auto) Eos % (Auto) Baso % (Auto) Neut # Lymph # [place] # Eos # Baso # Neutrophils % (Manual) Band Neutrophils % Lymphocytes % (Manual) Monocytes % (Manual) Platelet Estimate Sodium Potassium Chloride Carbon Dioxide Anion Gap BUN Creatinine Est GFR ( Amer) Est GFR (Non-Af Amer) POC Glucose (mg/dL) 275 H 322 H 411 H* Random Glucose Calcium Total Bilirubin AST ALT Alkaline Phosphatase Total Protein Albumin Globulin Albumin/Globulin Ratio Triglycerides Cholesterol LDL Cholesterol Direct HDL Cholesterol 06/23/17 06/23/17 06/23/17 02:18 06:53 08:15 WBC 15.4 H D RBC 2.90 L Hgb 8.3 L Hct 25.3 L MCV 87.2 MCH 28.5 MCHC 32.7 L RDW 14.7 H Plt Count 299 MPV 9.3 Neut % (Auto) 88.9 H Lymph % (Auto) 6.8 L [place] % (Auto) 4.1 Eos % (Auto) 0.0 Baso % (Auto) 0.2 Neut # 13.7 H Lymph # 1.0 [place] # 0.6 Eos # 0.0 Baso # 0.0 Neutrophils % (Manual) 89 H Band Neutrophils % 3 H Lymphocytes % (Manual) 6 L Monocytes % (Manual) 2 Platelet Estimate Normal Sodium Potassium Chloride Carbon Dioxide Anion Gap BUN Creatinine Est GFR ( Amer) Est GFR (Non-Af Amer) POC Glucose (mg/dL) 430 H* 249 H Random Glucose Calcium Total Bilirubin AST ALT Alkaline Phosphatase Total Protein Albumin Globulin Albumin/Globulin Ratio Triglycerides Cholesterol LDL Cholesterol Direct HDL Cholesterol 06/23/17 08:15 WBC RBC Hgb Hct MCV MCH MCHC RDW Plt Count MPV Neut % (Auto) Lymph % (Auto) [place] % (Auto) Eos % (Auto) Baso % (Auto) Neut # Lymph # [place] # Eos # Baso # Neutrophils % (Manual) Band Neutrophils % Lymphocytes % (Manual) Monocytes % (Manual) Platelet Estimate Sodium 137 Potassium 3.9 Chloride 108 H Carbon Dioxide 19 L Anion Gap 14 BUN 26 H Creatinine 1.9 H Est GFR ( Amer) 44 Est GFR (Non-Af Amer) 37 POC Glucose (mg/dL) Random Glucose 161 H Calcium 7.9 L Total Bilirubin 0.4 AST 29 ALT 46 Alkaline Phosphatase 76 Total Protein 5.5 L Albumin 2.8 L Globulin 2.8 Albumin/Globulin Ratio 1.0 Triglycerides 79 Cholesterol 163 LDL Cholesterol Direct 107 HDL Cholesterol 43 Assessment & Plan - Assessment and Plan (Free Text) Assessment: Nephrotic syndrome CHF? Renal insufficiency Diabetic nephropathy Hepatitis C Anemia Plan: ECHO pro-BNP DC Amlodipine Cont renal work -up. - Date & Time Date: 06/22/17 Time: 09:52
--- NOTE | 2017-06-23 09:57 | CP.PCM.PN ---
Subjective - Date & Time of Evaluation Date of Evaluation: 06/23/17 Time of Evaluation: 09:53 - Subjective Subjective: still edematous no sob Doppler us of LE - no DVT Objective - Vital Signs/Intake and Output Vital Signs (last 24 hours): Temp Pulse Resp BP Pulse Ox 98.1 F 61 18 152/80 H 98 06/23/17 07:30 06/23/17 07:30 06/23/17 07:30 06/23/17 09:05 06/23/17 07:30 Intake and Output: 06/23/17 06/23/17 06:59 18:59 Output Total 250 Balance -250 - Medications Medications: Current Medications Albuterol/Ipratropium (Duoneb 3 Mg/0.5 Mg (3 Ml) Ud) 3 ml INH RQ6 [facility] Last Admin: 06/23/17 07:20 Dose: 3 ml Amlodipine Besylate (Norvasc) 5 mg PO DAILY [facility] Last Admin: 06/23/17 09:05 Dose: 5 mg Carvedilol (Coreg) 6.25 mg PO BID [facility] Last Admin: 06/23/17 09:05 Dose: 6.25 mg Furosemide (Lasix) 40 mg IVP DAILY [facility] Last Admin: 06/23/17 09:05 Dose: 40 mg Heparin Sodium (Porcine) (Heparin) 5,000 units SC Q8 [facility] Last Admin: 06/23/17 05:57 Dose: 5,000 units Hydralazine HCl (Apresoline) 25 mg PO QID [facility] Last Admin: 06/23/17 09:05 Dose: 25 mg Insulin Detemir (Levemir) 25 unit SC HS [facility] Last Admin: 06/22/17 21:36 Dose: 25 unit Insulin Human Regular (Novolin R) 0 unit SC ACHS [facility] PRN Reason: Protocol Last Admin: 06/23/17 09:06 Dose: 3 unit Isosorbide Mononitrate (Imdur Er) 30 mg PO DAILY [facility] Last Admin: 06/23/17 09:05 Dose: 30 mg Lisinopril (Zestril) 10 mg PO DAILY [facility] Last Admin: 06/23/17 09:04 Dose: 10 mg Ofloxacin (Ocuflox Ophth 0.3%) 0 ml OS Q4 [facility] Last Admin: 06/23/17 09:06 Dose: 1 drop Pantoprazole Sodium (Protonix Ec Tab) 40 mg PO DAILY [facility] Last Admin: 06/23/17 09:05 Dose: 40 mg Prednisone (Prednisone Tab) 20 mg PO BID [facility] Last Admin: 06/23/17 09:05 Dose: 20 mg Rosuvastatin Calcium (Crestor) 5 mg PO HS [facility] Last Admin: 06/22/17 21:36 Dose: 5 mg - Labs Labs: 06/23/17 08:15 06/23/17 08:15 PT 10.5 SECONDS (9.7-12.2) 06/21/17 12:35 INR 0.9 06/21/17 12:35 APTT 32 SECONDS (21-34) 06/21/17 12:35 - Constitutional Appears: No Acute Distress - Head Exam Head Exam: NORMAL INSPECTION - Eye Exam Eye Exam: absent: Scleral icterus - Neck Exam Neck Exam: Full ROM - Respiratory Exam Respiratory Exam: NORMAL BREATHING PATTERN - Cardiovascular Exam Cardiovascular Exam: REGULAR RHYTHM - Extremities Exam Extremities Exam: Calf Tenderness - Neurological Exam Neurological Exam: Alert, CN II-XII Intact Assessment and Plan - Assessment and Plan (Free Text) Assessment: Nephrotic syndrome CHF - less likely Renal insufficiency Hepatitis syndrome Plan: DC amlodipine Cont renal work up Signs and symptoms most likely renal in nature
--- NOTE | 2017-06-23 13:42 | CP.PCM.PN ---
Subjective - Date & Time of Evaluation Date of Evaluation: 06/23/17 Time of Evaluation: 13:40 - Subjective Subjective: Appears same; edema severe Medicine considering discharge on oral meds Would continue diuretics, JOSE CARLOS I Objective - Vital Signs/Intake and Output Vital Signs (last 24 hours): Temp Pulse Resp BP Pulse Ox 98.1 F 61 18 152/80 H 98 06/23/17 07:30 06/23/17 07:30 06/23/17 07:30 06/23/17 09:05 06/23/17 07:30 Intake and Output: 06/23/17 06/23/17 06:59 18:59 Output Total 250 Balance -250 - Medications Medications: Current Medications Albuterol/Ipratropium (Duoneb 3 Mg/0.5 Mg (3 Ml) Ud) 3 ml INH RQ6 [facility] Last Admin: 06/23/17 13:11 Dose: 3 ml Carvedilol (Coreg) 6.25 mg PO BID [facility] Last Admin: 06/23/17 09:05 Dose: 6.25 mg Furosemide (Lasix) 40 mg IVP DAILY [facility] Last Admin: 06/23/17 09:05 Dose: 40 mg Heparin Sodium (Porcine) (Heparin) 5,000 units SC Q8 [facility] Last Admin: 06/23/17 05:57 Dose: 5,000 units Hydralazine HCl (Apresoline) 25 mg PO QID [facility] Last Admin: 06/23/17 09:05 Dose: 25 mg Insulin Detemir (Levemir) 25 unit SC HS [facility] Last Admin: 06/22/17 21:36 Dose: 25 unit Insulin Human Regular (Novolin R) 0 unit SC ACHS [facility] PRN Reason: Protocol Last Admin: 06/23/17 12:35 Dose: 4 unit Isosorbide Mononitrate (Imdur Er) 30 mg PO DAILY [facility] Last Admin: 06/23/17 09:05 Dose: 30 mg Lisinopril (Zestril) 10 mg PO DAILY [facility] Last Admin: 06/23/17 09:04 Dose: 10 mg Ofloxacin (Ocuflox Ophth 0.3%) 0 ml OS Q4 [facility] Last Admin: 06/23/17 09:06 Dose: 1 drop Pantoprazole Sodium (Protonix Ec Tab) 40 mg PO DAILY [facility] Last Admin: 06/23/17 09:05 Dose: 40 mg Rosuvastatin Calcium (Crestor) 5 mg PO HS [facility] Last Admin: 06/22/17 21:36 Dose: 5 mg - Labs Labs: 06/23/17 08:15 06/23/17 08:15 PT 10.5 SECONDS (9.7-12.2) 06/21/17 12:35 INR 0.9 06/21/17 12:35 APTT 32 SECONDS (21-34) 06/21/17 12:35 - Constitutional Appears: No Acute Distress, Chronically Ill - Head Exam Head Exam: ATRAUMATIC, NORMAL INSPECTION - Eye Exam Eye Exam: EOMI, Normal appearance - Neck Exam Neck Exam: Normal Inspection. absent: Tenderness - Respiratory Exam Respiratory Exam: Decreased Breath Sounds, NORMAL BREATHING PATTERN - Cardiovascular Exam Cardiovascular Exam: REGULAR RHYTHM, +S1 - GI/Abdominal Exam GI & Abdominal Exam: Soft. absent: Tenderness - Extremities Exam Extremities Exam: Pedal Edema, Tenderness - Neurological Exam Neurological Exam: Awake, CN II-XII Intact - Skin Skin Exam: Dry, Warm Assessment and Plan (1) HTN (hypertension) Status: Acute (2) Hepatitis C Status: Acute (3) Type 2 diabetes mellitus with diabetic nephropathy Status: Acute - Assessment and Plan (Free Text) Plan: can be discharged on oral meds would recommend obtaining workup as outpt- can contact me with information.
--- NOTE | 2017-06-23 16:08 | CP.PCM.PN ---
<Belem Aguilera - Last Filed: 06/23/17 16:00> Subjective - Date & Time of Evaluation Date of Evaluation: 06/23/17 Time of Evaluation: 07:15 - Subjective Subjective: Medicine note for Dr Jeffery. Patient seen and examined at bedside. Patient resting comfrotably in bed with no new complaints at this time. Patient says he feels like his LE edema has not improved with the lasix. Patient denies fever, chills, chest pain, SOB, abdominal pain, n/v/d/c, and calf pain. Objective - Vital Signs/Intake and Output Vital Signs (last 24 hours): Temp Pulse Resp BP Pulse Ox 98.1 F 61 18 152/80 H 98 06/23/17 07:30 06/23/17 07:30 06/23/17 07:30 06/23/17 09:05 06/23/17 07:30 Intake and Output: 06/23/17 06/23/17 06:59 18:59 Output Total 250 Balance -250 - Medications Medications: Current Medications Albuterol/Ipratropium (Duoneb 3 Mg/0.5 Mg (3 Ml) Ud) 3 ml INH RQ6 [facility] Last Admin: 06/23/17 13:11 Dose: 3 ml Carvedilol (Coreg) 6.25 mg PO BID [facility] Last Admin: 06/23/17 09:05 Dose: 6.25 mg Furosemide (Lasix) 40 mg IVP DAILY [facility] Last Admin: 06/23/17 09:05 Dose: 40 mg Heparin Sodium (Porcine) (Heparin) 5,000 units SC Q8 [facility] Last Admin: 06/23/17 14:02 Dose: 5,000 units Hydralazine HCl (Apresoline) 25 mg PO QID [facility] Last Admin: 06/23/17 14:03 Dose: 25 mg Insulin Detemir (Levemir) 25 unit SC HS [facility] Last Admin: 06/22/17 21:36 Dose: 25 unit Insulin Detemir (Levemir) 10 unit SC ACB [facility] Insulin Human Regular (Novolin R) 0 unit SC ACHS [facility] PRN Reason: Protocol Last Admin: 06/23/17 12:35 Dose: 4 unit Isosorbide Mononitrate (Imdur Er) 30 mg PO DAILY [facility] Last Admin: 06/23/17 09:05 Dose: 30 mg Ofloxacin (Ocuflox Ophth 0.3%) 0 ml OS Q4 [facility] Last Admin: 06/23/17 09:06 Dose: 1 drop Pantoprazole Sodium (Protonix Ec Tab) 40 mg PO DAILY [facility] Last Admin: 06/23/17 09:05 Dose: 40 mg Rosuvastatin Calcium (Crestor) 5 mg PO HS [facility] Last Admin: 06/22/17 21:36 Dose: 5 mg - Labs Labs: 06/23/17 08:15 06/23/17 08:15 PT 10.5 SECONDS (9.7-12.2) 06/21/17 12:35 INR 0.9 06/21/17 12:35 APTT 32 SECONDS (21-34) 06/21/17 12:35 - Additional Findings Additional findings: - Constitutional Appears: Non-toxic, No Acute Distress - Head Exam Head Exam: NORMAL INSPECTION - Eye Exam Eye Exam: EOMI - ENT Exam ENT Exam: Mucous Membranes Moist - Respiratory Exam Respiratory Exam: Clear to Auscultation Bilateral, NORMAL BREATHING PATTERN. absent: Rales, Rhonchi, Wheezes - Cardiovascular Exam Cardiovascular Exam: REGULAR RHYTHM, JVD, +S1, +S2. absent: Gallop, Rubs, Systolic Murmur - GI/Abdominal Exam GI & Abdominal Exam: Normal Bowel Sounds, Soft. absent: Organomegaly, Tenderness - Exam Exam: Scrotal Swelling. absent: Testicular Tenderness - Extremities Exam Extremities exam: Positive for: calf tenderness, normal capillary refill, pedal edema (2+ pitting edema with erythema), tenderness - Neurological Exam Neurological exam: Alert, Oriented x3 - Psychiatric Exam Psychiatric exam: Normal Affect, Normal Mood - Skin Skin Exam: Normal Color, Warm Additional comments: erythema and thickened hard skin in lower extremities bilaterally up to mid-bob Assessment and Plan - Assessment and Plan (Free Text) Plan: CHF exacerbation Cardiology consult - Dr. Delgadillo BNP 06/21/17 [id number] from [id number] on 04/30/17 Troponin negative x 3 Chronically elevated CK-MB and Total Creatine Kinase EKG NSR F/U repeat ECHO Monitor daily weights Monitor Is and Os Fluid restriction to 1500ml Imaging: CT Chest 06/22: IMPRESSION: 1. Persistent, stable nodular infiltrates affect the upper lobes predominantly at this time with interval improvement in the superior segment of bilateral lower lobes. Mild mediastinal lymphadenopathy again evident. Consider infectious or inflammatory process. Granulomatous disease is not considered high on the differential diagnosis list due to lack of more prominent lymphadenopathy but is clearly not excluded completely. 2. Trace bilateral pleural effusions identified in the interval. 3. Anasarca. (see full report) CXR 06/21: Persistant ill-defined consolidative and mass-like opacities re- identified within right upper to mid lung zones as well as left upper to mid lung zones. Additional scattered nodular densities. Mild cardiomegaly (please see full report) ECHO 02/27/17 - LVEF 50%, borderline concenttric LVH, mild LV diastolic dysfunction, mild AR (please see full report) Meds: Lasix 40mg IVP daily Lisinopril 10mg PO daily Coreg 6.25mg PO BID Imdur 30mg PO daily Nephrotic Syndrome Nephrology consult - Dr. Luke Per Dr Luke: Likely nephrotic syndrome Likely diabetic nephropathy Possible hep C related membranous nephropathy Cannot rule out malignancy related membranous nephropathy CXR does not appear to be CHF F/U UA F/U total protein, 24 hour urine F/U lipid panel F/U ANCA scr w/mpo/pr3, w/reflx F/U Anti nuclear Ab Albumin on admission 2.7 BUN/Cr on admission: /.3 Dietitian referral for low albumin Imaging: Renal Ultrasound 06/22/17: Impression: 1. Increased echogenicity of the bilateral renal parenchymal cortices suggestive for medical renal disease. 2. Complex left renal cyst as described above. 3. Simple right renal cysts as described above. 4. Punctate echogenic foci in the renal pelvi bilaterally which may represent calculi. 5. Mild fullness of the bilateral renal collecting systems. Correlation with noncontrast CT scan may be helpful for further evaluation if clinically indicated. Calf tenderness LE venous b/l dopplers 06/22/17: no evidence of deep or superficial vein thrombosis of right OR left lower extremity. Valvular incompetence noted of right popliteal vein. Valvular incompetence noted of left great saphenous vein. COPD Possible exacerbation Pulmonology consult - Dr. Varsha Villagran 3ml INH RQ6 [facility] Solumedrol 20mg IVP Q12H Testicular swelling Urology consult - Dr. Bennie Kelsey Per Dr Kelsey note: Treat CHF, no further therapy at this time Imaging: Testicular US 06/21/17 - small bilateral hydroceles; bilateral scrotal edema ( please see full report) History of HTN Uncontrolled, patient not compliant with meds Continue home med Lisinopril 5mg PO daily Continue home med Coreg 6.25mg PO BID Continue home med Hydralazine 25mg PO QID Continue home med Norvasc 5mg PO daily DM II Holding Janumet 50/1000mg PO BID and glimeperide 4mg PO daily RISS Accuchecks HgbA1C 06/22/17: 8.6 con't home med Levemir 25mg SC HS con't home med rosuvastatin 5mg PO HS Diabetic neuropathy continue home med Gabapentin 600mg PO QID Chronic Anemia Hgb 9.6 - baseline compared to last visits Monitor Hep C History F/U hep B surface Ag F/U hep B Ab Antibody positive on prior admission Hep C viral load indetectable on prior admission LFTs elevated History of positive QFT Positive on March 07, 2017 AFB negative x 3 March 06, 2017 Prophylaxis Protonix 40mg PO daily Heparin 5000U SC Q8 DISPOSITION: patient can be discharged tomorrow 06/24/17. Agreed with Dr. Luke to keep patient one more night for observation. Patient will need to be discharged with diuretics and ACEi. <Ladi Vazquez - Last Filed: 06/23/17 16:44> Objective - Vital Signs/Intake and Output Vital Signs (last 24 hours): Temp Pulse Resp BP Pulse Ox 97.5 F L 58 L 20 127/65 98 06/23/17 15:13 06/23/17 15:13 06/23/17 15:13 06/23/17 15:13 06/23/17 15:13 Intake and Output: 06/23/17 06/23/17 06:59 18:59 Output Total 250 Balance -250 - Medications Medications: Current Medications Albuterol/Ipratropium (Duoneb 3 Mg/0.5 Mg (3 Ml) Ud) 3 ml INH RQ6 [facility] Last Admin: 06/23/17 13:11 Dose: 3 ml Carvedilol (Coreg) 6.25 mg PO BID [facility] Last Admin: 06/23/17 09:05 Dose: 6.25 mg Furosemide (Lasix) 40 mg IVP DAILY [facility] Last Admin: 06/23/17 09:05 Dose: 40 mg Heparin Sodium (Porcine) (Heparin) 5,000 units SC Q8 [facility] Last Admin: 06/23/17 14:02 Dose: 5,000 units Hydralazine HCl (Apresoline) 25 mg PO QID [facility] Last Admin: 06/23/17 14:03 Dose: 25 mg Insulin Detemir (Levemir) 25 unit SC HS [facility] Last Admin: 06/22/17 21:36 Dose: 25 unit Insulin Detemir (Levemir) 10 unit SC ACB [facility] Insulin Human Regular (Novolin R) 0 unit SC ACHS [facility] PRN Reason: Protocol Last Admin: 06/23/17 12:35 Dose: 4 unit Isosorbide Mononitrate (Imdur Er) 30 mg PO DAILY [facility] Last Admin: 06/23/17 09:05 Dose: 30 mg Ofloxacin (Ocuflox Ophth 0.3%) 0 ml OS Q4 [facility] Last Admin: 06/23/17 09:06 Dose: 1 drop Pantoprazole Sodium (Protonix Ec Tab) 40 mg PO DAILY [facility] Last Admin: 06/23/17 09:05 Dose: 40 mg Rosuvastatin Calcium (Crestor) 5 mg PO HS [facility] Last Admin: 06/22/17 21:36 Dose: 5 mg - Labs Labs: 06/23/17 08:15 06/23/17 08:15 PT 10.5 SECONDS (9.7-12.2) 06/21/17 12:35 INR 0.9 06/21/17 12:35 APTT 32 SECONDS (21-34) 06/21/17 12:35 Attending/Attestation - Attestation I have personally seen and examined this patient.: Yes I have fully participated in the care of the patient.: Yes I have reviewed all pertinent clinical information, including history, physical exam and plan: Yes Notes (Text): Patient was seen and examined.His medical issues and consultants recommendation updated. 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
[2017-06-23] MEDS: Insulin Detemir 100 units/ml Vial (Levemir) SC SCH (22:04)
[2017-06-24] MEDS: Albuterol-Ipratrop 3 mg / 0.5 (3 ml) UD INH SCH ×3 (01:13→19:58)
[2017-06-24] MEDS: Ofloxacin 0.3% Ophth Soln OS SCH ×6 (05:44→21:39)
[2017-06-24 07:14] LABS: BASO # 0.1 K/uL (0.0-0.2); BASO % 0.4 % (0.0-2.0); EOS # 0.3 K/uL (0.0-0.7); LYMPH # 2.5 K/uL (1.0-4.3); LYMPH % 16.9 % (20.0-40.0); MEAN CELL VOLUME 88.1 fL (80.0-94.0); MEAN CORPUSCULAR HEMOGLOBIN 28.7 pg (27.0-31.0); MEAN CORPUSCULAR HGB CONC 32.6 g/dL (33.0-37.0); MEAN PLATELET VOLUME 9.1 fL (7.2-11.7); MONO # 0.6 K/uL (0.0-0.8); MONO % 4.2 % (0.0-10.0); RED CELL DISTRIBUTION WIDTH 14.9 % (11.5-14.5); WHITE BLOOD COUNT 14.5 K/uL (4.8-10.8)
[2017-06-24 08:04] LABS: POTASSIUM 3.7 mmol/L (3.6-5.2)
[2017-06-24 08:06] LABS: BILIRUBIN,TOTAL 0.4 mg/dL (0.2-1.3); CALCIUM 7.7 mg/dl (8.6-10.4); TOTAL PROTEIN 5.4 g/dL (6.3-8.3)
[2017-06-24] MEDS: (Novolin R) Insulin Human Regular 100 units/ml vial SC SCH ×4 (08:22→21:39)
[2017-06-24] MEDS: Insulin Detemir 100 units/ml Vial (Levemir) SC SCH ×2 (08:23→21:38)
--- NOTE | 2017-06-24 08:30 | CARD ---
APPROVED REPORT EKG Measurement Heart [id number] <Conclusion> Wide QRS rhythm Right bundle branch block Left anterior fascicular block Bifascicular block Abnormal ECG
[2017-06-24] MEDS: Pantoprazole 40 mg EC Tab PO SCH (10:52)
--- NOTE | 2017-06-24 11:03 | CP.PCM.PN ---
Subjective - Date & Time of Evaluation Date of Evaluation: 06/24/17 Time of Evaluation: 10:30 - Subjective Subjective: weight loss of 5 lbs still anasarcic nephrotic serology negative thus far not sob no chest pain no rash appetite good no arthralgias no abdominal pain no headache foamy urine no nasal congestion Objective - Vital Signs/Intake and Output Vital Signs (last 24 hours): Temp Pulse Resp BP Pulse Ox 97.9 F 53 L 20 143/71 99 06/24/17 08:14 06/24/17 08:14 06/24/17 08:14 06/24/17 10:52 06/24/17 08:14 - Medications Medications: Current Medications Albuterol/Ipratropium (Duoneb 3 Mg/0.5 Mg (3 Ml) Ud) 3 ml INH RQ6 [facility] Last Admin: 06/24/17 07:48 Dose: 3 ml Carvedilol (Coreg) 6.25 mg PO BID [facility] Last Admin: 06/24/17 10:52 Dose: 6.25 mg Heparin Sodium (Porcine) (Heparin) 5,000 units SC Q8 [facility] Last Admin: 06/24/17 05:44 Dose: 5,000 units Hydralazine HCl (Apresoline) 25 mg PO QID [facility] Last Admin: 06/24/17 10:52 Dose: 25 mg Insulin Detemir (Levemir) 25 unit SC HS [facility] Last Admin: 06/23/17 22:04 Dose: 25 unit Insulin Detemir (Levemir) 10 unit SC ACB [facility] Last Admin: 06/24/17 08:23 Dose: 10 unit Insulin Human Regular (Novolin R) 0 unit SC ACHS [facility] PRN Reason: Protocol Last Admin: 06/24/17 08:22 Dose: 4 unit Isosorbide Mononitrate (Imdur Er) 30 mg PO DAILY [facility] Last Admin: 06/24/17 10:52 Dose: 30 mg Ofloxacin (Ocuflox Ophth 0.3%) 0 ml OS Q4 [facility] Last Admin: 06/24/17 08:23 Dose: 1 drop Pantoprazole Sodium (Protonix Ec Tab) 40 mg PO DAILY [facility] Last Admin: 06/24/17 10:52 Dose: 40 mg Rosuvastatin Calcium (Crestor) 5 mg PO HS [facility] Last Admin: 06/23/17 21:52 Dose: 5 mg - Labs Labs: 06/24/17 07:02 06/24/17 07:02 PT 10.5 SECONDS (9.7-12.2) 06/21/17 12:35 INR 0.9 06/21/17 12:35 APTT 32 SECONDS (21-34) 06/21/17 12:35 - Constitutional Appears: No Acute Distress, Chronically Ill - Head Exam Head Exam: ATRAUMATIC - Eye Exam Eye Exam: EOMI - ENT Exam ENT Exam: Mucous Membranes Moist - Neck Exam Neck Exam: Full ROM. absent: Lymphadenopathy - Respiratory Exam Respiratory Exam: Decreased Breath Sounds. absent: Accessory Muscle Use - Cardiovascular Exam Cardiovascular Exam: REGULAR RHYTHM. absent: Rubs - GI/Abdominal Exam GI & Abdominal Exam: Distended. absent: Tenderness - Extremities Exam Extremities Exam: Pedal Edema - Neurological Exam Neurological Exam: Alert, Oriented x3 Assessment and Plan - Assessment and Plan (Free Text) Assessment: ckd 3 with nephrotic syndrome diabetes htn increase lasix drip consideration to renal biopsy will follow
--- NOTE | 2017-06-24 12:17 | CP.PCM.PN ---
<Gulshan Ledezma - Last Filed: 06/24/17 12:23> Subjective - Date & Time of Evaluation Date of Evaluation: 06/24/17 Time of Evaluation: 12:15 - Subjective Subjective: Progress note. Attending: Dr. Vazquez Pt seen and examined at bedside. No acute distress. No events overnight. No current complaints. Swelling in legs is better. No fevers, chills, vomiting, diarrhea, cp, sob. Objective - Vital Signs/Intake and Output Vital Signs (last 24 hours): Temp Pulse Resp BP Pulse Ox 97.9 F 53 L 20 143/71 99 06/24/17 08:14 06/24/17 08:14 06/24/17 08:14 06/24/17 10:52 06/24/17 08:14 - Medications Medications: Current Medications Albuterol/Ipratropium (Duoneb 3 Mg/0.5 Mg (3 Ml) Ud) 3 ml INH RQ6 [facility] Last Admin: 06/24/17 07:48 Dose: 3 ml Carvedilol (Coreg) 6.25 mg PO BID [facility] Last Admin: 06/24/17 10:52 Dose: 6.25 mg Furosemide (Lasix) 40 mg IVP BID [facility] Heparin Sodium (Porcine) (Heparin) 5,000 units SC Q8 [facility] Last Admin: 06/24/17 05:44 Dose: 5,000 units Hydralazine HCl (Apresoline) 25 mg PO QID [facility] Last Admin: 06/24/17 10:52 Dose: 25 mg Insulin Detemir (Levemir) 25 unit SC HS [facility] Last Admin: 06/23/17 22:04 Dose: 25 unit Insulin Detemir (Levemir) 10 unit SC ACB [facility] Last Admin: 06/24/17 08:23 Dose: 10 unit Insulin Human Regular (Novolin R) 0 unit SC ACHS [facility] PRN Reason: Protocol Last Admin: 06/24/17 08:22 Dose: 4 unit Isosorbide Mononitrate (Imdur Er) 30 mg PO DAILY [facility] Last Admin: 06/24/17 10:52 Dose: 30 mg Ofloxacin (Ocuflox Ophth 0.3%) 0 ml OS Q4 [facility] Last Admin: 06/24/17 08:23 Dose: 1 drop Pantoprazole Sodium (Protonix Ec Tab) 40 mg PO DAILY [facility] Last Admin: 06/24/17 10:52 Dose: 40 mg Rosuvastatin Calcium (Crestor) 5 mg PO HS [facility] Last Admin: 06/23/17 21:52 Dose: 5 mg - Labs Labs: 06/24/17 07:02 06/24/17 07:02 PT 10.5 SECONDS (9.7-12.2) 06/21/17 12:35 INR 0.9 06/21/17 12:35 APTT 32 SECONDS (21-34) 06/21/17 12:35 - Constitutional Appears: Non-toxic, No Acute Distress - Head Exam Head Exam: ATRAUMATIC, NORMAL INSPECTION, NORMOCEPHALIC - Eye Exam Eye Exam: EOMI - ENT Exam ENT Exam: Mucous Membranes Moist - Neck Exam Neck Exam: Full ROM, Normal Inspection - Respiratory Exam Respiratory Exam: NORMAL BREATHING PATTERN. absent: Respiratory Distress - Cardiovascular Exam Cardiovascular Exam: +S1, +S2 - GI/Abdominal Exam GI & Abdominal Exam: Distended - Extremities Exam Extremities Exam: Full ROM, Pedal Edema Additional comments: pitting edema, improved. - Neurological Exam Neurological Exam: Alert, Awake, Oriented x3 - Psychiatric Exam Psychiatric exam: Normal Affect, Normal Mood - Skin Skin Exam: Dry, Intact, Normal Color, Warm Assessment and Plan - Assessment and Plan (Free Text) Assessment: This is a 56 yo male with CHF exacerbation -Cardiology consult - Dr. Delgadillo. recs appreciated. -BNP 06/21/17 9170 from [id number] on 04/30/17 -Troponin negative x 3 -Chronically elevated CK-MB and Total Creatine Kinase -EKG NSR -Monitor daily weights -Monitor Is and Os -Fluid restriction to 1500ml Imaging: CT Chest 06/22: IMPRESSION: 1. Persistent, stable nodular infiltrates affect the upper lobes predominantly at this time with interval improvement in the superior segment of bilateral lower lobes. Mild mediastinal lymphadenopathy again evident. Consider infectious or inflammatory process. Granulomatous disease is not considered high on the differential diagnosis list due to lack of more prominent lymphadenopathy but is clearly not excluded completely. 2. Trace bilateral pleural effusions identified in the interval. 3. Anasarca. (see full report) CXR 06/21: Persistant ill-defined consolidative and mass-like opacities re- identified within right upper to mid lung zones as well as left upper to mid lung zones. Additional scattered nodular densities. Mild cardiomegaly (please see full report) ECHO 02/27/17 - LVEF 50%, borderline concenttric LVH, mild LV diastolic dysfunction, mild AR (please see full report) Meds: increase lasix to 40 IV bid Lisinopril has been discontinued Coreg 6.25mg PO BID Imdur 30mg PO daily Nephrotic Syndrome Nephrology consult - Dr. Luke. recs appreciated. Per Dr Luke: Likely nephrotic syndrome Likely diabetic nephropathy Possible hep C related membranous nephropathy Cannot rule out malignancy related membranous nephropathy CXR does not appear to be CHF -nephrotic syndrome workup has been negative thus far. -Albumin on admission 2.7 -BUN/Cr on admission: 31/08.3 -Dietitian referral for low albumin Imaging: Renal Ultrasound 06/22/17: Impression: 1. Increased echogenicity of the bilateral renal parenchymal cortices suggestive for medical renal disease. 2. Complex left renal cyst as described above. 3. Simple right renal cysts as described above. 4. Punctate echogenic foci in the renal pelvi bilaterally which may represent calculi. 5. Mild fullness of the bilateral renal collecting systems. Correlation with noncontrast CT scan may be helpful for further evaluation if clinically indicated. Calf tenderness LE venous b/l dopplers 06/22/17: no evidence of deep or superficial vein thrombosis of right OR left lower extremity. Valvular incompetence noted of right popliteal vein. Valvular incompetence noted of left great saphenous vein. COPD -Possible exacerbation -Pulmonology consult - Dr. Maddox -Duonebs 3ml INH RQ6 [facility] -solumedrol has been discontinued Testicular swelling Urology consult - Dr. Bennie Kelsey Per Dr Kelsey note: Treat CHF, no further therapy at this time Imaging: Testicular US 06/21/17 - small bilateral hydroceles; bilateral scrotal edema ( please see full report) History of HTN Uncontrolled, patient not compliant with meds lisinopril has been discontinued Continue home med Coreg 6.25mg PO BID Continue home med Hydralazine 25mg PO QID Continue home med Norvasc 5mg PO daily DM II Holding Janumet 50/1000mg PO BID and glimeperide 4mg PO daily RISS Accuchecks HgbA1C 06/22/17: 8.6 con't home med Levemir 25mg SC HS con't home med rosuvastatin 5mg PO HS Diabetic neuropathy continue home med Gabapentin 600mg PO QID Chronic Anemia Hgb 9.6 - baseline compared to last visits Monitor Hep C History Hep B workup negative Antibody positive on prior admission Hep C viral load undetectable on prior admission LFTs elevated History of positive QFT Positive on March 07, 2017 AFB negative x 3 March 06, 2017 GI/DVT ppx Prophylaxis Protonix 40mg PO daily Heparin 5000U SC Q8 Dispo: possible discharge today. will speak with nephrology. <Ladi Vazquez - Last Filed: 06/25/17 15:30> Objective - Vital Signs/Intake and Output Vital Signs (last 24 hours): Temp Pulse Resp BP Pulse Ox 97.9 F 61 20 160/80 H 97 06/25/17 08:19 06/25/17 11:49 06/25/17 08:19 06/25/17 09:33 06/25/17 08:19 Intake and Output: 06/25/17 06/25/17 06:59 18:59 Output Total 450 Balance -450 - Medications Medications: Current Medications Albuterol/Ipratropium (Duoneb 3 Mg/0.5 Mg (3 Ml) Ud) 3 ml INH RQ6 [facility] Last Admin: 06/25/17 13:20 Dose: 3 ml Carvedilol (Coreg) 3.125 mg PO BID [facility] Last Admin: 06/25/17 09:33 Dose: Not Given Furosemide (Lasix) 40 mg IVP BID [facility] Last Admin: 06/25/17 09:33 Dose: 40 mg Hydralazine HCl (Apresoline) 25 mg PO QID [facility] Last Admin: 06/25/17 13:30 Dose: 25 mg Insulin Detemir (Levemir) 25 unit SC HS [facility] Last Admin: 06/24/17 21:38 Dose: 25 unit Insulin Detemir (Levemir) 10 unit SC ACB [facility] Last Admin: 06/25/17 07:41 Dose: Not Given Insulin Human Regular (Novolin R) 0 unit SC ACHS [facility] PRN Reason: Protocol Last Admin: 06/25/17 13:31 Dose: 3 unit Isosorbide Mononitrate (Imdur Er) 30 mg PO DAILY [facility] Last Admin: 06/25/17 09:33 Dose: 30 mg Ofloxacin (Ocuflox Ophth 0.3%) 0 ml OS Q4 [facility] Last Admin: 06/25/17 13:30 Dose: 1 drop Pantoprazole Sodium (Protonix Ec Tab) 40 mg PO DAILY [facility] Last Admin: 06/25/17 09:33 Dose: 40 mg Rosuvastatin Calcium (Crestor) 5 mg PO HS [facility] Last Admin: 06/24/17 21:38 Dose: 5 mg - Labs Labs: 06/25/17 08:14 06/25/17 08:14 PT 10.5 SECONDS (9.7-12.2) 06/21/17 12:35 INR 0.9 06/21/17 12:35 APTT 32 SECONDS (21-34) 06/21/17 12:35 Attending/Attestation - Attestation I have personally seen and examined this patient.: Yes I have fully participated in the care of the patient.: Yes I have reviewed all pertinent clinical information, including history, physical exam and plan: Yes Notes (Text): 1.Chronic kidney disease and proteinuria Stage 3 CKD Increasing creatinine d/w Dr Luke Hold lasix,follow creatinine 2.CHF/diastolic heart failure continue coreg,Imdur His HR is low ,reduce coreg 3.Chronic lung disease stable 4.Hypertension continue coreg,hydralazine and Imdur 5.DM continue levemir 6.DVT and GI prophylasix heparin and protonix I agree with the documentation of the assessment and the plan
[2017-06-25] MEDS: Albuterol-Ipratrop 3 mg / 0.5 (3 ml) UD INH SCH ×4 (01:35→19:51)
[2017-06-25] MEDS: Ofloxacin 0.3% Ophth Soln OS SCH ×6 (04:23→21:58)
[2017-06-25] MEDS: (Novolin R) Insulin Human Regular 100 units/ml vial SC SCH ×4 (07:41→21:58)
[2017-06-25] MEDS: Insulin Detemir 100 units/ml Vial (Levemir) SC SCH ×2 (07:41→21:57)
[2017-06-25 08:27] LABS: BASO # 0.1 K/uL (0.0-0.2); BASO % 0.7 % (0.0-2.0); EOS # 0.7 K/uL (0.0-0.7); EOS % 6.4 % (0.0-4.0); HEMATOCRIT 27.6 % (35.0-51.0); LYMPH # 2.2 K/uL (1.0-4.3); LYMPH % 20.9 % (20.0-40.0); MEAN CELL VOLUME 87.2 fL (80.0-94.0); MEAN CORPUSCULAR HEMOGLOBIN 29.5 pg (27.0-31.0); MEAN CORPUSCULAR HGB CONC 33.9 g/dL (33.0-37.0); MEAN PLATELET VOLUME 9.3 fL (7.2-11.7); MONO # 0.6 K/uL (0.0-0.8); MONO % 5.6 % (0.0-10.0); RED CELL DISTRIBUTION WIDTH 14.9 % (11.5-14.5); WHITE BLOOD COUNT 10.7 K/uL (4.8-10.8)
[2017-06-25 08:52] LABS: POTASSIUM 3.7 mmol/L (3.6-5.2)
[2017-06-25 08:54] LABS: ALB/GLOB RATIO 0.7 (1.0-2.1); BILIRUBIN,TOTAL 0.2 mg/dL (0.2-1.3); TOTAL PROTEIN 6.3 g/dL (6.3-8.3)
[2017-06-25 08:55] LABS: CALCIUM 7.6 mg/dl (8.6-10.4); PHOSPHOROUS 5.3 mg/dL (2.5-4.5)
[2017-06-25] MEDS: Pantoprazole 40 mg EC Tab PO SCH (09:33)
--- NOTE | 2017-06-25 15:32 | CP.PCM.PN ---
Subjective - Date & Time of Evaluation Date of Evaluation: 06/25/17 Time of Evaluation: 10:00 - Subjective Subjective: Patient was seen and examined,lying comfortable,not in pain Objective - Vital Signs/Intake and Output Vital Signs (last 24 hours): Temp Pulse Resp BP Pulse Ox 97.9 F 61 20 160/80 H 97 06/25/17 08:19 06/25/17 11:49 06/25/17 08:19 06/25/17 09:33 06/25/17 08:19 Intake and Output: 06/25/17 06/25/17 06:59 18:59 Output Total 450 Balance -450 - Medications Medications: Current Medications Albuterol/Ipratropium (Duoneb 3 Mg/0.5 Mg (3 Ml) Ud) 3 ml INH RQ6 [facility] Last Admin: 06/25/17 13:20 Dose: 3 ml Carvedilol (Coreg) 3.125 mg PO BID [facility] Last Admin: 06/25/17 09:33 Dose: Not Given Furosemide (Lasix) 40 mg IVP BID [facility] Last Admin: 06/25/17 09:33 Dose: 40 mg Heparin Sodium (Porcine) (Heparin) 5,000 units SC Q8 [facility] Hydralazine HCl (Apresoline) 25 mg PO QID [facility] Last Admin: 06/25/17 13:30 Dose: 25 mg Insulin Detemir (Levemir) 25 unit SC HS [facility] Last Admin: 06/24/17 21:38 Dose: 25 unit Insulin Detemir (Levemir) 10 unit SC ACB [facility] Last Admin: 06/25/17 07:41 Dose: Not Given Insulin Human Regular (Novolin R) 0 unit SC ACHS [facility] PRN Reason: Protocol Last Admin: 06/25/17 13:31 Dose: 3 unit Isosorbide Mononitrate (Imdur Er) 30 mg PO DAILY [facility] Last Admin: 06/25/17 09:33 Dose: 30 mg Ofloxacin (Ocuflox Ophth 0.3%) 0 ml OS Q4 [facility] Last Admin: 06/25/17 13:30 Dose: 1 drop Pantoprazole Sodium (Protonix Ec Tab) 40 mg PO DAILY [facility] Last Admin: 06/25/17 09:33 Dose: 40 mg Rosuvastatin Calcium (Crestor) 5 mg PO HS [facility] Last Admin: 06/24/17 21:38 Dose: 5 mg - Labs Labs: 06/25/17 08:14 06/25/17 08:14 PT 10.5 SECONDS (9.7-12.2) 06/21/17 12:35 INR 0.9 06/21/17 12:35 APTT 32 SECONDS (21-34) 06/21/17 12:35 - Constitutional Appears: Non-toxic - Head Exam Head Exam: NORMAL INSPECTION - Eye Exam Eye Exam: Normal appearance - ENT Exam ENT Exam: Mucous Membranes Moist - Neck Exam Neck Exam: Full ROM - Respiratory Exam Respiratory Exam: NORMAL BREATHING PATTERN - Cardiovascular Exam Cardiovascular Exam: REGULAR RHYTHM - GI/Abdominal Exam GI & Abdominal Exam: Soft, Normal Bowel Sounds - Exam Exam: Scrotal Swelling - Extremities Exam Extremities Exam: Full ROM - Back Exam Back Exam: NORMAL INSPECTION - Neurological Exam Neurological Exam: Oriented x3 - Psychiatric Exam Psychiatric exam: Normal Mood - Skin Skin Exam: Dry Assessment and Plan - Assessment and Plan (Free Text) Assessment: This is a Citizen Of [place] speaking 56 year old male with of CHF, COPD, nephrotic syndrome, DM type 2, diabetic neuropathy and Hepatitis C presenting with swollen legs and scrotum and SOB x 2 weeks. Plan: 1.Chronic kidney disease and proteinuria Stage 3 CKD Increasing creatinine d/w Dr Luke Hold lasix,follow creatinine 2.CHF/diastolic heart failure continue coreg,Imdur Elevated Pro BNP getting Dr Elie wren's consult appreciated Echo not done/ordered His HR is low ,reduce coreg 3.Chronic lung disease stable 4.Hypertension continue coreg,hydralazine and Imdur 5.DM sugar is high continue levemir/dose increased 6.DVT and GI prophylasix heparin and protonix I agree with the documentation of the assessment and the plan
[2017-06-26] MEDS: Albuterol-Ipratrop 3 mg / 0.5 (3 ml) UD INH SCH ×4 (02:31→20:22)
[2017-06-26] MEDS: Ofloxacin 0.3% Ophth Soln OS SCH ×7 (04:40→19:01)
[2017-06-26 06:20] LABS: BASO # 0.1 K/uL (0.0-0.2); BASO % 0.6 % (0.0-2.0); EOS # 0.7 K/uL (0.0-0.7); HEMATOCRIT 25.1 % (35.0-51.0); LYMPH # 2.1 K/uL (1.0-4.3); MEAN CELL VOLUME 87.5 fL (80.0-94.0); MEAN CORPUSCULAR HEMOGLOBIN 28.5 pg (27.0-31.0); MEAN CORPUSCULAR HGB CONC 32.6 g/dL (33.0-37.0); MEAN PLATELET VOLUME 9.4 fL (7.2-11.7); MONO # 0.6 K/uL (0.0-0.8); MONO % 6.7 % (0.0-10.0); NRBC % 0.1 % (0.0-2.0); RED CELL DISTRIBUTION WIDTH 14.9 % (11.5-14.5); WHITE BLOOD COUNT 9.3 K/uL (4.8-10.8)
[2017-06-26 06:56] LABS: ALB/GLOB RATIO 0.8 (1.0-2.1); BILIRUBIN,TOTAL 0.1 mg/dL (0.2-1.3); CALCIUM 7.4 mg/dl (8.6-10.4); MAGNESIUM 1.9 mg/dL (1.6-2.3); POTASSIUM 3.4 mmol/L (3.6-5.2); TOTAL PROTEIN 5.5 g/dL (6.3-8.3)
[2017-06-26] MEDS ORDERED: Potassium Chloride 20 mEq ER Tab PO ONE (07:08)
[2017-06-26] MEDS: Insulin Detemir 100 units/ml Vial (Levemir) SC SCH ×2 (07:28→22:56)
[2017-06-26] MEDS: (Novolin R) Insulin Human Regular 100 units/ml vial SC SCH ×4 (07:28→22:57)
[2017-06-26] MEDS: Pantoprazole 40 mg EC Tab PO SCH (10:17)
--- NOTE | 2017-06-26 12:29 | CP.PCM.PN ---
Subjective - Date & Time of Evaluation Date of Evaluation: 06/26/17 Time of Evaluation: 12:26 - Subjective Subjective: Taken off JOSE CARLOS I and diuretics due to rising creatinine- 1.9 now BP elevated YEIMI negative has nephrotic range proteinuria has complex renal cyst Objective - Vital Signs/Intake and Output Vital Signs (last 24 hours): Temp Pulse Resp BP Pulse Ox 98.1 F 62 18 169/77 H 99 06/26/17 08:35 06/26/17 10:31 06/26/17 08:35 06/26/17 10:20 06/26/17 08:35 Intake and Output: 06/26/17 06/26/17 06:59 18:59 Intake Total 0 Output Total 0 Balance 0 - Medications Medications: Current Medications Albumin Human (Albumin Human 25% (12.5 Gm/50 Ml)) 12.5 gm IV ONCE ONE Stop: 06/26/17 12:31 Albuterol/Ipratropium (Duoneb 3 Mg/0.5 Mg (3 Ml) Ud) 3 ml INH RQ6 [facility] Last Admin: 06/26/17 08:40 Dose: Not Given Carvedilol (Coreg) 3.125 mg PO BID [facility] Last Admin: 06/26/17 10:19 Dose: 3.125 mg Furosemide (Lasix) 40 mg IVP BID [facility] Last Admin: 06/25/17 09:33 Dose: 40 mg Heparin Sodium (Porcine) (Heparin) 5,000 units SC Q8 [facility] Last Admin: 06/26/17 05:50 Dose: 5,000 units Hydralazine HCl (Apresoline) 25 mg PO QID [facility] Last Admin: 06/26/17 10:17 Dose: 25 mg Insulin Detemir (Levemir) 25 unit SC HS [facility] Last Admin: 06/25/17 21:57 Dose: 25 unit Insulin Detemir (Levemir) 10 unit SC ACB [facility] Last Admin: 06/26/17 07:28 Dose: Not Given Insulin Human Regular (Novolin R) 0 unit SC ACHS [facility] PRN Reason: Protocol Last Admin: 06/26/17 12:12 Dose: Not Given Isosorbide Mononitrate (Imdur Er) 30 mg PO DAILY [facility] Last Admin: 06/26/17 10:17 Dose: 30 mg Ofloxacin (Ocuflox Ophth 0.3%) 0 ml OS Q4 [facility] Last Admin: 06/26/17 10:16 Dose: 1 drop Pantoprazole Sodium (Protonix Ec Tab) 40 mg PO DAILY [facility] Last Admin: 06/26/17 10:17 Dose: 40 mg Rosuvastatin Calcium (Crestor) 5 mg PO HS [facility] Last Admin: 06/25/17 21:57 Dose: 5 mg - Labs Labs: 06/26/17 06:12 06/26/17 06:12 PT 10.5 SECONDS (9.7-12.2) 06/21/17 12:35 INR 0.9 06/21/17 12:35 APTT 32 SECONDS (21-34) 06/21/17 12:35 - Constitutional Appears: No Acute Distress, Chronically Ill - Head Exam Head Exam: ATRAUMATIC, NORMAL INSPECTION - Eye Exam Eye Exam: EOMI, Normal appearance - Neck Exam Neck Exam: Normal Inspection. absent: Tenderness - Respiratory Exam Respiratory Exam: Clear to Ausculation Bilateral, NORMAL BREATHING PATTERN - Cardiovascular Exam Cardiovascular Exam: REGULAR RHYTHM, +S1 - GI/Abdominal Exam GI & Abdominal Exam: Soft. absent: Tenderness - Extremities Exam Extremities Exam: Pedal Edema, Tenderness - Neurological Exam Neurological Exam: Alert - Skin Skin Exam: Dry, Warm Assessment and Plan (1) HTN (hypertension) Status: Acute (2) Hepatitis C Status: Acute (3) Type 2 diabetes mellitus with diabetic nephropathy Status: Acute - Assessment and Plan (Free Text) Plan: would consider renal bx as creat rising eventually resume JOSE CARLOS I and diuretics Eventually CT scan with dye to evaluate complex cysts increase BP meds follow up chemistries
[2017-06-26] MEDS ORDERED: Albumin Human 25% (12.5 gm/50 ml) IV ONE (12:30)
--- NOTE | 2017-06-26 13:59 | CARD ---
APPROVED REPORT EKG Measurement Heart [id number] <Conclusion> Sinus bradycardia Right bundle branch block Left anterior fascicular block Bifascicular block Abnormal ECG
--- NOTE | 2017-06-26 17:50 | CP.PCM.PN ---
Subjective - Date & Time of Evaluation Date of Evaluation: 06/26/17 Time of Evaluation: 07:30 - Subjective Subjective: PGY-[address] Pabon. Per nurse, patient has been hypoglycemic the last 2 mornings on accuchecks. On night of 06/24 patient had 18 beats of VTach. Today patient was resting comfortably. He is still complaining of pain in LE b/l. He is able to ambulate however. He denied chest pain, shortness of breath, fever, chills, abdominal pain. He says his swelling has decreased however the pain is still present. Objective - Vital Signs/Intake and Output Vital Signs (last 24 hours): Temp Pulse Resp BP Pulse Ox 98.1 F 60 18 181/85 H 99 06/26/17 15:40 06/26/17 15:40 06/26/17 15:40 06/26/17 17:25 06/26/17 15:40 Intake and Output: 06/26/17 06/26/17 06:59 18:59 Intake Total 0 480 Output Total 0 Balance 0 480 - Medications Medications: Current Medications Albuterol/Ipratropium (Duoneb 3 Mg/0.5 Mg (3 Ml) Ud) 3 ml INH RQ6 [facility] Last Admin: 06/26/17 13:07 Dose: Not Given Calcium Acetate (Phoslo) 667 mg PO TID [facility] Last Admin: 06/26/17 17:24 Dose: 667 mg Carvedilol (Coreg) 6.25 mg PO BID [facility] Furosemide (Lasix) 40 mg IVP BID [facility] Last Admin: 06/26/17 17:25 Dose: 40 mg Heparin Sodium (Porcine) (Heparin) 5,000 units SC Q8 [facility] Last Admin: 06/26/17 14:09 Dose: 5,000 units Hydralazine HCl (Apresoline) 25 mg PO QID [facility] Last Admin: 06/26/17 17:24 Dose: 25 mg Insulin Detemir (Levemir) 25 unit SC HS [facility] Last Admin: 06/25/17 21:57 Dose: 25 unit Insulin Detemir (Levemir) 10 unit SC ACB [facility] Last Admin: 06/26/17 07:28 Dose: Not Given Insulin Human Regular (Novolin R) 0 unit SC ACHS [facility] PRN Reason: Protocol Last Admin: 06/26/17 17:24 Dose: 2 unit Isosorbide Mononitrate (Imdur Er) 30 mg PO DAILY [facility] Last Admin: 06/26/17 10:17 Dose: 30 mg Ofloxacin (Ocuflox Ophth 0.3%) 0 ml OS Q4 [facility] Last Admin: 06/26/17 16:11 Dose: 1 drop Pantoprazole Sodium (Protonix Ec Tab) 40 mg PO DAILY [facility] Last Admin: 06/26/17 10:17 Dose: 40 mg Rosuvastatin Calcium (Crestor) 5 mg PO HS [facility] Last Admin: 06/25/17 21:57 Dose: 5 mg - Labs Labs: 06/26/17 06:12 06/26/17 06:12 PT 10.5 SECONDS (9.7-12.2) 06/21/17 12:35 INR 0.9 06/21/17 12:35 APTT 32 SECONDS (21-34) 06/21/17 12:35 - Additional Findings Additional findings: - Constitutional Appears: Non-toxic, No Acute Distress - Head Exam Head Exam: NORMAL INSPECTION - Eye Exam Eye Exam: EOMI - ENT Exam ENT Exam: Mucous Membranes Moist - Respiratory Exam Respiratory Exam: Clear to Auscultation Bilateral, NORMAL BREATHING PATTERN. absent: Rales, Rhonchi, Wheezes - Cardiovascular Exam Cardiovascular Exam: REGULAR RHYTHM, JVD, +S1, +S2. absent: Gallop, Rubs, Systolic Murmur - GI/Abdominal Exam GI & Abdominal Exam: Normal Bowel Sounds, Soft. absent: Organomegaly, Tenderness - Exam Exam: Scrotal Swelling. absent: Testicular Tenderness - Extremities Exam Extremities exam: Positive for: calf tenderness, normal capillary refill, pedal edema (2+ pitting edema with erythema), tenderness - Neurological Exam Neurological exam: Alert, Oriented x3 - Psychiatric Exam Psychiatric exam: Normal Affect, Normal Mood - Skin Skin Exam: Normal Color, Warm Additional comments: erythema and thickened hard skin in lower extremities bilaterally up to mid-bob Assessment and Plan - Assessment and Plan (Free Text) Assessment: CHF exacerbation Cardiology consult - Dr. Delgadillo BNP 06/21/17 [id number] from [id number] on 04/30/17 Troponin negative x 3 Chronically elevated CK-MB and Total Creatine Kinase EKG NSR F/U repeat ECHO Monitor daily weights Monitor Is and Os Fluid restriction to 1500ml Meds: Holding Lasix 40mg IVP daily 2/2 to rising Cr Holding Lisinopril 10mg PO daily 2/2 to rising Cr Coreg 6.25mg PO BID Imdur 30mg PO daily Imaging: CT Chest 06/22: IMPRESSION: 1. Persistent, stable nodular infiltrates affect the upper lobes predominantly at this time with interval improvement in the superior segment of bilateral lower lobes. Mild mediastinal lymphadenopathy again evident. Consider infectious or inflammatory process. Granulomatous disease is not considered high on the differential diagnosis list due to lack of more prominent lymphadenopathy but is clearly not excluded completely. 2. Trace bilateral pleural effusions identified in the interval. 3. Anasarca. (see full report) CXR 06/21: Persistant ill-defined consolidative and mass-like opacities re- identified within right upper to mid lung zones as well as left upper to mid lung zones. Additional scattered nodular densities. Mild cardiomegaly (please see full report) ECHO 02/27/17 - LVEF 50%, borderline concenttric LVH, mild LV diastolic dysfunction, mild AR (please see full report) Nephrotic Syndrome Stage 3 CKD, rising Cr Nephrology consult - Dr. Luke, see Nephro notes. UA 06/21: 3+ protein, 1+ glucose total protein, 24 hour urine 06/23: 9160 (high) lipid panel 06/23: WNL F/U ANCA scr w/mpo/pr3, w/reflx Anti nuclear Ab negative Albumin on admission 2.7 BUN/Cr on admission: 31/08.3 Dietitian referral for low albumin Meds: Phoslo 667mg PO TID Imaging: F/U Renal Biopsy results 06/27 Renal Ultrasound 06/22/17: Impression: 1. Increased echogenicity of the bilateral renal parenchymal cortices suggestive for medical renal disease. 2. Complex left renal cyst as described above. 3. Simple right renal cysts as described above. 4. Punctate echogenic foci in the renal pelvi bilaterally which may represent calculi. 5. Mild fullness of the bilateral renal collecting systems. Correlation with noncontrast CT scan may be helpful for further evaluation if clinically indicated. DM II Holding Janumet 50/1000mg PO BID and glimeperide 4mg PO daily RISS Accuchecks HgbA1C 06/22/17: 8.6 Meds: con't home med Levemir 15u SC HS (changed from home dose 25mg due to episodes of hypoglycemia) Levemir 10u SC ACB con't home med rosuvastatin 5mg PO HS Calf tenderness LE venous b/l dopplers 06/22/17: no evidence of deep or superficial vein thrombosis of right OR left lower extremity. Valvular incompetence noted of right popliteal vein. Valvular incompetence noted of left great saphenous vein. COPD Possible exacerbation Pulmonology consult - Dr. Varsha Villagran 3ml INH RQ6 [facility] Discontinued Solumedrol 20mg IVP Q12H Testicular swelling Urology consult - Dr. Bennie Kelsey Per Dr Kelsey note: Treat CHF, no further therapy at this time Imaging: Testicular US 06/21/17 - small bilateral hydroceles; bilateral scrotal edema ( please see full report) History of HTN Uncontrolled, patient not compliant with meds Holding home med Lisinopril 5mg PO daily Continue home med Coreg 6.25mg PO BID Continue home med Hydralazine 25mg PO QID Continue home med Norvasc 5mg PO daily Diabetic neuropathy con't home med Gabapentin 600mg PO TID Chronic Anemia Hgb 9.6 - baseline compared to last visits Monitor Hep C History hep B surface Ag negative hep B Ab negative Antibody positive on prior admission Hep C viral load indetectable on prior admission LFTs WNL History of positive QFT Positive on March 07, 2017 AFB negative x 3 March 06, 2017 Prophylaxis Protonix 40mg PO daily Heparin 5000U SC Q8 DISPOSITION: Patient will need to be discharged with diuretics and ACEi.
[2017-06-27] MEDS: Ofloxacin 0.3% Ophth Soln OS SCH ×6 (00:13→20:46)
[2017-06-27] MEDS: Albuterol-Ipratrop 3 mg / 0.5 (3 ml) UD INH SCH ×4 (01:12→19:46)
[2017-06-27 06:33] LABS: BASO # 0.1 K/uL (0.0-0.2); BASO % 0.6 % (0.0-2.0); EOS # 0.7 K/uL (0.0-0.7); EOS % 8.3 % (0.0-4.0); HEMATOCRIT 25.9 % (35.0-51.0); LYMPH # 1.6 K/uL (1.0-4.3); LYMPH % 18.8 % (20.0-40.0); MEAN CELL VOLUME 87.1 fL (80.0-94.0); MEAN CORPUSCULAR HEMOGLOBIN 29.1 pg (27.0-31.0); MEAN CORPUSCULAR HGB CONC 33.4 g/dL (33.0-37.0); MEAN PLATELET VOLUME 9.9 fL (7.2-11.7); MONO # 0.5 K/uL (0.0-0.8); MONO % 5.7 % (0.0-10.0); RED CELL DISTRIBUTION WIDTH 14.6 % (11.5-14.5); WHITE BLOOD COUNT 8.8 K/uL (4.8-10.8)
[2017-06-27 07:07] LABS: POTASSIUM 3.9 mmol/L (3.6-5.2)
[2017-06-27 07:10] LABS: BILIRUBIN,TOTAL 0.4 mg/dL (0.2-1.3); TOTAL PROTEIN 4.8 g/dL (6.3-8.3)
[2017-06-27 07:11] LABS: CALCIUM 7.2 mg/dl (8.6-10.4)
[2017-06-27] MEDS: Insulin Detemir 100 units/ml Vial (Levemir) SC SCH ×2 (07:48→21:30)
[2017-06-27] MEDS: (Novolin R) Insulin Human Regular 100 units/ml vial SC SCH ×4 (07:48→21:56)
[2017-06-27] MEDS: Pantoprazole 40 mg EC Tab PO SCH (10:47)
--- NOTE | 2017-06-27 11:18 | CP.PCM.PN ---
Subjective - Date & Time of Evaluation Date of Evaluation: 06/27/17 Time of Evaluation: 11:16 - Subjective Subjective: seen and examined 9g proteinuria presley hep c hep b neg hiv? denies sob, still w/ significant leg swelling. reports good uop no nausea vomiting diarrhea dyzuria dizziness headache fevers chills rash Objective - Vital Signs/Intake and Output Vital Signs (last 24 hours): Temp Pulse Resp BP Pulse Ox 98 F 65 18 180/90 H 98 06/27/17 07:20 06/27/17 10:52 06/27/17 07:20 06/27/17 10:52 06/27/17 07:20 Intake and Output: 06/27/17 06/27/17 06:59 18:59 Intake Total 320 Balance 320 - Medications Medications: Current Medications Albuterol/Ipratropium (Duoneb 3 Mg/0.5 Mg (3 Ml) Ud) 3 ml INH RQ6 [facility] Last Admin: 06/27/17 09:00 Dose: Not Given Amlodipine Besylate (Norvasc) 5 mg PO DAILY [facility] Last Admin: 06/27/17 10:47 Dose: 5 mg Calcium Acetate (Phoslo) 667 mg PO TID [facility] Last Admin: 06/27/17 10:47 Dose: 667 mg Carvedilol (Coreg) 6.25 mg PO BID [facility] Last Admin: 06/27/17 10:48 Dose: 6.25 mg Furosemide (Lasix) 40 mg IVP BID [facility] Last Admin: 06/26/17 17:25 Dose: 40 mg Gabapentin (Neurontin) 600 mg PO TID [facility] Last Admin: 06/27/17 10:47 Dose: 600 mg Heparin Sodium (Porcine) (Heparin) 5,000 units SC Q8 [facility] Last Admin: 06/27/17 05:50 Dose: Not Given Hydralazine HCl (Apresoline) 25 mg PO QID [facility] Last Admin: 06/27/17 10:47 Dose: 25 mg Insulin Detemir (Levemir) 10 unit SC ACB [facility] Last Admin: 06/27/17 07:48 Dose: Not Given Insulin Detemir (Levemir) 15 unit SC HS [facility] Last Admin: 06/26/17 22:56 Dose: Not Given Insulin Human Regular (Novolin R) 0 unit SC ACHS [facility] PRN Reason: Protocol Last Admin: 06/27/17 07:48 Dose: Not Given Isosorbide Mononitrate (Imdur Er) 30 mg PO DAILY [facility] Last Admin: 06/27/17 10:47 Dose: 30 mg Ofloxacin (Ocuflox Ophth 0.3%) 0 ml OS Q4 [facility] Last Admin: 06/27/17 08:11 Dose: 1 drop Pantoprazole Sodium (Protonix Ec Tab) 40 mg PO DAILY [facility] Last Admin: 06/27/17 10:47 Dose: 40 mg Rosuvastatin Calcium (Crestor) 5 mg PO HS [facility] Last Admin: 06/26/17 22:07 Dose: 5 mg - Labs Labs: 06/27/17 06:15 06/27/17 06:15 PT 10.5 SECONDS (9.7-12.2) 06/21/17 12:35 INR 0.9 06/21/17 12:35 APTT 32 SECONDS (21-34) 06/21/17 12:35 - Constitutional Appears: Non-toxic, Unkempt - Head Exam Head Exam: NORMAL INSPECTION - Eye Exam Eye Exam: Normal appearance Pupil Exam: NORMAL ACCOMODATION, PERRL - ENT Exam ENT Exam: Mucous Membranes Moist, Normal Exam - Neck Exam Neck Exam: Normal Inspection - Respiratory Exam Respiratory Exam: Clear to Ausculation Bilateral, NORMAL BREATHING PATTERN - Cardiovascular Exam Cardiovascular Exam: REGULAR RHYTHM, RRR - GI/Abdominal Exam GI & Abdominal Exam: Soft, Normal Bowel Sounds - Extremities Exam Extremities Exam: Pedal Edema (3+) - Neurological Exam Neurological Exam: Alert, Awake, Oriented x3 - Psychiatric Exam Psychiatric exam: Normal Affect, Normal Mood - Skin Skin Exam: Dry, Normal Color Assessment and Plan (1) Acute renal failure Status: Acute (2) CKD stage 3 due to type 2 diabetes mellitus Status: Acute (3) Diabetes Status: Acute (4) HTN (hypertension) Status: Acute (5) Lower extremity edema Status: Acute (6) Nephrotic range proteinuria Status: Acute - Assessment and Plan (Free Text) Assessment: nephrotic syndrome regina / underlying ckd 3 complex lt renal cyst dm w/ nephropathy htn plan: maintain lasix check spep, hiv psa await renal biopsy increase hydralazine dose consider dc norvasc
--- NOTE | 2017-06-27 11:43 | CP.PCM.PN ---
<Raulito Peace R - Last Filed: 06/27/17 11:40> Subjective - Date & Time of Evaluation Date of Evaluation: 06/27/17 Time of Evaluation: 11:40 - Subjective Subjective: PGY-[address] Pabon. No acute events noted overnight. Per nursing note, patient became agitated when nurse tried to take away his tray of food, as patient was NPO at that time for a renal biopsy. The renal biopsy has been rescheduled for tomorrow 06/28 ( rescheduled due to other reasons) and the patient understood he will be NPO after midnight tonight. He complains of leg pain still, he does not have any other complaints. Denies chest pain, abdominal pain, shortness of breath, fever , chills, nausea, vomiting, diarrhea. Objective - Vital Signs/Intake and Output Vital Signs (last 24 hours): Temp Pulse Resp BP Pulse Ox 98 F 65 18 180/90 H 98 06/27/17 07:20 06/27/17 10:52 06/27/17 07:20 06/27/17 10:52 06/27/17 07:20 Intake and Output: 06/27/17 06/27/17 06:59 18:59 Intake Total 320 Balance 320 - Medications Medications: Current Medications Albuterol/Ipratropium (Duoneb 3 Mg/0.5 Mg (3 Ml) Ud) 3 ml INH RQ6 [facility] Last Admin: 06/27/17 09:00 Dose: Not Given Amlodipine Besylate (Norvasc) 10 mg PO DAILY [facility] Calcium Acetate (Phoslo) 667 mg PO TID [facility] Last Admin: 06/27/17 10:47 Dose: 667 mg Carvedilol (Coreg) 6.25 mg PO BID [facility] Last Admin: 06/27/17 10:48 Dose: 6.25 mg Furosemide (Lasix) 40 mg IVP BID [facility] Last Admin: 06/26/17 17:25 Dose: 40 mg Gabapentin (Neurontin) 600 mg PO TID [facility] Last Admin: 06/27/17 10:47 Dose: 600 mg Heparin Sodium (Porcine) (Heparin) 5,000 units SC Q8 [facility] Last Admin: 06/27/17 05:50 Dose: Not Given Hydralazine HCl (Apresoline) 50 mg PO TID [facility] Insulin Detemir (Levemir) 10 unit SC ACB [facility] Last Admin: 06/27/17 07:48 Dose: Not Given Insulin Detemir (Levemir) 15 unit SC HS [facility] Last Admin: 06/26/17 22:56 Dose: Not Given Insulin Human Regular (Novolin R) 0 unit SC ACHS [facility] PRN Reason: Protocol Last Admin: 06/27/17 07:48 Dose: Not Given Isosorbide Mononitrate (Imdur Er) 30 mg PO DAILY [facility] Last Admin: 06/27/17 10:47 Dose: 30 mg Ofloxacin (Ocuflox Ophth 0.3%) 0 ml OS Q4 [facility] Last Admin: 06/27/17 08:11 Dose: 1 drop Pantoprazole Sodium (Protonix Ec Tab) 40 mg PO DAILY [facility] Last Admin: 06/27/17 10:47 Dose: 40 mg Rosuvastatin Calcium (Crestor) 5 mg PO [facility] Last Admin: 06/26/17 22:07 Dose: 5 mg - Labs Labs: 06/27/17 06:15 06/27/17 06:15 PT 10.5 SECONDS (9.7-12.2) 06/21/17 12:35 INR 0.9 06/21/17 12:35 APTT 32 SECONDS (21-34) 06/21/17 12:35 - Additional Findings Additional findings: - Constitutional Appears: Non-toxic, No Acute Distress - Head Exam Head Exam: NORMAL INSPECTION - Eye Exam Eye Exam: EOMI - ENT Exam ENT Exam: Mucous Membranes Moist - Respiratory Exam Respiratory Exam: Clear to Auscultation Bilateral, NORMAL BREATHING PATTERN. absent: Rales, Rhonchi, Wheezes - Cardiovascular Exam Cardiovascular Exam: REGULAR RHYTHM, JVD, +S1, +S2. absent: Gallop, Rubs, Systolic Murmur - GI/Abdominal Exam GI & Abdominal Exam: Normal Bowel Sounds, Soft. absent: Organomegaly, Tenderness - Exam Exam: Scrotal Swelling. absent: Testicular Tenderness - Extremities Exam Extremities exam: Positive for: calf tenderness, normal capillary refill, pedal edema (2+ pitting edema with erythema), tenderness - Neurological Exam Neurological exam: Alert, Oriented x3 - Psychiatric Exam Psychiatric exam: Normal Affect, Normal Mood - Skin Skin Exam: Normal Color, Warm Additional comments: erythema and thickened hard skin in lower extremities bilaterally up to mid-bob Assessment and Plan - Assessment and Plan (Free Text) Assessment: CHF exacerbation Cardiology consult - Dr. Delgadillo BNP 06/21/17 9170 from [id number] on 04/30/17 Troponin negative x 3 Chronically elevated CK-MB and Total Creatine Kinase EKG NSR F/U repeat ECHO Monitor daily weights Monitor Is and Os Fluid restriction to 1500ml Meds: Holding Lasix 40mg IVP daily 2/2 to rising Cr Holding Lisinopril 10mg PO daily 2/2 to rising Cr Coreg 6.25mg PO BID Imdur 30mg PO daily Imaging: CT Chest 06/22: IMPRESSION: 1. Persistent, stable nodular infiltrates affect the upper lobes predominantly at this time with interval improvement in the superior segment of bilateral lower lobes. Mild mediastinal lymphadenopathy again evident. Consider infectious or inflammatory process. Granulomatous disease is not considered high on the differential diagnosis list due to lack of more prominent lymphadenopathy but is clearly not excluded completely. 2. Trace bilateral pleural effusions identified in the interval. 3. Anasarca. (see full report) CXR 06/21: Persistant ill-defined consolidative and mass-like opacities re- identified within right upper to mid lung zones as well as left upper to mid lung zones. Additional scattered nodular densities. Mild cardiomegaly (please see full report) ECHO 02/27/17 - LVEF 50%, borderline concenttric LVH, mild LV diastolic dysfunction, mild AR (please see full report) Nephrotic Syndrome Stage 3 CKD, rising Cr Nephrology consult - Dr. Luke, see Nephro notes. UA 06/21: 3+ protein, 1+ glucose total protein, 24 hour urine 06/23: 9160 (high) lipid panel 06/23: WNL Anti nuclear Ab negative Albumin on admission 2.7 BUN/Cr on admission: 31/08.3 Dietitian referral for low albumin F/U ANCA scr w/mpo/pr3, w/reflx F/U Protein electrophoresis Meds: Phoslo 667mg PO TID Imaging: Renal biopsy scheduled for 06/28/17 Renal Ultrasound 06/22/17: Impression: 1. Increased echogenicity of the bilateral renal parenchymal cortices suggestive for medical renal disease. 2. Complex left renal cyst as described above. 3. Simple right renal cysts as described above. 4. Punctate echogenic foci in the renal pelvi bilaterally which may represent calculi. 5. Mild fullness of the bilateral renal collecting systems. Correlation with noncontrast CT scan may be helpful for further evaluation if clinically indicated. DM II Holding Janumet 50/1000mg PO BID and glimeperide 4mg PO daily RISS Accuchecks HgbA1C 06/22/17: 8.6 Meds: con't home med Levemir 15u SC HS (changed from home dose 25mg due to episodes of hypoglycemia) Levemir 10u SC ACB con't home med rosuvastatin 5mg PO HS Calf tenderness LE venous b/l dopplers 06/22/17: no evidence of deep or superficial vein thrombosis of right OR left lower extremity. Valvular incompetence noted of right popliteal vein. Valvular incompetence noted of left great saphenous vein. COPD Possible exacerbation Pulmonology consult - Dr. Varsha Villagran 3ml INH RQ6 ELE Discontinued Solumedrol 20mg IVP Q12H Testicular swelling Urology consult - Dr. Bennie Kelsey Per Dr Kelsey note: Treat CHF, no further therapy at this time F/U PSA Imaging: Testicular US 06/21/17 - small bilateral hydroceles; bilateral scrotal edema ( please see full report) History of HTN Uncontrolled, patient not compliant with meds Holding home med Lisinopril 5mg PO daily Continue home med Coreg 6.25mg PO BID Continue home med Hydralazine 25mg PO QID Continue home med Norvasc 5mg PO daily Diabetic neuropathy con't home med Gabapentin 600mg PO TID Chronic Anemia Hgb 9.6 - baseline compared to last visits Monitor Hep C History hep B surface Ag negative hep B Ab negative Antibody positive on prior admission Hep C viral load indetectable on prior admission LFTs WNL History of positive QFT Positive on March 07, 2017 AFB negative x 3 March 06, 2017 Prophylaxis Protonix 40mg PO daily Heparin 5000U SC Q8 DISPOSITION: Patient will need to be discharged with diuretics and ACEi. <Santy Pabon - Last Filed: 06/27/17 14:03> Objective - Vital Signs/Intake and Output Vital Signs (last 24 hours): Temp Pulse Resp BP Pulse Ox 98 F 64 18 180/90 H 98 06/27/17 07:20 06/27/17 12:18 06/27/17 07:20 06/27/17 10:52 06/27/17 07:20 Intake and Output: 06/27/17 06/27/17 06:59 18:59 Intake Total 320 Balance 320 - Medications Medications: Current Medications Albuterol/Ipratropium (Duoneb 3 Mg/0.5 Mg (3 Ml) Ud) 3 ml INH RQ6 [facility] Last Admin: 06/27/17 13:33 Dose: Not Given Amlodipine Besylate (Norvasc) 10 mg PO DAILY [facility] Calcium Acetate (Phoslo) 667 mg PO TID [facility] Last Admin: 06/27/17 13:34 Dose: 667 mg Carvedilol (Coreg) 6.25 mg PO BID [facility] Last Admin: 06/27/17 10:48 Dose: 6.25 mg Furosemide (Lasix) 40 mg IVP BID [facility] Last Admin: 06/26/17 17:25 Dose: 40 mg Gabapentin (Neurontin) 600 mg PO TID [facility] Last Admin: 06/27/17 13:34 Dose: 600 mg Heparin Sodium (Porcine) (Heparin) 5,000 units SC Q8 [facility] Last Admin: 06/27/17 13:34 Dose: Not Given Hydralazine HCl (Apresoline) 50 mg PO TID [facility] Last Admin: 06/27/17 13:34 Dose: 50 mg Insulin Detemir (Levemir) 10 unit SC ACB [facility] Last Admin: 06/27/17 07:48 Dose: Not Given Insulin Detemir (Levemir) 15 unit SC HS [facility] Last Admin: 06/26/17 22:56 Dose: Not Given Insulin Human Regular (Novolin R) 0 unit SC ACHS [facility] PRN Reason: Protocol Last Admin: 06/27/17 12:23 Dose: 10 unit Isosorbide Mononitrate (Imdur Er) 30 mg PO DAILY [facility] Last Admin: 06/27/17 10:47 Dose: 30 mg Ofloxacin (Ocuflox Ophth 0.3%) 0 ml OS Q4 [facility] Last Admin: 06/27/17 12:23 Dose: 1 drop Pantoprazole Sodium (Protonix Ec Tab) 40 mg PO DAILY [facility] Last Admin: 06/27/17 10:47 Dose: 40 mg Rosuvastatin Calcium (Crestor) 5 mg PO HS [facility] Last Admin: 06/26/17 22:07 Dose: 5 mg - Labs Labs: 11/14/17 06:15 06/27/17 06:15 PT 10.5 SECONDS (9.7-12.2) 06/21/17 12:35 INR 0.9 06/21/17 12:35 APTT 32 SECONDS (21-34) 06/21/17 12:35 Attending/Attestation - Attestation I have personally seen and examined this patient.: Yes I have fully participated in the care of the patient.: Yes I have reviewed all pertinent clinical information, including history, physical exam and plan: Yes Notes (Text): 06/27/17 14:02 Medical attending: Patient was seen and examined by me. Agree with the above note by the resident. The patient was supposed to have biospy today however despite being NPO he still somehow got a food tray. The procedure has been moved to tommorow. Otherwise he reported feeling ok. He denied shortness of breath while at rest. His lasix as well as ACEI has been placed on hold at this time. thank you Santy Pabon
[2017-06-28] MEDS: Ofloxacin 0.3% Ophth Soln OS SCH ×6 (00:25→21:55)
[2017-06-28] MEDS: Albuterol-Ipratrop 3 mg / 0.5 (3 ml) UD INH SCH ×4 (01:49→20:03)
[2017-06-28 06:59] LABS: BASO # 0.1 K/uL (0.0-0.2); BASO % 0.8 % (0.0-2.0); EOS # 0.8 K/uL (0.0-0.7); EOS % 7.9 % (0.0-4.0); HEMATOCRIT 26.2 % (35.0-51.0); LYMPH # 2.1 K/uL (1.0-4.3); LYMPH % 20.8 % (20.0-40.0); MEAN CELL VOLUME 87.5 fL (80.0-94.0); MEAN CORPUSCULAR HEMOGLOBIN 29.2 pg (27.0-31.0); MEAN CORPUSCULAR HGB CONC 33.3 g/dL (33.0-37.0); MEAN PLATELET VOLUME 9.5 fL (7.2-11.7); MONO # 0.6 K/uL (0.0-0.8); MONO % 6.2 % (0.0-10.0); RED CELL DISTRIBUTION WIDTH 15.1 % (11.5-14.5); WHITE BLOOD COUNT 10.1 K/uL (4.8-10.8)
[2017-06-28 07:44] LABS: BILIRUBIN,TOTAL 0.4 mg/dL (0.2-1.3); CALCIUM 7.1 mg/dl (8.6-10.4); POTASSIUM 4.2 mmol/L (3.6-5.2); TOTAL PROTEIN 4.8 g/dL (6.3-8.3)
--- NOTE | 2017-06-28 07:47 | CP.PCM.PN ---
<Raulito Peace - Last Filed: 06/28/17 11:23> Subjective - Date & Time of Evaluation Date of Evaluation: 06/28/17 Time of Evaluation: 07:37 - Subjective Subjective: PGY-[address] Pabon. No acute events overnight. Patient's sugar levels are elevated. He still complains of pain in his legs bilaterally but is able to ambulate in hallways with minor pain. He denies shortness of breath. He says his leg and scortal swelling has improved. He will go for renal biopsy later today. He denies chest pain, shortness of breath, vomiting, diarrhea, fever, chills. Objective - Vital Signs/Intake and Output Vital Signs (last 24 hours): Temp Pulse Resp BP Pulse Ox 97.8 F 60 20 147/70 99 06/28/17 04:15 06/28/17 04:15 06/28/17 04:15 06/28/17 04:15 06/28/17 04:15 Intake and Output: 06/28/17 06/28/17 06:59 18:59 Output Total 650 Balance -650 - Medications Medications: Current Medications Albuterol/Ipratropium (Duoneb 3 Mg/0.5 Mg (3 Ml) Ud) 3 ml INH RQ6 [facility] Last Admin: 06/28/17 07:16 Dose: Not Given Amlodipine Besylate (Norvasc) 10 mg PO DAILY [facility] Calcium Acetate (Phoslo) 667 mg PO TID [facility] Last Admin: 06/27/17 17:54 Dose: 667 mg Carvedilol (Coreg) 6.25 mg PO BID [facility] Last Admin: 06/27/17 17:53 Dose: Not Given Furosemide (Lasix) 40 mg IVP BID [facility] Last Admin: 06/26/17 17:25 Dose: 40 mg Gabapentin (Neurontin) 600 mg PO TID [facility] Last Admin: 06/27/17 17:54 Dose: 600 mg Heparin Sodium (Porcine) (Heparin) 5,000 units SC Q8 [facility] Last Admin: 06/27/17 21:55 Dose: 5,000 units Hydralazine HCl (Apresoline) 50 mg PO TID [facility] Last Admin: 06/27/17 17:54 Dose: 50 mg Insulin Detemir (Levemir) 10 unit SC ACB [facility] Last Admin: 06/27/17 07:48 Dose: Not Given Insulin Detemir (Levemir) 15 unit SC HS [facility] Last Admin: 06/27/17 21:30 Dose: Not Given Insulin Human Regular (Novolin R) 0 unit SC ACHS [facility] PRN Reason: Protocol Last Admin: 06/27/17 21:56 Dose: 3 unit Isosorbide Mononitrate (Imdur Er) 30 mg PO DAILY [facility] Last Admin: 06/27/17 10:47 Dose: 30 mg Ofloxacin (Ocuflox Ophth 0.3%) 0 ml OS Q4 [facility] Last Admin: 06/28/17 04:20 Dose: 1 drop Pantoprazole Sodium (Protonix Ec Tab) 40 mg PO DAILY [facility] Last Admin: 06/27/17 10:47 Dose: 40 mg Rosuvastatin Calcium (Crestor) 5 mg PO HS [facility] Last Admin: 06/27/17 21:56 Dose: 5 mg - Labs Labs: 06/28/17 06:47 06/27/17 06:15 PT 10.5 SECONDS (9.7-12.2) 06/21/17 12:35 INR 0.9 06/21/17 12:35 APTT 32 SECONDS (21-34) 06/21/17 12:35 - Additional Findings Additional findings: - Constitutional Appears: Non-toxic, No Acute Distress - Head Exam Head Exam: NORMAL INSPECTION - Eye Exam Eye Exam: EOMI - ENT Exam ENT Exam: Mucous Membranes Moist - Respiratory Exam Respiratory Exam: Clear to Auscultation Bilateral, NORMAL BREATHING PATTERN. absent: Rales, Rhonchi, Wheezes - Cardiovascular Exam Cardiovascular Exam: REGULAR RHYTHM, JVD, +S1, +S2. absent: Gallop, Rubs, Systolic Murmur - GI/Abdominal Exam GI & Abdominal Exam: Normal Bowel Sounds, Soft. absent: Organomegaly, Tenderness - Exam Exam: Scrotal Swelling. absent: Testicular Tenderness - Extremities Exam Extremities exam: Positive for: calf tenderness, normal capillary refill, pedal edema (2+ pitting edema with erythema), tenderness - Neurological Exam Neurological exam: Alert, Oriented x3 - Psychiatric Exam Psychiatric exam: Normal Affect, Normal Mood - Skin Skin Exam: Normal Color, Warm Additional comments: erythema and thickened hard skin in lower extremities bilaterally up to mid-bob Assessment and Plan - Assessment and Plan (Free Text) Assessment: Nephrotic Syndrome Stage 3 CKD Nephrology consult - Dr. Luke, see Nephro notes. UA 06/21: 3+ protein, 1+ glucose total protein, 24 hour urine 06/23: 9160 (high) lipid panel 06/23: WNL Anti nuclear Ab negative Albumin on admission 2.7 BUN/Cr on admission: 18/.3 Dietitian referral for low albumin F/U ANCA scr w/mpo/pr3, w/reflx F/U Protein electrophoresis F/U HIV screening test Meds: Phoslo 667mg PO TID Imaging: US guided Left Renal biopsy scheduled for today 06/28/17 Renal Ultrasound 06/22/17: Impression: 1. Increased echogenicity of the bilateral renal parenchymal cortices suggestive for medical renal disease. 2. Complex left renal cyst as described above. 3. Simple right renal cysts as described above. 4. Punctate echogenic foci in the renal pelvi bilaterally which may represent calculi. 5. Mild fullness of the bilateral renal collecting systems. Correlation with noncontrast CT scan may be helpful for further evaluation if clinically indicated. Diastolic CHF exacerbation Cardiology consult - Dr. Delgadillo BNP 06/21/17 9170 from 3670 on 04/30/17 Troponin negative x 3 Chronically elevated CK-MB and Total Creatine Kinase EKG NSR F/U repeat ECHO Monitor daily weights Monitor Is and Os Fluid restriction to 1500ml Meds: Holding Lasix 40mg IVP daily 2/2 to rising Cr Holding Lisinopril 10mg PO daily 2/2 to rising Cr Coreg 6.25mg PO BID Imdur 30mg PO daily Imaging: CT Chest 06/22: IMPRESSION: 1. Persistent, stable nodular infiltrates affect the upper lobes predominantly at this time with interval improvement in the superior segment of bilateral lower lobes. Mild mediastinal lymphadenopathy again evident. Consider infectious or inflammatory process. Granulomatous disease is not considered high on the differential diagnosis list due to lack of more prominent lymphadenopathy but is clearly not excluded completely. 2. Trace bilateral pleural effusions identified in the interval. 3. Anasarca. (see full report) CXR 06/21: Persistant ill-defined consolidative and mass-like opacities re- identified within right upper to mid lung zones as well as left upper to mid lung zones. Additional scattered nodular densities. Mild cardiomegaly (please see full report) ECHO 02/27/17 - LVEF 50%, borderline concentric LVH, mild LV diastolic dysfunction, mild AR (please see full report) DM II Holding Janumet 50/1000mg PO BID and glimeperide 4mg PO daily RISS - Changed from medium dose to High Dose Accuchecks HgbA1C 06/22/17: 8.6 Meds: con't home med Levemir 15u SC HS (changed from home dose 25mg due to episodes of hypoglycemia) Levemir 10u SC ACB con't home med Levemir 15u SC HS con't home med rosuvastatin 5mg PO HS Calf tenderness LE venous b/l dopplers 06/22/17: no evidence of deep or superficial vein thrombosis of right OR left lower extremity. Valvular incompetence noted of right popliteal vein. Valvular incompetence noted of left great saphenous vein. COPD Possible exacerbation Pulmonology consult - Dr. Varsha Villagran 3ml INH RQ6 ELE Discontinued Solumedrol 20mg IVP Q12H Testicular swelling Urology consult - Dr. Bennie Kelsey Per Dr Kelsey note: Treat CHF, no further therapy at this time F/U PSA Imaging: Testicular US 06/21/17 - small bilateral hydroceles; bilateral scrotal edema ( please see full report) History of HTN Uncontrolled, patient not compliant with meds Holding home med Lisinopril 5mg PO daily Continue home med Coreg 6.25mg PO BID Hydralazine 50mg PO TID (changed from home dose of Hydralazine 25mg PO QID) Discontinued home med Norvasc 10mg PO daily due to recommendation by Nephrology Diabetic neuropathy con't home med Gabapentin 600mg PO TID Chronic Anemia Hgb 9.6 - baseline compared to last visits Monitor Hep C History hep B surface Ag negative hep B Ab negative Antibody positive on prior admission Hep C viral load indetectable on prior admission LFTs WNL History of positive QFT Positive on March 07, 2017 AFB negative x 3 March 06, 2017 Prophylaxis Protonix 40mg PO daily Heparin 5000U SC Q8 DISPOSITION: Patient will need to be discharged with diuretics and ACEi. <Santy Pabon - Last Filed: 06/28/17 13:12> Objective - Vital Signs/Intake and Output Vital Signs (last 24 hours): Temp Pulse Resp BP Pulse Ox 97.6 F 62 18 158/82 H 98 06/28/17 07:20 06/28/17 07:20 06/28/17 07:20 06/28/17 07:20 06/28/17 07:20 Intake and Output: 06/28/17 06/28/17 06:59 18:59 Output Total 650 Balance -650 - Medications Medications: Current Medications Albuterol/Ipratropium (Duoneb 3 Mg/0.5 Mg (3 Ml) Ud) 3 ml INH RQ6 [facility] Last Admin: 06/28/17 07:16 Dose: Not Given Calcium Acetate (Phoslo) 667 mg PO TID [facility] Last Admin: 06/28/17 09:01 Dose: Not Given Carvedilol (Coreg) 6.25 mg PO BID [facility] Last Admin: 06/28/17 09:00 Dose: 6.25 mg Furosemide (Lasix) 40 mg IVP BID [facility] Last Admin: 06/26/17 17:25 Dose: 40 mg Gabapentin (Neurontin) 600 mg PO TID [facility] Last Admin: 06/28/17 09:05 Dose: Not Given Heparin Sodium (Porcine) (Heparin) 5,000 units SC Q8 [facility] Last Admin: 06/27/17 21:55 Dose: 5,000 units Hydralazine HCl (Apresoline) 50 mg PO TID [facility] Last Admin: 06/28/17 09:06 Dose: Not Given Insulin Detemir (Levemir) 10 unit SC ACB [facility] Last Admin: 06/28/17 08:18 Dose: Not Given Insulin Detemir (Levemir) 15 unit SC HS [facility] Last Admin: 06/27/17 21:30 Dose: Not Given Insulin Human Regular (Novolin R) 0 unit SC ACHS [facility] PRN Reason: Protocol Isosorbide Mononitrate (Imdur Er) 30 mg PO DAILY [facility] Last Admin: 06/28/17 09:00 Dose: 30 mg Ofloxacin (Ocuflox Ophth 0.3%) 0 ml OS Q4 [facility] Last Admin: 06/28/17 09:00 Dose: 1 drop Pantoprazole Sodium (Protonix Ec Tab) 40 mg PO DAILY [facility] Last Admin: 06/28/17 09:01 Dose: 40 mg Rosuvastatin Calcium (Crestor) 5 mg PO HS [facility] Last Admin: 06/27/17 21:56 Dose: 5 mg - Labs Labs: 06/28/17 06:47 06/28/17 06:47 PT 10.5 SECONDS (9.7-12.2) 06/21/17 12:35 INR 0.9 06/21/17 12:35 APTT 32 SECONDS (21-34) 06/21/17 12:35 Attending/Attestation - Attestation I have personally seen and examined this patient.: Yes I have fully participated in the care of the patient.: Yes I have reviewed all pertinent clinical information, including history, physical exam and plan: Yes Notes (Text): 06/28/17 13:12 Medical attending: Patient was seen and examined by me, agree with the above note by medical officer. The patient was at rest only came and saw him. He was not in any acute distress. He is pending for the renal biopsy to be done later on today. Following the biopsy we have to monitor for any potential blood loss. I explained to the medical residents that if we are notified that the patient is developing severe pain or changes to his blood pressure that we need to give stat CT scan right away as well as blood transfusions. Other than this he feels fine at this time. He still has the lower extremity edema. As mentioned previously his Lasix and JOSE CARLOS inhibitor are being held Thank you very much, Santy Pabon
[2017-06-28] MEDS: (Novolin R) Insulin Human Regular 100 units/ml vial SC SCH ×4 (08:18→21:54)
[2017-06-28] MEDS: Insulin Detemir 100 units/ml Vial (Levemir) SC SCH ×2 (08:18→21:53)
[2017-06-28] MEDS: Pantoprazole 40 mg EC Tab PO SCH (09:01)
[2017-06-28] MEDS ORDERED: Midazolam 2 MG/2 ML VIAL ONE (10:31)
[2017-06-28] MEDS ORDERED: Absorbable Gelatin Sponge Size 12-7 ONE (10:41)
--- NOTE | 2017-06-28 11:12 | PCM.SURG1 ---
Surgeon's Initial Post Op Note - Surgeon's Notes Surgeon: Armando Mary MD Acquisition Manager: None Type of Anesthesia: MAC Pre-Operative Diagnosis: Nephropathy Operative Findings: echogenic left kidney Post-Operative Diagnosis: same Operation Performed: US Guided LEFT Kidney Biopsy Specimen/Specimens Removed: 18g core x 3 Estimated Blood Loss: EBL {In ML}: 0 Post-Op Condition: Good Date of Surgery/Procedure: 06/28/17 Time of Surgery/Procedure: 11:00
--- NOTE | 2017-06-28 13:49 | CARD ---
APPROVED REPORT EXAM: Two-dimensional and M-mode echocardiogram with Doppler and color Doppler. Other Information Quality : GoodRhythm : INDICATION Congestive Heart Failure 2D DIMENSIONS IVSd1.1 (0.7-1.1cm)LVDd5.6 (3.9-5.9cm) PWd1.1 (0.7-1.1cm)LVDs4.4 (2.5-4.0cm) FS (%) 22.0 %LVEF (%)43.9 (>50%) M-Mode DIMENSIONS Left Atrium (MM)3.81 (2.5-4.0cm)Aortic Root3.62 (2.2-3.7cm) Aortic Cusp Exc.2.04 (1.5-2.0cm) Aortic Valve AI P 1/2 [id number] Mitral Valve MV E Pveeaqqd49.3cm/sMV A Nqpvtdkw22.8cm/sE/A ratio0.8 TDI E/Lateral E'0.0E/Medial E'0.0 Tricuspid Valve TR Peak [id number]/sTR Peak Gr.[id number] LEFT VENTRICLE The left ventricle is normal size. There is mild concentric left ventricular hypertrophy. The systolic function is mildly impaired. There is normal LV segmental wall motion. Transmitral Doppler flow pattern is Grade I-abnormal relaxation pattern. Tissue Doppler imaging reveals mild left ventricular diastolic dysfunction. No left ventricle thrombus noted on this study. There is no ventricular septal defect visualized. There is no left ventricular aneurysm. There is no mass noted in the left ventricle. RIGHT VENTRICLE The right ventricle is normal size. There is normal right ventricular wall thickness. The right ventricular systolic function is normal. ATRIA The left atrium size is normal. The right atrium size is normal. AORTIC VALVE The aortic valve is normal in structure. There is mild aortic regurgitation. There is no aortic valvular stenosis. There is no aortic valvular vegetation. MITRAL VALVE The mitral valve is normal in structure. There is no mitral valve stenosis. Mitral regurgitation is mild. TRICUSPID VALVE The tricuspid valve is normal in structure. There is trace tricuspid regurgitation. There is moderate pulmonary hypertension. PULMONIC VALVE The pulmonary valve is normal in structure. There is no pulmonic valvular regurgitation. GREAT VESSELS The aortic root is normal in size. The ascending aorta is normal in size. The pulmonary artery is normal. The IVC is normal in size and collapses >50% with inspiration. PERICARDIAL EFFUSION There is no pericardial effusion. <Conclusion> There is mild concentric left ventricular hypertrophy. The systolic function is mildly impaired. Transmitral Doppler flow pattern is Grade I-abnormal relaxation pattern. Tissue Doppler imaging reveals mild left ventricular diastolic dysfunction. There is mild aortic regurgitation. Mitral regurgitation is mild. There is trace tricuspid regurgitation. There is moderate pulmonary hypertension. LVEF IS 45%.
--- NOTE | 2017-06-28 14:18 | CP.PCM.PN ---
Subjective - Date & Time of Evaluation Date of Evaluation: 06/28/17 Time of Evaluation: 14:16 - Subjective Subjective: Alert; in NAD s/p percutaneous renal bx YEIMI, ANCA negative SPEP, HIV pending BP better controlled Has nephrotic syndrome; possibly from DM creat increased to 2.0- ? from diuretics, JOSE CARLOS I Objective - Vital Signs/Intake and Output Vital Signs (last 24 hours): Temp Pulse Resp BP Pulse Ox 97.6 F 62 18 158/82 H 98 06/28/17 07:20 06/28/17 07:20 06/28/17 07:20 06/28/17 07:20 06/28/17 07:20 Intake and Output: 06/28/17 06/28/17 06:59 18:59 Output Total 650 Balance -650 - Medications Medications: Current Medications Albuterol/Ipratropium (Duoneb 3 Mg/0.5 Mg (3 Ml) Ud) 3 ml INH RQ6 [facility] Last Admin: 06/28/17 13:17 Dose: Not Given Calcium Acetate (Phoslo) 667 mg PO TID [facility] Last Admin: 06/28/17 13:23 Dose: 667 mg Carvedilol (Coreg) 6.25 mg PO BID [facility] Last Admin: 06/28/17 09:00 Dose: 6.25 mg Furosemide (Lasix) 40 mg IVP BID [facility] Last Admin: 06/26/17 17:25 Dose: 40 mg Gabapentin (Neurontin) 600 mg PO TID [facility] Last Admin: 06/28/17 13:23 Dose: 600 mg Heparin Sodium (Porcine) (Heparin) 5,000 units SC Q8 [facility] Last Admin: 06/27/17 21:55 Dose: 5,000 units Hydralazine HCl (Apresoline) 50 mg PO TID [facility] Last Admin: 06/28/17 13:23 Dose: 50 mg Insulin Detemir (Levemir) 10 unit SC ACB [facility] Last Admin: 06/28/17 08:18 Dose: Not Given Insulin Detemir (Levemir) 15 unit SC HS [facility] Last Admin: 06/27/17 21:30 Dose: Not Given Insulin Human Regular (Novolin R) 0 unit SC ACHS [facility] PRN Reason: Protocol Last Admin: 06/28/17 12:30 Dose: 8 unit Isosorbide Mononitrate (Imdur Er) 30 mg PO DAILY [facility] Last Admin: 06/28/17 09:00 Dose: 30 mg Ofloxacin (Ocuflox Ophth 0.3%) 0 ml OS Q4 [facility] Last Admin: 06/28/17 13:00 Dose: 1 drop Pantoprazole Sodium (Protonix Ec Tab) 40 mg PO DAILY [facility] Last Admin: 06/28/17 09:01 Dose: 40 mg Rosuvastatin Calcium (Crestor) 5 mg PO HS [facility] Last Admin: 06/27/17 21:56 Dose: 5 mg - Labs Labs: 06/28/17 06:47 06/28/17 06:47 PT 10.5 SECONDS (9.7-12.2) 06/21/17 12:35 INR 0.9 06/21/17 12:35 APTT 32 SECONDS (21-34) 06/21/17 12:35 - Constitutional Appears: No Acute Distress, Chronically Ill - Head Exam Head Exam: ATRAUMATIC, NORMAL INSPECTION - Eye Exam Eye Exam: EOMI, Normal appearance - Neck Exam Neck Exam: Normal Inspection. absent: Tenderness - Respiratory Exam Respiratory Exam: Clear to Ausculation Bilateral, NORMAL BREATHING PATTERN - Cardiovascular Exam Cardiovascular Exam: REGULAR RHYTHM, +S1 - GI/Abdominal Exam GI & Abdominal Exam: Soft. absent: Tenderness - Extremities Exam Extremities Exam: Normal Inspection, Pedal Edema - Neurological Exam Neurological Exam: Alert, CN II-XII Intact - Skin Skin Exam: Dry, Warm Assessment and Plan (1) HTN (hypertension) Status: Acute (2) Hepatitis C Status: Acute (3) Type 2 diabetes mellitus with diabetic nephropathy Status: Acute (4) Nephrotic syndrome Status: Acute - Assessment and Plan (Free Text) Plan: Await bx results BP control Eventual JOSE CARLOS I when creatinine stabilizes
[2017-06-29] MEDS: Ofloxacin 0.3% Ophth Soln OS SCH ×6 (00:06→21:23)
[2017-06-29] MEDS: Albuterol-Ipratrop 3 mg / 0.5 (3 ml) UD INH SCH ×4 (01:16→19:33)
[2017-06-29 07:24] LABS: TOTAL PROTEIN, SERUM 4.6 g/dL (6.1-8.1)
[2017-06-29 07:26] LABS: BASO % 0.4 % (0.0-2.0); EOS # 0.7 K/uL (0.0-0.7); EOS % 7.3 % (0.0-4.0); HEMATOCRIT 26.3 % (35.0-51.0); LYMPH # 1.8 K/uL (1.0-4.3); LYMPH % 17.8 % (20.0-40.0); MEAN CORPUSCULAR HEMOGLOBIN 28.8 pg (27.0-31.0); MEAN CORPUSCULAR HGB CONC 32.7 g/dL (33.0-37.0); MEAN PLATELET VOLUME 9.2 fL (7.2-11.7); MONO # 0.7 K/uL (0.0-0.8); MONO % 7.1 % (0.0-10.0); RED CELL DISTRIBUTION WIDTH 15.1 % (11.5-14.5); WHITE BLOOD COUNT 10.3 K/uL (4.8-10.8)
--- NOTE | 2017-06-29 07:47 | CP.PCM.PN ---
<Raulito Peace - Last Filed: 06/29/17 16:01> Subjective - Date & Time of Evaluation Date of Evaluation: 06/29/17 Time of Evaluation: 07:41 - Subjective Subjective: PGY-[address] Pabon. No acute events noted overnight. Patient had percutaneous left renal biopsy yesterday. His BP has been controlled after adjusting BP meds yesterday. Today, he's not in acute distress, was resting comfortably in bed watching TV. He still complains of pain in his legs bilaterally but is able to ambulate in hallways with minor pain. He denies shortness of breath. He says his leg and scortal swelling has improved. He denies chest pain, shortness of breath, vomiting, diarrhea, fever, chills. Objective - Vital Signs/Intake and Output Vital Signs (last 24 hours): Temp Pulse Resp BP Pulse Ox 98.0 F 57 L 20 132/69 95 06/29/17 04:00 06/29/17 04:57 06/29/17 04:00 06/29/17 04:00 06/29/17 04:00 Intake and Output: 06/29/17 06/29/17 06:59 18:59 Intake Total 240 Balance 240 - Medications Medications: Current Medications Albuterol/Ipratropium (Duoneb 3 Mg/0.5 Mg (3 Ml) Ud) 3 ml INH RQ6 [facility] Last Admin: 06/29/17 07:25 Dose: Not Given Calcium Acetate (Phoslo) 667 mg PO TID [facility] Last Admin: 06/28/17 17:42 Dose: 667 mg Carvedilol (Coreg) 6.25 mg PO BID [facility] Last Admin: 06/28/17 17:42 Dose: 6.25 mg Furosemide (Lasix) 40 mg IVP BID [facility] Last Admin: 06/26/17 17:25 Dose: 40 mg Gabapentin (Neurontin) 600 mg PO TID [facility] Last Admin: 06/28/17 17:42 Dose: 600 mg Heparin Sodium (Porcine) (Heparin) 5,000 units SC Q8 [facility] Last Admin: 06/27/17 21:55 Dose: 5,000 units Hydralazine HCl (Apresoline) 50 mg PO TID [facility] Last Admin: 06/28/17 17:42 Dose: 50 mg Insulin Detemir (Levemir) 10 unit SC ACB [facility] Last Admin: 06/28/17 08:18 Dose: Not Given Insulin Detemir (Levemir) 15 unit SC HS [facility] Last Admin: 06/28/17 21:53 Dose: 15 unit Insulin Human Regular (Novolin R) 0 unit SC ACHS [facility] PRN Reason: Protocol Last Admin: 06/28/17 21:54 Dose: 12 unit Isosorbide Mononitrate (Imdur Er) 30 mg PO DAILY [facility] Last Admin: 06/28/17 09:00 Dose: 30 mg Ofloxacin (Ocuflox Ophth 0.3%) 0 ml OS Q4 [facility] Last Admin: 06/29/17 04:02 Dose: 1 drop Pantoprazole Sodium (Protonix Ec Tab) 40 mg PO DAILY [facility] Last Admin: 06/28/17 09:01 Dose: 40 mg Rosuvastatin Calcium (Crestor) 5 mg PO [facility] Last Admin: 06/28/17 22:11 Dose: 5 mg - Labs Labs: 06/29/17 07:20 06/28/17 06:47 PT 10.5 SECONDS (9.7-12.2) 06/21/17 12:35 INR 0.9 06/21/17 12:35 APTT 32 SECONDS (21-34) 06/21/17 12:35 - Additional Findings Additional findings: - Constitutional Appears: Non-toxic, No Acute Distress - Head Exam Head Exam: NORMAL INSPECTION - Eye Exam Eye Exam: EOMI - ENT Exam ENT Exam: Mucous Membranes Moist - Respiratory Exam Respiratory Exam: Clear to Auscultation Bilateral, NORMAL BREATHING PATTERN. absent: Rales, Rhonchi, Wheezes - Cardiovascular Exam Cardiovascular Exam: REGULAR RHYTHM, JVD, +S1, +S2. absent: Gallop, Rubs, Systolic Murmur - GI/Abdominal Exam GI & Abdominal Exam: Normal Bowel Sounds, Soft. absent: Organomegaly, Tenderness - Exam Exam: Scrotal Swelling. absent: Testicular Tenderness - Extremities Exam Extremities exam: Positive for: calf tenderness, normal capillary refill, pedal edema (2+ pitting edema with erythema), tenderness - Neurological Exam Neurological exam: Alert, Oriented x3 - Psychiatric Exam Psychiatric exam: Normal Affect, Normal Mood - Skin Skin Exam: Normal Color, Warm Additional comments: erythema and thickened hard skin in lower extremities bilaterally up to mid-bob Assessment and Plan - Assessment and Plan (Free Text) Assessment: Nephrotic Syndrome Stage 3 CKD Nephrology consult - Dr. Luke, see Nephro notes. UA 06/21: 3+ protein, 1+ glucose total protein, 24 hour urine 06/23: 9160 (high) lipid panel 06/23: WNL Anti nuclear Ab negative Albumin on admission 2.7 BUN/Cr on admission: 18/1.3 Dietitian referral for low albumin ANCA scr w/mpo/pr3, w/reflx negative F/U Protein electrophoresis HIV screening test negative Meds: Phoslo 667mg PO TID Imaging: US guided Left Renal biopsy 06/28/17, F/U results Renal Ultrasound 06/22/17: Impression: 1. Increased echogenicity of the bilateral renal parenchymal cortices suggestive for medical renal disease. 2. Complex left renal cyst as described above. 3. Simple right renal cysts as described above. 4. Punctate echogenic foci in the renal pelvi bilaterally which may represent calculi. 5. Mild fullness of the bilateral renal collecting systems. Correlation with noncontrast CT scan may be helpful for further evaluation if clinically indicated. Diastolic CHF exacerbation Cardiology consult - Dr. Delgadillo BNP 06/21/17 9170 from 3670 on 04/30/17 Troponin negative x 3 Chronically elevated CK-MB and Total Creatine Kinase EKG NSR F/U repeat ECHO Monitor daily weights Monitor Is and Os Fluid restriction to 1500ml Meds: Holding Lasix 40mg IVP daily 2/2 to rising Cr Holding Lisinopril 10mg PO daily 2/2 to rising Cr Coreg 6.25mg PO BID Imdur 30mg PO daily Imaging: CT Chest 06/22: IMPRESSION: 1. Persistent, stable nodular infiltrates affect the upper lobes predominantly at this time with interval improvement in the superior segment of bilateral lower lobes. Mild mediastinal lymphadenopathy again evident. Consider infectious or inflammatory process. Granulomatous disease is not considered high on the differential diagnosis list due to lack of more prominent lymphadenopathy but is clearly not excluded completely. 2. Trace bilateral pleural effusions identified in the interval. 3. Anasarca. (see full report) CXR 06/21: Persistant ill-defined consolidative and mass-like opacities re- identified within right upper to mid lung zones as well as left upper to mid lung zones. Additional scattered nodular densities. Mild cardiomegaly (please see full report) ECHO 02/27/17 - LVEF 50%, borderline concentric LVH, mild LV diastolic dysfunction, mild AR (please see full report) DM II Holding Janumet 50/1000mg PO BID and glimeperide 4mg PO daily RISS - Changed from medium dose to High Dose Accuchecks HgbA1C 06/22/17: 8.6 Meds: con't home med Levemir 15u SC HS (changed from home dose 25mg due to episodes of hypoglycemia) Levemir 10u SC ACB con't home med rosuvastatin 5mg PO HS Calf tenderness LE venous b/l dopplers 06/22/17: no evidence of deep or superficial vein thrombosis of right OR left lower extremity. Valvular incompetence noted of right popliteal vein. Valvular incompetence noted of left great saphenous vein. COPD Possible exacerbation Pulmonology consult - Dr. Varsha Villagran 3ml INH RQ6 [facility] Discontinued Solumedrol 20mg IVP Q12H Testicular swelling Urology consult - Dr. Bennie Kelsey Per Dr Kelsey note: Treat CHF, no further therapy at this time F/U PSA Imaging: Testicular US 06/21/17 - small bilateral hydroceles; bilateral scrotal edema ( please see full report) History of HTN Uncontrolled, patient not compliant with meds Holding home med Lisinopril 5mg PO daily Continue home med Coreg 6.25mg PO BID Hydralazine 50mg PO TID (changed from home dose of Hydralazine 25mg PO QID) Discontinued home med Norvasc 10mg PO daily due to recommendation by Nephrology Diabetic neuropathy con't home med Gabapentin 600mg PO TID Chronic Anemia Hgb 9.6 - baseline compared to last visits Monitor Hep C History hep B surface Ag negative hep B Ab negative Antibody positive on prior admission Hep C viral load indetectable on prior admission LFTs WNL History of positive QFT Positive on March 07, 2017 AFB negative x 3 March 06, 2017 Prophylaxis Protonix 40mg PO daily Heparin 5000U SC Q8 DISPOSITION: Patient will need to be discharged with diuretics and ACEi. <Santy Pabon - Last Filed: 06/29/17 16:59> Objective - Vital Signs/Intake and Output Vital Signs (last 24 hours): Temp Pulse Resp BP Pulse Ox 97.5 F L 56 L 18 126/65 99 06/29/17 15:44 06/29/17 15:44 06/29/17 15:44 06/29/17 15:44 06/29/17 15:44 Intake and Output: 06/29/17 06/29/17 06:59 18:59 Intake Total 240 700 Balance 240 700 - Medications Medications: Current Medications Albuterol/Ipratropium (Duoneb 3 Mg/0.5 Mg (3 Ml) Ud) 3 ml INH RQ6 [facility] Last Admin: 06/29/17 13:31 Dose: Not Given Calcium Acetate (Phoslo) 667 mg PO TID [facility] Last Admin: 06/29/17 13:42 Dose: 667 mg Carvedilol (Coreg) 6.25 mg PO BID [facility] Last Admin: 06/29/17 09:25 Dose: 6.25 mg Furosemide (Lasix) 40 mg IVP BID [facility] Last Admin: 06/26/17 17:25 Dose: 40 mg Gabapentin (Neurontin) 600 mg PO TID [facility] Last Admin: 06/29/17 13:44 Dose: 600 mg Heparin Sodium (Porcine) (Heparin) 5,000 units SC Q8 [facility] Last Admin: 06/29/17 13:42 Dose: 5,000 units Hydralazine HCl (Apresoline) 50 mg PO TID [facility] Last Admin: 06/29/17 13:44 Dose: 50 mg Insulin Detemir (Levemir) 10 unit SC ACB [facility] Last Admin: 06/29/17 08:24 Dose: 10 unit Insulin Detemir (Levemir) 15 unit SC HS [facility] Last Admin: 06/28/17 21:53 Dose: 15 unit Insulin Human Regular (Novolin R) 0 unit SC ACHS [facility] PRN Reason: Protocol Last Admin: 06/29/17 13:43 Dose: 1 unit Isosorbide Mononitrate (Imdur Er) 30 mg PO DAILY [facility] Last Admin: 06/29/17 09:25 Dose: 30 mg Ofloxacin (Ocuflox Ophth 0.3%) 0 ml OS Q4 [facility] Last Admin: 06/29/17 15:09 Dose: 1 drop Pantoprazole Sodium (Protonix Ec Tab) 40 mg PO DAILY [facility] Last Admin: 06/29/17 09:25 Dose: 40 mg Rosuvastatin Calcium (Crestor) 5 mg PO HS [facility] Last Admin: 06/28/17 22:11 Dose: 5 mg - Labs Labs: 06/29/17 07:20 06/29/17 07:20 PT 10.5 SECONDS (9.7-12.2) 06/21/17 12:35 INR 0.9 06/21/17 12:35 APTT 32 SECONDS (21-34) 06/21/17 12:35 Attending/Attestation - Attestation I have personally seen and examined this patient.: Yes I have fully participated in the care of the patient.: Yes I have reviewed all pertinent clinical information, including history, physical exam and plan: Yes Notes (Text): 06/29/17 16:59 Medical attending: Patient was seen and examined by me, agrees the above note by medical records receptionist. The patient was status post renal biopsy yesterday. His morning he reported feeling okay he was not having any significant amounts of pain. Hemoglobin was 8.6. Creatinine was 2.0 today he asked to be placed back on the diarrhetic medication that he was on however at this moment were still having a on hold. Previously he was on Lasix and also JOSE CARLOS inhibitor however this was held for biopsy. Probably will discharge patient tomorrow if he is hemoglobin remained stable with JOSE CARLOS inhibitor and Lasix Thank you very much, Santy Pabon
[2017-06-29 08:07] LABS: BILIRUBIN,TOTAL 0.4 mg/dL (0.2-1.3); CALCIUM 7.2 mg/dl (8.6-10.4); POTASSIUM 3.9 mmol/L (3.6-5.2); TOTAL PROTEIN 4.9 g/dL (6.3-8.3)
[2017-06-29] MEDS: Insulin Detemir 100 units/ml Vial (Levemir) SC SCH ×2 (08:24→21:22)
[2017-06-29] MEDS: (Novolin R) Insulin Human Regular 100 units/ml vial SC SCH ×4 (08:26→21:28)
[2017-06-29] MEDS: Pantoprazole 40 mg EC Tab PO SCH (09:25)
--- NOTE | 2017-06-29 10:35 | CP.PCM.PN ---
Subjective - Date & Time of Evaluation Date of Evaluation: 06/29/17 Time of Evaluation: 10:33 - Subjective Subjective: only c/o peripheral edema awaiting bx results BP controlled creat decreased to 1.7 Objective - Vital Signs/Intake and Output Vital Signs (last 24 hours): Temp Pulse Resp BP Pulse Ox 97.9 F 75 20 137/68 98 06/29/17 07:55 06/29/17 07:55 06/29/17 07:55 06/29/17 07:55 06/29/17 07:55 Intake and Output: 06/29/17 06/29/17 06:59 18:59 Intake Total 240 Balance 240 - Medications Medications: Current Medications Albuterol/Ipratropium (Duoneb 3 Mg/0.5 Mg (3 Ml) Ud) 3 ml INH RQ6 [facility] Last Admin: 06/29/17 07:25 Dose: Not Given Calcium Acetate (Phoslo) 667 mg PO TID [facility] Last Admin: 06/29/17 09:25 Dose: 667 mg Carvedilol (Coreg) 6.25 mg PO BID [facility] Last Admin: 06/29/17 09:25 Dose: 6.25 mg Furosemide (Lasix) 40 mg IVP BID [facility] Last Admin: 06/26/17 17:25 Dose: 40 mg Gabapentin (Neurontin) 600 mg PO TID [facility] Last Admin: 06/29/17 09:25 Dose: 600 mg Heparin Sodium (Porcine) (Heparin) 5,000 units SC Q8 [facility] Last Admin: 06/27/17 21:55 Dose: 5,000 units Hydralazine HCl (Apresoline) 50 mg PO TID [facility] Last Admin: 06/29/17 09:26 Dose: 50 mg Insulin Detemir (Levemir) 10 unit SC ACB [facility] Last Admin: 06/29/17 08:24 Dose: 10 unit Insulin Detemir (Levemir) 15 unit SC HS [facility] Last Admin: 06/28/17 21:53 Dose: 15 unit Insulin Human Regular (Novolin R) 0 unit SC ACHS [facility] PRN Reason: Protocol Last Admin: 06/29/17 08:26 Dose: Not Given Isosorbide Mononitrate (Imdur Er) 30 mg PO DAILY [facility] Last Admin: 06/29/17 09:25 Dose: 30 mg Ofloxacin (Ocuflox Ophth 0.3%) 0 ml OS Q4 [facility] Last Admin: 06/29/17 08:25 Dose: 1 drop Pantoprazole Sodium (Protonix Ec Tab) 40 mg PO DAILY [facility] Last Admin: 06/29/17 09:25 Dose: 40 mg Rosuvastatin Calcium (Crestor) 5 mg PO HS [facility] Last Admin: 06/28/17 22:11 Dose: 5 mg - Labs Labs: 06/29/17 07:20 06/29/17 07:20 PT 10.5 SECONDS (9.7-12.2) 06/21/17 12:35 INR 0.9 06/21/17 12:35 APTT 32 SECONDS (21-34) 06/21/17 12:35 - Constitutional Appears: No Acute Distress, Chronically Ill - Head Exam Head Exam: ATRAUMATIC, NORMAL INSPECTION - Eye Exam Eye Exam: EOMI, Normal appearance - Neck Exam Neck Exam: Normal Inspection. absent: Tenderness - Respiratory Exam Respiratory Exam: Clear to Ausculation Bilateral, NORMAL BREATHING PATTERN - Cardiovascular Exam Cardiovascular Exam: REGULAR RHYTHM, +S1 - GI/Abdominal Exam GI & Abdominal Exam: Soft. absent: Tenderness - Extremities Exam Extremities Exam: Pedal Edema. absent: Tenderness - Neurological Exam Neurological Exam: Alert, CN II-XII Intact - Skin Skin Exam: Dry, Warm Assessment and Plan (1) HTN (hypertension) Status: Acute (2) Hepatitis C Status: Acute (3) Type 2 diabetes mellitus with diabetic nephropathy Status: Acute (4) Nephrotic syndrome Status: Acute - Assessment and Plan (Free Text) Plan: serial chemistries if creat decreasing can resume oral diuretics await bx results
[2017-06-30 00:35] LABS: TOTAL PSA 0.7 ng/mL (<=4.0)
[2017-06-30] MEDS: Ofloxacin 0.3% Ophth Soln OS SCH ×5 (00:37→17:08)
[2017-06-30] MEDS: Albuterol-Ipratrop 3 mg / 0.5 (3 ml) UD INH SCH ×4 (01:11→19:09)
[2017-06-30 08:14] VITALS: O2SAT 99
[2017-06-30 08:18] LABS: BASO # 0.1 K/uL (0.0-0.2); BASO % 0.7 % (0.0-2.0); EOS # 0.7 K/uL (0.0-0.7); EOS % 7.3 % (0.0-4.0); HEMATOCRIT 27.4 % (35.0-51.0); LYMPH # 1.7 K/uL (1.0-4.3); MEAN CELL VOLUME 88.4 fL (80.0-94.0); MEAN CORPUSCULAR HEMOGLOBIN 29.3 pg (27.0-31.0); MEAN CORPUSCULAR HGB CONC 33.2 g/dL (33.0-37.0); MEAN PLATELET VOLUME 9.6 fL (7.2-11.7); MONO # 0.6 K/uL (0.0-0.8); MONO % 6.6 % (0.0-10.0); RED CELL DISTRIBUTION WIDTH 15.7 % (11.5-14.5); WHITE BLOOD COUNT 9.5 K/uL (4.8-10.8)
[2017-06-30] MEDS: Insulin Detemir 100 units/ml Vial (Levemir) SC SCH (08:24)
[2017-06-30] MEDS: (Novolin R) Insulin Human Regular 100 units/ml vial SC SCH ×3 (08:29→17:09)
[2017-06-30 08:44] LABS: BILIRUBIN,TOTAL 0.4 mg/dL (0.2-1.3); CALCIUM 7.3 mg/dl (8.6-10.4); POTASSIUM 4.1 mmol/L (3.6-5.2); TOTAL PROTEIN 5.1 g/dL (6.3-8.3)
[2017-06-30] MEDS: Pantoprazole 40 mg EC Tab PO SCH (09:47)
--- NOTE | 2017-06-30 14:27 | CP.PCM.PN ---
Subjective - Date & Time of Evaluation Date of Evaluation: 06/30/17 Time of Evaluation: 14:24 - Subjective Subjective: Renal bx showed diabetic nephropathy and acute tubular necrosis Therefore has nephrotic syndrome due to DM; EJ related to overdiuresis and JOSE CARLOS I still with severe edema no other new complaints e I Objective - Vital Signs/Intake and Output Vital Signs (last 24 hours): Temp Pulse Resp BP Pulse Ox 97.7 F 63 20 160/76 H 99 06/30/17 08:13 06/30/17 11:58 06/30/17 08:13 06/30/17 08:13 06/30/17 08:13 Intake and Output: 06/30/17 06/30/17 06:59 18:59 Intake Total 200 Output Total 700 Balance -500 - Medications Medications: Current Medications Albuterol/Ipratropium (Duoneb 3 Mg/0.5 Mg (3 Ml) Ud) 3 ml INH RQ6 [facility] Last Admin: 06/30/17 13:33 Dose: Not Given Calcium Acetate (Phoslo) 667 mg PO TID [facility] Last Admin: 06/30/17 14:02 Dose: 667 mg Carvedilol (Coreg) 6.25 mg PO BID [facility] Last Admin: 06/30/17 09:47 Dose: 6.25 mg Furosemide (Lasix) 40 mg IVP BID [facility] Last Admin: 06/26/17 17:25 Dose: 40 mg Gabapentin (Neurontin) 600 mg PO TID [facility] Last Admin: 06/30/17 14:01 Dose: 600 mg Heparin Sodium (Porcine) (Heparin) 5,000 units SC Q8 [facility] Last Admin: 06/30/17 14:01 Dose: 5,000 units Hydralazine HCl (Apresoline) 50 mg PO TID [facility] Last Admin: 06/30/17 14:02 Dose: 50 mg Insulin Detemir (Levemir) 10 unit SC ACB [facility] Last Admin: 06/30/17 08:24 Dose: 10 unit Insulin Detemir (Levemir) 15 unit SC HS [facility] Last Admin: 06/29/17 21:22 Dose: 15 unit Insulin Human Regular (Novolin R) 0 unit SC ACHS [facility] PRN Reason: Protocol Last Admin: 06/30/17 12:23 Dose: 4 unit Isosorbide Mononitrate (Imdur Er) 30 mg PO DAILY [facility] Last Admin: 06/30/17 09:47 Dose: 30 mg Ofloxacin (Ocuflox Ophth 0.3%) 0 ml OS Q4 [facility] Last Admin: 06/30/17 12:24 Dose: 1 drop Pantoprazole Sodium (Protonix Ec Tab) 40 mg PO DAILY [facility] Last Admin: 06/30/17 09:47 Dose: 40 mg Rosuvastatin Calcium (Crestor) 5 mg PO HS [facility] Last Admin: 06/29/17 21:22 Dose: 5 mg - Labs Labs: 06/30/17 08:08 06/30/17 08:08 PT 10.5 SECONDS (9.7-12.2) 06/21/17 12:35 INR 0.9 06/21/17 12:35 APTT 32 SECONDS (21-34) 06/21/17 12:35 - Constitutional Appears: No Acute Distress, Chronically Ill - Head Exam Head Exam: ATRAUMATIC, NORMAL INSPECTION - Eye Exam Eye Exam: EOMI, Normal appearance - Neck Exam Neck Exam: Normal Inspection. absent: Tenderness - Respiratory Exam Respiratory Exam: Clear to Ausculation Bilateral, NORMAL BREATHING PATTERN - Cardiovascular Exam Cardiovascular Exam: REGULAR RHYTHM, +S1 - GI/Abdominal Exam GI & Abdominal Exam: Soft. absent: Tenderness - Extremities Exam Extremities Exam: Pedal Edema. absent: Tenderness - Neurological Exam Neurological Exam: Awake, CN II-XII Intact - Skin Skin Exam: Dry, Warm Assessment and Plan (1) HTN (hypertension) Status: Acute (2) Hepatitis C Status: Acute (3) Type 2 diabetes mellitus with diabetic nephropathy Status: Acute (4) Nephrotic syndrome Status: Acute - Assessment and Plan (Free Text) Plan: Eventually resume oral diuretics when renal function sl improves Eventually resume JOSE CARLOS I as outpatient
[2017-06-30 15:51] VITALS: BP 131/69; PULSE 56; RESP 18; TEMP 97.5
--- NOTE | 2017-06-30 15:54 | CP.PCM.DIS ---
<Raulito Peace - Last Filed: 06/30/17 15:51> Provider - Provider Date of Admission: 06/21/17 13:52 Attending physician: Ladi Vazquez MD Primary care physician: Dr Howard Consults: Cardio - Dr Delgadillo Nephro - Dr Luke Pulm - Dr Maddox Urology - Dr Kelsey Time Spent in preparation of Discharge (in minutes): 50 Diagnosis - Discharge Diagnosis (1) CHF (congestive heart failure) Status: Chronic Priority: High (2) Nephrotic syndrome Status: Chronic Priority: High (3) Acute renal failure Status: Resolved Priority: High (4) Type II diabetes mellitus - poor control Status: Chronic Priority: High Hospital Course - Lab Results Lab Results: Most Recent Lab Values WBC 9.5 K/uL (4.8-10.8) 06/30/17 08:08 RBC 3.10 Mil/uL (4.40-5.90) L 06/30/17 08:08 Hgb 9.1 g/dL (12.0-18.0) L 06/30/17 08:08 Hct 27.4 % (35.0-51.0) L 06/30/17 08:08 MCV 88.4 fL (80.0-94.0) 06/30/17 08:08 MCH 29.3 pg (27.0-31.0) 06/30/17 08:08 MCHC 33.2 g/dL (33.0-37.0) 06/30/17 08:08 RDW 15.7 % (11.5-14.5) H 06/30/17 08:08 Plt Count 232 K/uL (130-400) 06/30/17 08:08 MPV 9.6 fL (7.2-11.7) 06/30/17 08:08 Neut % (Auto) 67.4 % (50.0-75.0) 06/30/17 08:08 Lymph % (Auto) 18.0 % (20.0-40.0) L 06/30/17 08:08 [place] % (Auto) 6.6 % (0.0-10.0) 06/30/17 08:08 Eos % (Auto) 7.3 % (0.0-4.0) H 06/30/17 08:08 Baso % (Auto) 0.7 % (0.0-2.0) 06/30/17 08:08 Neut # 6.4 K/uL (1.8-7.0) 06/30/17 08:08 Lymph # 1.7 K/uL (1.0-4.3) 06/30/17 08:08 [place] # 0.6 K/uL (0.0-0.8) 06/30/17 08:08 Eos # 0.7 K/uL (0.0-0.7) 06/30/17 08:08 Baso # 0.1 K/uL (0.0-0.2) 06/30/17 08:08 Neutrophils % (Manual) 89 % (50-75) H 06/23/17 08:15 Band Neutrophils % 3 % (0-2) H 06/23/17 08:15 Lymphocytes % (Manual) 6 % (20-40) L 06/23/17 08:15 Monocytes % (Manual) 2 % (0-10) 06/23/17 08:15 Platelet Estimate Normal (NORMAL) 06/23/17 08:15 PT 10.5 SECONDS (9.7-12.2) 06/21/17 12:35 INR 0.9 06/21/17 12:35 APTT 32 SECONDS (21-34) 06/21/17 12:35 Sodium 138 mmol/L (132-148) 06/30/17 08:08 Potassium 4.1 mmol/L (3.6-5.2) 06/30/17 08:08 Chloride 111 mmol/L (98-107) H 06/30/17 08:08 Carbon Dioxide 21 mmol/L (22-30) L 06/30/17 08:08 Anion Gap 10 (10-20) 06/30/17 08:08 BUN 29 mg/dL (9-20) H 06/30/17 08:08 Creatinine 1.7 mg/dL (0.8-1.5) H 06/30/17 08:08 Est GFR ( Amer) 50 06/30/17 08:08 Est GFR (Non-Af Amer) 42 06/30/17 08:08 POC Glucose (mg/dL) 200 mg/dL (65-110) H 06/30/17 11:31 Random Glucose 73 mg/dL (75-110) L 06/30/17 08:08 Hemoglobin A1c 8.6 % (4.2-6.5) H 06/22/17 06:51 Calcium 7.3 mg/dl (8.6-10.4) L 06/30/17 08:08 Phosphorus 5.0 mg/dL (2.5-4.5) H 06/26/17 06:12 Magnesium 1.9 mg/dL (1.6-2.3) 06/26/17 06:12 Total Bilirubin 0.4 mg/dL (0.2-1.3) 06/30/17 08:08 AST 30 U/L (17-59) 06/30/17 08:08 ALT 63 U/L (21-72) 06/30/17 08:08 Alkaline Phosphatase 78 U/L (38-126) 06/30/17 08:08 Total Creatine Kinase 678 U/L (55-170) H 06/22/17 03:01 CK-MB (Mass) 7.47 ng/mL (0.0-3.38) H 06/22/17 03:01 Troponin I 0.0170 ng/mL (0.00-0.120) 06/21/17 12:35 Troponin I, Quant < 0.0120 ng/mL (0.00-0.120) 06/22/17 03:01 NT-Pro-B Natriuret Pep 5390 pg/mL (0-900) H 06/23/17 09:54 Total Protein 5.1 g/dL (6.3-8.3) L 06/30/17 08:08 Total Protein (PEP) 4.6 g/dL (6.1-8.1) L 06/28/17 06:47 Albumin 2.5 g/dL (3.5-5.0) L 06/30/17 08:08 Globulin 2.6 gm/dL (2.2-3.9) 06/30/17 08:08 Albumin/Globulin Ratio 1.0 (1.0-2.1) 06/30/17 08:08 Triglycerides 79 mg/dL (0-149) 06/23/17 08:15 Cholesterol 163 mg/dL (0-199) 06/23/17 08:15 LDL Cholesterol Direct 107 mg/dL (0-129) 06/23/17 08:15 HDL Cholesterol 43 mg/dL (30-70) 06/23/17 08:15 Free PSA 0.3 ng/mL 06/28/17 06:47 % Free PSA 43 Percent (>25) 06/28/17 06:47 Total PSA 0.7 ng/mL (<=4.0) 06/28/17 06:47 Prostate Cancer Risk 1 Percent 06/28/17 06:47 Urine Color Straw (YELLOW) 06/21/17 15:10 Urine Clarity Clear (Clear) 06/21/17 15:10 Urine pH 5.0 (5.0-8.0) 06/21/17 15:10 Ur Specific [place] 1.009 (1.003-1.030) 06/21/17 15:10 Urine Protein 3+ mg/dL (NEGATIVE) H 06/21/17 15:10 Urine Glucose (UA) 1+ mg/dL (Normal) H 06/21/17 15:10 Urine Ketones Negative mg/dL (NEGATIVE) 06/21/17 15:10 Urine Blood Trace (NEGATIVE) H 06/21/17 15:10 Urine Nitrate Negative (NEGATIVE) 06/21/17 15:10 Urine Bilirubin Negative (NEGATIVE) 06/21/17 15:10 Urine Urobilinogen Normal mg/dL (0.2-1.0) 06/21/17 15:10 Ur Leukocyte Esterase Neg Lorelei/uL (Negative) 06/21/17 15:10 Urine WBC (Auto) 1 /hpf (0-5) 06/21/17 15:10 Urine RBC (Auto) 2 /hpf (0-3) 06/21/17 15:10 Ur Squamous Epith Cells < 1 /hpf (0-5) 06/21/17 15:10 Urine Collection Time 24 HRS 06/23/17 17:37 Urine Total Volume 1550 mL 06/23/17 17:37 Ur Protein 24 Hr Calc 9160.5 mg/24hr (42-225) H 06/23/17 17:37 YEIMI 6 Profile Negative (NEGATIVE) 06/23/17 08:15 ANCA Screen Negative (NEGATIVE) 06/23/17 08:15 c-ANCA Titer TNP 06/23/17 08:15 Proteinase 3 (PR3) <1.0 AI (<1.0) 06/23/17 08:15 p-ANCA Titer TNP 06/23/17 08:15 Atypical p-ANCA Titer TNP 06/23/17 08:15 Myeloperoxidase Ab <1.0 AI (<1.0) 06/23/17 08:15 Hep Bs Antigen Negative (NEGATIVE) 06/23/17 08:15 Hepatitis C Antibody Negative (NEGATIVE) 06/23/17 08:15 HIV 1&2 Antibody Screen Negative (NEGATIVE) 06/28/17 11:34 - Hospital Course Hospital Course: History of Present Illness: CC: "My legs have been swollen for one week" HPI: Patient is a Guatemalan speaking 56 year old male with PMHx of CHF, COPD, nephrotic syndrome, DM type 2, diabetic neuropathy and Hepatitis C presenting with swollen legs and scrotum and SOB x 2 weeks. Patient says he has had these same symptoms twice this past year for which has been admitted. Patient says this time is not as bad but he does not want it to get worse. Patient reports "water" leaking out of legs intermittently. Patient says he uses 1 pillow at night and can walk 2 blocks without getting short of breath. Patient says neither of these have changed in number in the past few months. Patient reports waking up from SOB frequently over the pas week and feeling better when he sits up. Of note, patient ran out of Lasix 2 days ago. He says he only takes it when he feels he needs it. Patient denies fever, chills, chest pain, cough, abdominal pain, nausea, vomiting, diarrhea, constipation. PMD: Dr. Howard PMHx: as above PSH: none Famhx: none known to patient Social: tobacco: 7 cigarettes per day for 43 years, former heavy drinker (last drink 1 year ago), denies illicit drug use HOSPITAL COURSE: This is a patient who's main diagnosis was nephrotic syndrome. He has stage 3 chronic kidney disease. Nephrology, Dr Luke, was consulted. It was debated whether his kidney problems are due to diabetic nephropathy (most likely) or another etiology (Hep C induced, as patient has a history of Hep C). Thus imaging and tests were ordered to discover the etiology. Eventually a ultrasound guided left renal biopsy was done on 06/28, we are awaiting the pathology results. A renal ultrasound was done on 06/22 with the following results: "1. Increased echogenicity of the bilateral renal parenchymal cortices suggestive for medical renal disease. 2. Complex left renal cyst as described above. 3. Simple right renal cysts as described above. 4. Punctate echogenic foci in the renal pelvi bilaterally which may represent calculi. 5. Mild fullness of the bilateral renal collecting systems". He was given phoslo 667mg PO TID. Lasix and Lisinopril were held due to rising Cr on this admission. I've included the lab tests (even negative results) for completeness sake: UA 06/21: 3+ protein, 1+ glucose total protein, 24 hour urine 06/23: 9160 (high) lipid panel 06/23: WNL Anti nuclear Ab negative Albumin on admission 2.7 BUN/Cr on admission: 31/08.3 Dietitian referral for low albumin ANCA scr w/mpo/pr3, w/reflx negative F/U Protein electrophoresis (still not back at time of discharge) HIV screening test negative He was also diagnosed with Diastolic CHF exacerbation (or at the least, there was a component of this in his presentation). Cardiology was consulted, Dr Delgadillo. BNP 06/21/17 9170 from 3670 on 04/30/17. Troponin negative x 3. Chronically elevated CK-MB and Total Creatine Kinase. EKG NSR. An ECHO was done on 06/28 and showed mild concentric left ventricular hypertrophy, mildly impaired systolic function, abnormal relaxation pattern, mild left ventricular diastolic dysfunction, mild aortic regurgitation, mild mitral regurgitation, moderate pulmonary hypertension, and LVEF of 45%. His daily weights, Is and Os were monitored and he was restricted to 1500ml of fluid. Coreg 6.25mg PO BID and Imdur 30mg PO QD were given. Lasix and Lisinopril were held due to rising Cr on this admission. CT Chest 06/22: IMPRESSION: 1. Persistent, stable nodular infiltrates affect the upper lobes predominantly at this time with interval improvement in the superior segment of bilateral lower lobes. Mild mediastinal lymphadenopathy again evident. Consider infectious or inflammatory process. Granulomatous disease is not considered high on the differential diagnosis list due to lack of more prominent lymphadenopathy but is clearly not excluded completely. 2. Trace bilateral pleural effusions identified in the interval. 3. Anasarca. (see full report). CXR 06/21: Persistant ill-defined consolidative and mass-like opacities re- identified within right upper to mid lung zones as well as left upper to mid lung zones. Additional scattered nodular densities. Mild cardiomegaly (please see full report) DMII: HgbA1C 06/22/17: 8.6. Continued home med Levemir 15u SC HS (changed from home dose 25mg due to episodes of hypoglycemia). Levemir 10u SC ACB. Continued home med rosuvastatin 5mg PO HS. Held Janumet 50/1000mg PO BID and glimeperide 4mg PO daily. RISS and accuchecks. Gabapentin 600mg PO TID for diabetic neuropathy. Calf tenderness: LE venous b/l dopplers 06/22/17: no evidence of deep or superficial vein thrombosis of right OR left lower extremity. Valvular incompetence noted of right popliteal vein. Valvular incompetence noted of left great saphenous vein. COPD: Possible exacerbation. Pulmonolgy consult, Dr Maddox. Duonebs 3ml INH RQ6 ELE. Testicular swelling: Urology was consulted, Dr Kelsey. Per Dr Kelsey note: Treat CHF, no further therapy at this time. PSA values normal. HTN: Uncontrolled, patient not compliant with meds. Held home med Lisinopril 5mg PO daily. Continued home med Coreg 6.25mg PO BID. Hydralazine 50mg PO TID ( changed from home dose of Hydralazine 25mg PO QID). Discontinued home med Norvasc 10mg PO daily due to recommendation by Nephrology Hep C History: Antibody positive on prior admission, Hep C viral load indetectable on prior admission. This admission: hep B surface Ag negative, hep B Ab negative, LFTs WNL. History of positive QFT: Positive on March 07, 2017. AFB negative x 3 March 06, 2017. Discharge Exam - Head Exam Head Exam: ATRAUMATIC, NORMAL INSPECTION - Additional Findings Additional findings: - Constitutional Appears: Non-toxic, No Acute Distress - Head Exam Head Exam: NORMAL INSPECTION - Eye Exam Eye Exam: EOMI - ENT Exam ENT Exam: Mucous Membranes Moist - Respiratory Exam Respiratory Exam: Clear to Auscultation Bilateral, NORMAL BREATHING PATTERN. absent: Rales, Rhonchi, Wheezes - Cardiovascular Exam Cardiovascular Exam: REGULAR RHYTHM, JVD, +S1, +S2. absent: Gallop, Rubs, Systolic Murmur - GI/Abdominal Exam GI & Abdominal Exam: Normal Bowel Sounds, Soft. absent: Organomegaly, Tenderness - Exam Exam: Scrotal Swelling. absent: Testicular Tenderness - Extremities Exam Extremities exam: Positive for: calf tenderness, normal capillary refill, pedal edema (2+ pitting edema with erythema), tenderness - Neurological Exam Neurological exam: Alert, Oriented x3 - Psychiatric Exam Psychiatric exam: Normal Affect, Normal Mood - Skin Skin Exam: Normal Color, Warm Additional comments: erythema and thickened hard skin in lower extremities bilaterally up to mid-bob Discharge Plan - Discharge Medications Prescriptions: Bumetanide [Bumex] 1 mg PO DAILY 30 Days #30 tab Carvedilol [Coreg] 6.25 mg PO BID #60 tab Gabapentin [Neurontin] 600 mg PO TID 30 Days #90 tab hydrALAZINE [Apresoline] 25 mg PO QID #120 tab Isosorbide Mononitrate [Imdur] 30 mg PO DAILY #30 tab Lisinopril [Zestril] 5 mg PO DAILY #30 tab Simvastatin 10 mg PO DAILY 30 Days #30 tablet Sitagliptin Phos/Metformin HCl [Janumet 50-1,000 mg Tablet] 1 each PO BID #60 tablet - Follow Up Plan Condition: FAIR Disposition: HOME/ ROUTINE Additional Instructions: Patient is medically stable for discharge. Patient will be discharged with scripts for the following medications which he should take as instructed: Carvedilol 6.25mg PO BID Gabapentin 600mg PO TID Hydralazine 25mg PO QID Isosorbide Mononitrate 30mg PO QD Norvasc 5mg PO QD Bumex 1mg PO QD Simvastatin 10mg PO QD Janumet 50-1000mg PO BID Patient will need to follow-up with [facility] in 2 weeks to review the results of his Kidney Biopsy. Upon his visit to [facility], the patient will need to be referred to a devulcanizer head regarding his nephrotic syndrome. If symptoms return or worsen, patient should return to the ER. <Santy Pabon - Last Filed: 06/30/17 17:11> Provider - Provider Date of Admission: 06/21/17 13:52 Attending physician: Ladi Vazquez MD Hospital Course - Lab Results Lab Results: Most Recent Lab Values WBC 9.5 K/uL (4.8-10.8) 06/30/17 08:08 RBC 3.10 Mil/uL (4.40-5.90) L 06/30/17 08:08 Hgb 9.1 g/dL (12.0-18.0) L 06/30/17 08:08 Hct 27.4 % (35.0-51.0) L 06/30/17 08:08 MCV 88.4 fL (80.0-94.0) 06/30/17 08:08 MCH 29.3 pg (27.0-31.0) 06/30/17 08:08 MCHC 33.2 g/dL (33.0-37.0) 06/30/17 08:08 RDW 15.7 % (11.5-14.5) H 06/30/17 08:08 Plt Count 232 K/uL (130-400) 06/30/17 08:08 MPV 9.6 fL (7.2-11.7) 06/30/17 08:08 Neut % (Auto) 67.4 % (50.0-75.0) 06/30/17 08:08 Lymph % (Auto) 18.0 % (20.0-40.0) L 06/30/17 08:08 [place] % (Auto) 6.6 % (0.0-10.0) 06/30/17 08:08 Eos % (Auto) 7.3 % (0.0-4.0) H 06/30/17 08:08 Baso % (Auto) 0.7 % (0.0-2.0) 06/30/17 08:08 Neut # 6.4 K/uL (1.8-7.0) 06/30/17 08:08 Lymph # 1.7 K/uL (1.0-4.3) 06/30/17 08:08 [place] # 0.6 K/uL (0.0-0.8) 06/30/17 08:08 Eos # 0.7 K/uL (0.0-0.7) 06/30/17 08:08 Baso # 0.1 K/uL (0.0-0.2) 06/30/17 08:08 Neutrophils % (Manual) 89 % (50-75) H 06/23/17 08:15 Band Neutrophils % 3 % (0-2) H 06/23/17 08:15 Lymphocytes % (Manual) 6 % (20-40) L 06/23/17 08:15 Monocytes % (Manual) 2 % (0-10) 06/23/17 08:15 Platelet Estimate Normal (NORMAL) 06/23/17 08:15 PT 10.5 SECONDS (9.7-12.2) 06/21/17 12:35 INR 0.9 06/21/17 12:35 APTT 32 SECONDS (21-34) 06/21/17 12:35 Sodium 138 mmol/L (132-148) 06/30/17 08:08 Potassium 4.1 mmol/L (3.6-5.2) 06/30/17 08:08 Chloride 111 mmol/L (98-107) H 06/30/17 08:08 Carbon Dioxide 21 mmol/L (22-30) L 06/30/17 08:08 Anion Gap 10 (10-20) 06/30/17 08:08 BUN 29 mg/dL (9-20) H 06/30/17 08:08 Creatinine 1.7 mg/dL (0.8-1.5) H 06/30/17 08:08 Est GFR ( Amer) 50 06/30/17 08:08 Est GFR (Non-Af Amer) 42 06/30/17 08:08 POC Glucose (mg/dL) 302 mg/dL (65-110) H 06/30/17 16:33 Random Glucose 73 mg/dL (75-110) L 06/30/17 08:08 Hemoglobin A1c 8.6 % (4.2-6.5) H 06/22/17 06:51 Calcium 7.3 mg/dl (8.6-10.4) L 06/30/17 08:08 Phosphorus 5.0 mg/dL (2.5-4.5) H 06/26/17 06:12 Magnesium 1.9 mg/dL (1.6-2.3) 06/26/17 06:12 Total Bilirubin 0.4 mg/dL (0.2-1.3) 06/30/17 08:08 AST 30 U/L (17-59) 06/30/17 08:08 ALT 63 U/L (21-72) 06/30/17 08:08 Alkaline Phosphatase 78 U/L (38-126) 06/30/17 08:08 Total Creatine Kinase 678 U/L (55-170) H 06/22/17 03:01 CK-MB (Mass) 7.47 ng/mL (0.0-3.38) H 06/22/17 03:01 Troponin I 0.0170 ng/mL (0.00-0.120) 06/21/17 12:35 Troponin I, Quant < 0.0120 ng/mL (0.00-0.120) 06/22/17 03:01 NT-Pro-B Natriuret Pep 5390 pg/mL (0-900) H 06/23/17 09:54 Total Protein 5.1 g/dL (6.3-8.3) L 06/30/17 08:08 Total Protein (PEP) 4.6 g/dL (6.1-8.1) L 06/28/17 06:47 Albumin 2.5 g/dL (3.5-5.0) L 06/30/17 08:08 Globulin 2.6 gm/dL (2.2-3.9) 06/30/17 08:08 Albumin/Globulin Ratio 1.0 (1.0-2.1) 06/30/17 08:08 Triglycerides 79 mg/dL (0-149) 06/23/17 08:15 Cholesterol 163 mg/dL (0-199) 06/23/17 08:15 LDL Cholesterol Direct 107 mg/dL (0-129) 06/23/17 08:15 HDL Cholesterol 43 mg/dL (30-70) 06/23/17 08:15 Free PSA 0.3 ng/mL 06/28/17 06:47 % Free PSA 43 Percent (>25) 06/28/17 06:47 Total PSA 0.7 ng/mL (<=4.0) 06/28/17 06:47 Prostate Cancer Risk 1 Percent 06/28/17 06:47 Urine Color Straw (YELLOW) 06/21/17 15:10 Urine Clarity Clear (Clear) 06/21/17 15:10 Urine pH 5.0 (5.0-8.0) 06/21/17 15:10 Ur Specific [place] 1.009 (1.003-1.030) 06/21/17 15:10 Urine Protein 3+ mg/dL (NEGATIVE) H 06/21/17 15:10 Urine Glucose (UA) 1+ mg/dL (Normal) H 06/21/17 15:10 Urine Ketones Negative mg/dL (NEGATIVE) 06/21/17 15:10 Urine Blood Trace (NEGATIVE) H 06/21/17 15:10 Urine Nitrate Negative (NEGATIVE) 06/21/17 15:10 Urine Bilirubin Negative (NEGATIVE) 06/21/17 15:10 Urine Urobilinogen Normal mg/dL (0.2-1.0) 06/21/17 15:10 Ur Leukocyte Esterase Neg Lorelei/uL (Negative) 06/21/17 15:10 Urine WBC (Auto) 1 /hpf (0-5) 06/21/17 15:10 Urine RBC (Auto) 2 /hpf (0-3) 06/21/17 15:10 Ur Squamous Epith Cells < 1 /hpf (0-5) 06/21/17 15:10 Urine Collection Time 24 HRS 06/23/17 17:37 Urine Total Volume 1550 mL 06/23/17 17:37 Ur Protein 24 Hr Calc 9160.5 mg/24hr (42-225) H 06/23/17 17:37 YEIMI 6 Profile Negative (NEGATIVE) 06/23/17 08:15 ANCA Screen Negative (NEGATIVE) 06/23/17 08:15 c-ANCA Titer TNP 06/23/17 08:15 Proteinase 3 (PR3) <1.0 AI (<1.0) 06/23/17 08:15 p-ANCA Titer TNP 06/23/17 08:15 Atypical p-ANCA Titer TNP 06/23/17 08:15 Myeloperoxidase Ab <1.0 AI (<1.0) 06/23/17 08:15 Hep Bs Antigen Negative (NEGATIVE) 06/23/17 08:15 Hepatitis C Antibody Negative (NEGATIVE) 06/23/17 08:15 HIV 1&2 Antibody Screen Negative (NEGATIVE) 06/28/17 11:34 Attending/Attestation - Attestation I have personally seen and examined this patient.: Yes I have fully participated in the care of the patient.: Yes I have reviewed all pertinent clinical information, including history, physical exam and plan: Yes Notes (Text): Medical attending: Patient was seen and examined by me, agree with the above note by medical illustrator. The patient was able to ambulate outside of his bed. He did not have any acute concerns at this time. He slept okay. He explained that he still had a lot of lower extremity edema and he was looking forward to restarting his diarrhetic. He asked to be tried on something else instead of the Lasix that he was previously on and so were try him on once a day Bumex to see how he does with this Thank you very much, Santy Pabon
[2017-06-30 20:08] LABS: BETA 1 GLOBULIN 0.3 g/dL (0.4-0.6); BETA 2 GLOBULIN 0.4 g/dL (0.2-0.5); GAMMA GLOBULIN 0.7 g/dL (0.8-1.7)
--- NOTE | 2017-07-03 08:36 | US ---
PROCEDURE: ULTRASOUND-GUIDED RENAL BIOPSY CLINICAL HISTORY: 56-year-old male with proteinuria is referred to Interventional Radiology for ultrasound-guided renal biopsy. COMPARISON: Renal ultrasound dated 06/22/2017. PROCEDURE: 1. Ultrasound-guided renal biopsy. PRE-PROCEDURE FINDINGS: 1. Increased echogenicity without nephrolithiasis, hydronephrosis or contour deforming masses. POST-PROCEDURE FINDINGS: 1. No evidence of post-procedural complication. INTERVENTIONAL RADIOLOGIST: Armando Mary M.D. (the attending was present for the entire procedure.) ANESTHESIA: Provided by the attending anesthesiologist. Sedation was supervised by the anesthesiology attending with the presence of independent radiology nursing monitoring. Physiological data monitoring was performed throughout the entire procedure. The patient's blood pressure, EKG and pulse oximetry were recorded. The patient tolerated the procedure and sedation without untoward reactions. The intra-procedural sedation time was 25 minutes. MEDICATION: Lidocaine 1% for local subcutaneous analgesia. COMPLICATIONS: None. PROCEDURE DESCRIPTION AND FINDINGS: The risks, benefits, alternatives and possible complications of the procedure were fully discussed; all questions were answered and informed consent was obtained. The patient was brought into the interventional suite and a pre-procedure 'time-out' was performed. The patient was placed on the ultrasound table in the prone position. The left flank was prepped and draped in the usual sterile fashion. Maximum sterile barrier precautions were maintained throughout the entire procedure. Preliminary ultrasound images of the left kidney demonstrate increased echogenicity without nephrolithiasis, hydronephrosis or contour deforming masses. Following subcutaneous infiltration of lidocaine 1% for subcutaneous analgesia, under ultrasound guidance, a 17 gauge trocar needle was advanced into the lower pole of the left kidney with real-time visualization of needle entry. The ultrasound images were permanently recorded and submitted to the PACS. The inner stylet was carefully removed. An 18 gauge biopsy device was coaxially loaded into the introducer needle and under ultrasound guidance, a total of 3 core needle biopsies were obtained. The biopsy device and trocar needle were removed. Adequate hemostasis was achieved utilizing manual compression. A sterile adhesive dressing was applied over the puncture site. Post-procedure imaging demonstrated no complications. The patient tolerated the procedure well without immediate post-procedure complications and was transferred back to the floor in stable condition. IMPRESSION: SUCCESSFUL ULTRASOUND-GUIDED LEFT RENAL BIOPSY.
== END 2017-06-30 19:35 | disposition home or self-care (01) | DRG 544 ==
LOC: C.ER 11:45 → C.9E 13:52 → C.6T 14:51 → C.9E 15:50 → C.6T 16:56
PROVIDERS: ADMIT Internal Medicine; ATTEND Internal Medicine
PROC: 0TB13ZX Excision of Left Kidney, Percutaneous Approach, Diagnostic (ICD-10-PCS; principal; 2017-06-28 10:00)
DX: I13.0 Hypertensive heart and chronic kidney disease with heart failure and stage 1 through stage 4 chronic kidney disease, or unspecified chronic kidney disease (principal); I50.33 Acute on chronic diastolic (congestive) heart failure; N17.0 Acute kidney failure with tubular necrosis; I47.2 Ventricular tachycardia; E11.21 Type 2 diabetes mellitus with diabetic nephropathy; E11.40 Type 2 diabetes mellitus with diabetic neuropathy, unspecified; N18.3 Chronic kidney disease, stage 3 (moderate); N04.9 Nephrotic syndrome with unspecified morphologic changes; B19.20 Unspecified viral hepatitis C without hepatic coma; E11.22 Type 2 diabetes mellitus with diabetic chronic kidney disease; E11.649 Type 2 diabetes mellitus with hypoglycemia without coma; J44.9 Chronic obstructive pulmonary disease, unspecified; E11.65 Type 2 diabetes mellitus with hyperglycemia; D64.9 Anemia, unspecified; E78.00 Pure hypercholesterolemia, unspecified; F17.200 Nicotine dependence, unspecified, uncomplicated; I08.0 Rheumatic disorders of both mitral and aortic valves; I27.20 Pulmonary hypertension, unspecified; N14.1 Nephropathy induced by other drugs, medicaments and biological substances; T46.4X5A Adverse effect of angiotensin-converting-enzyme inhibitors, initial encounter; N28.1 Cyst of kidney, acquired; N43.3 Hydrocele, unspecified; Z79.4 Long term (current) use of insulin; Z79.82 Long term (current) use of aspirin; Z91.14 Patient's other noncompliance with medication regimen